=== PATIENT | female | born 1945 | race Caucasian/White ===

== ENCOUNTER → 2017-10-09 11:53 | Outpatient (CLI) | payer MEDICARE, OTHER, SELFPAY ==
--- NOTE | 2017-10-09 12:01 | BI_ITS ---
MAMMOGRAPHY - BILATERAL SCREENING REASON FOR EXAM: Female, 72 years old. Routine annual screening examination. PERTINENT HISTORY: Non-contributory. TECHNIQUE: Digital bilateral breast mariaelena (3D mammographic acquisition) in the CC and MLO projections. 2-D mediolateral oblique (MLO) and craniocaudad (CC) views of both breasts were obtained. CAD: Full Field Digital Mammography with Computer Added Detection was performed. COMPARISON: Comparison is made with prior study dated June 06, 2015 and May 23, 2014. FINDINGS: Breast Composition: There are scattered areas of fibroglandular density. There are no dominant masses or suspicious calcifications. Stable benign-appearing bilateral axillary lymph nodes. No other significant abnormalities are identified. There has been no significant change since the prior study. BI/SCREENING MAMM (CAD), BILAT IMPRESSION: Stable bilateral screening mammogram. Yearly follow-up mammogram recommended. (A) ASSESSMENT CATEGORY: BIRADS Category 2: Benign. A letter regarding these results will be sent to the patient by the facility within 30 days. Approximately 10% of breast cancers are not detected by mammography. A normal mammogram should not delay biopsy of a clinically suspicious abnormality. [id number] Electronically Signed: Ruiz Olson MD at 15:32 EDT Tel [phone], Service support ,
== END ==
PROVIDERS: Family Provider Family Medicine; PCP Family Medicine; Visit Provider Family Medicine
DX: Z12.31 Encounter for screening mammogram for malignant neoplasm of breast (principal)
CPT/HCPCS: 77063; 77067

== ENCOUNTER 2017-10-25 09:39 | Observation (INO) | payer MEDICARE, OTHER, SELFPAY ==
[2017-10-25 09:41] VITALS: BP 152/94; PULSE 80; RESP 14; TEMP 36.6; O2SAT 94; BMI 36.8
--- NOTE | 2017-10-25 09:44 | EKG12_ITS ---
Test Reason : CP Blood Pressure : / mmHG Vent. Rate : 085 BPM Atrial Rate : 085 BPM P-R Int : 146 ms QRS Dur : 088 ms QT Int : 390 ms P-R-T Axes : 033 032 056 degrees QTc Int : 464 ms Normal sinus rhythm Normal ECG Confirmed by MIKE CROWE, SPARKLE ([id number]), news videotape editor DANN LIZ ([id number]) on 10/27/2017 1:57:02 PM Referred By: JOSE ANGEL Confirmed By:SPARKLE MCKEON MD
--- NOTE | 2017-10-25 09:44 | RAD_ITS ---
STUDY: X-RAY CHEST REASON FOR EXAM: Female, 72 years old. Chest pain. TECHNIQUE: Single AP portable view of the chest. COMPARISON: 08/09/2008. FINDINGS: The lungs are clear and expanded. There is no demonstrated pleural abnormality. Normal size heart. Normal mediastinum and riki. Normal visualized pulmonary arteries. Normal visualized aortic arch and descending thoracic aorta. Thoracic spine is obscured. Normal visualized ribs, clavicles, and shoulders. There is no demonstrated abnormality of the visualized soft tissue structures of the upper abdomen. RAD/Chest 1 View (Portable) IMPRESSION: No active pulmonary disease. Electronically Signed: Oliver Robledo MD at 10:34 EDT Tel , Service support ,
--- NOTE | 2017-10-25 09:45 | ED.VISSUMM ---
- ER Visit Summary Date of Service: 10/25/17 Chief Complaint: Chest pain History of Present Illness: The patient is a 72 F presents to the emergency department with substernal chest pain. Patient was in her normal state of health. States she woke this morning feeling fine. She states she used her Advair inhaler. A few moments later, she began to have a very heavy substernal sensation. She describes it as a squeezing across her chest. She did feel mildly short of breath. She denies any nausea or diaphoresis. She states that she has never had pain like this before. She has no history of coronary vascular disease. She has had a remote stress test which was negative, but states was many years ago. There is a family history of cardiac disease. She does have remote history of smoking. She denies any current shortness of breath. The patient's pain was markedly improved with 2 sublingual nitro by squad. Physical Examination: Vital signs reviewed General: Well-nourished, well-developed Head: Normocephalic, atraumatic Eyes: Pupils equal and reactive, extraocular muscles intact Neck, supple, no lymphadenopathy Heart: Regular rate and rhythm Respiratory: No distress, clear bilaterally Abdomen: Soft, nontender, nondistended, no peritoneal signs Back: Nontender Extremities: Nontender, no edema, no cords Skin: Normal color no rash Neuro: Alert and oriented, no focal or lateralizing deficits Test Results: [] Emergency Department Course and Treatment: The patient did have marked improvement of her pain with sublingual nitro by squad. Nitropaste was applied to her chest. She remained pain-free. EKG does not show any acute ischemic change. Screening labs including cardiac enzymes are normal. Chest x-ray is obtained and is unremarkable. The patient has remained pain-free. However, given her age and risk factors along with significant family history I do feel that she would benefit from observation for cardiac rule out. Patient was discussed with the hospitalist and will be admitted to telemetry. Treatment Plan: [] Disposition: Admission Impression: 1. Chest pain This note was generated with [employer] dictation software. It may contain incorrect words, spelling, and punctuation that were not noted in review of the chart prior to signing ED Disposition - Plan for ED Patient: Chief Complaint: Chest Pain Referrals: Efren Cameron MD [Primary Care Provider] -
[2017-10-25 09:52] VITALS: O2SAT 96
[2017-10-25] MEDS: 0.9% Normal Saline 1,000 ML 150 ML IV (09:55)
[2017-10-25 09:56] VITALS: BP 152/76; PULSE 80
[2017-10-25] MEDS: Nitroglycerin Oint 1 INCH PACKET TRANSDERM. (09:56)
[2017-10-25 10:01] LABS: Absolute Lymphocyte Count 1.88 X10^3/ul (0.83-4.51); Absolute Neutrophil Count 3.7 X10^3/uL (2.0-7.7); Basophil# 0.04 X10^3/uL; Basophil% 0.6 % (0-1); Eosinophil# 0.27 X10^3/uL; Eosinophils% 4.1 % (0-5); Hematocrit 41.2 % (37-47); Hemoglobin 13.8 g/dl (12.0-15.0); Lymphocyte # 1.88 X10^3/ul (4.0); Lymphocyte % 28.8 % (19-41); Mean Corp Hgb Conc 33.5 g/gl (32-36); Mean Corpuscular Hgb 32.8 pg (27.0-32.0); Mean Corpuscular Volume 97.9 fL (81-99); Mean Platelet Vol. 8.8 fl (6.2-12.0); Monocyte# 0.62 X10^3/uL; Monocyte% 9.5 % (0-10); Neutrophil # 3.71 X10^3/uL (2.7-7.7); Neutrophil % 56.8 % (47-70); Platelet Count 228 K/mm3 (150-450); RBC Distribution Width CV 12.5 % (11.6-14.6); Red Blood Count 4.21 M/mm3 (4.2-5.4); White Blood Count 6.5 K/mm3 (4.4-11.0)
[2017-10-25 10:04] LABS: POSITIVE COUNT NO; POSITIVE DIFFERENTIAL NO; POSITIVE MORPHOLOGY NO
[2017-10-25 10:15] LABS: Anion Gap 7 (5-15); BUN 18 mg/dL (7-18); BUN/Creat Ratio 18.2 RATIO (10-20); Calcium,Total 8.9 mg/dL (8.5-10.1); Chloride 107 mmol/L (98-107); Creatinine, Serum 0.99 mg/dL (0.55-1.02); EST Glomerular Filtration Rate 59 mL/min (>60); Est Glom Filt Rate - Afr Amer 71 mL/min (>60); Estimated Creatinine Clearance 50.69 ml/min; Glucose 159 mg/dL (74-106); Sodium Level 140 mmol/L (136-145)
--- NOTE | 2017-10-25 10:16 | NURSING ---
NO LW OR POA
[2017-10-25 10:47] VITALS: BP 108/68; PULSE 72; RESP 16; O2SAT 95
--- NOTE | 2017-10-25 10:52 | NURSING ---
DR SUZETTE WALTER
--- NOTE | 2017-10-25 11:01 | NURSING ---
PCU OBS BERT BRADFORD
[2017-10-25 11:38] VITALS: BMI 35.6
[2017-10-25 11:46] VITALS: BMI 35.6
[2017-10-25 11:58] VITALS: BP 133/66; PULSE 60; PULSE 74; RESP 16; TEMP 36.4; O2SAT 97
[2017-10-25] MEDS: Acetaminophen 325 MG Tablet 650 MG PO (12:36)
[2017-10-25] MEDS: Gabapentin 100 MG Capsule PO (12:36)
[2017-10-25 13:29] VITALS: PULSE 77; RESP 18; O2SAT 95
[2017-10-25] MEDS: Albuterol 2.5 MG/3 ML VIAL.NEB. INHALATION (13:29)
--- NOTE | 2017-10-25 13:54 | HP.PCM_ITS ---
Problem List (1) GERD (gastroesophageal reflux disease) Status: Chronic (2) Seasonal asthma Status: Chronic (3) Chest pain Status: Acute (4) Hypertension Status: Chronic (5) Urinary incontinence Status: Chronic History of Present Illness Date of Admission: 10/25/17 Chief Complaint: Chest pain The patient is a 72 year old F who was in her normal state of health when she has developed midsternal chest pain that went to her back. Symptoms lasted about an hour and resolved when she was given nitroglycerin. Patient has had chest pain like this in the past due to an esophageal spasm. Patient had a workup in the emergency room and was unremarkable. I went to evaluate the patient after she was admitted to the floor and told her that due to the weekend that she would not be getting a stress test until this Friday. Patient stated that she would not stay around until then. She stated that she was told in the emergency room that she would be having a stress test tomorrow on the , which is a Friday. [] Past Medical History Past Medical History (Chronic Problems): Chronic Problems GERD (gastroesophageal reflux disease) (Chronic) Seasonal asthma (Chronic) Hypertension (Chronic) Urinary incontinence (Chronic) Allergies ceftriaxone sodium [From Rocephin] Allergy (Verified 10/25/17 09:44) Hives lorazepam [From Ativan] Adverse Reaction (Verified 10/25/17 09:44) Other SUICIDAL THOUGHTS Home Medications: Ambulatory Orders Medication Instructions Recorded Albuterol Inhaler [Ventolin Hfa] 1 - 2 puff INHALATION Q4H PRN PRN 02/18/14 Butalbital/Aspirin/Caffeine 1 - 2 each PO PRN PRN 02/18/14 [Fiorinal 50-325-40 mg Capsule] Duloxetine Hcl [Cymbalta] 60 mg PO DAILY 02/18/14 Gabapentin [Neurontin] 100 mg PO TIDCM 02/18/14 Lactobacillus Acidophilus 1 each PO DAILY 02/18/14 [Acidophilus] Losartan Potassium [Cozaar] 100 mg PO DAILY 02/18/14 Multivit-Min/FA/Lycopene/Lut 1 each PO DAILY 02/18/14 [Centrum Silver Tablet] Omeprazole [Prilosec] 40 mg PO DAILY 02/18/14 Trazodone HCl 100 mg PO QHS 02/18/14 Aspirin E.C. [Ecotrin] 81 mg PO DAILY@0800 tablet 10/25/17 Fluticasone/Salmeterol [Advair 1 puff PO DAILY 10/25/17 100-50 Diskus] Mirabegron [Myrbetriq] 50 mg PO DAILY 10/25/17 Oxybutynin 1 tab PO DAILY 10/25/17 Surgical History: - - Bladder stimulator for incontinence Psychiatric History: No pertinent psych hx Smoking Status: Former smoker Tobacco Use: Cigarettes - *Family History Maternal History Items: - - No heart disease Review of Systems Constitutional: Denies: Chills, Fever, Weight Change Eyes: Denies: Blurred vision, Double vision HEENT: Denies: Head Aches, Sinus Congestion, Sinus Drainage Cardiovascular: Reports: Chest Pain. Denies: Palpitations Respiratory: Denies: Cough, Shortness of breath at rest, Sputum production Gastrointestinal: Denies: Abdominal Pain, Nausea, Vomiting Genitourinary: Denies: Dysuria Musculoskeletal: Denies: Joint Pain, Joint Tenderness Skin: Denies: Rash, Wounds Neurological: Denies: Numbness, Tingling, Focal weakness Hematologic/ Lymphatic: Denies: Easy Bruising, Easy Bleeding, Hx of blood clot VTE Information - Inpt Only VTE Present on Admission: No VTE Pharm Prophylaxis ordered?: Yes Patient Problems: Active and Suspected Problems Chest pain (Acute) - Physical Exam General: Alert, Cooperative, No apparent distress HEENT: Atraumatic, Normocephalic Oral: Moist Mucosa, No Gingival or Mucosal Lesions/ Ulcerations Neck: No Nodes, Thyroid Normal Size and Texture Lungs: Clear to auscultation, Normal air movement, No rhonchi, No wheeze Cardiovascular: Regular rate, Regular Rhythm, Normal S1, Normal S2, No murmurs Abdomen: Bowel Sounds Present, Soft, Non Tender, Non-Distended, No Hepato- splenomegaly Extremities: No clubbing, No cyanosis, No edema, No Calf Tenderness Skin: No rashes, No breakdown Musculoskeletal: - - Minimally reproducible anterior chest wall tenderness. Psych/Mental Status: Normal Affect, Appropriate Vital Signs Temp Pulse Resp BP Pulse Ox 36.4 C L 60 16 133/66 H 97 10/25/17 11:58 10/25/17 11:58 10/25/17 11:58 10/25/17 11:58 10/25/17 11:58 Oxygen Delivery Method Room Air Weight: 103.2 kg Body Mass Index (BMI) 35.6 Laboratory Tests Past 24 Hrs 10/25/17 12:55 Troponin I < 0.02 Troponins were negative ?2 series. EKG was reviewed and showed normal sinus rhythm without any acute changes. Assessment/Plan Active and Suspected Problems Chest pain (Acute) 1. Chest pain: Atypical. Patient's calculated heart score is only 3. Patient requesting to go home which I feel is reasonable given that her story is really not convincing and she really has no family history and risk factor is really only her age and hypertension. Patient does have known history of reflux and has had an esophageal spasm before to which this is similar. I feel this is probably an esophageal spasm even though it was relieved with nitroglycerin. I feel it is reasonable for the patient get an outpatient stress test when that works for her. Patient advised if she does have any worsening of her symptoms or if anything changes to come back directly to the emergency room.
--- NOTE | 2017-10-25 13:54 | PCM.DC ---
- Discharge Diagnoses Current Active Problems: Current Active and Chronic Problems GERD (gastroesophageal reflux disease) (Chronic) Seasonal asthma (Chronic) Chest pain (Acute) Hypertension (Chronic) Urinary incontinence (Chronic) You will use the following diet at home:: No restrictions Your food should be the consistency of: Regular Discharge Activity: Return to Normal Activity Call your doctor if you observe: Fever of 101 or Higher, Shortness of breath, Chest pain Instructions: ED Chest Pain NonCardiac Allergies/Adverse Reactions: Allergies ceftriaxone sodium [From Rocephin] Allergy (Verified 10/25/17 09:44) Hives lorazepam [From Ativan] Adverse Reaction (Verified 10/25/17 09:44) Other SUICIDAL THOUGHTS Medications to take at Discharge Albuterol Inhaler [Ventolin Hfa] 1 - 2 puff INHALATION Q4H PRN PRN 02/18/14 Butalbital/Aspirin/Caffeine [Fiorinal 50-325-40 mg Capsule] 1 - 2 each PO PRN PRN 02/18/14 Duloxetine Hcl [Cymbalta] 60 mg PO DAILY 02/18/14 Gabapentin [Neurontin] 100 mg PO TIDCM 02/18/14 Lactobacillus Acidophilus [Acidophilus] 1 each PO DAILY 02/18/14 Losartan Potassium [Cozaar] 100 mg PO DAILY 02/18/14 Multivit-Min/FA/Lycopene/Lut [Centrum Silver Tablet] 1 each PO DAILY 02/18/14 Omeprazole [Prilosec] 40 mg PO DAILY 02/18/14 Trazodone HCl 100 mg PO QHS 02/18/14 Aspirin E.C. [Ecotrin] 81 mg PO DAILY@0800 tablet 10/25/17 Fluticasone/Salmeterol [Advair 100-50 Diskus] 1 puff PO DAILY 10/25/17 Mirabegron [Myrbetriq] 50 mg PO DAILY 10/25/17 Oxybutynin 1 tab PO DAILY 10/25/17 Orders to be completed after discharge: Stress Test Echo W/Contrast [ECHO] Location: None Selected Primary Care Physician: Efren Cameron MD [Primary Care Provider] - Within 2 Weeks Proposed Discharge Date: 10/25/17
--- NOTE | 2017-10-25 13:55 | PCM.DC.SUM ---
Discharge Date and Diagnosis - Problem List Patient Problems: Active and Suspected Problems Chest pain (Acute) Date of Admission: 10/25/17 Date of Discharge: 10/25/17 - Primary Discharge Diagnosis Active and Suspected Problems Chest pain (Acute) - Secondary Discharge Diagnosis Chronic Problems GERD (gastroesophageal reflux disease) (Chronic) Seasonal asthma (Chronic) Hypertension (Chronic) Urinary incontinence (Chronic) Hospital Course and Treatment Imaging Results: 10/26/17 05:55 Nuclear Stress Test - Chemical [NM] AM (NON MEDS) Operations: None Procedures: None Summary of Care Provided: The patient is a 72 year old F Brenda with chest pain. Patient's heart score was only 3 and her story was pretty unconvincing. Concerns for esophageal spasm. Patient stated that she is unable to stay until Friday because unfortunately not able to distress is on Friday. I feel that is reasonable given low heart score and atypical features. I will start patient take aspirin until her stress test is negative. Once that is been negative then she may discontinue the aspirin, heart rate is positive she will continue the aspirin follow-up cardiology. [] Discharge Diet: No Restrictions Discharge Activity: Return to Normal Activity Call your doctor if you observe: Fever of 101 or Higher, Shortness of breath, Chest pain Home Medications: Medications to take at Discharge Albuterol Inhaler [Ventolin Hfa] 1 - 2 puff INHALATION Q4H PRN PRN 02/18/14 Butalbital/Aspirin/Caffeine [Fiorinal 50-325-40 mg Capsule] 1 - 2 each PO PRN PRN 02/18/14 Duloxetine Hcl [Cymbalta] 60 mg PO DAILY 02/18/14 Gabapentin [Neurontin] 100 mg PO TIDCM 02/18/14 Lactobacillus Acidophilus [Acidophilus] 1 each PO DAILY 02/18/14 Losartan Potassium [Cozaar] 100 mg PO DAILY 02/18/14 Multivit-Min/FA/Lycopene/Lut [Centrum Silver Tablet] 1 each PO DAILY 02/18/14 Omeprazole [Prilosec] 40 mg PO DAILY 02/18/14 Trazodone HCl 100 mg PO QHS 02/18/14 Aspirin E.C. [Ecotrin] 81 mg PO DAILY@0800 tablet 10/25/17 Fluticasone/Salmeterol [Advair 100-50 Diskus] 1 puff PO DAILY 10/25/17 Mirabegron [Myrbetriq] 50 mg PO DAILY 10/25/17 Oxybutynin 1 tab PO DAILY 10/25/17 Other Amb Orders: Stress Test Echo W/Contrast [ECHO] Location: None Selected Primary Care Physician: Efren Cameron MD [Primary Care Provider] - Within 2 Weeks Patient Instructions: ED Chest Pain NonCardiac Minutes spent on discharge:: 28 Patient Condition:: Good Medical Necessity - Tobacco Use Smoking Status: Former smoker Tobacco Use: Cigarettes Meaningful Use Info Meaningful Use Diagnoses (Choose all that apply): None applicable Code Visit OBSV E&M: 17243 Initial observation care L2
== END 2017-10-25 15:02 | disposition home or self-care (01) ==
LOC: ED 11:07 → PCU 11:19
PROVIDERS: Emergency Provider Emergency Medicine; Family Provider Family Medicine; PCP Family Medicine
DX: R07.89 Other chest pain (principal); K21.9 Gastro-esophageal reflux disease without esophagitis; I10 Essential (primary) hypertension; R32 Unspecified urinary incontinence; J45.998 Other asthma; Z87.891 Personal history of nicotine dependence; Z79.899 Other long term (current) drug therapy; Z79.82 Long term (current) use of aspirin; J44.9 Chronic obstructive pulmonary disease, unspecified
CPT/HCPCS: 36415; 71045; 80048; 84484; 85025; 93005; 94640; 99218; 99284; J7030; A4216; G0378

== ENCOUNTER → 2017-11-06 06:22 | Outpatient (CLI) | payer MEDICARE, OTHER, SELFPAY ==
--- NOTE | 2017-11-06 17:06 | STRESSREP_ITS ---
Stress Test Report Date: 11/06/2017 Procedure: Pharmacologic stress nuclear imaging study Indications: Chest pain Consent: Per the patient Procedure: The patient underwent pharmacologic (Regadenoson) evaluation with a peak heart rate of 96 beats per minute (64 predicted maximal heart rate) and a peak blood pressure of 138/80 mmHg. The baseline ECG demonstrated normal sinus rhythm. The peak pharmacologic ECG demonstrated no obvious ECG changes. There were rare PVCs during pretest, pharmacologic infusion, and recovery. There was no complaint of chest discomfort during pharmacologic infusion or recovery. The examination was discontinued secondary to completion of protocol. Impression: 1. Pharmacologic (Regadenoson) evaluation 2. Peak pharmacologic ECG with no obvious ECG changes. 3. Rare PVCs during the test, pharmacologic infusion, and recovery 4. Nuclear images pending Myocardial perfusion imaging study: Technique: The patient was injected with 14.5 millicuries of technetium 99m Cardiolite and subsequently rest SPECT Cardiolite nuclear imaging was obtained in the horizontal long, vertical long, and short axis views. The patient underwent pharmacologic (Regadenoson) evaluation with a peak heart rate of 96 beats per minute (64 % percent predicted maximal heart rate) and a peak blood pressure of 138/80 mmHg. The patient was injected with 44.8 millicuries of technetium 99m Cardiolite and subsequently stress SPECT Cardiolite nuclear imaging was obtained in the horizontal long, vertical long, and short axis views. A gated Cardiolite study at peak stress was obtained. Interpretation: Rest and stress SPECT Cardiolite nuclear imaging status post realignment, normalization, and attenuation correction demonstrate relative uniform tracer uptake and myocardial perfusion appearing within normal limits. There is end systolic thickening and brightening. The gated Cardiolite study demonstrates myocardial thickening and inward wall motion. The reported LVEF is 74 %. Impression: 1. Rest and stress SPECT Cardiolite nuclear imaging demonstrate relative uniform tracer uptake and myocardial perfusion appearing within normal limits. 2. The gated Cardiolite study reports an LVEF of 74 %. This note was generated with [employer] software. It may contain incorrect words, spelling, and punctuation that were not noted in checking the note before signing.
== END ==
PROVIDERS: Family Provider Family Medicine; PCP Family Medicine; Visit Provider Physician Assistant
DX: R07.9 Chest pain, unspecified (principal)
CPT/HCPCS: 78452; 93017; A9500; A4216; J2785

== ENCOUNTER → 2017-11-18 15:57 | Outpatient (CLI) | payer MEDICARE, OTHER, SELFPAY | PROVIDERS: Family Provider Family Medicine; PCP Family Medicine; Visit Provider Otolaryngology Otolaryngology/Facial Plastic Surgery | DX: J32.9 Chronic sinusitis, unspecified (principal) | CPT/HCPCS: 87070; 87077; 87186; 87205 ==

== ENCOUNTER → 2017-11-27 11:08 | Outpatient (CLI) | payer MEDICARE, OTHER, SELFPAY ==
[2017-11-27 12:03] LABS: Potassium 4.4 mmol/L (3.5-5.1)
== END ==
PROVIDERS: Family Provider Family Medicine; PCP Family Medicine; Visit Provider Otolaryngology Otolaryngology/Facial Plastic Surgery
DX: Z79.899 Other long term (current) drug therapy (principal)
CPT/HCPCS: 36415; 84132

== ENCOUNTER → 2017-12-30 15:36 | Outpatient (CLI) | payer MEDICARE, OTHER, SELFPAY | PROVIDERS: Family Provider Family Medicine; PCP Family Medicine; Visit Provider Otolaryngology Otolaryngology/Facial Plastic Surgery | DX: J34.89 Other specified disorders of nose and nasal sinuses (principal) | CPT/HCPCS: 87070; 87205 ==

== ENCOUNTER → 2018-01-14 14:55 | Outpatient (CLI) | payer MEDICARE, OTHER, SELFPAY ==
--- NOTE | 2018-01-14 14:57 | CT_ITS ---
STUDY: CT MAXILLOFACIAL SINUSES REASON FOR EXAM: Female, 72 years old. Right maxillary pain after dental surgery in June. RADIATION DOSAGE (If Supplied By Facility): CTDIvol = ( 33.06 ) mGy, DLP = ( 763.6 ) mGycm TECHNIQUE: The patient was scanned in a multi detector CT scanner. High resolution axial imaging was performed without the administration of intravenous contrast material. Sagittal and coronal images were reconstructed. Individualized dose optimization techniques were used for this CT. COMPARISON: None. FINDINGS: FRONTAL SINUSES: Normal aeration, without mucosal inflammatory disease. ETHMOIDAL SINUSES: Status post partial ethmoidectomy with removal of the ethmoid meng of the inferior anterior ethmoid sinuses. There is a mild circumferential mucosal thickening in the surgical space. The remaining ethmoid sinuses are clear. MAXILLARY SINUSES: Polypoid mucosal thickening or retention cyst at the base of the right maxillary sinus with generalized mild to moderate circumferential thickening. There is a nasoantral window which is patent with a diameter of 5 mm. Also status post uncinectomy. On the left, there is a possible small retention cyst and moderate mucosal thickening at the base. There is a nasoantral window which is patent with a diameter of 9 mm. There is also uncinatectomy. SPHENOIDAL SINUSES: Normal aeration, without mucosal inflammatory disease. Status post partial left middle turbinectomy. Normal right middle turbinate. Slightly nodular mucosa of the bilateral inferior turbinates. Normal midline nasal septum. A dental bridge extends between the remaining molar and the canine tooth in the right maxilla. The teeth do not extend into the maxilla. There is no osteolytic or blastic bone change at this site. The visualized osseous structures are normal. Status post cataract surgery. CT/Sinus/Facial Bone IMPRESSION: Polypoid mucosal thickening and/or retention cyst at the base of the right maxillary sinus with generalized mild to moderate circumferential thickening status post nasoantral window and uncinectomy. The window is 5 mm in diameter and fully patent. Moderate mucosal thickening/possible small retention cyst at the base of the left maxillary sinus status post nasal antral window and uncinectomy and partial middle turbinectomy. The window is 9 mm in diameter and is fully patent. The patient is status post a partial anterior ethmoidectomy. There is a generalized mild mucosal thickening in the excavated area which is fully patent and communicates with the nasal cavity. Remaining ethmoid sinuses and sphenoid sinuses are normal. Normal right middle turbinate. Slightly nodular mucosa of the inferior turbinates. Right maxillary dental bridge between a remaining molar and the canine tooth without evidence of intrusion or osteolytic lesion of the maxilla. Electronically Signed: Melodie Tiwari MD at 16:24 EDT , Service support ,
== END ==
PROVIDERS: Family Provider Family Medicine; PCP Family Medicine; Visit Provider Otolaryngology Otolaryngology/Facial Plastic Surgery
DX: J32.9 Chronic sinusitis, unspecified (principal); Z98.818 Other dental procedure status
CPT/HCPCS: 70486

== ENCOUNTER → 2018-02-11 12:10 | Outpatient (CLI) | payer MEDICARE, OTHER, SELFPAY ==
--- NOTE | 2018-02-11 12:13 | CT_ITS ---
STUDY: CT LUMBAR SPINE WITHOUT CONTRAST REASON FOR EXAM: Female, 72 years old. DISC DEGENERATION, PATIENT STATES SHE INJURED HER BACK WHILE LIFTING SOMETHING HEAVY 40 YEARS AGO, HAS HAD BACK PAIN EVER SINCE THEN. RADIATION DOSAGE (If Supplied By Facility): CTDIvol = ( 30.00 ) mGy, DLP = ( 809.65 ) mGycm TECHNIQUE: The patient was scanned in a multi detector CT scanner. High resolution transaxial imaging was performed. Images were obtained from to . Sagittal and coronal images were reconstructed. Individualized dose optimization techniques were used for this CT. COMPARISON: None FINDINGS: Normal lumbar lordosis. There is no substantial scoliosis. Normal vertebrae of the lumbar spine. L1-2: Normal endplates. Normal disc height and morphology. Normal bilateral facet joints. Normal central canal and bilateral lateral recesses. Normal bilateral intervertebral neural foramina. L2-3: There is minimal disc space narrowing and endplate spondylosis. There is minimal disc osteophyte complex and facet hypertrophy without significant central canal or foraminal stenosis. L3-4: There is minimal disc space narrowing and endplate spondylosis. There is minimal disc osteophyte complex and facet hypertrophy without significant central canal or foraminal stenosis. L4-5: There is minimal disc space narrowing and endplate spondylosis. There is mild disc osteophyte complex and facet hypertrophy without significant central canal or foraminal stenosis. L5-S1: There is moderate disc space narrowing and endplate spondylosis. There is mild disc osteophyte complex and facet hypertrophy without significant central canal stenosis. There is mild bilateral foraminal stenosis. There is moderate aortoiliac atherosclerosis. CT/Spine Lumbar without Contrast IMPRESSION: Moderate degenerative changes at L5/S1. Electronically Signed: Caron Alcantar MD at 11:20 EDT Tel , Service support ,
== END ==
PROVIDERS: Family Provider Family Medicine; PCP Family Medicine; Visit Provider Orthopaedic Surgery
DX: M51.37 Other intervertebral disc degeneration, lumbosacral region (principal)
CPT/HCPCS: 72131

== ENCOUNTER → 2018-02-25 15:33 | Outpatient (CLI) | payer MEDICARE, OTHER, SELFPAY | PROVIDERS: Family Provider Family Medicine; PCP Family Medicine; Visit Provider Otolaryngology Otolaryngology/Facial Plastic Surgery | DX: J32.9 Chronic sinusitis, unspecified (principal) | CPT/HCPCS: 87070; 87205 ==

== ENCOUNTER → 2019-03-09 07:23 | Outpatient (CLI) | payer MEDICARE, BC, SELFPAY ==
[2019-02-03 09:22] VITALS: BMI 35.7
--- NOTE | 2019-03-10 10:01 | NEURO ---
NCS and/or EMG Patient Report Ordering Doctor: Herve Stanley DATE OF SERVICE: 03/09/19 This is a bilateral upper extremity nerve conduction study and a right upper extremity EMG performed on this 73-year-old female with pain in her hands and wrists for 1.5 years worse over the past 10 months. She reports a remote neck injury approximately 50 years ago. Bilateral upper extremity sensory and motor nerve conduction studies performed demonstrating moderate prolongation of the median motor distal latencies bilaterally somewhat worse on the right side, as well as prolongation of the median sensory latencies. The ulnar motor and sensory and radial sensory responses are normal. The median F waves are mildly prolonged, more so on the left side. Upper extremity needle electromyography is performed. Muscles evaluate include the abductor pollicis brevis, first dorsal osseous, brachioradialis, biceps, triceps and deltoid muscles. The abductor pollicis brevis did demonstrate mild increase in insertional activity and increased motor unit amplitude indicative of active denervation consistent with carpal tunnel syndrome at the wrist. All other muscles tested demonstrated normal insertional activity with absence of pathologic spontaneous activity. Motor unit potential recruitment pattern and amplitude was normal in all other muscles tested. Impression: Abnormal electrophysiologic study of the upper extremities consistent with bilateral carpal tunnel syndrome, moderate. There is no evidence of radiculopathy. Dictated using [email or web address] software, not proofread
== END ==
PROVIDERS: Family Provider Family Medicine; PCP Family Medicine; Referring Provider Orthopaedic Surgery; Visit Provider Orthopaedic Surgery
DX: M25.532 Pain in left wrist (principal); M25.531 Pain in right wrist; M79.642 Pain in left hand; M79.641 Pain in right hand
CPT/HCPCS: 95886; 95912

== ENCOUNTER → 2019-03-19 10:27 | Outpatient (CLI) | payer MEDICARE, BC, SELFPAY ==
[2019-02-03 09:22] VITALS: BMI 35.7
--- NOTE | 2019-03-19 10:30 | ECHOCS_ITS ---
Reason For Study: CAD Procedure This was a 2D Doppler, Color Flow transthoracic echocardiogram. The study was technically difficult. Contrast injection was performed. Exam performed in department. Left Ventricle Normal LV size. Left ventricular systolic function is normal. The estimated ejection fraction is 65 %. Transmitral doppler flow suggestive of impaired relaxation of left ventricle. No regional wall motion abnormalities noted. Right Ventricle Normal RV size. Normal systolic function. Atria Normal left atrium. Normal right atrium. Mitral Valve Normal mitral valve. Mild (1+) eccentric mitral valve insufficiency. Tricuspid Valve Normal tricuspid valve. Mild tricuspid valve insufficiency. Pulmonary artery systolic pressure is 26 mmHg. Aortic Valve The aortic valve is not well visualized. Great Vessels Normal aortic root. The pulmonary artery is normal size. Normal inferior vena cava. Pericardium/Pleural No pericardial effusion. Medication 22 gauge I.V. with prn adaptor inserted into right arm. Diluted definity 4.0ml given slow IV push to enhance endocardial definition. MMode/2D Measurements & Calculations LVIDd: 4.0 cm IVSd: 1.1 cm Ao root diam: 3.4 cm LVIDs: 2.5 cm LVPWd: 1.1 cm RVDd: 4.0 cm FS: 37.0 % LAV(MOD-bp): 48.5 ml LVAd ap4: 34.5 cm2 SV(MOD-sp4): 65.7 ml LAV(MOD-bp) Indexed: 22.4 ml/m2 EDV(MOD-sp4): 121.1 ml LAV(MOD-sp2): 54.5 ml EDV(sp4-el): 124.0 ml LAV(MOD-sp4): 43.0 ml LVAs ap4: 21.5 cm2 ESV(MOD-sp4): 55.4 ml ESV(sp4-el): 54.9 ml EF(MOD-sp4): 54.3 % EF(sp4-el): 55.7 % SV(sp4-el): 69.1 ml LA A4 area: 16.8 cm2 LA dimension(2D): 3.6 cm RA A4 area: 12.7 cm2 Time Measurements MV dec time: 0.29 sec Doppler Measurements & Calculations MV E max nikolay: 103.3 cm/sec Lat Peak E' Nikolay: 8.8 cm/sec Med Peak E' Nikolay: 7.0 cm/sec MV A max nikolay: 127.5 cm/sec E/E' lat: 11.8 E/E' med: 14.8 MV E/A: 0.81 Ao V2 max: 153.7 cm/sec LV V1 max: 123.9 cm/sec TR max nikolay: 235.3 cm/sec Ao max P.4 mmHg LV V1 max P.1 mmHg TR max P.2 mmHg Interpretation Summary Normal LV size. Left ventricular systolic function is normal. The estimated ejection fraction is 65 %. Mild (1+) eccentric mitral valve insufficiency. Contrast injection was performed. Ordering Physician: Philip Armendariz Referring Physician: ADALID LOPEZ Performed By: Christina Mcadams, RDCS, RVT
== END ==
PROVIDERS: Family Provider Family Medicine; PCP Family Medicine; Referring Provider Internal Medicine Cardiovascular Disease; Visit Provider Internal Medicine Cardiovascular Disease
DX: I10 Essential (primary) hypertension (principal); I25.10 Atherosclerotic heart disease of native coronary artery without angina pectoris
CPT/HCPCS: 93306; Q9957; A4216; C8929

== ENCOUNTER 2019-05-27 09:13 | Emergency (ER) | payer MEDICARE, BC, SELFPAY ==
[2019-02-03 09:22] VITALS: BMI 35.7
[2019-05-27 09:14] VITALS: BP 163/80; PULSE 103; RESP 18; TEMP 36.3; O2SAT 97; BMI 37.0
--- NOTE | 2019-05-27 09:32 | ED.VISSUMM ---
- ER Visit Summary Date of Service: 05/27/19 Chief Complaint: The patient and intermittent epigastric abdominal pain History of Present Illness: The patient is a 73 F history of reflux, hiatal hernia and hypertension. Patient had a prior appendectomy, cholecystectomy and total hysterectomy. She states that she been constipated for approximately a week. Took some MiraLAX and had minimal results. She denies any melena. She is had mild nausea but no vomiting. She is also for the last 2 months had some intermittent epigastric abdominal pain. No fever or chills. No melena. No dysuria, urgency or frequency. No chest pain or shortness of breath. Primary care physician sent her to the ER. Physical Examination: Older female no acute distress vital signs stable afebrile. HEENT exam unremarkable. Neck nontender. Lungs clear to auscultation bilaterally. Heart regular rhythm no murmur. Abdomen is soft nondistended normal bowel sounds really no peritoneal signs. She describes currently only mild to minimal epigastric discomfort but is not really reproducible. There is no pulsatile mass. The right upper right lower quadrant unremarkable. There is no hernias or masses. No signs of obstruction. Moves all 4 extremities. Calves nontender without edema. Neurologically she is awake and alert. Test Results: See normal. White count 6 hemoglobin 13. Electrolytes normal normal creatinine gap. Liver enzymes normal. Lipase normal. KUB shows increased stool and stool in the rectum. No obstruction. There is also a bladder stimulator seen. I went over all test results with patient. On repeat exam at 12:37 PM her abdomen is benign. Emergency Department Course and Treatment: Due to her intermittent epigastric pain which very well may be reflux or gastritis I am going screening labs. We will get a single view KUB for the possible constipation and treat that if seen. Treatment Plan: Double up on her reflux medication at home. Follow-up with your doctor if not improving. Magnesium citrate for constipation. Disposition: Discharge Impression: Constipation Epigastric abdominal pain of uncertain etiology This note was generated with [employer] dictation software. It may contain incorrect words, spelling, and punctuation that were not noted in review of the chart prior to signing ED Disposition - Plan for ED Patient: Referrals: Efren Cameron MD [Primary Care Provider] -
[2019-05-27 10:03] LABS: Absolute Lymphocyte Count 1.34 X10^3/uL (0.83-4.51); Absolute Neutrophil Count 4.3 X10^3/uL (2.0-7.7); Basophil# 0.04 X10^3/uL; Basophil% 0.6 % (0-1); Eosinophil# 0.14 X10^3/uL; Eosinophils% 2.2 % (0-5); Hematocrit 40.9 % (37-47); Hemoglobin 13.6 g/dL (12.0-15.0); Lymphocyte # 1.34 X10^3/ul (4.0); Lymphocyte % 21.2 % (19-41); Mean Corp Hgb Conc 33.3 g/dL (32-36); Mean Corpuscular Hgb 32.4 pg (27.0-32.0); Mean Corpuscular Volume 97.4 fL (81-99); Monocyte# 0.53 X10^3/uL; Monocyte% 8.4 % (0-10); NRBC Flagged by Analyzer 0 % (0-5); Neutrophil # 4.26 X10^3/uL (2.7-7.7); Neutrophil % 67.4 % (47-70); Platelet Count 200 K/mm3 (150-450); RBC Distribution Width CV 12.1 % (11.6-14.6); RBC Distribution Width SD 43.7 fl (35.1-43.9); White Blood Count 6.3 K/mm3 (4.4-11.0)
--- NOTE | 2019-05-27 10:10 | RAD_ITS ---
STUDY: X-RAY - ABDOMEN/PELVIS REASON FOR EXAM: Female, 73 years old. Constipation. Abdominal pain. History of bladder stimulator. TECHNIQUE: AP supine and upright views of the abdomen and pelvis. COMPARISON: None. FINDINGS: Normal visualized lung bases. There is a moderate amount of colonic fecal material. The visualized liver, spleen and kidneys are grossly normal in size and morphology. A right-sided bladder stimulator is seen. The electrode is in the mid pelvis. There are degenerative changes of the visualized lumbar spine. RAD/Abdomen Single View IMPRESSION: Moderate amount of fecal material is seen in the colon. Electronically Signed: Ruiz Olson, at 10:48 EST , Service support ,
[2019-05-27 10:16] LABS: AST(SGOT) 15 U/L (15-37); Alanine Aminotransfer ALT/SGPT 29 U/L (13-56); Albumin, Serum 3.6 g/dL (3.2-5.0); Alkaline Phosphatase 96 U/L (45-117); Anion Gap 7 (5-15); BUN 18 mg/dL (7-18); BUN/Creat Ratio 17.6 RATIO (10-20); Bilirubin, Direct 0.19 mg/dL (0.00-0.30); Calcium,Total 9.4 mg/dL (8.5-10.1); Chloride 108 mmol/L (98-107); Creatinine, Serum 1.02 mg/dL (0.55-1.02); EST Glomerular Filtration Rate 57 mL/min (>60); Est Glom Filt Rate - Afr Amer 68 mL/min (>60); Estimated Creatinine Clearance 48.48 ml/min; Globulin 3.7 g/dL (2.2-4.2); Glucose 153 mg/dL (74-106); Lipase 120 U/L (73-393); Potassium 4.1 mmol/L (3.5-5.1); Protein, Total 7.3 g/dL (6.4-8.2); Sodium Level 142 mmol/L (136-145)
--- NOTE | 2019-05-27 12:39 | ED.DEP ---
ED Disposition - Plan for ED Patient: Disposition: Home or Assisted Living Instructions: CONSTIPATION (Adult), ABDOMINAL PAIN, Unknown Cause, (Female) Referrals: Efren Cameron MD [Primary Care Provider] - 1 Week if not improving Additional Instructions: Use 1 entire bottle magnesium citrate at home. He should have a large bowel movement within 2 to 4 hours if not you can use a second bottle. All your labs were normal today. The epigastric abdominal pain is more than likely reflux or gastritis. Increase your reflux medication to either 2 pills once a day or 1 pill twice a day. Do this for a week if not improving follow-up with your doctor.
[2019-05-27] MEDS: Magnesium Citrate 300 ML PO (12:45)
[2019-05-27 12:46] VITALS: PULSE 81; RESP 20; O2SAT 98
--- NOTE | 2019-05-27 12:46 | ED.RN ---
THIS NURSE REVIEWED D/C INSTRUCTIONS WITH PT. PT VERBALIZED UNDERSTANDING OF INSTRUCTIONS. IV D/C. IV CATHETER INTACT. PT TOLERATED WELL. PT DENIES FURTHER NEEDS OR QUESTIONS AT THIS TIME.
== END 2019-05-27 12:47 | disposition home or self-care (01) ==
PROVIDERS: Emergency Provider Emergency Medicine; Family Provider Family Medicine; PCP Family Medicine
DX: K59.00 Constipation, unspecified (principal); R10.13 Epigastric pain; I10 Essential (primary) hypertension; K21.9 Gastro-esophageal reflux disease without esophagitis; Z90.49 Acquired absence of other specified parts of digestive tract
CPT/HCPCS: 74018; 80048; 80076; 83690; 85025; 99284; A4216

== ENCOUNTER 2019-11-19 05:54 | Day surgery (SDC) | payer MEDICARE, BC, SELFPAY ==
[2019-11-19 06:19] VITALS: BP 126/72; PULSE 91; RESP 15; TEMP 36.6; O2SAT 96; BMI 37.5
[2019-11-19] MEDS: Lactated Ringers 1,000 ML 100 ML IV (06:35)
[2019-11-19] MEDS: Ciprofloxacin 400 MG/200 ML BAG 200 MG IV (06:36)
--- NOTE | 2019-11-19 07:30 | HP.PCM_ITS ---
History of Present Illness Date of Admission: 11/19/19 Chief Complaint: InterStim device removal request by patient The patient is a 74 year old female with multiple medical problems who has a history of mixed urinary incontinence she is undergone several sling procedures and now she has severe urge incontinence she tried Botox with no success she tried medications with no success and had an InterStim implant a few years ago which is improved her bladder control but she still on medication. Recently she suffered a mini stroke and she saw neurologist who recommended that they get an MRI of the brain and spine however because the InterStim device is not MRI compatible she is not able to get her needed MRI and therefore we can remove the InterStim device so she can proceed with an MRI by her neurologist. Past Medical History Past Medical History (Chronic Problems): Chronic Problems (Last Reviewed 02/03/19 @ 11:[address] Philip Armendariz MD) Essential (primary) hypertension (Chronic) Medical History: Medical History (Last Reviewed 11/19/19 @ 07:[address] Scottie Guadarrama MD) Essential (primary) hypertension (Chronic) I10 GERD (gastroesophageal reflux disease) K21.9 Osteoarthritis M19.90 Seasonal asthma J45.998 Urinary incontinence R32 Allergies ceftriaxone sodium [From Rocephin] Allergy (Verified 11/19/19 06:17) Hives codeine Allergy (Verified 11/19/19 06:17) hives doxycycline Allergy (Verified 11/19/19 06:17) Hives lorazepam [From Ativan] Adverse Reaction (Verified 11/19/19 06:17) Other SUICIDAL THOUGHTS Home Medications: Ambulatory Orders Medication Instructions Recorded Albuterol Inhaler [Ventolin Hfa] 1 - 2 puff INHALATION Q4H PRN PRN 02/18/14 Butalbital/Aspirin/Caffeine 1 - 2 ea PO PRN PRN 02/18/14 [Fiorinal 50-325-40 mg Capsule] Gabapentin [Neurontin] 100 mg PO TIDCM PRN 02/18/14 Lactobacillus Acidophilus 1 ea PO DAILY 02/18/14 [Acidophilus] Trazodone HCl 100 mg PO QHS 02/18/14 Fluticasone/Salmeterol [Advair 1 puff PO DAILY PRN 10/25/17 100-50 Diskus] Mirabegron [Myrbetriq] 50 mg PO QODAY 10/25/17 alprazolam 0.5 mg tablet 0.5 mg PO PRN PRN 02/03/19 cyclobenzaprine 10 mg tablet 10 mg PO TID PRN 02/03/19 duloxetine 60 mg capsule,delayed 60 mg PO DAILY cap 02/03/19 release pantoprazole 40 mg tablet,delayed 40 mg PO DAILY #30 tab 02/03/19 release Absorbmax 1 cap PO BID 11/17/19 Aspirin [Aspir 81] 81 mg PO DAILY 11/17/19 Candesartan Cilexetil [Atacand] 16 mg PO DAILY 11/17/19 Folic Acid/Vit B Complex and C 400 mcg PO DAILY 11/17/19 [B-Complex with Vit C Caplet] Oxybutynin Chloride [Oxybutynin 15 mg PO QODAY 11/17/19 Chloride ER] Prevagen 1 cap PO DAILY 11/17/19 Pyridoxine HCl [Vitamin B-6] 100 mg PO DAILY 11/17/19 Trimethoprim [Trimpex] 100 mg PO QHS 11/17/19 Surgical History: Surgical History (Last Reviewed 02/03/19 @ 11:[address] Philip Armendariz MD) History of bladder surgery Z98.890 History of bladder suspension procedure Z98.890, Z87.448 History of hysterectomy Z90.710 History of inguinal hernia repair Z98.890, Z87.19 History of knee surgery Z98.890 bilateral History of left heart catheterization Onset Date: 2004 Z98.890 1998, 2004 Hx of cholecystectomy Z90.49 Surgical History: - - Bladder stimulator for incontinence Psychiatric History: No pertinent psych hx Smoking Status: Former smoker Tobacco Use: Non-smoker - *Family History Maternal Family History: Family History (Last Reviewed 02/03/19 @ 11:[address] Philip Armendariz MD) Sister Heart disease Diabetes Hypertension Father Diabetes Heart disease Mother Hypertension History Items: - - No heart disease Review of Systems Constitutional: Denies: Chills, Fever, Weight Change HEENT: Denies: Head Aches, Sinus Congestion, Sinus Drainage Cardiovascular: Denies: Chest Pain, Palpitations Respiratory: Denies: Cough, Shortness of breath at rest, Sputum production Gastrointestinal: Denies: Abdominal Pain, Nausea, Vomiting Genitourinary: Denies: Dysuria Musculoskeletal: Denies: Joint Pain, Joint Tenderness Skin: Denies: Rash, Wounds Neurological: Denies: Numbness, Tingling, Focal weakness Psychiatric: Denies: Anxiety, Depression, Homicidal Ideations, Suicidal Ideations Hematologic/ Lymphatic: Denies: Easy Bruising, Easy Bleeding VTE Information - Inpt Only VTE Present on Admission: No VTE Mechan Device Prophylaxis: SCD's - Physical Exam Vitals/I&O's: Vital Signs Temp Pulse Resp BP Pulse Ox 97.8 F 91 15 126/72 H 96 11/19/19 06:19 11/19/19 06:19 11/19/19 06:19 11/19/19 06:19 11/19/19 06:19 Oxygen Delivery Method Room Air Weight: 108.7 kg Body Mass Index (BMI) 37.5 General: Alert, Oriented x3, Cooperative HEENT: Atraumatic, PERRLA, EOMI, Normocephalic Neck: Supple, No JVD, Negative Carotid Bruits Lungs: Clear to auscultation, Normal air movement Cardiovascular: Regular rate, No murmurs Abdomen: Bowel Sounds Present, Soft, Non Tender Extremities: No edema, Capillary Refill Less than 3 Seconds Skin: No rashes, No breakdown Musculoskeletal: No Tenderness to Palpation of Joints or Extremities Neurological: Cranial nerves II-XII grossly intact Psych/Mental Status: Normal Affect, Appropriate Microbiology Past 72 Hours 11/18/19 11:23 Mucosa - Nasopharyngeal Coronavirus COVID-19 PCR - Preliminary Laboratory Results 11/18/19 11:23: COVID-19 (LORIE) Cancelled Current Medications Ciprofloxacin (Cipro) 400 mg in 200 mls @ 200 mls/hr IV PREOP ONE Stop: 11/19/19 07:59 Last Admin: 11/19/19 06:36 Dose: 200 mls/hr Documented by: Lactated Ringer's () 1,000 mls @ 100 mls/hr IV .Q10H FRANCESCO Last Admin: 11/19/19 06:35 Dose: 100 mls/hr Documented by: Assessment/Plan All Active Problems (Last Reviewed 02/03/19 @ 11:[address] Philip Armendariz MD) Chest pain (Resolved) Plan for removal of InterStim device. Essential Procedure Criteria Procedure Essential: Yes Criteria Note: On 09/21/2019 the [place] Department of Health ([facility]) Public Order signed by [facility] Director Davina Juárez M.D., regarding the Management of Non- Essential Surgeries and Procedures for the purpose of preserving Personal P rotective Equipment (PPE) and critical hospital capacity and resources within [place] went into effect as of 09/22/2019 at 5:00PM. According to the [facility] Public Order: This action will remain in full force and effect until the State of Emergency declared by the Governor no longer exists or the Director of the [facility] rescinds or modifies this Order.. This [facility] order stated all non-essential or elective surgeries and procedures that utilize PPE should be delayed unless there is undue risk to the current or future health of a patient. After reviewing the aforementioned [facility] Public Order and the patients clinical case, I have determined that the scheduled procedure meets the criteria to go forward. Risk to Patient if Procedure Delayed: Risk of rapidly worsening to severe sy mptoms if delayed
--- NOTE | 2019-11-19 07:32 | DCINST_ITS ---
Discharge Diet: Light diet - advance as tolerated Discharge Activity: Return to Normal Activity Call your doctor if your incision/area has: Continuous Slow Oozing, Sudden Increased Bleeding Cleanse incision/area with: Soap & Water Allergies/Adverse Reactions: Allergies ceftriaxone sodium [From Rocephin] Allergy (Verified 11/19/19 06:17) Hives codeine Allergy (Verified 11/19/19 06:17) hives doxycycline Allergy (Verified 11/19/19 06:17) Hives lorazepam [From Ativan] Adverse Reaction (Verified 11/19/19 06:17) Other SUICIDAL THOUGHTS Medications to take at Discharge Albuterol Inhaler [Ventolin Hfa] 1 - 2 puff INHALATION Q4H PRN PRN 02/18/14 Butalbital/Aspirin/Caffeine [Fiorinal 50-325-40 mg Capsule] 1 - 2 ea PO PRN PRN 02/18/14 Gabapentin [Neurontin] 100 mg PO TIDCM PRN 02/18/14 Lactobacillus Acidophilus [Acidophilus] 1 ea PO DAILY 02/18/14 Trazodone HCl 100 mg PO QHS 02/18/14 Fluticasone/Salmeterol [Advair 100-50 Diskus] 1 puff PO DAILY PRN 10/25/17 Mirabegron [Myrbetriq] 50 mg PO QODAY 10/25/17 alprazolam 0.5 mg tablet 0.5 mg PO PRN PRN 02/03/19 cyclobenzaprine 10 mg tablet 10 mg PO TID PRN 02/03/19 duloxetine 60 mg capsule,delayed release 60 mg PO DAILY cap 02/03/19 pantoprazole 40 mg tablet,delayed release 40 mg PO DAILY #30 tab 02/03/19 Absorbmax 1 cap PO BID 11/17/19 Aspirin [Aspir 81] 81 mg PO DAILY 11/17/19 Candesartan Cilexetil [Atacand] 16 mg PO DAILY 11/17/19 Folic Acid/Vit B Complex and C [B-Complex with Vit C Caplet] 400 mcg PO DAILY 11/17/19 Oxybutynin Chloride [Oxybutynin Chloride ER] 15 mg PO QODAY 11/17/19 Prevagen 1 cap PO DAILY 11/17/19 Pyridoxine HCl [Vitamin B-6] 100 mg PO DAILY 11/17/19 Trimethoprim [Trimpex] 100 mg PO QHS 11/17/19 Primary Care Physician: Efren Cameron MD [Primary Care Provider] - Test Results: Test results from this visit will be discussed in further detail at your follow- up appointment, if applicable. Please Follow Up With: Scottie Guadarrama MD When: call for post op appt next week.
--- NOTE | 2019-11-19 08:17 | PCM.OPRPT ---
Report of Operation Date of Procedure: 11/19/19 Pre-Operative Diagnosis: Nonworking InterStim implant Post-Operative Diagnosis: Same Surgery/Procedure Performed:: Removal of InterStim device stage I and II Description of Surgical Findings:: 74-year-old female who has had some neurological issues she is seeing a neurologist and is recommended an MRI of the spine. However she has a old InterStim device implanted that is not MRI compatible. She wants to have the implant removed so she can undergo an MRI the spine is told that this is necessary by her neurologist. She is hoping that the MRI the spine is going to help her medical conditions. So I agreed to proceed with removal of the InterStim device I did offer the option to implant an MRI compatible device but she does not want a replacement device at this point she also thinks that device is not working very well anyways. Patient was taken back to the operating room at the smooth induction of general anesthesia she was placed supine on the table and then she was placed in prone position facedown she underwent MAC local sedation. We brought in the C arm to identify the generator that was on the patient's right side and also the implant that was in the patient's left side. The implant on fluoroscopy appeared to be in the proper position slightly straighter than perfect but still was appeared to be in the S3 foramen was not did not look but dislodged her I did place the lead he can see the lead following all the way across the back and you can see the for leads in the proper position the S3 foramen on AP view of the pelvis. We then infiltrated above the generator with lidocaine and then we made an incision in the skin until we encountered the generator the generator was in a pseudo-sac, the pseudo-sac was opened up with sharp scissors the generator was then grabbed with a large Maddy clamp and pulled out through the small incision. We then placed a clamp on the tined lead and we cut the lead and remove the generator I then gently tugged on the lead to see where the implant was in the midline and he could see the small scar lateral to the midline and small tugging and could feel small tugging underneath the skin so then I infiltrated in the midline above the S3 foramen the entry point of the lead and infiltrated the skin and made a small 2 cm incision then using tugging technique and using a Maddy I was able to get underneath the tined lead in the midline after this was done then the lead was tunneled back to the original entry point. I then used sharp hemostat to then dissect the tined lead free all the way down to the insertion point of the S3 foramen the lead only very gentle traction was used to identify where the lead was was held in place with the tines. Used a hemostat to free the lead from the tines. Used a hemostat to freed up completely all the way circumferentially and then at that point the lead then became free and pulled out through the lead insertion site quite easily. I inspected the lead all 4 sites were intact the lead was completely intact except where was cut off and the generator. After confirming that the entire tined lead was removed the entire generator was moved and I irrigated both incisions copiously with sterile saline. I then closed the midline lead insertion site with to 3-0 Vicryl's imbricated fashion this approximated the skin nicely Steri-Strips and dressing was placed on this I then closed the generator pocket in 2 layers first layer was a 3-0 Vicryl and then the second layer was with a running 4-0 Monocryl stitch. Once the second site was closed then we place Steri-Strips and bandage on this site patient's anesthetic was reversed she was placed supine on the cart taken back to the PACU in stable condition and she will follow-up with me next week for checkup. Type of Anesthesia:: Local MAC - Admit VTE Documentation VTE Present on Admission: No VTE Mechan Device Prophylaxis: SCD's
[2019-11-19 08:25] VITALS: BP 107/64; BP 126/72; PULSE 83; RESP 16; TEMP 36.8; O2SAT 92
[2019-11-19 08:30] VITALS: BP 126/72; BP 97/52; PULSE 79; RESP 16; O2SAT 93
[2019-11-19 08:35] VITALS: BP 108/51; BP 126/72; PULSE 73; RESP 16; O2SAT 97
[2019-11-19 08:40] VITALS: BP 117/59; BP 126/72; PULSE 76; RESP 16; TEMP 36.4; O2SAT 92
[2019-11-19 09:22] VITALS: BP 126/72
== END 2019-11-19 09:26 | disposition home or self-care (01) ==
LOC: SDC 05:55 → AC 05:56
PROVIDERS: PCP Family Medicine; Referring Provider Urology; Visit Provider Urology
PROC: (CPT 64585; principal; 2019-11-19 07:15)
DX: N39.41 Urge incontinence (principal); N32.81 Overactive bladder; R35.0 Frequency of micturition; I10 Essential (primary) hypertension; K21.9 Gastro-esophageal reflux disease without esophagitis; J45.998 Other asthma; M19.90 Unspecified osteoarthritis, unspecified site; Z79.51 Long term (current) use of inhaled steroids; Z79.82 Long term (current) use of aspirin; Z79.899 Other long term (current) drug therapy; Z87.891 Personal history of nicotine dependence; Z86.73 Personal history of transient ischemic attack (TIA), and cerebral infarction without residual deficits; Z88.1 Allergy status to other antibiotic agents; Z90.710 Acquired absence of both cervix and uterus; Z11.59 Encounter for screening for other viral diseases
CPT/HCPCS: 00400; 64585; 64595; 76000; 87635; G2023; J7120; J0744; U0002

== ENCOUNTER → 2020-08-11 13:12 | Outpatient (CLI) | payer MEDICARE, BC, SELFPAY ==
[2020-02-01 09:21] VITALS: BMI 36.6
--- NOTE | 2020-08-11 13:18 | RAD_ITS ---
STUDY: X-RAY CHEST REASON FOR EXAM: Female, 75 years old. COUGH x2 MONTHS, HX OF HTN AND ASTHMA TECHNIQUE: PA and lateral views of the chest. COMPARISON: 10/25/2017 FINDINGS: The lungs are clear and expanded. There is no demonstrated pleural abnormality. Normal size heart. Normal mediastinum and riki. Normal visualized pulmonary arteries. Normal visualized aortic arch and descending thoracic aorta. Normal visualized thoracic spine. Normal visualized ribs, clavicles, and shoulders. There is no demonstrated abnormality of the visualized soft tissue structures of the upper abdomen. RAD/Chest PA and Lateral IMPRESSION: Normal x-ray examination of the chest. Electronically Signed: Alfred Farrell MD at 9:06 EST Tel , Service support ,
[2020-08-11 15:28] LABS: Erythrocyte Sedimentation Rate 42 mm/hr (0-30)
[2020-08-11 15:40] LABS: BNP,B-Type NATRIURETIC PEPTIDE 12.1 pg/mL (0-100)
[2020-08-11 15:50] LABS: Rheumatoid Factor < 10.0 IU/mL (<15)
[2020-08-14 12:07] LABS: Anti-Scleroderma-70 AB <0.2 AI (0.0-0.9)
[2020-08-14 17:02] LABS: ANTINUCLEAR ANTIBODIES DIRECT Negative (Negative)
== END ==
PROVIDERS: PCP Family Medicine; Referring Provider Internal Medicine Pulmonary Disease; Visit Provider Internal Medicine Pulmonary Disease
DX: J45.30 Mild persistent asthma, uncomplicated (principal); R05 Cough
CPT/HCPCS: 36415; 71046; 83880; 85652; 86038; 86140; 86235; 86431

== ENCOUNTER → 2020-10-09 07:00 | Outpatient (CLI) | payer MEDICARE, BC, SELFPAY ==
[2020-09-29 09:57] VITALS: BMI 36.3
--- NOTE | 2020-10-09 17:41 | STRESSREP ---
Stress Test Report Pharmacologic myocardial perfusion stress test. 75-year-old lady with a history of dyspnea on exertion. Stress protocol: Resting EKG demonstrates normal sinus rhythm with a rate of 83 bpm normal intervals are noted resting blood pressure is 1 and 24/70 4 mmHg. 0.4 mg of regadenoson was infused per usual protocol followed by rapid intravenous saline flush injection continuous EKG monitoring was performed. The maximum heart rate attained was 112 bpm which was 76% of max impacted heart rate the maximum workload was 1 metabolic equivalent. At rest there were no ST or T wave changes noted to suggest abnormal flow reserve at peak infusion nonspecific ST changes were noted which did not meet the criteria for ischemia. No clinical angina was noted. The patient was noted to complain of midsternal chest tightness post infusion. Myocardial perfusion protocol. 14.0 mCi of technetium 99m sestamibi was injected at rest. 0.4 mg of regadenoson was infused per usual protocol. At peak infusion 45.0 mCi of technetium 99m sestamibi was injected stress images were obtained stress and rest images were reconstructed and compared in the short axis vertical long and horizontal long axis. Gated images were also obtained. Perfusion SPECT analysis: Review of the stress images demonstrate normal uptake of tracer noted in all areas of the myocardium. The resting images similarly demonstrate normal uptake of tracer noted in all areas of the myocardium. There were no areas of reversibility noted to suggest ischemia. No previous infarct is noted. Gated SPECT analysis: The gated ejection fraction is 50%. Conclusion: Normal pharmacologic myocardial perfusion stress test. Post test chest discomfort of unknown significance. Preserved ejection fraction.
== END ==
PROVIDERS: PCP Family Medicine; Referring Provider Nurse Practitioner Family; Visit Provider Nurse Practitioner Family
DX: I20.8 Other forms of angina pectoris (principal); R06.00 Dyspnea, unspecified; I10 Essential (primary) hypertension; R53.83 Other fatigue
CPT/HCPCS: 78452; 93017; A9500; A4216; J2785

== ENCOUNTER → 2020-10-16 13:19 | Outpatient (CLI) | payer MEDICARE, BC, SELFPAY ==
[2020-09-29 09:57] VITALS: BMI 36.3
--- NOTE | 2020-10-16 13:23 | CT_ITS ---
STUDY: CTA CHEST REASON FOR EXAM: Female, 75 years old. DYSPNEA RADIATION DOSAGE (If Supplied By Facility): CTDIvol = ( 11.395 ) mGy, DLP = ( 1077.31 ) mGycm TECHNIQUE: The examination was performed with the intravenous administration of IV 100mL Isovue-370. Post-processing of the angiographic images was performed, with multiplanar reformation and 3D reconstruction. Individualized dose optimization techniques were used for this CT. COMPARISON: Chest x-ray to 521 FINDINGS: Normal enhancement of the main pulmonary artery and right and left pulmonary arteries. Normal enhancement of the bilateral peripheral pulmonary arteries. There is no demonstrated pulmonary embolism. There is atherosclerotic calcification of the aortic arch with tortuosity. There is no demonstrated aortic dissection. Normal heart and pericardium. Normal mediastinum. Normal hilar regions. Normal visualized trachea and bronchi. The lungs are well expanded. Normal pulmonary parenchyma. Normal pleura. Normal chest wall structures. Normal osseous structures. Normal visualized upper abdomen. CT/CTA Chest W/WO Contrast IMPRESSION: Normal CTA chest examination, without a demonstrated pulmonary embolism or arterial dissection. Electronically Signed: Alfred Farrell MD at 17:19 EDT Tel , Service support ,
[2020-10-16 13:45] LABS: CREATININE FINGERSTICK 1.5 mg/dL (0.55-1.02)
== END ==
PROVIDERS: PCP Family Medicine; Referring Provider Internal Medicine Pulmonary Disease; Visit Provider Internal Medicine Pulmonary Disease
DX: R06.00 Dyspnea, unspecified (principal); R05 Cough; R07.9 Chest pain, unspecified
CPT/HCPCS: 71275; Q9967; A4216

== ENCOUNTER → 2020-10-20 12:43 | Outpatient (CLI) | payer MEDICARE, BC, SELFPAY ==
[2020-09-29 09:57] VITALS: BMI 36.3
[2020-10-20 15:39] LABS: Hematocrit 41.6 % (37-47); Hemoglobin 13.6 g/dL (12.0-15.0); Mean Corp Hgb Conc 32.7 g/dL (32-36); Mean Corpuscular Hgb 32.5 pg (27.0-32.0); Mean Corpuscular Volume 99.5 fL (81-99); Mean Platelet Vol. 9.9 fl (6.2-12.0); Platelet Count 266 K/mm3 (150-450); RBC Distribution Width CV 12.4 % (11.6-14.6); RBC Distribution Width SD 45.8 fl (35.1-43.9); Red Blood Count 4.18 M/mm3 (4.2-5.4); White Blood Count 6.4 K/mm3 (4.4-11.0)
[2020-10-20 15:48] LABS: Erythrocyte Sedimentation Rate 15 mm/hr (0-30)
[2020-10-20 16:19] LABS: CRP 4.38 mg/L (0.0-3.0)
== END ==
PROVIDERS: PCP Family Medicine; Referring Provider Internal Medicine Pulmonary Disease; Visit Provider Internal Medicine Pulmonary Disease
DX: R05 Cough (principal); J45.30 Mild persistent asthma, uncomplicated; K21.9 Gastro-esophageal reflux disease without esophagitis
CPT/HCPCS: 36415; 85027; 85652; 86140

== ENCOUNTER → 2021-06-13 12:57 | Outpatient (CLI) | payer MEDICARE, BC, SELFPAY ==
[2021-06-13 13:29] LABS: D-Dimer Quantitative (DVT/PE) 0.68 FEU/ug/m (0.27-0.49)
== END ==
PROVIDERS: PCP Family Medicine; Visit Provider Family Medicine
DX: R07.89 Other chest pain (principal); R06.02 Shortness of breath
CPT/HCPCS: 85379

== ENCOUNTER 2021-06-13 17:00 | Observation (INO) | payer MEDICARE, BC, SELFPAY ==
[2021-06-13] VITALS (7 sets, daily range): BP systolic 125–132; BP diastolic 63–70; PULSE 73–110; RESP 13–20; TEMP 36.4–36.7; O2SAT 94–98; BMI 34.1; BMI 33.7
--- NOTE | 2021-06-13 17:21 | EKG12_ITS ---
Test Reason : Blood Pressure : / mmHG Vent. Rate : 093 BPM Atrial Rate : 093 BPM P-R Int : 148 ms QRS Dur : 086 ms QT Int : 348 ms P-R-T Axes : 027 037 048 degrees QTc Int : 432 ms Normal sinus rhythm Normal ECG Confirmed by MIKE CROWE, SPARKLE ([id number]), commercial production editor GEOFF ZUNIGA ([id number]) on 06/15/2021 1:29:39 PM Referred By: LORRAINE Confirmed By:SPARKLE MCKEON MD
--- NOTE | 2021-06-13 17:22 | EX.ED.DYSGE1 ---
HPI History of Present Illness Chief Complaint: Abn Labs Detail of Chief Complaint: Elevated D-dimer 0.68 Informant: patient and family Onset/Context/Timing Onset: Month(s) (Onset 6 months ago worse past 2 months) Context: Onset with activity Timing: Intermittent Quality: Pressure heavy sensation Location: Anterior chest Current Severity: 0/10 Maximum Severity: 7/10 Worsened by: Activity Relieved by: Rest Associated Symptoms Associated Symptoms: Dyspnea Narrative Narrative: Patient is a elderly woman with history of hypertension, type 2 diabetes, neuropathy, depression who presents because of elevated D-dimer 0.68. Prior to 6 months ago she was having chest discomfort and dyspnea with activity. She has not been able to walk her dog for the past 2 months. She states she cannot walk more than 10 feet without becoming short of breath or having chest pressure. The chest pressure resolves after 1 to 2 minutes. She denies orthopnea or PND. She denies history of PE or DVT. She has no risk factors for PE or DVT. She denies leg pain, swelling discoloration. She denies symptoms of claudication. She still has hair on her toes. She denies fever, chills night sweats. She denies rhinorrhea, congestion, postnasal drainage sore throat. She denies trouble with speech or swallowing. She states she has received her Covid vaccine and booster. Booster was approximately 3 months ago. She denies loss of taste or smell. She presently denies chest heaviness. She denies abdominal pain, nausea, vomiting or diarrhea. She denies dysuria, frequency, urgency or hematuria. She denies headache, paresthesia, anesthesia medics. Denies problems with her balance. Prior similar symptoms: Yes Recent Illness/Hospitalization: No PFSH PFSH Medical History Diabetes mellitus Essential (primary) hypertension GERD (gastroesophageal reflux disease) Mitral valve prolapse Obesity Osteoarthritis Seasonal asthma Urinary incontinence Home Medications Lactobacillus acidophilus 1 ea PO DAILY 02/18/14 [History Last Taken Unknown] albuterol sulfate 1 - 2 puff INHALATION Q4H PRN PRN 02/18/14 [History Last Taken Unknown] dndhmgrkel-cxaxjgp-wujnwnck 1 - 2 ea PO PRN PRN 02/18/14 [History Last Taken Unknown] trazodone 100 mg PO QHS 02/18/14 [History Last Taken 04/20/18] mirabegron 50 mg PO QODAY 10/25/17 [History Last Taken 10/25/17] alprazolam 0.5 mg tablet 0.5 mg PO PRN PRN 02/03/19 [History Last Taken Unknown] duloxetine 60 mg capsule,delayed release 60 mg PO DAILY cap 02/03/19 [History Last Taken Unknown] pantoprazole 40 mg tablet,delayed release 40 mg PO DAILY #30 tab 02/03/19 [History Last Taken 11/19/19 04:15] Absorbmax 1 cap PO BID 11/17/19 [History Last Taken Unknown] B complex-vitamin C-folic acid 400 mcg PO DAILY 11/17/19 [History Last Taken Unknown] aspirin 81 mg PO DAILY 11/17/19 [History Last Taken 11/16/19] candesartan 16 mg PO DAILY 11/17/19 [History Last Taken 11/19/19 04:15] oxybutynin chloride 15 mg PO QODAY 11/17/19 [History Last Taken Unknown] pyridoxine (vitamin B6) 100 mg PO DAILY 11/17/19 [History Last Taken Unknown] fluticasone 250 mcg-salmeterol 50 mcg/dose blistr powdr for inhalation 1 inh INHALATION BID 02/01/20 [History Last Taken Unknown] aripiprazole 5 mg tablet 2.5 mg PO DAILY tablet 09/29/20 [History Last Taken Unknown] cholecalciferol (vitamin D3) 25 mcg (1,000 unit) tablet 25 mcg PO BID tablet 09/29/20 [History Last Taken Unknown] gabapentin 100 mg capsule 100 mg PO TIDCM 09/29/20 [History Last Taken Unknown] glipizide 5 mg tablet, extended release 24 hr 5 mg PO DAILY 09/29/20 [History Last Taken Unknown] metformin 500 mg tablet,extended release 24 hr 1,000 mg PO DAILY tablet 09/29/20 [History Last Taken Unknown] nitroglycerin 0.4 mg sublingual tablet 0.4 mg SL Q5-15M PRN 09/29/20 [History Last Taken Unknown] Allergy/AdvReac Type Severity Reaction Status Date / Time ceftriaxone sodium Allergy Hives Verified 06/13/21 17:00 [From Rocbrianna] doxycycline Allergy Hives Verified 06/13/21 17:00 lorazepam [From Ativan] AdvReac Other Verified 06/13/21 17:00 Family History Sister Heart disease Diabetes Hypertension Father Diabetes Heart disease Mother Hypertension Surgical History History of bladder surgery History of bladder suspension procedure History of hysterectomy History of inguinal hernia repair History of knee surgery History of left heart catheterization (2004) Hx of cholecystectomy Social History Smoking Status: Former smoker how long ago did patient quit smokin years ago alcohol intake: never substance use type: does not use caffeine: No ROS ROS ED Constitutional Constitutional ED: Denies chills, fever(s), subjective, sweats or weight loss Eyes Eyes: Denies blurry vision, change in vision or diplopia ENT ENT ED: Denies ear pain, rhinorrhea or sore throat Cardiovascular Cardiovascular: Reports chest pain and palpitations; Denies orthopnea, paroxysmal nocturnal dyspnea or racing heartbeat Respiratory/Chest Respiratory/Chest: Reports dyspnea and dyspnea on exertion; Denies cough, orthopnea, paroxysmal nocturnal dyspnea or sputum Gastrointestinal Gastrointestinal: Denies abdominal pain, constipation, diarrhea, nausea or vomiting Genitourinary Genitourinary ED: Denies dysuria, hematuria or urinary frequency Musculoskeletal Musculoskeletal: Denies arthralgias, back pain, myalgias or neck pain Integumentary Denies rash Neurologic Neurologic: Denies headache(s), paresthesias or weakness Psychiatric Psychiatric: Reports depression Endocrine Endocrinology: Denies polydipsia, polyphagia or polyuria EXAM Physical Exam Const Vital Signs: 06/13/21 17:01 06/13/21 17:15 06/13/21 17:29 Temperature 98.1 F Temperature Source Temporal Pulse Rate 110 H 106 H Respiratory Rate 20 H 20 H Respiratory Effort Short of Breath Labored Respiratory Pattern Normal Blood Pressure 125/67 H Blood Pressure Mean 86 Pulse Ox 95 96 Oxygen Delivery Method Room Air Room Air Room Air 06/13/21 19:10 Temperature Temperature Source Pulse Rate 83 Respiratory Rate 13 Respiratory Effort Respiratory Pattern Blood Pressure Blood Pressure Mean Pulse Ox 97 Oxygen Delivery Method Room Air Positive well nourished, well developed and obese General Appearance ED: well developed and NAD; Negative for cyanotic, diaphoretic or pallor Nutritional Appearance: obese HEENT Reports moist mucous membranes HEENT Narrative: There is patent. Mouth moist. Negative for trauma or tenderness Eyes PERRL and EOMs intact bilaterally General Eye ED: Negative for pale conjunctiva or scleral icterus Neck no lymphadenopathy, supple and no JVD General: Negative for tenderness Resp normal respiratory effort and clear to auscultation bilaterally Effort and Inspection: Negative for pain with movement Cardio regular rate, regular rhythm, S1 normal heart sound, S2 normal heart sound and no murmurs GI normal to inspection, nondistended, normoactive bowel sounds, non-tender and non-distended; Negative for hepatosplenomegaly GI Narrative: There is no palp pulsatile mass. There is no abdominal bruit. Palpation: soft Back/Spine no CVA tenderness Thoracic Spine / Upper Back: Negative for paraspinal muscle tenderness Extremity normal to inspection Extremity Narrative: DP and PT pulse are palpable. Patient does have hair on her toes. General Extremety ED: Yes edema; Negative for tenderness General Extremity: edema Neuro oriented x3, CN's II-XII intact bilaterally and no sensory deficits noted Sensorium / Orientation: alert Skin no rashes or lesions noted and no wounds General Skin Exam: Negative for jaundice or pallor MDM MDM MDM Narrative Medical decision making narrative: D-dimer is normal when corrected for age. Patient gives symptoms of classic angina. Will review prior records to determine when she had an echo. She denies history of congestive heart failure. In light of her having dyspnea and chest pressure with less activity and the fact that is described as a pressure type sensation patient in all likelihood will need a cardiac catheterization. Lab Data Attestation: I reviewed the patient's lab results. Lab results narrative: CBC, H&H and differential are normal. Basic metabolic panels are marked for slight elevation of glucose of 137. First troponin is 4. BNP is 12.4. First troponin was 4. Second troponin . Delta is less than 7. Negative predictive value for cardiac ischemia is 100%. Heart score is 6. Patient's first delta troponin is normal. Will discuss case with cardiology since she is having increasing symptoms with minimal exertion. Case was discussed with Dr. Maritza Perez. Plan is echo tomorrow and possible cardiac catheterization on Friday. Labs: Laboratory Results - last 24 hr 06/13/21 06/13/21 06/13/21 17:26 17:26 17:26 WBC 7.8 RBC 4.34 Hgb 14.1 Hct 41.7 MCV 96.1 MCH 32.5 H MCHC 33.8 RDW Std Deviation 43.6 RDW Coeff of [place] 12.3 Plt Count 255 MPV 9.1 Immature Gran % (Auto) 0.300 Neut % (Auto) 66.8 Lymph % (Auto) 22.2 [place] % (Auto) 7.7 Eos % (Auto) 2.5 Baso % (Auto) 0.5 Absolute Neuts (auto) 5.2 Absolute Lymphs (auto) 1.72 Nucleated RBC % 0 Sodium 142 Potassium 4.1 Chloride 108 H Carbon Dioxide 26.0 Anion Gap 8 BUN 22 H Creatinine 1.32 H Estim Creat Clear Calc 35.81 Est GFR (MDRD) Af Amer 51 L Est GFR (MDRD) Non-Af 42 L BUN/Creatinine Ratio 16.7 Glucose 137 H Calcium 10.0 Troponin I High Sens 4 B-Natriuretic Peptide 12.4 06/13/21 19:28 WBC RBC Hgb Hct MCV MCH MCHC RDW Std Deviation RDW Coeff of [place] Plt Count MPV Immature Gran % (Auto) Neut % (Auto) Lymph % (Auto) [place] % (Auto) Eos % (Auto) Baso % (Auto) Absolute Neuts (auto) Absolute Lymphs (auto) Nucleated RBC % Sodium Potassium Chloride Carbon Dioxide Anion Gap BUN Creatinine Estim Creat Clear Calc Est GFR (MDRD) Af Amer Est GFR (MDRD) Non-Af BUN/Creatinine Ratio Glucose Calcium Troponin I High Sens 6 B-Natriuretic Peptide Radiography Chest X-Ray - ED: 1 View, Read by ED Physician (X-ray was interpreted by me at 1724.), Unchanged, Heart, Lungs, Mediastinum, Bony Structures, No Acute Disease and Chronic Changes Diagnostic Testing: Clinical Impression(s) from Imaging Studies Chest X-Ray 06/13/21 17:30 IMPRESSION: Normal x-ray examination of the chest. Electronically Signed: Matthew Wiley MD at 18:18 EST Tel , Service support , EKG Initial EKG: Attestation: I personally reviewed and interpreted this EKG as follows: Interpretation: Sinus Rhythm (Normal sinus rhythm with a ventricular rate of 93. NM interval is 148 ms. QS duration 86 ms. QT duration 248 ms. [place] is normal. EKG is normal. Patient was pain-free when EKG was obtained.) Discharge Plan Triage Chief Complaint: Abn Labs ED Provider: Oscar Watson Dx/Rx/DC Orders Clinical Impression: Chest pain, exertional, BOYER (dyspnea on exertion) Prescriptions: No Action pantoprazole 40 mg tablet,delayed release (DR/EC) 40 mg PO DAILY Qty: 30 RF: 0 alprazolam [Xanax] 0.5 mg tablet 0.5 mg PO PRN PRN (Reason: Anxiety) RF: 0 fluticasone propion-salmeterol [Advair Diskus] 250-50 mcg/dose blister with device 1 inh INHALATION BID RF: 0 aripiprazole 5 mg tablet 2.5 mg PO DAILY RF: 0 cholecalciferol (vitamin D3) 25 mcg (1,000 unit) tablet 25 mcg PO BID RF: 0 glipizide 5 mg tablet extended release 24hr 5 mg PO DAILY RF: 0 metformin 500 mg tablet extended release 24 hr 1,000 mg PO DAILY RF: 0 nitroglycerin 0.4 mg tablet, sublingual 0.4 mg SL Q5-15M PRNRF: 0 trazodone 100 MG tablet 100 mg PO QHS RF: 0 fbgoyjbqzu-fyoldbx-panjvcfu 1 EACH capsule 1 - 2 ea PO PRN PRN (Reason: Migraine Symptoms) RF: 0 Lactobacillus acidophilus 1 EACH tablet 1 ea PO DAILY RF: 0 albuterol sulfate 1 INHALER inhaler 1 - 2 puff inhalation Q4H PRN PRN (Reason: Asthma) RF: 0 duloxetine 60 mg capsule,delayed release(DR/EC) 60 mg PO DAILY RF: 0 gabapentin 100 mg capsule 100 mg PO TIDCM RF: 0 mirabegron 50 MG tablet extended release 24 hr 50 mg PO QODAY RF: 0 Absorbmax 1 cap PO BID RF: 0 oxybutynin chloride 15 MG tablet extended release 24hr 15 mg PO QODAY RF: 0 aspirin 81 MG tablet,delayed release (DR/EC) 81 mg PO DAILY RF: 0 candesartan 16 MG tablet 16 mg PO DAILY RF: 0 pyridoxine (vitamin B6) 50 MG tablet 100 mg PO DAILY RF: 0 B complex-vitamin C-folic acid 400 MCG tablet 400 mcg PO DAILY RF: 0 Primary Care Provider: Efren Cameron Referrals: Efren Cameron MD [Primary Care Provider] - Disposition Disposition: Acute Care Hospital [facility]
--- NOTE | 2021-06-13 17:30 | RAD_ITS ---
STUDY: X-RAY CHEST REASON FOR EXAM: Female, 76 years old. Chest pain TECHNIQUE: Single frontal view of the chest. COMPARISON: 08/11/2020. FINDINGS: The lungs are clear and expanded. There is no demonstrated pleural abnormality. Normal size heart. Normal mediastinum and riki. Normal visualized pulmonary arteries. There is atherosclerotic calcification of the aortic arch with tortuosity. Normal visualized thoracic spine. Normal visualized ribs, clavicles, and shoulders. There is no demonstrated abnormality of the visualized soft tissue structures of the upper abdomen. RAD/Chest 1 View (Portable) IMPRESSION: Normal x-ray examination of the chest. Electronically Signed: Matthew Wiley MD at 18:18 EST Tel , Service support ,
[2021-06-13 17:35] LABS: Absolute Lymphocyte Count 1.72 X10^3/uL (0.83-4.51); Absolute Neutrophil Count 5.2 X10^3/uL (2.0-7.7); Basophil# 0.04 X10^3/uL; Basophil% 0.5 % (0-1); Eosinophil# 0.19 X10^3/uL; Eosinophils% 2.5 % (0-5); Hematocrit 41.7 % (37-47); Hemoglobin 14.1 g/dL (12.0-15.0); Lymphocyte # 1.72 X10^3/ul (0.83-4.51); Lymphocyte % 22.2 % (19-41); Mean Corp Hgb Conc 33.8 g/dL (32-36); Mean Corpuscular Hgb 32.5 pg (27.0-32.0); Mean Corpuscular Volume 96.1 fL (81-99); Mean Platelet Vol. 9.1 fl (6.2-12.0); Monocyte% 7.7 % (0-10); NRBC Flagged by Analyzer 0 % (0-5); Neutrophil # 5.18 X10^3/uL (2.7-7.7); Neutrophil % 66.8 % (47-70); Platelet Count 255 K/mm3 (150-450); RBC Distribution Width CV 12.3 % (11.6-14.6); RBC Distribution Width SD 43.6 fl (35.1-43.9); Red Blood Count 4.34 M/mm3 (4.2-5.4); White Blood Count 7.8 K/mm3 (4.4-11.0)
[2021-06-13] MEDS: Aspirin 81 MG TAB.CHEW 324 MG PO (17:39)
[2021-06-13 17:55] LABS: Anion Gap 8 (5-15); BUN 22 mg/dL (7-18); BUN/Creat Ratio 16.7 RATIO (10-20); Chloride 108 mmol/L (98-107); Creatinine, Serum 1.32 mg/dL (0.55-1.02); EST Glomerular Filtration Rate 42 mL/min (>60); Est Glom Filt Rate - Afr Amer 51 mL/min (>60); Estimated Creatinine Clearance 35.81 ml/min; Glucose 137 mg/dL (74-106); Potassium 4.1 mmol/L (3.5-5.1); Sodium Level 142 mmol/L (136-145); Troponin-I HS 4 pg/mL (3.0-54.0)
[2021-06-13 18:00] LABS: BNP,B-Type NATRIURETIC PEPTIDE 12.4 pg/mL (0-100)
[2021-06-13 20:14] LABS: Troponin-I HS 6 pg/mL (3.0-54.0)
--- NOTE | 2021-06-13 20:58 | PCM.HP.STD ---
HPI - General General Date of Admission: 06/13/21 Date of Service: 06/13/21 Chief Complaint: Elevated D-dimer HPI Narrative MAGGY MCKOY, is a 76 F with a significant history of diabetes mellitus who presents to emergency department with elevated D-dimer. Patient went to her PCPs office because of 3 months routine checkup. Labs done at the PCP's office showed a D-dimer of 0.68 so patient was sent to the hospital. Her 3 months routine checkup was important for her because she was also fatigued and weak. Further she is unable to walk for more than 3 to 4 feet because of shortness of breath, weakness and a feeling of going to pass out. For the past 3 months she has also had pain under her left chest. The pain under her left chest occurs once or twice a month. Last time she had this pain was 2 days ago. She rated pain as 7 on a scale of 1-10. The pain is sharp. The pain lasts for about 1 minutes. [facility] Medical History Diabetes mellitus Essential (primary) hypertension GERD (gastroesophageal reflux disease) Mitral valve prolapse Obesity Osteoarthritis Seasonal asthma Urinary incontinence Home Medications Lactobacillus acidophilus 1 ea PO DAILY 02/18/14 [History Last Taken Unknown] albuterol sulfate 1 - 2 puff INHALATION Q4H PRN PRN 02/18/14 [History Last Taken Unknown] lenvvctvuc-aetnwmp-kdcbwywg 1 - 2 ea PO PRN PRN 02/18/14 [History Last Taken Unknown] trazodone 100 mg PO QHS 02/18/14 [History Last Taken 10/24/17] mirabegron 50 mg PO QODAY 10/25/17 [History Last Taken 10/25/17] alprazolam 0.5 mg tablet 0.5 mg PO PRN PRN 02/03/19 [History Last Taken Unknown] duloxetine 60 mg capsule,delayed release 60 mg PO DAILY cap 02/03/19 [History Last Taken Unknown] pantoprazole 40 mg tablet,delayed release 40 mg PO DAILY #30 tab 02/03/19 [History Last Taken 11/19/19 04:15] Absorbmax 1 cap PO BID 11/17/19 [History Last Taken Unknown] B complex-vitamin C-folic acid 400 mcg PO DAILY 11/17/19 [History Last Taken Unknown] aspirin 81 mg PO DAILY 11/17/19 [History Last Taken 11/16/19] candesartan 16 mg PO DAILY 11/17/19 [History Last Taken 11/19/19 04:15] oxybutynin chloride 15 mg PO QODAY 11/17/19 [History Last Taken Unknown] pyridoxine (vitamin B6) 100 mg PO DAILY 11/17/19 [History Last Taken Unknown] fluticasone 250 mcg-salmeterol 50 mcg/dose blistr powdr for inhalation 1 inh INHALATION BID 02/01/20 [History Last Taken Unknown] aripiprazole 5 mg tablet 2.5 mg PO DAILY tablet 09/29/20 [History Last Taken Unknown] cholecalciferol (vitamin D3) 25 mcg (1,000 unit) tablet 25 mcg PO BID tablet 09/29/20 [History Last Taken Unknown] gabapentin 100 mg capsule 100 mg PO TIDCM 09/29/20 [History Last Taken Unknown] glipizide 5 mg tablet, extended release 24 hr 5 mg PO DAILY 09/29/20 [History Last Taken Unknown] metformin 500 mg tablet,extended release 24 hr 1,000 mg PO DAILY tablet 09/29/20 [History Last Taken Unknown] nitroglycerin 0.4 mg sublingual tablet 0.4 mg SL Q5-15M PRN 09/29/20 [History Last Taken Unknown] Allergy/AdvReac Type Severity Reaction Status Date / Time ceftriaxone sodium Allergy Hives Verified 06/13/21 17:00 [From Rocephin] doxycycline Allergy Hives Verified 06/13/21 17:00 lorazepam [From Ativan] AdvReac Other Verified 06/13/21 17:00 trimethoprim AdvReac Nausea Verified 06/13/21 23:13 Family History Sister Heart disease Diabetes Hypertension Father Diabetes Heart disease Mother Hypertension Surgical History History of bladder surgery History of bladder suspension procedure History of hysterectomy History of inguinal hernia repair History of knee surgery History of left heart catheterization (2004) Hx of cholecystectomy Social History Smoking Status: Former smoker how long ago did patient quit smokin years ago alcohol intake: never substance use type: does not use caffeine: No ROS ROS Narrative Constitutional: Denies fever, chills, anorexia and change in weight Eyes: Denies blurry vision, change in eye color, change in vision, discharge from eye(s), double vision, erythema, eye pain, loss of vision or other HEENT: Denies abnormal hearing, dysphagia, ear pain, epistaxis, headache(s), hearing loss, nasal congestion, nasal discharge, post nasal drip, sinus pressure, sore throat or other Cardiovascular: Reports chest pain. Reports dyspnea on exertion. Denies palpitations. Denies paroxysmal nocturnal dyspnea Respiratory/Chest: Denies cough, excessive phlegm production. Gastrointestinal: Denies abdominal pain, coffee ground emesis, constipation, diarrhea, dyspepsia, hematemesis, hematochezia, loose stools, melena, nausea, vomiting or other Genitourinary: Denies burning urination, difficulty urinating, dysuria, hematuria, nocturia, urinary frequency, urinary hesitancy, urinary incontinence, urinary urgency or other Musculoskeletal: Denies arthralgias, back pain, joint pain, joint stiffness, joint swelling, myalgias, neck pain or other Neurologic: Denies abnormal gait, abnormal speech, confusion, disequilibrium, dizziness, focal weakness, headache(s), numbness, paresthesias, seizure-like activity, seizures, syncope, tingling, tremor(s) or other Psychiatric: Denies anxiety, depression, homicidal ideation, suicidal ideation or other Endocrinology: Denies change in body appearance, cold intolerance, excessive sweating, heat intolerance, polydipsia, polyuria or other Hematologic/Lymphatic: Denies anemia, easy bleeding, easy bruising, lymphadenopathy or other Integumentary: Denies rashes Allergic/Immunologic: Denies rhinitis, hives, eczema, asthma or other Vital Signs Vital Signs Vital Signs: 06/13/21 17:01 06/13/21 17:15 06/13/21 17:29 Temperature 98.1 F Temperature Source Temporal Pulse Rate 110 H 106 H Respiratory Rate 20 H 20 H Respiratory Effort Short of Breath Labored Respiratory Pattern Normal Blood Pressure 125/67 H Blood Pressure Mean 86 Pulse Ox 95 96 Oxygen Delivery Method Room Air Room Air Room Air 06/13/21 19:10 06/13/21 20:45 Temperature Temperature Source Pulse Rate 83 86 Respiratory Rate 13 20 H Respiratory Effort Respiratory Pattern Blood Pressure 128/70 H Blood Pressure Mean 89 Pulse Ox 97 98 Oxygen Delivery Method Room Air Room Air Weight Weight: 98.8 kg Body Mass Index (BMI) 34.1 Physical Exam Narrative Physical exam: General: Well-nourished, well-developed. Head: Normocephalic, atraumatic, no tenderness Eyes: PERRLA, EOMI ENT, no trauma, moist mucous membranes, no rhinorrhea Neck: Nontender, full range of motion, no spinal tenderness, deformities, step-off CVS: Regular rate and rhythm. S1-S2 present. No murmur, gallop or rub. Respiratory : clear to auscultation bilaterally, chest wall nontender, no wheezing Abdomen: Soft, nontender, nondistended, normal bowel sounds, no masses : Deferred Back: Nontender, no CVA tenderness, no midline spinal tenderness, deformities, step-offs Extremities: Nontender full range of motion, no trauma Skin: Normal color, no trauma, abrasions Neuro: Alert, oriented, cranial nerves II through XII grossly intact. Psychiatry: Normal mood. Normal affect. Not depressed. Not anxious. Results Lab / Micro Data Result Diagrams: 06/13/21 17:26 06/13/21 17:26 Labs: Laboratory Results - last 24 hr 06/13/21 17:26: WBC 7.8, RBC 4.34, Hgb 14.1, Hct 41.7, MCV 96.1, MCH 32.5 H, MCHC 33.8, RDW Std Deviation 43.6, RDW Coeff of [place] 12.3, Plt Count 255, MPV 9.1, Immature Gran % (Auto) 0.300, Neut % (Auto) 66.8, Lymph % (Auto) 22.2, [place] % (Auto) 7.7, Eos % (Auto) 2.5, Baso % (Auto) 0.5, Absolute Neuts (auto) 5.2, Absolute Lymphs (auto) 1.72, Nucleated RBC % 0 06/13/21 17:26: Sodium 142, Potassium 4.1, Chloride 108 H, Carbon Dioxide 26.0, Anion Gap 8, BUN 22 H, Creatinine 1.32 H, Estim Creat Clear Calc 35.81, Est GFR (MDRD) Af Amer 51 L, Est GFR (MDRD) Non-Af 42 L, BUN/Creatinine Ratio 16.7, Glucose 137 H, Calcium 10.0, Troponin I High Sens 4 06/13/21 17:26: B-Natriuretic Peptide 12.4 06/13/21 19:28: Troponin I High Sens 6 Radiology Impression Chest X-Ray 06/13/21 17:30 IMPRESSION: Normal x-ray examination of the chest. Electronically Signed: Matthew Wiley MD at 18:18 EST Tel , Service support , Assessment & Plan Assessment/Plan (1) Chest pain, exertional: (2) BOYER (dyspnea on exertion): PLAN: Dyspnea on exertion/chest pain Place on a monitored bed at progressive care unit. Per emergency department doctor cardiology recommended an echocardiogram and a possible cath to be done. Echocardiogram ordered Review of record showed that patient had echocardiogram on 03/19/2019. Echocardiogram at that time showed ejection fraction of 65%. Mild eccentric mitral valve insufficiency. Pulmonary artery systolic pressure was 26. Of note patient reports recent echocardiogram but is unsure of what echocardiogram was done. EKG showed normal sinus rhythm with no ST-T abnormalities Actual CXR image was independently visualized. No acute cardiopulmonary process was noted. I agree with radiologist interpretation Received full dose aspirin at emergency department ASA 81 mg p.o. daily ordered We will check lipid panel. High intensity troponin x2 was negative. Serial cardiac enzymes ordered Stat EKG as needed for chest pain Last chemical stress test on file was on 10/09/2020. Maximal heart rate obtained was 76%. Conclusion was normal pharmacological myocardial perfusion stress test. Post test chest discomfort of unknown significance. Preserved ejection fraction. Cardiology consult. Elevated D-dimer D-dimer of 0.68. Age corrected is normal. No further interventions at this time. Elevated creatinine without diagnosis of GALI Creatinine on presentation was 1.32. Review of community records show that creatinine on 12/06/2020 was 1.11 and on 09/15/2020 was 1.0. Will trend BMP at this time Diabetes mellitus with polyneuropathy Patient with mild hyperglycemia on presentation Review of community records show that on 12/26/2020 her A1c was 5.9. Continue home glipizide Hold home Metformin Accu-Chek QA [facility] with correction scale insulin ordered. Gabapentin continue Jaime receptor tyler continued. Hypertension Blood pressure is stable in regard to her age Home JAIME receptor tyler continue Trend blood pressure and adjust blood pressure medications. DVT prophylaxis: Subcutaneous Lovenox ordered Charges/Coding Visit Charges OBSV E&M: 07363 Initial observation care L3
--- NOTE | 2021-06-13 22:11 | ECHOCS_ITS ---
Reason For Study: DYSPNEA/SOB Procedure This was a 2D Doppler, Color Flow transthoracic echocardiogram. The study was technically difficult. Contrast injection was performed. Exam performed portable in patient room. Left Ventricle Normal left ventricle. The estimated ejection fraction is 55-60 %. Right Ventricle Normal right ventricle. Normal systolic function. Atria Normal left atrium. Mitral Valve The mitral valve is structurally normal. No prolapse or stenosis seen. Mild (1+) mitral valve insufficiency. Tricuspid Valve Normal tricuspid valve. Trivial tricuspid valve insufficiency. Aortic Valve Normal aortic valve. Pulmonic Valve The pulmonic valve is not well visualized. Great Vessels Normal aortic root. Pericardium/Pleural No pericardial effusion. Medication Diluted definity 2.5ml given slow IV push to enhance endocardial definition. MMode/2D Measurements & Calculations LVIDd: 3.9 cm IVSd: 0.78 cm Ao root diam: 3.2 cm LVIDs: 2.5 cm LVPWd: 0.82 cm RVDd: 2.8 cm FS: 36.7 % LAV(MOD-bp): 34.2 ml LVAd ap4: 25.5 cm2 LVAd ap2: 27.3 cm2 LAV(MOD-bp) Indexed: 16.4 ml/m2 LVLd ap4: 7.4 cm LVLd ap2: 7.5 cm LAV(MOD-sp2): 39.5 ml EDV(MOD-sp4): 75.3 ml EDV(MOD-sp2): 82.5 ml LAV(MOD-sp4): 30.9 ml EDV(sp4-el): 75.1 ml EDV(sp2-el): 83.9 ml LVAs ap4: 15.9 cm2 LVAs ap2: 13.1 cm2 LVLs ap4: 6.1 cm LVLs ap2: 6.1 cm ESV(MOD-sp4): 36.4 ml ESV(MOD-sp2): 23.8 ml ESV(sp4-el): 35.5 ml ESV(sp2-el): 23.9 ml EF(MOD-sp4): 51.7 % EF(MOD-sp2): 71.2 % EF(sp4-el): 52.7 % SV(MOD-sp4): 39.0 ml SV(MOD-sp2): 58.8 ml SV(sp4-el): 39.6 ml LA A4 area: 13.1 cm2 LA dimension(2D): 4.1 cm RA A4 area: 9.2 cm2 Doppler Measurements & Calculations MV E max nikolay: 86.8 cm/sec Lat Peak E' Nikolay: 8.1 cm/sec Med Peak E' Nikolay: 7.4 cm/sec MV A max nikolay: 133.8 cm/sec E/E' lat: 10.8 E/E' med: 11.8 MV E/A: 0.65 Ao V2 max: 160.6 cm/sec LV V1 max: 123.8 cm/sec TR max nikolay: 261.8 cm/sec Ao max P.4 mmHg LV V1 max P.2 mmHg TR max P.4 mmHg ECHO/Echo Complete W/ Contrast Interpretation Summary The estimated ejection fraction is 55-60 % Normal LV systolic Function Mild-moderate MR Contrast injection used for better Endocardial Delination. Ordering Physician: Wenceslao Kate Referring Physician: ADALID LOPEZ Performed By: Christina Mcadams, RDBRIAN, RVT
--- NOTE | 2021-06-13 22:11 | EKG12_ITS ---
Test Reason : CP ADMIT Blood Pressure : / mmHG Vent. Rate : 076 BPM Atrial Rate : 076 BPM P-R Int : 154 ms QRS Dur : 090 ms QT Int : 408 ms P-R-T Axes : 021 021 044 degrees QTc Int : 459 ms Normal sinus rhythm Normal ECG Confirmed by MIKE CROWE, SPARKLE ([id number]), chief fishery division GEOFF ZUNIGA ([id number]) on 06/15/2021 7:52:50 AM Referred By: DR GAMBLE Confirmed By:SPARKLE MCKEON MD
[2021-06-13 22:51] LABS: Bedside Glucose 110 mg/dL (70-110)
--- NOTE | 2021-06-13 23:25 | PCS.PANDOC ---
PANDEMIC DOCUMENTATION INITIATED: Date: 02/19/2021 Time: 190
[2021-06-14] VITALS (21 sets, daily range): BP systolic 109–146; BP diastolic 56–85; PULSE 65–93; RESP 14–18; TEMP 36.3–36.6; O2SAT 92–97
[2021-06-14 00:16] LABS: Troponin-I HS 4 pg/mL (3.0-54.0)
[2021-06-14] MEDS: traZODone 100 MG Tablet PO ×2 (00:49→21:49)
[2021-06-14 05:31] LABS: Absolute Lymphocyte Count 2.23 X10^3/uL (0.83-4.51); Basophil# 0.06 X10^3/uL; Basophil% 0.8 % (0-1); Eosinophil# 0.34 X10^3/uL; Eosinophils% 4.6 % (0-5); Hematocrit 39.3 % (37-47); Hemoglobin 13.3 g/dL (12.0-15.0); Lymphocyte # 2.23 X10^3/ul (0.83-4.51); Lymphocyte % 30.3 % (19-41); Mean Corp Hgb Conc 33.8 g/dL (32-36); Mean Corpuscular Hgb 32.4 pg (27.0-32.0); Mean Corpuscular Volume 95.6 fL (81-99); Mean Platelet Vol. 8.9 fl (6.2-12.0); Monocyte# 0.69 X10^3/uL; Monocyte% 9.4 % (0-10); NRBC Flagged by Analyzer 0 % (0-5); Neutrophil # 4.02 X10^3/uL (2.7-7.7); Neutrophil % 54.8 % (47-70); Platelet Count 236 K/mm3 (150-450); RBC Distribution Width CV 12.4 % (11.6-14.6); Red Blood Count 4.11 M/mm3 (4.2-5.4); White Blood Count 7.4 K/mm3 (4.4-11.0)
[2021-06-14 06:24] LABS: Anion Gap 7 (5-15); BUN 21 mg/dL (7-18); BUN/Creat Ratio 17.9 RATIO (10-20); Calcium,Total 9.3 mg/dL (8.5-10.1); Chloride 108 mmol/L (98-107); Cholesterol 141 mg/dL (200); Creatinine, Serum 1.17 mg/dL (0.55-1.02); EST Glomerular Filtration Rate 48 mL/min (>60); Est Glom Filt Rate - Afr Amer 58 mL/min (>60); Glucose 119 mg/dL (74-106); High Density Lipoprotein 41 mg/dL; Potassium 4.2 mmol/L (3.5-5.1); Sodium Level 141 mmol/L (136-145); Triglycerides 106 mg/dL; Very Low Density Lipoprotein 21 mg/dL (5-40)
[2021-06-14 06:55] LABS: Bedside Glucose 104 mg/dL (70-110)
--- NOTE | 2021-06-14 07:22 | PCM.CONS.C ---
Assessment & Plan Assessment/Plan (1) Angina pectoris, crescendo: PLAN: The patient has symptoms compatible with accelerating angina pectoris. Thus far her cardiac enzymes and her ECG have been without acute changes. She has undergone previous noninvasive studies including stress nuclear imaging studies performed earlier this year. At the present time she will continue further monitoring/evaluation. This will include a recommendation for diagnostic cardiac catheterization. The procedure and risk were discussed with her. She was agreeable to this approach. She will be treated medically in the interim as deemed appropriate. (2) BOYER (dyspnea on exertion): PLAN: She does have progressive shortness of breath and dyspnea. Again there is concerned this is part of her angina pectoris equivalent. Thus far she has had no other obvious explanation to definitively explain this. She will continue her noninvasive and invasive cardiovascular evaluation as noted with reassessment of her LV wall motion and systolic function with a transthoracic echocardiogram and further evaluation of her coronary anatomy with a diagnostic cardiac catheterization. (3) Essential (primary) hypertension: PLAN: She has a history of hypertension. She states her blood pressures been under reasonably good control. She will continue medical therapy. (4) HLD (hyperlipidemia): PLAN: She states she has a history of hyperlipidemia. She notes she has been on lipid-lowering therapy in the past with rosuvastatin/Crestor. She states she did not tolerated secondary to lower extremity myalgias. Her lipid labs should be considered for reassessment with additional attempts at lipid-lowering therapy as best as tolerated. (5) Diabetes mellitus: PLAN: She will continue evaluation care per internal medicine. Addt'l Comments The patient's case has been previously discussed and reviewed with the [facility] emergency department staff. This note was generated using a voice recognition system and there may be incorrect words, spelling or punctuation that were not noted when reviewing the office note prior to saving. HPI Consult Data Date of Consult: 06/14/21 HPI Narrative HPI Narrative: MAGGY MCKOY, is a 76 white female who presents presents for cardiovascular consultation based upon concerns of symptoms compatible with accelerating angina pectoris based upon concerns of minimal exertional related chest discomfort/pressure, shortness of breath/dyspnea, dizziness, weakness, and fatigue causing the patient to stop her activity and rest. She states that the symptoms have been progressively getting worse since spring 2020 to the point where she can barely walk across the room without having them. She denies orthopnea or PND. She states she has intermittent left ankle edema. There is been no near syncope or syncope. She has been followed by her primary care physician and her operating room surgical technician for concerns of noncardiovascular related issues including reactive airway disease/asthma. She states she was being evaluated by her primary care physician and laboratory studies were performed which included a D-dimer level which was thought to be abnormal. She was referred to the [facility] emergency department for further evaluation. There her D-dimer corrected for age was reported as normal. However based upon her symptoms there was concern of accelerating angina pectoris. Troponin I levels were performed which were negative. An ECG was performed which demonstrated sinus rhythm with no acute ECG changes. She was brought into the hospital for further evaluation and care including cardiovascular consultation. She has undergone noninvasive cardiovascular evaluation in the past. This has included transthoracic echocardiogram and stress nuclear imaging studies. The results are as noted below. She has never proceeded to further evaluation with diagnostic cardiac catheterization. She is also had previous chest CTA performed. In the past this is the negative for thromboembolic disease. At rest she states she feels comfortable. Her repeat troponin I levels have been negative. [facility] Medical History (Updated 06/14/21 @ 07:[address] Chris Izquierdo MD) Diabetes mellitus Diabetes mellitus Essential (primary) hypertension GERD (gastroesophageal reflux disease) Mitral valve prolapse Obesity Osteoarthritis Seasonal asthma Urinary incontinence Home Medications Lactobacillus acidophilus 1 ea PO DAILY 02/18/14 [History Last Taken Unknown] albuterol sulfate 1 - 2 puff INHALATION Q4H PRN PRN 02/18/14 [History Last Taken Unknown] mwbpyulbrm-dbfezsd-xuzwvoxo 1 - 2 ea PO PRN PRN 02/18/14 [History Last Taken Unknown] trazodone 100 mg PO QHS 02/18/14 [History Last Taken 10/24/17] mirabegron 50 mg PO QODAY 10/25/17 [History Last Taken 10/25/17] alprazolam 0.5 mg tablet 0.5 mg PO PRN PRN 02/03/19 [History Last Taken Unknown] duloxetine 60 mg capsule,delayed release 60 mg PO DAILY cap 02/03/19 [History Last Taken Unknown] pantoprazole 40 mg tablet,delayed release 40 mg PO DAILY #30 tab 02/03/19 [History Last Taken 11/19/19 04:15] Absorbmax 1 cap PO BID 11/17/19 [History Last Taken Unknown] B complex-vitamin C-folic acid 400 mcg PO DAILY 11/17/19 [History Last Taken Unknown] aspirin 81 mg PO DAILY 11/17/19 [History Last Taken 11/16/19] candesartan 16 mg PO DAILY 11/17/19 [History Last Taken 11/19/19 04:15] oxybutynin chloride 15 mg PO QODAY 11/17/19 [History Last Taken Unknown] pyridoxine (vitamin B6) 100 mg PO DAILY 11/17/19 [History Last Taken Unknown] fluticasone 250 mcg-salmeterol 50 mcg/dose blistr powdr for inhalation 1 inh INHALATION BID 02/01/20 [History Last Taken Unknown] aripiprazole 5 mg tablet 2.5 mg PO DAILY tablet 09/29/20 [History Last Taken Unknown] cholecalciferol (vitamin D3) 25 mcg (1,000 unit) tablet 25 mcg PO BID tablet 09/29/20 [History Last Taken Unknown] gabapentin 100 mg capsule 100 mg PO TIDCM 09/29/20 [History Last Taken Unknown] glipizide 5 mg tablet, extended release 24 hr 5 mg PO DAILY 09/29/20 [History Last Taken Unknown] metformin 500 mg tablet,extended release 24 hr 1,000 mg PO DAILY tablet 09/29/20 [History Last Taken Unknown] nitroglycerin 0.4 mg sublingual tablet 0.4 mg SL Q5-15M PRN 09/29/20 [History Last Taken Unknown] Allergy/AdvReac Type Severity Reaction Status Date / Time ceftriaxone sodium Allergy Hives Verified 06/13/21 17:00 [From Rocephin] doxycycline Allergy Hives Verified 06/13/21 17:00 lorazepam [From Ativan] AdvReac Other Verified 06/13/21 17:00 trimethoprim AdvReac Nausea Verified 06/13/21 23:13 Family History Sister Heart disease Diabetes Hypertension Father Diabetes Heart disease Mother Hypertension Surgical History History of bladder surgery History of bladder suspension procedure History of hysterectomy History of inguinal hernia repair History of knee surgery History of left heart catheterization (2004) Hx of cholecystectomy Social History Smoking Status: Former smoker how long ago did patient quit smokin years ago alcohol intake: never substance use type: does not use caffeine: No ROS Constitutional Constitutional: Reports weakness Eyes Eyes: Reports as per HPI ENT HEENT: Reports as per HPI Cardiovascular Cardiovascular: Reports chest pain with activity, dizziness, dyspnea on exertion and fatigue Respiratory/Chest Respiratory/Chest: Reports dyspnea on exertion Gastrointestinal Gastrointestinal: Reports as per HPI Genitourinary Genitourinary: Reports as per HPI Musculoskeletal Musculoskeletal: Reports as per HPI Integumentary Integumentary: Reports as per HPI Neurologic Neurologic: Reports as per HPI Physical Exam Const alert, oriented x3, no apparent distress and healthy appearing Orientation / Consciousness: awake HEENT normocephalic, head/scalp atraumatic and hearing grossly normal bilaterally Eyes PERRL, EOMs intact bilaterally and conjunctivae normal Neck full ROM, supple and no JVD Resp clear to auscultation bilaterally Cardio regular rate, regular rhythm, S1 normal heart sound and S2 normal heart sound GI normal to inspection, nondistended, normoactive bowel sounds Extremity no pedal edema Skin no rashes or lesions noted Neuro oriented x3, moves all extremities, no focal motor deficits and no sensory deficits noted Psych mental status grossly normal Risk Stratification Risk Stratification Applicable: Yes Age >/= 65: Yes >/= 3 CAD Risk Factors (HTN, HLD, DM, family hx of CAD, or current smoker): Yes Aspirin Use in the Past 7 Days: No Severe Angina (>/= episodes in 24 hours): Yes EKG ST Changes >/= 0.5mm: No Positive Cardiac Marker: No YOEL Risk Stratification Score: 3 YOEL % Risk: 13% Risk Procedure Criteria Type of Procedure Procedure Type: Elective Elective Risks - COVID COVID Risk Discussion: The surgeon/proceduralist and patient have discussed in detail the risk of exposure to and/or potential harm posed by the COVID-19 virus with having a surgery/procedure at this time versus the risk of delaying the surgery/procedure. It is not possible to know either the risk of delaying the surgery or procedure or chance of getting an infection with perfect accuracy, but a joint decision was made between the patient and the surgeon/proceduralist to proceed at this time with the scheduled surgery/procedure as indicated on the consent form. Objective Data Vital Signs: Vital Signs Temp Pulse Resp BP Pulse Ox 97.7 F L 76 16 126/80 H 94 06/14/21 04:38 06/14/21 06:39 06/14/21 04:38 06/14/21 04:38 06/14/21 04:43 Oxygen Delivery Method Room Air Weight: 215 lb 2.738 oz Body Mass Index (BMI) 33.7 Intake & Output: Intake and Output for Last 24 Hours 06/12/21 06/13/21 06/14/21 23:59 23:59 23:59 Intake Total 240 / 240 200 / 200 Balance 240 / 240 200 / 200 Lab / Micro Data Result Diagrams: 06/14/21 05:20 06/14/21 05:20 Labs: Laboratory Results - last 24 hr 06/13/21 17:26: WBC 7.8, RBC 4.34, Hgb 14.1, Hct 41.7, MCV 96.1, MCH 32.5 H, MCHC 33.8, RDW Std Deviation 43.6, RDW Coeff of Annalee 12.3, Plt Count 255, MPV 9.1, Immature Gran % (Auto) 0.300, Neut % (Auto) 66.8, Lymph % (Auto) 22.2, [place] % (Auto) 7.7, Eos % (Auto) 2.5, Baso % (Auto) 0.5, Absolute Neuts (auto) 5.2, Absolute Lymphs (auto) 1.72, Nucleated RBC % 0 06/13/21 17:26: Sodium 142, Potassium 4.1, Chloride 108 H, Carbon Dioxide 26.0, Anion Gap 8, BUN 22 H, Creatinine 1.32 H, Estim Creat Clear Calc 35.81, Est GFR (MDRD) Af Amer 51 L, Est GFR (MDRD) Non-Af 42 L, BUN/Creatinine Ratio 16.7, Glucose 137 H, Calcium 10.0, Troponin I High Sens 4 06/13/21 17:26: B-Natriuretic Peptide 12.4 06/13/21 19:28: Troponin I High Sens 6 06/13/21 22:36: POC Glucose 110 06/13/21 23:47: Troponin I High Sens 4 06/14/21 05:20: WBC 7.4, RBC 4.11 L, Hgb 13.3, Hct 39.3, MCV 95.6, MCH 32.4 H, MCHC 33.8, RDW Std Deviation 43.0, RDW Coeff of Annalee 12.4, Plt Count 236, MPV 8.9, Immature Gran % (Auto) 0.100, Neut % (Auto) 54.8, Lymph % (Auto) 30.3, [place] % (Auto) 9.4, Eos % (Auto) 4.6, Baso % (Auto) 0.8, Absolute Neuts (auto) 4.0, Absolute Lymphs (auto) 2.23, Nucleated RBC % 0 06/14/21 05:20: Sodium 141, Potassium 4.2, Chloride 108 H, Carbon Dioxide 26.0, Anion Gap 7, BUN 21 H, Creatinine 1.17 H, Estim Creat Clear Calc 40.40, Est GFR (MDRD) Af Amer 58 L, Est GFR (MDRD) Non-Af 48 L, BUN/Creatinine Ratio 17.9, Glucose 119 H, Calcium 9.3, Triglycerides 106, Cholesterol 141, LDL Cholesterol 79, VLDL Cholesterol 21, HDL Cholesterol 41 06/14/21 06:47: POC Glucose 104 Cardiology Labs/Tests 06/13/21 17:26: WBC 7.8, RBC 4.34, Hgb 14.1, Hct 41.7, MCV 96.1, MCH 32.5 H, MCHC 33.8, Plt Count 255, MPV 9.1, Immature Gran % (Auto) 0.300, Neut % (Auto) 66.8, Lymph % (Auto) 22.2, [place] % (Auto) 7.7, Eos % (Auto) 2.5, Baso % (Auto) 0.5, Absolute Neuts (auto) 5.2, Nucleated RBC % 0 06/13/21 17:26: Sodium 142, Potassium 4.1, Chloride 108 H, Carbon Dioxide 26.0, Anion Gap 8, BUN 22 H, Creatinine 1.32 H, Est GFR (MDRD) Af Amer 51 L, Est GFR (MDRD) Non-Af 42 L, BUN/Creatinine Ratio 16.7, Glucose 137 H, Calcium 10.0 06/13/21 17:26: B-Natriuretic Peptide 12.4 06/14/21 05:20: WBC 7.4, RBC 4.11 L, Hgb 13.3, Hct 39.3, MCV 95.6, MCH 32.4 H, MCHC 33.8, Plt Count 236, MPV 8.9, Immature Gran % (Auto) 0.100, Neut % (Auto) 54.8, Lymph % (Auto) 30.3, [place] % (Auto) 9.4, Eos % (Auto) 4.6, Baso % (Auto) 0.8, Absolute Neuts (auto) 4.0, Nucleated RBC % 0 06/14/21 05:20: Sodium 141, Potassium 4.2, Chloride 108 H, Carbon Dioxide 26.0, Anion Gap 7, BUN 21 H, Creatinine 1.17 H, Est GFR (MDRD) Af Amer 58 L, Est GFR (MDRD) Non-Af 48 L, BUN/Creatinine Ratio 17.9, Glucose 119 H, Calcium 9.3, Triglycerides 106, Cholesterol 141, LDL Cholesterol 79, VLDL Cholesterol 21, HDL Cholesterol 41 Rhythm: Sinus rhythm EKG: Sinus rhythm ECHO: 03-19-2019 Interpretation Summary Normal LV size. Left ventricular systolic function is normal. The estimated ejection fraction is 65 %. Mild (1+) eccentric mitral valve insufficiency. Contrast injection was performed. Stress Test: 10-09-2020 Stress Test Report Pharmacologic myocardial perfusion stress test. 75-year-old lady with a history of dyspnea on exertion. Stress protocol: Resting EKG demonstrates normal sinus rhythm with a rate of 83 bpm normal intervals are noted resting blood pressure is 1 and 24/70 4 mmHg. 0.4 mg of regadenoson was infused per usual protocol followed by rapid intravenous saline flush injection continuous EKG monitoring was performed. The maximum heart rate attained was 112 bpm which was 76% of max impacted heart rate the maximum workload was 1 metabolic equivalent. At rest there were no ST or T wave changes noted to suggest abnormal flow reserve at peak infusion nonspecific ST changes were noted which did not meet the criteria for ischemia. No clinical angina was noted. The patient was noted to complain of midsternal chest tightness post infusion. Myocardial perfusion protocol. 14.0 mCi of technetium 99m sestamibi was injected at rest. 0.4 mg of regadenoson was infused per usual protocol. At peak infusion 45.0 mCi of technetium 99m sestamibi was injected stress images were obtained stress and rest images were reconstructed and compared in the short axis vertical long and horizontal long axis. Gated images were also obtained. Perfusion SPECT analysis: Review of the stress images demonstrate normal uptake of tracer noted in all areas of the myocardium. The resting images similarly demonstrate normal uptake of tracer noted in all areas of the myocardium. There were no areas of reversibility noted to suggest ischemia. No previous infarct is noted. Gated SPECT analysis: The gated ejection fraction is 50%. Conclusion: Normal pharmacologic myocardial perfusion stress test. Post test chest discomfort of unknown significance. Preserved ejection fraction. Chest CT Scan: 10-16-2020 FINDINGS: Normal enhancement of the main pulmonary artery and right and left pulmonary arteries. Normal enhancement of the bilateral peripheral pulmonary arteries. There is no demonstrated pulmonary embolism. There is atherosclerotic calcification of the aortic arch with tortuosity. There is no demonstrated aortic dissection. Normal heart and pericardium. Normal mediastinum. Normal hilar regions. Normal visualized trachea and bronchi. The lungs are well expanded. Normal pulmonary parenchyma. Normal pleura. Normal chest wall structures. Normal osseous structures. Normal visualized upper abdomen. CT/CTA Chest W/WO Contrast IMPRESSION: Normal CTA chest examination, without a demonstrated pulmonary embolism or arterial dissection. Electronically Signed: Alfred Farrell MD at 17:19 EDT Radiography Diagnostic Testing: Radiology Impression Chest X-Ray 06/13/21 17:30 IMPRESSION: Normal x-ray examination of the chest. Electronically Signed: Matthew Wiley MD at 18:18 EST Tel , Service support ,
[2021-06-14] MEDS: Gabapentin 100 MG Capsule PO ×2 (07:40→17:06)
[2021-06-14] MEDS: Aspirin E.C. 81 MG Tablet PO (07:40)
[2021-06-14] MEDS: 0.9% Normal Saline 1,000 ML 50 ML IV (07:41)
[2021-06-14] MEDS: Losartan Potassium 25 MG Tablet 75 MG PO (09:20)
[2021-06-14 11:06] LABS: Bedside Glucose 117 mg/dL (70-110)
[2021-06-14] MEDS: DULoxetine Hcl 60 MG Capsule PO (15:10)
[2021-06-14] MEDS: Metoprolol Tartrate 25 MG Tablet PO ×2 (15:10→21:49)
[2021-06-14] MEDS: Acetaminophen 325 MG Tablet 650 MG PO (15:13)
[2021-06-14] MEDS: ARIPiprazole 5 MG Tablet 2.5 MG PO (15:14)
--- NOTE | 2021-06-14 15:36 | PCM.DC.SUM ---
Providers Date of Admission: 06/13/21 Primary Care Physician: Dr. Efren Lopez MD Consultations 06/13/21 22:11 Consult: Cardiology Routine Consulting Provider: Chris Izquierdo Reason for Consult: angina pectoris, dyspnea on exertion EMERGENT Consult: No MD Notified: Yes Date Notified: 06/13/21 Time Notified: 20:56 Method of Notification: ED notified Dr. Izquierdo Reason For Visit: ANGINA PECTORIS, DYSPNEA ON EXERTION Diagnosis Discharge Diagnosis (1) Angina pectoris, crescendo: Status: Acute Code(s): I20.0 - Unstable angina (2) BOYER (dyspnea on exertion): Status: Acute Code(s): R06.00 - Dyspnea, unspecified (3) Essential (primary) hypertension: Status: Chronic Code(s): I10 - Essential (primary) hypertension (4) HLD (hyperlipidemia): Status: Acute Code(s): E78.5 - Hyperlipidemia, unspecified (5) Diabetes mellitus: Status: Acute Code(s): E11.9 - Type 2 diabetes mellitus without complications (6) CAD (coronary artery disease): Status: Acute Code(s): I25.10 - Atherosclerotic heart disease of teller coronary artery without angina pectoris Medications at Discharge Home Medications Lactobacillus acidophilus 1 ea PO DAILY 02/18/14 albuterol sulfate 1 - 2 puff INHALATION Q4H PRN PRN 02/18/14 drtmhfgyhw-sdvrtpn-sbfghgrd 1 - 2 ea PO PRN PRN 02/18/14 trazodone 100 mg PO QHS 02/18/14 mirabegron 50 mg PO QODAY 10/25/17 alprazolam 0.5 mg tablet 0.5 mg PO PRN PRN 02/03/19 duloxetine 60 mg capsule,delayed release 60 mg PO DAILY cap 02/03/19 pantoprazole 40 mg tablet,delayed release 40 mg PO DAILY #30 tab 02/03/19 Absorbmax 1 cap PO BID 11/17/19 B complex-vitamin C-folic acid 400 mcg PO DAILY 11/17/19 aspirin 81 mg PO DAILY 11/17/19 candesartan 16 mg PO DAILY 11/17/19 oxybutynin chloride 15 mg PO QODAY 11/17/19 pyridoxine (vitamin B6) 100 mg PO DAILY 11/17/19 fluticasone 250 mcg-salmeterol 50 mcg/dose blistr powdr for inhalation 1 inh INHALATION BID 02/01/20 aripiprazole 5 mg tablet 2.5 mg PO DAILY tablet 09/29/20 cholecalciferol (vitamin D3) 25 mcg (1,000 unit) tablet 25 mcg PO BID tablet 09/29/20 gabapentin 100 mg capsule 100 mg PO TIDCM 09/29/20 glipizide 5 mg tablet, extended release 24 hr 5 mg PO DAILY 09/29/20 metformin 500 mg tablet,extended release 24 hr 1,000 mg PO DAILY tablet 09/29/20 nitroglycerin 0.4 mg sublingual tablet 0.4 mg SL Q5-15M PRN 09/29/20 Hospital Course Procedures 2-D Echocardiogram and Cardiac catheterization Summary of Care Provided Minutes Spent on Discharge: 22 Hospital Course: Mrs. Benjamin is a 76-year-old white female who presented to the emergency department was [facility] on 06/13/2021 with a chief complaint of worsening dyspnea on exertion and left-sided chest pain. She had gone to her PCPs office for 3-month follow-up and complained of chest pain. And a D-dimer was performed and found to be slightly elevated at 0.68 although when corrected for age this is normal. At her 3-month checkup she reported that she was fatigued and weak which she reiterated in the emergency department. Reported that she was unable to walk for more than 3 to 4 feet secondary to worsening shortness of breath, weakness and feeling like she was going to pass out. For the past 3 months she had developed chest pain under her left breast that had been occurring once or twice a month. The last time she had pain was 2 days prior to presentation. When it happens she rates it as 7 out of 10 and reports that it is deep and sharp in nature. She had a stress test performed in October 2020 that was negative for any inducible ischemia. Given her history, risk factors, and ongoing symptoms the decision was made to take her to the [facility] for a left heart cath. An echocardiogram was also performed and her echo showed an EF of 55 to 60% with normal LV function and mild to moderate MR. Her cath showed diffuse disease and it was felt that she was in need of coronary artery bypass grafting. The case was discussed by cardiology at [facility] with cardiothoracic surgery and she was accepted for transfer by Dr. Boy Hooks on 06/14/2021. She was transferred in stable condition and was chest pain-free on discharge. Discharge diagnoses: Coronary artery disease DM-2 Hyperlipidemia Hypertension Diabetic neuropathy GERD Urinary Depression Anxiety Physical Exam Const alert, oriented x3 and no apparent distress Constitutional Narrative: Overweight older white female lying in bed, appears comfortable, nontoxic, daughter at bedside, nurse at bedside General Appearance: cooperative, comfortable, well kempt and well developed Orientation / Consciousness: awake Exam Limitations: no limitations Nutritional Appearance: obese HEENT normocephalic, head/scalp atraumatic, hearing grossly normal bilaterally and moist oral mucous membranes HEENT Narrative: Mallampati 2, no thrush Resp normal respiratory effort, no retractions, no use of accessory muscles and clear to auscultation bilaterally Auscultation: Negative for crackles, rales, rhonchi or wheezes Cardio regular rate, regular rhythm, S1 normal heart sound, S2 normal heart sound, no murmurs, no rub, no gallops, no clicks and no JVD GI normal to inspection, nondistended, normoactive bowel sounds, soft to palpation, non-tender and non-distended Extremity normal to inspection and no clubbing, cyanosis or edema Neuro oriented x3, CN's II-XII intact bilaterally, moves all extremities and no focal motor deficits Sensorium / Orientation: awake and alert Speech: speech normal Motor Exam: strength 5/5 throughout Weight / BMI Weight Weight: 97.6 kg Body Mass Index (BMI) 33.7 ABG / Lab / Microbiology Data Result Diagrams: 06/14/21 05:20 06/14/21 05:20 Laboratory: Laboratory Results - last 24 hr 06/13/21 17:26: WBC 7.8, RBC 4.34, Hgb 14.1, Hct 41.7, MCV 96.1, MCH 32.5 H, MCHC 33.8, RDW Std Deviation 43.6, RDW Coeff of [place]e 12.3, Plt Count 255, MPV 9.1, Immature Gran % (Auto) 0.300, Neut % (Auto) 66.8, Lymph % (Auto) 22.2, [place] % (Auto) 7.7, Eos % (Auto) 2.5, Baso % (Auto) 0.5, Absolute Neuts (auto) 5.2, Absolute Lymphs (auto) 1.72, Nucleated RBC % 0 06/13/21 17:26: Sodium 142, Potassium 4.1, Chloride 108 H, Carbon Dioxide 26.0, Anion Gap 8, BUN 22 H, Creatinine 1.32 H, Estim Creat Clear Calc 35.81, Est GFR (MDRD) Af Amer 51 L, Est GFR (MDRD) Non-Af 42 L, BUN/Creatinine Ratio 16.7, Glucose 137 H, Calcium 10.0, Troponin I High Sens 4 06/13/21 17:26: B-Natriuretic Peptide 12.4 06/13/21 19:28: Troponin I High Sens 6 06/13/21 22:36: POC Glucose 110 06/13/21 23:47: Troponin I High Sens 4 06/14/21 05:20: WBC 7.4, RBC 4.11 L, Hgb 13.3, Hct 39.3, MCV 95.6, MCH 32.4 H, MCHC 33.8, RDW Std Deviation 43.0, RDW Coeff of Ann[place]e 12.4, Plt Count 236, MPV 8.9, Immature Gran % (Auto) 0.100, Neut % (Auto) 54.8, Lymph % (Auto) 30.3, [place] % (Auto) 9.4, Eos % (Auto) 4.6, Baso % (Auto) 0.8, Absolute Neuts (auto) 4.0, Absolute Lymphs (auto) 2.23, Nucleated RBC % 0 06/14/21 05:20: Sodium 141, Potassium 4.2, Chloride 108 H, Carbon Dioxide 26.0, Anion Gap 7, BUN 21 H, Creatinine 1.17 H, Estim Creat Clear Calc 40.40, Est GFR (MDRD) Af Amer 58 L, Est GFR (MDRD) Non-Af 48 L, BUN/Creatinine Ratio 17.9, Glucose 119 H, Calcium 9.3, Triglycerides 106, Cholesterol 141, LDL Cholesterol 79, VLDL Cholesterol 21, HDL Cholesterol 41 06/14/21 06:47: POC Glucose 104 06/14/21 10:59: POC Glucose 117 H Microbiology: Microbiology 06/14/21 07:30 Nasal Secretion SARS-CoV-2 Antigen (Rapid) - Final Radiography Diagnostic Testing: Radiology Impression Chest X-Ray 06/13/21 17:30 IMPRESSION: Normal x-ray examination of the chest. Electronically Signed: Matthew Wiley MD at 18:18 EST Tel , Service support , Echocardiogram 06/13/21 22:11 Interpretation Summary The estimated ejection fraction is 55-60 % Normal LV systolic Function Mild-moderate MR Contrast injection used for better Endocardial Delination. Ordering Physician: Wencselao Kate Referring Physician: EFREN LOPEZ Performed By: Christina Mcadams, RO[place], RVT Meaningful Use Info Meaningful Use Diagnoses (Choose all that apply): None applicable Discharge Plan Admission Admit Date/Time: 06/13/21 20:51 Primary Reason for Your Visit: Chest pain Attending Provider: Ariela Diaz Primary Care Provider: Efren Lopez Consulting Providers: Chris Izquierdo Discharge Orders/Prescriptions Prescriptions: No Action pantoprazole 40 mg tablet,delayed release (DR/EC) 40 mg PO DAILY Qty: 30 RF: 0 alprazolam [Xanax] 0.5 mg tablet 0.5 mg PO PRN PRN (Reason: Anxiety) RF: 0 fluticasone propion-salmeterol [Advair Diskus] 250-50 mcg/dose blister with device 1 inh INHALATION BID RF: 0 aripiprazole 5 mg tablet 2.5 mg PO DAILY RF: 0 cholecalciferol (vitamin D3) 25 mcg (1,000 unit) tablet 25 mcg PO BID RF: 0 glipizide 5 mg tablet extended release 24hr 5 mg PO DAILY RF: 0 metformin 500 mg tablet extended release 24 hr 1,000 mg PO DAILY RF: 0 nitroglycerin 0.4 mg tablet, sublingual 0.4 mg SL Q5-15M PRNRF: 0 trazodone 100 MG tablet 100 mg PO QHS RF: 0 qvvamuenqb-irriqcg-ynzsydjz 1 EACH capsule 1 - 2 ea PO PRN PRN (Reason: Migraine Symptoms) RF: 0 Lactobacillus acidophilus 1 EACH tablet 1 ea PO DAILY RF: 0 albuterol sulfate 1 INHALER inhaler 1 - 2 puff inhalation Q4H PRN PRN (Reason: Asthma) RF: 0 duloxetine 60 mg capsule,delayed release(DR/EC) 60 mg PO DAILY RF: 0 gabapentin 100 mg capsule 100 mg PO TIDCM RF: 0 mirabegron 50 MG tablet extended release 24 hr 50 mg PO QODAY RF: 0 Absorbmax 1 cap PO BID RF: 0 oxybutynin chloride 15 MG tablet extended release 24hr 15 mg PO QODAY RF: 0 aspirin 81 MG tablet,delayed release (DR/EC) 81 mg PO DAILY RF: 0 candesartan 16 MG tablet 16 mg PO DAILY RF: 0 pyridoxine (vitamin B6) 50 MG tablet 100 mg PO DAILY RF: 0 B complex-vitamin C-folic acid 400 MCG tablet 400 mcg PO DAILY RF: 0 Referrals / Follow Up: Efren Lopez MD [Primary Care Provider] - Disposition Disposition (needs filled in before D/C Order can be placed): Acute Care Hospital Charges/Coding Visit Charges Inpatient E&M: 00974 Disch Hosp
[2021-06-14] MEDS: HEPARIN/D5w 25,000 UNITS 25,000 UNITS/250 ML IV.SOLN. 14 UNITS IV (16:06)
[2021-06-14 16:19] LABS: Partial Thromboplast Time 32.5 Seconds (24.1-36.2)
[2021-06-14] MEDS: 0.9% Normal Saline 1,000 ML 75 ML IV (17:09)
[2021-06-14 17:31] LABS: Bedside Glucose 138 mg/dL (70-110)
[2021-06-14] MEDS: Pravastatin 40 MG Tablet PO (21:49)
[2021-06-14 22:35] LABS: Bedside Glucose 99 mg/dL (70-110)
[2021-06-14 22:44] LABS: Partial Thromboplast Time 139.8 Seconds (24.1-36.2)
--- NOTE | 2021-06-14 22:47 | NURSING ---
Report called to Ellen Fraire RN at [facility]. Informed of pickup time estimated for 0430-5 am. Will call again with update once transport leaves here.
--- NOTE | 2021-06-14 22:50 | CL.D_ITS ---
Patient Name: MAGGY MCKOY Study Date: 06/14/2021 Performing: Chris Izquierdo MD Ht: 67 inches 170 cm : 1945 Wt: 216.3 lbs 98 kg Age: 76 Gender: female BSA: 2.09 PROCEDURE(S) PERFORMED [id number]/COR/LV 97140 CLINICAL PROFILE AND INDICATIONS Indications: Worsening Angina, Suspected CAD Heart Failure: None Stress/Imaging Stress/Image Study Performed: No Angina Classification Anginal Classification w/in 2 Weeks: CCS IV CAD Presentations: Other: accelerating angina pectoris CONCLUSIONS Elevated Left Ventricular End Diastolic Pressure Normal LV size, wall motion,and systolic function LVEF: by LV gram 65 % [place] Multivessel CAD RECOMMENDATIONS Medical therapy Risk factor modification Surgery consult for coronary revascularization DESCRIPTION OF PROCEDURE The patient arrived to the procedure lab. The risks and benefits of the procedure as well as a full d escription of our services here and current unavailability of surgical backup were fully explained to the patient and/or their significant other prior to the catheterization. The Timeout was completed, verifying the correct patient and procedure. The patient's procedural site was prepped and draped in the usual fashion. Local anesthetic was given subcutaneously to right radial region with Lidocaine 2% . Using a modified Seldinger technique, arterial access was obtained via the right radial artery, a 6 Fr sheath was inserted. Left Coronary Artery selective angiography was performed in multiple views u sing a 5 Fr. 4.0 [place] catheter. Right Coronary Artery selective angiography was then performed in mu ltiple views using a 5 Fr. 4.0 [place] catheter. Left Ventriculography was performed in WALTERS projection using a 5 Fr. [place] catheter. LV to AO pullback pressures were then recorded.The arterial sheath was pulled and a TR Band was applied for hemostasis. Sheath flushed prior to removal. 10cc air inserted. CORONARY ANGIOGRAPHY DOMINANCE: Co- Dominant LEFT HEART ASSESSMENT Left Ventricular Ejection Fraction: by LV Gram 65 % Normal LV wall motion Elevated Left Ventricular End Diastolic Pressure LVEDP: 18 mmHg LEFT MAIN: Mild calcification LEFT ANTERIOR DESCENDING ARTERY: PROX LAD: Mild calcification, long: diffuse: 50 % Stenosis MID LAD: 95 % Stenosis DIAGONAL 1: Proximal - long: diffuse: 90 % Stenosis CIRCUMFLEX ARTERY: PROX CIRC: Mild luminal irregularities OM 1: Proximal - subtotally occluded with the distal vessel filling late and faint from left to left collateral flow OM 2: Proximal - 85 % Stenosis RIGHT CORONARY ARTERY: PROX RCA: 50 % Stenosis, 90 % Stenosis MID RCA: 25 % Stenosis COLLATERAL FLOW: Collateral flow from Left to Left AORTIC ROOT: Angiographically normal COMPLICATIONS No Complications PROCEDURE MEDICATIONS Fentanyl 50 mcg IV Versed 1 mg IV Fentanyl 50 mcg IV Versed 1 mg IV Oxygen: 2 L/min via nasal cannula Heparin given IA 06/14/2021 12:15:18 Verapamil 2.5mg, Ntg 100mcgs, 3000 units of Heparin given IA 06/14/2021 12:15:18 IV Bolus: .9 NaCl 500 ml total 06/14/2021 12:48:24 IV Fluids: .9 NaCl increased to WO ml/hr 06/14/2021 12:19:40 SUMMARY OF HEMODYNAMIC DATA Time AIR REST ECG 11:36:00 AO 104/70 (81) SA 12:17:56 LV 147/-7, 23 12:28:38 LV 140/-5, 18 12:28:43 LV 136/2, 26 12:29:31 LV 132/4, 23 12:29:37 LVp 144/-2, 22 12:29:51 AOp 132/65 (92) 12:29:56 Signed By Chris Izquierdo MD On 06/14/2021 1:12:51 PM Chris Izquierdo MD
[2021-06-15 03:00] VITALS: PULSE 62
[2021-06-15 03:41] VITALS: BP 108/50; PULSE 73; RESP 16; TEMP 36.6; O2SAT 96
[2021-06-15 05:00] VITALS: BP 134/72; PULSE 73; RESP 16; TEMP 37.2; O2SAT 93
--- NOTE | 2021-06-15 05:03 | NURSING ---
Transport [facility]) here to take pt to [facility], belongings sent with pt. heparin drip continued on transfer. Pt left at this time for [facility]. Called to [facility] for update, daughter called with update.
== END 2021-06-15 05:00 | disposition short-term general hospital (02) ==
LOC: ED 20:46 → PCU 21:43
PROVIDERS: Internal Medicine Cardiovascular Disease; Admitting Provider Hospitalist; Emergency Provider Emergency Medicine; PCP Family Medicine; Visit Provider Internal Medicine
DX: I25.110 Atherosclerotic heart disease of native coronary artery with unstable angina pectoris (principal); E78.5 Hyperlipidemia, unspecified; I10 Essential (primary) hypertension; E11.42 Type 2 diabetes mellitus with diabetic polyneuropathy; K21.9 Gastro-esophageal reflux disease without esophagitis; E66.9 Obesity, unspecified; M19.90 Unspecified osteoarthritis, unspecified site; J45.909 Unspecified asthma, uncomplicated; E11.65 Type 2 diabetes mellitus with hyperglycemia; F41.9 Anxiety disorder, unspecified; F32.A Depression, unspecified; R32 Unspecified urinary incontinence; Z79.899 Other long term (current) drug therapy; Z79.82 Long term (current) use of aspirin; Z79.84 Long term (current) use of oral hypoglycemic drugs; Z87.891 Personal history of nicotine dependence
CPT/HCPCS: 36415; 71045; 80048; 80061; 82962; 83880; 84484; 85025; 85379; 85730; 87426; 93005; 93306; 93458; 96365; 96366; 97162; 97802; 99152; 99218; 99282; J7030; Q9957; A4216; C1769; C1894; C8929; G0378; Q9967

== ENCOUNTER 2021-07-07 13:59 | Emergency (ER) | payer MEDICARE, BC, SELFPAY ==
[2021-07-07 14:00] VITALS: BP 142/54; PULSE 91; RESP 22; TEMP 36.7; O2SAT 92; BMI 35.5
[2021-07-07 14:05] VITALS: BP 142/54; PULSE 94; RESP 22; TEMP 36.7; O2SAT 92
--- NOTE | 2021-07-07 14:22 | EKG12_ITS ---
Test Reason : SOB Blood Pressure : / mmHG Vent. Rate : 092 BPM Atrial Rate : 092 BPM P-R Int : 140 ms QRS Dur : 088 ms QT Int : 384 ms P-R-T Axes : 045 022 013 degrees QTc Int : 474 ms Normal sinus rhythm ST & T wave abnormality, consider anterior ischemia Prolonged QT Abnormal ECG Confirmed by MIKE CROWE, SPARKLE ([id number]), food expeditor PAUL MAYNARD ([id number]) on 07/11/2021 10:03:27 AM Referred By: DARYL Confirmed By:SPARKLE MCKEON MD
--- NOTE | 2021-07-07 14:22 | RAD_ITS ---
STUDY: X-RAY CHEST REASON FOR EXAM: Female, 76 years old. cough TECHNIQUE: Single AP portable view of the chest. COMPARISON: 06/13/2021 FINDINGS: Interval coronary artery bypass grafting. Poor inspiration with some bibasilar atelectasis. There is no demonstrated pleural abnormality. There is moderate cardiac enlargement. Normal mediastinum and riki. Normal visualized pulmonary arteries. Normal visualized aortic arch and descending thoracic aorta. Normal visualized thoracic spine. Normal visualized ribs, clavicles, and shoulders. There is no demonstrated abnormality of the visualized soft tissue structures of the upper abdomen. RAD/Chest 1 View (Portable) IMPRESSION: Poor inspiration with some bibasilar atelectasis. Electronically Signed: Alfred Farrell MD at 15:36 EST Tel , Service support ,
--- NOTE | 2021-07-07 14:22 | CT_ITS ---
STUDY: CT BRAIN WITHOUT CONTRAST REASON FOR EXAM: Female, 76 years old. confusion RADIATION DOSAGE (If Supplied By Facility): CTDIvol = ( 44.99 ) mGy, DLP = ( 779.24 ) mGycm TECHNIQUE: Transaxial CT imaging of the brain was performed without administration of intravenous contrast material. Individualized dose optimization techniques were used for this CT. COMPARISON: 10/27/2015 FINDINGS: Normal soft tissue structures. Normal calvarium. There is mild cerebral atrophy with widening of the extra-axial spaces and ventricular dilatation. There are areas of decreased attenuation within the white matter tracts of the supratentorial brain, consistent with microvascular disease changes. Normal basal ganglia and thalami. Normal brainstem. Normal cerebellum. There is no intracranial hemorrhage. There are no findings of an acute ischemic infarction. Opacification of the right maxillary sinus consistent with chronic sinusitis. CT/Brain/Head without Contrast IMPRESSION: Chronic involutional changes of the brain. Electronically Signed: Alfred Farrell MD at 15:39 EST Tel , Service support ,
--- NOTE | 2021-07-07 14:25 | EX.ED.DYSGE1 ---
HPI History of Present Illness Chief Complaint: Shortness of Breath Informant: patient and family Narrative Narrative: History is from patient and daughter. Triage note says short of breath but the patient denies this. She states that she feels punk. Daughter states that she has been more confused for 4 days. She has been occasionally hallucinating. She is not herself. She is not eating much. She is not drinking much. She is feeling too weak to do therapy. She evidently does have a history of UTIs. She encouraged the facility to check a urine. Evidently yesterday they started her on antibiotics for UTI. I have no reported fevers. She did just have multivessel bypass surgery down in [facility] about 2 and half weeks ago. She was recovering reasonably well from this. However, there have also been a fair amount of adjustments of Lasix recently. They have also adjusted potassium dosage recently. Nothing clearly makes his symptoms better or worse. However the daughter states she was healing well in the last 4 days she seems to be going downhill. [facility] Medical History Atherosclerotic heart disease of [place] coronary artery without angina pectoris Diabetes mellitus Diabetes mellitus Essential (primary) hypertension GERD (gastroesophageal reflux disease) HLD (hyperlipidemia) Mitral valve prolapse Obesity Osteoarthritis Seasonal asthma Urinary incontinence Home Medications Lactobacillus acidophilus 1 ea PO DAILY 02/18/14 [History Last Taken Unknown] albuterol sulfate 1 - 2 puff INHALATION Q4H PRN PRN 02/18/14 [History Last Taken Unknown] trazodone 100 mg PO QHS 02/18/14 [History Last Taken 10/24/17] duloxetine 60 mg capsule,delayed release 60 mg PO DAILY cap 02/03/19 [History Last Taken Unknown] pantoprazole 40 mg tablet,delayed release 40 mg PO DAILY #30 tab 02/03/19 [History Last Taken 11/19/19 04:15] B complex-vitamin C-folic acid 400 mcg PO DAILY 11/17/19 [History Last Taken Unknown] aspirin 81 mg PO DAILY 11/17/19 [History Last Taken 11/16/19] oxybutynin chloride 15 mg PO QODAY 11/17/19 [History Last Taken Unknown] fluticasone 250 mcg-salmeterol 50 mcg/dose blistr powdr for inhalation 1 inh INHALATION BID 02/01/20 [History Last Taken Unknown] aripiprazole 5 mg tablet 2.5 mg PO DAILY tablet 09/29/20 [History Last Taken Unknown] cholecalciferol (vitamin D3) 25 mcg (1,000 unit) tablet 25 mcg PO BID tablet 09/29/20 [History Last Taken Unknown] gabapentin 100 mg capsule 100 mg PO TIDCM 09/29/20 [History Last Taken Unknown] glipizide 5 mg tablet, extended release 24 hr 5 mg PO DAILY 09/29/20 [History Last Taken Unknown] metformin 500 mg tablet,extended release 24 hr 1,000 mg PO DAILY tablet 09/29/20 [History Last Taken Unknown] nitroglycerin 0.4 mg sublingual tablet 0.4 mg SL Q5-15M PRN 09/29/20 [History Last Taken Unknown] acetaminophen 325 mg tablet 325 mg PO Q4H PRN tab 06/25/21 [History Last Taken Unknown] atorvastatin 80 mg tablet 80 mg PO QHS 06/25/21 [History Last Taken Unknown] clopidogrel 75 mg tablet 75 mg PO DAILY 06/25/21 [History Last Taken Unknown] cyclobenzaprine 10 mg tablet 10 mg PO HS PRN 06/25/21 [History Last Taken Unknown] furosemide 20 mg tablet 40 mg PO BID tab 06/25/21 [History Last Taken Unknown] magnesium oxide 400 mg (241.3 mg magnesium) tablet 400 mg PO BID tab 06/25/21 [History Last Taken Unknown] melatonin 10 mg tablet 10 mg PO HS PRN 06/25/21 [History Last Taken Unknown] metoprolol tartrate 25 mg tablet 25 mg PO BID 06/25/21 [History Last Taken Unknown] potassium chloride 10 mEq capsule,extended release 20 meq PO BID cap 06/25/21 [History Last Taken Unknown] trimethoprim 100 mg tablet 100 mg PO DAILY 06/25/21 [History Last Taken Unknown] Allergy/AdvReac Type Severity Reaction Status Date / Time ceftriaxone sodium Allergy Hives Verified 06/13/21 17:00 [From Rocephin] doxycycline Allergy Hives Verified 06/13/21 17:00 fluoxetine [From Prozac] Allergy PT UNSURE Verified 07/07/21 14:09 OF REACTION lorazepam [From Ativan] AdvReac Other Verified 06/13/21 17:00 trimethoprim AdvReac Nausea Verified 06/13/21 23:13 Family History Sister Heart disease Diabetes Hypertension Father Diabetes Heart disease Mother Hypertension Surgical History History of bladder surgery History of bladder suspension procedure History of coronary artery bypass surgery (~06/18/21) History of hysterectomy History of inguinal hernia repair History of knee surgery History of left heart catheterization (06/14/21) Hx of cholecystectomy Social History Smoking Status: Former smoker how long ago did patient quit smokin years ago alcohol intake: never substance use type: does not use caffeine: No ROS ROS ED Constitutional Constitutional ED: Denies chills or fever(s) Eyes Eyes: Denies blurry vision ENT ENT ED: Reports rhinorrhea; Denies sore throat Cardiovascular Cardiovascular: Reports other Details: Despite her surgery, patient states she is not having pain. And the patient is awake and alert. ; Denies chest pain, palpitations or racing heartbeat Respiratory/Chest Respiratory/Chest: Denies cough, dyspnea or sputum Gastrointestinal Gastrointestinal: Reports diarrhea, nausea and other Details: She has had some mild nausea but no vomiting. She has had some mild soft stools/diarrhea but she is also been on stool softeners that have continued. She denies abdominal pain. ; Denies abdominal pain, constipation, melena or vomiting Genitourinary Genitourinary ED: Reports other Details: No dysuria. However she has a history of frequent UTIs without symptoms. ; Denies dysuria Musculoskeletal Musculoskeletal: Denies myalgias Integumentary Denies rash Neurologic Neurologic: Denies headache(s), paresthesias or weakness Psychiatric Psychiatric: Reports other Details: Patient does have a history of bipolar. She has never been confused or hallucinated though. Endocrine Endocrinology: Denies polydipsia or polyuria Allergic/Immunologic Allergic/Immunologic ED: Denies mouth swelling or urticaria EXAM Physical Exam Const Vital Signs: 07/07/21 14:00 07/07/21 14:05 07/07/21 15:26 Temperature 98.0 F 98.0 F 98.4 F Temperature Source Temporal Temporal Temporal Pulse Rate 91 94 91 Respiratory Rate 22 H 22 H 24 H Respiratory Effort Short of Breath Respiratory Pattern Tachypnea Blood Pressure 142/54 H 142/54 H 118/50 L Blood Pressure Mean 83 83 72 Pulse Ox 92 92 97 Oxygen Delivery Method Room Air Room Air Nasal Cannula Oxygen Flow Rate (L/min) 2 07/07/21 16:00 07/07/21 16:37 Temperature 98.4 F 98.4 F Temperature Source Temporal Pulse Rate 88 77 Respiratory Rate 16 20 H Respiratory Effort Respiratory Pattern Blood Pressure 123/72 H 127/73 H Blood Pressure Mean 89 91 Pulse Ox 95 96 Oxygen Delivery Method Nasal Cannula Oxygen Flow Rate (L/min) Patient Positive well nourished and well developed General Appearance ED: well developed; Negative for cyanotic or diaphoretic HEENT Reports dry mucous membranes Negative for trauma or tenderness Mouth ED: Yes dry mucous membranes Mouth: dry mucous membranes Eyes General Eye ED: Negative for pale conjunctiva or scleral icterus Neck no JVD Chest Wall inspection of chest normal Chest Narrative: Her is healing actually quite well for just having surgery about 2-1/2 weeks ago. The wound does not at all look infected. It is completely healed over except a small crusting area in the upper wound that still looks like it is healing quite well. 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 She also recognizes her daughter easily. But she is somewhat slow to answer because she just looks worn out. Sensorium / Orientation: alert Psych mental status grossly normal Psych Narrative: Mildly flat affect. Skin no rashes or lesions noted MDM MDM MDM Narrative Medical decision making narrative: Patient's blood work shows a white count of 11.7. However, this is down from just a few days ago. Electrolytes show no marked abnormalities. Her creatinine is actually improved from a few days ago also. Lactate is negative. LFTs show no marked abnormalities. Urine does show some suspicious signs of UTI. However, this is also after she has been treated with at least 2 doses of cefdinir. Patient CT of her head shows no acute process chest x-ray shows some mild atelectasis which would not be uncommon. I had a long discussion with the daughter and patient. I also discussed this with the son and daughter while on the phone. They would like to see if she could get into TCU here. However we made connections and that is not able to be done today. We have no social work and no ability to transfer there over holiday weekend. She is better now. This waxing and waning confusion may be due to UTI. She is being treated. She appears to be improving on blood work as well as clinically. I think she can go back at this time. Certainly if she develops further problems, fevers, vomiting, hypotension or other findings she may need to return. Lab Data Attestation: I reviewed the patient's lab results. Labs: Laboratory Results - last 24 hr 07/07/21 07/07/21 07/07/21 14:35 14:35 14:35 WBC 11.7 H RBC 3.37 L Hgb 10.7 L Hct 33.4 L MCV 99.1 H MCH 31.8 MCHC 32.0 RDW Std Deviation 54.6 H RDW Coeff of [place] 15.1 H Plt Count 471 H MPV 8.6 Immature Gran % (Auto) 0.300 Neut % (Auto) 72.5 H Lymph % (Auto) 9.9 L [place] % (Auto) 9.0 Eos % (Auto) 7.5 H Baso % (Auto) 0.8 Absolute Neuts (auto) 8.5 H Absolute Lymphs (auto) 1.16 Nucleated RBC % 0 Sodium 137 Potassium 3.8 Chloride 101 Carbon Dioxide 30.0 Anion Gap 6 BUN 18 Creatinine 1.02 Estim Creat Clear Calc 46.34 Est GFR (MDRD) Af Amer 68 Est GFR (MDRD) Non-Af 56 L BUN/Creatinine Ratio 17.6 Glucose 130 H Lactic Acid 1.2 Calcium 9.6 Total Bilirubin 0.80 AST 11 L ALT 15 Alkaline Phosphatase 84 Troponin I High Sens 9 Total Protein 7.6 Albumin 2.7 L Globulin 4.9 H Albumin/Globulin Ratio 0.6 L Urine Color Urine Clarity Urine pH Ur Specific [place] Urine Protein Urine Glucose (UA) Urine Ketones Urine Occult Blood Urine Nitrite Urine Bilirubin Urine Urobilinogen Ur Leukocyte Esterase Urine RBC Urine WBC Ur Squamous Epith Cells Calcium Oxalate Crystal Urine Bacteria Hyaline Casts Urine Mucus 07/07/21 14:48 WBC RBC Hgb Hct MCV MCH MCHC RDW Std Deviation RDW Coeff of [place] Plt Count MPV Immature Gran % (Auto) Neut % (Auto) Lymph % (Auto) [place] % (Auto) Eos % (Auto) Baso % (Auto) Absolute Neuts (auto) Absolute Lymphs (auto) Nucleated RBC % Sodium Potassium Chloride Carbon Dioxide Anion Gap BUN Creatinine Estim Creat Clear Calc Est GFR (MDRD) Af Amer Est GFR (MDRD) Non-Af BUN/Creatinine Ratio Glucose Lactic Acid Calcium Total Bilirubin AST ALT Alkaline Phosphatase Troponin I High Sens Total Protein Albumin Globulin Albumin/Globulin Ratio Urine Color Yellow Urine Clarity Cloudy Urine pH 5.0 Ur Specific [place] 1.025 Urine Protein 15 H Urine Glucose (UA) Normal Urine Ketones 5 H Urine Occult Blood 10 H Urine Nitrite Negative Urine Bilirubin Negative Urine Urobilinogen Normal Ur Leukocyte Esterase 25 H Urine RBC 0 SEEN Urine WBC 10-25 SEEN Ur Squamous Epith Cells 25-50 SEEN Calcium Oxalate Crystal 1+ Urine Bacteria 0 SEEN Hyaline Casts 0-5 SEEN Urine Mucus 0 SEEN Radiography Diagnostic Testing: Clinical Impression(s) from Imaging Studies Brain CT 07/07/21 14:22 IMPRESSION: Chronic involutional changes of the brain. Electronically Signed: Alfred Farrell MD at 15:39 EST Tel , Service support , Chest X-Ray 07/07/21 14:22 IMPRESSION: Poor inspiration with some bibasilar atelectasis. Electronically Signed: Alfred Farrell MD at 15:36 EST Tel , Service support , EKG Initial EKG: Comments: EKG done for generalized weakness read by me shows a normal sinus rhythm with a rate of 92. No ventricular ectopy. No acute ST elevation or depression consistent with acute infarct or ischemia. There is some new T wave inversion in the anterior and slight lateral areas. However her old EKG is prior to her [place] and bypass surgery [place] interval, QRS duration are normal. QTc is toward the longer and at 474 ms. Discharge Plan Triage Chief Complaint: Shortness of Breath ED Provider: Alexx Mishra Dx/Rx/DC Orders Clinical Impression: Acute UTI, Intermittent confusion Instructions: Urinary Tract Infections in Women Prescriptions: No Action pantoprazole 40 mg tablet,delayed release (DR/EC) 40 mg PO DAILY Qty: 30 RF: 0 fluticasone propion-salmeterol [Advair Diskus] 250-50 mcg/dose blister with device 1 inh INHALATION BID RF: 0 aripiprazole 5 mg tablet 2.5 mg PO DAILY RF: 0 cholecalciferol (vitamin D3) 25 mcg (1,000 unit) tablet 25 mcg PO BID RF: 0 glipizide 5 mg tablet extended release 24hr 5 mg PO DAILY RF: 0 metformin 500 mg tablet extended release 24 hr 1,000 mg PO DAILY RF: 0 nitroglycerin 0.4 mg tablet, sublingual 0.4 mg SL Q5-15M PRN (Reason: Heartburn) RF: 0 trazodone 100 MG tablet 100 mg PO QHS RF: 0 Lactobacillus acidophilus 1 EACH tablet 1 ea PO DAILY RF: 0 albuterol sulfate 1 INHALER inhaler 1 - 2 puff inhalation Q4H PRN PRN (Reason: Asthma) RF: 0 duloxetine 60 mg capsule,delayed release(DR/EC) 60 mg PO DAILY RF: 0 gabapentin 100 mg capsule 100 mg PO TIDCM RF: 0 oxybutynin chloride 15 MG tablet extended release 24hr 15 mg PO QODAY RF: 0 aspirin 81 MG tablet,delayed release (DR/EC) 81 mg PO DAILY RF: 0 B complex-vitamin C-folic acid 400 MCG tablet 400 mcg PO DAILY RF: 0 acetaminophen 325 mg tablet 325 mg PO Q4H PRN (Reason: Pain) RF: 0 atorvastatin 80 mg tablet 80 mg PO QHS RF: 0 clopidogrel 75 mg tablet 75 mg PO DAILY RF: 0 furosemide 20 mg tablet 40 mg PO BID RF: 0 magnesium oxide 400 mg (241.3 mg magnesium) tablet 400 mg PO BID RF: 0 metoprolol tartrate 25 mg tablet 25 mg PO BID RF: 0 potassium chloride 10 mEq capsule, extended release 20 meq PO BID RF: 0 cyclobenzaprine 10 mg tablet 10 mg PO HS PRN (Reason: Muscle Pain) RF: 0 melatonin 10 mg tablet 10 mg PO HS PRN (Reason: Sleep) RF: 0 trimethoprim 100 mg tablet 100 mg PO DAILY RF: 0 Primary Care Provider: Efren Cameron Referrals: Efren Cameron MD [Primary Care Provider] - 3-5 Days if not improving Activity Restrictions/Additional Instructions: Continue cefdinir as ordered for urinary tract infection. Disposition Disposition: Jail Facility Discharge Location: [facility] Discharge Date/Time: 07/07/21 17:09
[2021-07-07 14:40] LABS: Absolute Lymphocyte Count 1.16 X10^3/uL (0.83-4.51); Absolute Neutrophil Count 8.5 X10^3/uL (2.0-7.7); Basophil# 0.09 X10^3/uL; Basophil% 0.8 % (0-1); Eosinophil# 0.88 X10^3/uL; Eosinophils% 7.5 % (0-5); Hematocrit 33.4 % (37-47); Hemoglobin 10.7 g/dL (12.0-15.0); Lymphocyte # 1.16 X10^3/ul (0.83-4.51); Lymphocyte % 9.9 % (19-41); Mean Corpuscular Hgb 31.8 pg (27.0-32.0); Mean Corpuscular Volume 99.1 fL (81-99); Mean Platelet Vol. 8.6 fl (6.2-12.0); Monocyte# 1.05 X10^3/uL; NRBC Flagged by Analyzer 0 % (0-5); Neutrophil # 8.52 X10^3/uL (2.7-7.7); Neutrophil % 72.5 % (47-70); Platelet Count 471 K/mm3 (150-450); RBC Distribution Width CV 15.1 % (11.6-14.6); RBC Distribution Width SD 54.6 fl (35.1-43.9); Red Blood Count 3.37 M/mm3 (4.2-5.4); White Blood Count 11.7 K/mm3 (4.4-11.0)
[2021-07-07 14:54] LABS: Bacteria 0 SEEN /hpf (None Seen); Mucous, Urine 0 SEEN /hpf (<or=2+); Red Blood Cells-Urine 0 SEEN /hpf (0-5)
[2021-07-07 15:03] LABS: ALB/GLOB Ratio 0.6 RATIO (0.9-2.4); AST(SGOT) 11 U/L (15-37); Alanine Aminotransfer ALT/SGPT 15 U/L (13-56); Albumin, Serum 2.7 g/dL (3.2-5.0); Alkaline Phosphatase 84 U/L (45-117); Anion Gap 6 (5-15); BUN 18 mg/dL (7-18); BUN/Creat Ratio 17.6 RATIO (10-20); Calcium,Total 9.6 mg/dL (8.5-10.1); Chloride 101 mmol/L (98-107); Creatinine, Serum 1.02 mg/dL (0.55-1.02); EST Glomerular Filtration Rate 56 mL/min (>60); Est Glom Filt Rate - Afr Amer 68 mL/min (>60); Estimated Creatinine Clearance 46.34 ml/min; Globulin 4.9 g/dL (2.2-4.2); Glucose 130 mg/dL (74-106); Potassium 3.8 mmol/L (3.5-5.1); Protein, Total 7.6 g/dL (6.4-8.2); Sodium Level 137 mmol/L (136-145); Troponin-I HS 9 pg/mL (3.0-54.0)
[2021-07-07 15:06] LABS: Lactic Acid 1.2 mmol/L (0.4-1.9)
[2021-07-07 15:26] VITALS: BP 118/50; PULSE 91; RESP 24; TEMP 36.9; O2SAT 97
[2021-07-07 15:39] LABS: Color, Urine Yellow (Yellow); Glucose, Dipstick Normal (Normal); Ketone-Dipstick 5 mg/dl (Negative); Leukocyte Esterase-Dipstick 25 /ul (Negative); Nitrite-Dipstick Negative (Negative); Occult Blood-Urine 10 /ul (Negative); Protein-Dipstick 15 mg/dl (Negative); Specific Gravity, Urine 1.025 (1.002-1.030); Urine Bilirubin Dipstick Negative (Negative); Urine Clarity Cloudy (Clear); Urine Urobilinogen Normal (Normal)
[2021-07-07 15:54] LABS: Hyaline Cast 0-5 SEEN /lpf (0-5)
[2021-07-07 15:56] LABS: Calcium Oxalate Crystals Ur 1+ /hpf (<or=2+)
[2021-07-07 15:58] LABS: Squamous Epithelial Cells - UA 25-50 SEEN /hpf (5-10); White Blood Cells 10-25 SEEN /hpf (0-5)
[2021-07-07 16:00] VITALS: BP 123/72; PULSE 88; RESP 16; TEMP 36.9; O2SAT 95; O2SAT 96
[2021-07-07 16:37] VITALS: BP 127/73; PULSE 77; RESP 20; TEMP 36.9; O2SAT 96
--- NOTE | 2021-07-09 08:04 | ED.RN ---
Spoke with Dr Mooney about pos blood culture. This is a preliminary report so pt was being treated for uti with cefdinir and it should cover. This will be reevaluated when we get the final report
== END 2021-07-07 17:09 ==
PROVIDERS: Emergency Provider Emergency Medicine; PCP Family Medicine
DX: N39.0 Urinary tract infection, site not specified (principal); R32 Unspecified urinary incontinence; R41.0 Disorientation, unspecified; R06.02 Shortness of breath; I25.10 Atherosclerotic heart disease of native coronary artery without angina pectoris; E11.9 Type 2 diabetes mellitus without complications; I10 Essential (primary) hypertension; I34.1 Nonrheumatic mitral (valve) prolapse; J45.909 Unspecified asthma, uncomplicated; K21.9 Gastro-esophageal reflux disease without esophagitis; M19.90 Unspecified osteoarthritis, unspecified site; E78.5 Hyperlipidemia, unspecified; Z79.51 Long term (current) use of inhaled steroids; E66.9 Obesity, unspecified; Z79.82 Long term (current) use of aspirin; Z79.84 Long term (current) use of oral hypoglycemic drugs; Z79.899 Other long term (current) drug therapy; Z87.440 Personal history of urinary (tract) infections; Z87.891 Personal history of nicotine dependence
CPT/HCPCS: 70450; 71045; 80053; 81001; 83605; 84484; 85025; 87040; 87077; 87086; 87088; 87186; 87426; 93005; 99285; A4216

== ENCOUNTER 2021-07-09 16:40 | Inpatient (IN) | payer MEDICARE, BC, SELFPAY ==
[2021-07-09 17:34] VITALS: BP 131/70; PULSE 83; RESP 19; TEMP 36.7; O2SAT 96; BMI 33.5
--- NOTE | 2021-07-09 18:06 | HP.PCM_ITS ---
HPI - General General Date of Admission: 07/09/21 HPI Narrative MAGGY MCKOY, is a 76 Female who presents with followin06/18/2021 CABG x 4 at [facility], Lasix added for fluid overload. 06/25/2021 Admit to [facility] for rehabilitation. 07/07/2021 [facility] Emergency Department for shortness of breath. Patient denied shortness of breath. Malaise, confused x 4 days, hallucinating. Not eating, not drinking, feeling weak, unable to do therapy. On oral cefdinir for urinary tract infection. On Lasix, potassium for fluid overload. CT brain negative, Chest X-ray showed atelectasis, in light of recent CABG, expected. 07/09/2021 Partially treated urine culture grew < 1000 Citrobacter Koseri. Partially treated aerobic blood culture growing gram positive rods. 07/09/2021 Admit to TCU with debility, here for rehabilitation, strengthening, meredith or to discharge home to assisted living. [facility] Medical History Atherosclerotic heart disease of [place] coronary artery without angina pectoris Diabetes mellitus Diabetes mellitus Essential (primary) hypertension GERD (gastroesophageal reflux disease) HLD (hyperlipidemia) Mitral valve prolapse Obesity Osteoarthritis Seasonal asthma Urinary incontinence Home Medications Lactobacillus acidophilus 1 ea PO DAILY 02/18/14 [History Last Taken Unknown] albuterol sulfate 1 - 2 puff INHALATION Q4H PRN PRN 02/18/14 [History Last Taken Unknown] trazodone 100 mg PO QHS 02/18/14 [History Last Taken 10/24/17] duloxetine 60 mg capsule,delayed release 60 mg PO DAILY cap 02/03/19 [History Last Taken Unknown] pantoprazole 40 mg tablet,delayed release 40 mg PO DAILY #30 tab 02/03/19 [History Last Taken 11/19/19 04:15] B complex-vitamin C-folic acid 400 mcg PO DAILY 11/17/19 [History Last Taken Unknown] aspirin 81 mg PO DAILY 11/17/19 [History Last Taken 11/16/19] oxybutynin chloride 10 mg PO DAILY 11/17/19 [History Last Taken Unknown] fluticasone 250 mcg-salmeterol 50 mcg/dose blistr powdr for inhalation 1 inh INHALATION BID 02/01/20 [History Last Taken Unknown] aripiprazole 5 mg tablet 5 mg PO DAILY tablet 09/29/20 [History Last Taken Unkn own] cholecalciferol (vitamin D3) 25 mcg (1,000 unit) tablet 25 mcg PO BID tablet 09/29/20 [History Last Taken Unknown] glipizide 5 mg tablet, extended release 24 hr 5 mg PO DAILY 09/29/20 [History L ast Taken Unknown] metformin 500 mg tablet,extended release 24 hr 1,000 mg PO DAILY tablet 09/29/20 [History Last Taken Unknown] nitroglycerin 0.4 mg sublingual tablet 0.4 mg SL Q5-15M PRN 09/29/20 [History Last Taken Unknown] acetaminophen 325 mg tablet 650 mg PO Q4H PRN tab 06/25/21 [History Last Taken Unknown] atorvastatin 80 mg tablet 80 mg PO QHS 06/25/21 [History Last Taken Unknown] clopidogrel 75 mg tablet 75 mg PO DAILY 06/25/21 [History Last Taken Unknown] cyclobenzaprine 10 mg tablet 10 mg PO HS PRN 06/25/21 [History Last Taken Unknown] furosemide 20 mg tablet 40 mg PO BID tab 06/25/21 [History Last Taken Unknown] magnesium oxide 400 mg (241.3 mg magnesium) tablet 400 mg PO BID tab 06/25/21 [History Last Taken Unknown] melatonin 10 mg tablet 10 mg PO HS PRN 06/25/21 [History Last Taken Unknown] metoprolol tartrate 25 mg tablet 25 mg PO BID 06/25/21 [History Last Taken Unkno wn] potassium chloride 10 mEq capsule,extended release 20 meq PO BID cap 06/25/21 [History Last Taken Unknown] cefdinir 300 mg PO BID 07/09/21 [History Last Taken Unknown] oxycodone 5 mg PO Q6H PRN 07/09/21 [History Last Taken Unknown] polyethylene glycol 3350 [Miralax] 17 g PO BID 07/09/21 [History Last Taken Unknown] sennosides [senna] 8.6 mg PO BID 07/09/21 [History Last Taken Unknown] Allergy/AdvReac Type Severity Reaction Status Date / Time ceftriaxone sodium Allergy Hives Verified 06/13/21 17:00 [From Rocephin] doxycycline Allergy Hives Verified 06/13/21 17:00 fluoxetine [From Prozac] Allergy PT UNSURE Verified 07/07/21 14:09 OF REACTION lorazepam [From Ativan] AdvReac Other Verified 06/13/21 17:00 trimethoprim AdvReac Nausea Verified 06/13/21 23:13 Family History Sister Heart disease Diabetes Hypertension Father Diabetes Heart disease Mother Hypertension Surgical History History of bladder surgery History of bladder suspension procedure History of coronary artery bypass surgery (~06/18/21) History of hysterectomy History of inguinal hernia repair History of knee surgery History of left heart catheterization (06/14/21) Hx of cholecystectomy Social History (Updated 07/09/21 @ 18:[address] Paulo Murray MD) household members: none housing: assisted living facility Smoking Status: Former smoker how long ago did patient quit smokin years ago alcohol intake: never substance use type: does not use caffeine: No ROS Constitutional Constitutional: Denies chills, fever(s) or weight gain ENT HEENT: Denies headache(s), nasal congestion or nasal discharge Cardiovascular Cardiovascular: Denies chest pain or palpitations Respiratory/Chest Respiratory/Chest: Denies cough, excessive phlegm production or shortness of breath with exertion Gastrointestinal Gastrointestinal: Denies abdominal pain, nausea or vomiting Genitourinary Genitourinary: Denies dysuria Musculoskeletal Musculoskeletal: Denies joint pain or joint swelling Integumentary Integumentary: Denies rash or wounds Neurologic Neurologic: Denies focal weakness, numbness or tingling Psychiatric Psychiatric: Denies anxiety, auditory hallucinations, depression, homicidal ideation or suicidal ideation Physical Exam Const alert and oriented x3 General Appearance: cooperative HEENT normocephalic Eyes PERRL and EOMs intact bilaterally Neck supple, no JVD and no carotid bruits Resp normal respiratory effort, normal air movement and clear to auscultation bilaterally Cardio regular rate and regular rhythm GI normal to inspection, nondistended, normoactive bowel sounds, non-tender and non-distended Extremity normal capillary refill General Extremity: Negative for edema Skin no rashes or lesions noted General Skin Exam: no breakdown Psych affect normal Appearance: appropriate Results Lab / Micro Data Result Diagrams: 07/10/21 05:50 07/10/21 05:50 Assessment & Plan Assessment/Plan (1) Debility: (2) Encephalopathy: (3) Urinary tract infection: (4) Bacteremia: (5) Coronary artery disease: (6) Hypertension: (7) Hyperlipidemia: (8) Diabetes mellitus: (9) Gastroesophageal reflux disease: (10) Mitral valve prolapse: (11) Insomnia: (12) Overactive bladder: (13) Anxiety: (14) Depression: (15) Diabetic polyneuropathy: PLAN: 76 year old female with below past medical history recent CABG x 4, Citrobacter urinary tract infection, encephalopathy, admitted to TCU with debility, here for rehabilitation, strengthening, prior to discharge to assisted living facility. * Debility - PT/OT. * Pain - Tylenol 1000mg q6h prn pain (1-5), Oxycodone 5mg q4h prn pain (6-10). * Bowel - Miralax 17gm bid, Senna/colace 1 tablet bid, Dulcolax 10mg daily prn. * Adult immunization - Administer prevnar 13, pneumovax 23, fluzone, covid19 vaccine as appropriate. * DVT prophylaxis - Hold on dual antiplatelet therapy. * Hallucinations - Abilify 5mg daily, stable chronic halfway use, GDR not recommended. * Coronary artery disease status post CABG x 4 - Metoprolol 25mg bid, Plavix 75mg daily, Aspirin 81mg daily, NTG 0.4mg sl q5m prn. * Hyperlipidemia - Cefdinir 300mg bid thru 07/15/2021. * Citrobacter Koseri urinary tract infection - Cefdinir 300mg bid thru 07/15/2021. * Muscle spasm - Flexeril 10mg qhs prn. 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 * Asthma - Advair 1 puff Q12H. * Edema - Lasix 40mg bid. * Hypokalemia - Potassium chloride 20meq bid. * Diabetes Mellitus II - Metformin XR 1000mg qam, Glipizide 5mg qam. * Insomnia - Trazodone 100mg qhs, stable chronic halfway use, GDR not recommended, Melatonin 10mg qhs prn. * GERD - Pantoprazole 40mg daily. * Overactive bladder - Detrol 4mg daily.
[2021-07-09] MEDS: Cefdinir 300 MG Capsule PO (20:20)
[2021-07-09] MEDS: Acetaminophen 500 MG Tablet 1000 MG PO (20:24)
[2021-07-09] MEDS: Atorvastatin Calcium 80 MG Tablet PO (20:25)
[2021-07-09] MEDS: traZODone 100 MG Tablet PO (20:27)
[2021-07-10] MEDS: DULoxetine Hcl 60 MG Capsule PO (05:33)
[2021-07-10] MEDS: ARIPiprazole 5 MG Tablet PO (05:33)
[2021-07-10] MEDS: Tolterodine Tartrate 4 MG CAP.SA PO (05:33)
[2021-07-10] MEDS: Aspirin E.C. 81 MG Tablet PO (05:33)
[2021-07-10] MEDS: Furosemide 40 MG Tablet PO ×2 (05:33→14:50)
[2021-07-10] MEDS: Pantoprazole Sodium 40 MG Tablet PO (05:33)
[2021-07-10] MEDS: Clopidogrel Bisulfate 75 MG Tablet PO (05:34)
[2021-07-10 05:39] VITALS: BP 127/72; PULSE 95
[2021-07-10] MEDS: Metoprolol Tartrate 25 MG Tablet PO ×2 (05:39→18:42)
[2021-07-10] MEDS: Fluticasone/Salmeterol 232-14 Inhaler 1 PUFF INHALATION ×2 (05:40→18:41)
[2021-07-10 06:04] LABS: Absolute Lymphocyte Count 1.23 X10^3/uL (0.83-4.51); Absolute Neutrophil Count 4.7 X10^3/uL (2.0-7.7); Basophil# 0.09 X10^3/uL; Eosinophil# 1.94 X10^3/uL; Eosinophils% 22.5 % (0-5); Hemoglobin 9.7 g/dL (12.0-15.0); Lymphocyte # 1.23 X10^3/ul (0.83-4.51); Lymphocyte % 14.2 % (19-41); Mean Corp Hgb Conc 32.3 g/dL (32-36); Mean Corpuscular Hgb 31.2 pg (27.0-32.0); Mean Corpuscular Volume 96.5 fL (81-99); Mean Platelet Vol. 8.8 fl (6.2-12.0); Monocyte# 0.65 X10^3/uL; Monocyte% 7.5 % (0-10); NRBC Flagged by Analyzer 0 % (0-5); Neutrophil % 54.5 % (47-70); Platelet Count 408 K/mm3 (150-450); RBC Distribution Width SD 52.4 fl (35.1-43.9); Red Blood Count 3.11 M/mm3 (4.2-5.4); White Blood Count 8.6 K/mm3 (4.4-11.0)
[2021-07-10 06:33] LABS: Anion Gap 8 (5-15); BUN 18 mg/dL (7-18); BUN/Creat Ratio 23.6 RATIO (10-20); Calcium,Total 9.9 mg/dL (8.5-10.1); Chloride 104 mmol/L (98-107); Creatinine, Serum 0.76 mg/dL (0.55-1.02); EST Glomerular Filtration Rate 78 mL/min (>60); Est Glom Filt Rate - Afr Amer 95 mL/min (>60); Estimated Creatinine Clearance 47.27 ml/min; Glucose 89 mg/dL (74-106); Potassium 4.3 mmol/L (3.5-5.1); Sodium Level 141 mmol/L (136-145)
[2021-07-10 06:35] LABS: Bedside Glucose 75 mg/dL (70-110)
[2021-07-10] MEDS: Cefdinir 300 MG Capsule PO ×2 (06:41→18:42)
[2021-07-10 07:22] VITALS: O2SAT 98
[2021-07-10] MEDS: Potassium Chloride Oral Tablet 20 MEQ PO ×2 (09:29→18:42)
[2021-07-10 10:45] VITALS: BP 138/60; PULSE 86; RESP 18; O2SAT 95
--- NOTE | 2021-07-10 10:45 | NURSING ---
back to room with occupational therapy. per ot while standing pt c/o gen weakness and appeared clammy, pt tells ot that this happens at home in the past prior to surgery and she would drink and orange juice. pt denies any dizziness or lightheadedness. blood sugar 179, bp 138/60, hr 86 and pulse ox 95% on 2l via nasal cannula at this time while resting in recliner, will cont to monitor.
[2021-07-10 10:55] LABS: Bedside Glucose 179 mg/dL (70-110)
[2021-07-10] MEDS: Acetaminophen 500 MG Tablet 1000 MG PO (12:12)
[2021-07-10] MEDS: metFORMIN (XR) 500 MG Tablet 1000 MG PO (12:13)
[2021-07-10 14:49] VITALS: BP 114/68; PULSE 94; RESP 16; TEMP 36.4; O2SAT 96
[2021-07-10] MEDS: glipiZIDE XL 5 MG Tablet PO (14:50)
[2021-07-10 18:42] VITALS: BP 114/68; PULSE 94
[2021-07-10] MEDS: Senna/Docusate Sodium 1 Tablet PO (18:42)
[2021-07-10] MEDS: Polyethylene Glycol 3350 17 GM PACKET PO (18:42)
[2021-07-10] MEDS: traZODone 100 MG Tablet PO (21:47)
[2021-07-10] MEDS: Atorvastatin Calcium 80 MG Tablet PO (21:47)
[2021-07-11] MEDS: Tolterodine Tartrate 4 MG CAP.SA PO (06:05)
[2021-07-11] MEDS: Fluticasone/Salmeterol 232-14 Inhaler 1 PUFF INHALATION ×2 (06:05→17:48)
[2021-07-11] MEDS: Aspirin E.C. 81 MG Tablet PO (06:06)
[2021-07-11] MEDS: DULoxetine Hcl 60 MG Capsule PO (06:06)
[2021-07-11] MEDS: Pantoprazole Sodium 40 MG Tablet PO (06:06)
[2021-07-11] MEDS: Clopidogrel Bisulfate 75 MG Tablet PO (06:06)
[2021-07-11] MEDS: Cefdinir 300 MG Capsule PO ×2 (06:06→17:49)
[2021-07-11] MEDS: Furosemide 40 MG Tablet PO ×2 (06:06→15:01)
[2021-07-11] MEDS: ARIPiprazole 5 MG Tablet PO (06:06)
[2021-07-11 06:08] VITALS: BP 121/67; PULSE 78
[2021-07-11] MEDS: Metoprolol Tartrate 25 MG Tablet PO ×2 (06:08→17:49)
[2021-07-11 06:56] VITALS: O2SAT 93
[2021-07-11 07:10] LABS: Bedside Glucose 81 mg/dL (70-110)
[2021-07-11 08:00] VITALS: BP 142/62; PULSE 79; RESP 20; TEMP 36.4; O2SAT 100
--- NOTE | 2021-07-11 08:00 | NURSING ---
Pt reports shortness of breath at rest. In no acute distress. Skin pink, slightly pale, warm, and dry. Lips pink. Nailbeds with syriac and pads of hands pink. O2 at 2 LPM via nc. Vital signs obtained and recorded. Lungs with fine crackles to b/l mid chest and bases. Right base more diminished than left. Instructed to use IS every hr while awake which will also promote intermittent coughing. Instructed to splint chest with pillow while engaging in coughing and deep breathing exercises.
--- NOTE | 2021-07-11 09:23 | NURSING ---
No noted reaction to RT FA from TB Mantoux test given by [facility]. negative.
[2021-07-11] MEDS: metFORMIN (XR) 500 MG Tablet 1000 MG PO (11:51)
[2021-07-11] MEDS: glipiZIDE XL 5 MG Tablet PO (11:51)
[2021-07-11] MEDS: Potassium Chloride Oral Tablet 20 MEQ PO ×2 (11:51→17:49)
[2021-07-11] MEDS: Acetaminophen 500 MG Tablet 1000 MG PO (11:54)
[2021-07-11 11:56] LABS: Bedside Glucose 148 mg/dL (70-110)
--- NOTE | 2021-07-11 14:15 | NURSING ---
Resident and daughter, Mya, notified of 3 staff members testing positive for COVID.
--- NOTE | 2021-07-11 14:24 | PCM.PN.RX ---
Progress Note - Pharmacy Subjective: TCU Admission Objective: Allergies ceftriaxone sodium [From Rocephin] Allergy (Verified 06/13/21 17:00) Hives doxycycline Allergy (Verified 06/13/21 17:00) Hives fluoxetine [From Prozac] Allergy (Verified 07/07/21 14:09) PT UNSURE OF REACTION lorazepam [From Ativan] Adverse Reaction (Verified 06/13/21 17:00) Other SUICIDAL THOUGHTS trimethoprim Adverse Reaction (Verified 06/13/21 23:13) Nausea Current Medications Generic Name Dose Route Start Last Admin Trade Name Freq PRN Reason Stop Dose Admin Acetaminophen 1,000 mg 07/09/21 18:55 07/11/21 11:54 Acetaminophen 500 Mg Tablet PO 1,000 mg Q6H PRN PRN Administration Pain Score 1-5 Aripiprazole 5 mg 07/10/21 06:00 07/11/21 06:06 Aripiprazole 5 Mg Tablet PO 5 mg DAILY FRANCESCO Administration Aspirin 81 mg 07/10/21 06:00 07/11/21 06:06 Aspirin E.C. 81 Mg Tablet PO 81 mg DAILY FRANCESCO Administration Atorvastatin Calcium 80 mg 07/09/21 22:00 07/10/21 21:47 Atorvastatin Calcium 80 Mg Tablet PO 80 mg QHS FRANCESCO Administration Bisacodyl 10 mg 07/09/21 18:54 Bisacodyl 5 Mg Tablet PO DAILY PRN Constipation Calcium Carbonate 500 mg 07/10/21 08:42 Calcium Carbonate 500 Mg Tablet PO Q4H PRN PRN HEARTBURN OR INDIGESTION Cefdinir 300 mg 07/09/21 19:00 07/11/21 06:06 Cefdinir 300 Mg Capsule PO 07/15/21 18:01 300 mg BID FRANCESCO Administration Clopidogrel Bisulfate 75 mg 07/10/21 06:00 07/11/21 06:06 Clopidogrel Bisulfate 75 Mg Tablet PO 75 mg DAILY FRANCESCO Administration Cyclobenzaprine HCl 10 mg 07/09/21 18:25 Cyclobenzaprine Hcl 10 Mg Tablet PO QHS PRN PRN Muscle Pain Duloxetine HCl 60 mg 07/10/21 06:00 07/11/21 06:06 Duloxetine Hcl 60 Mg Capsule PO 60 mg DAILY FRANCESCO Administration Furosemide 40 mg 07/10/21 06:00 07/11/21 06:06 Furosemide 40 Mg Tablet PO 40 mg BIDLX FRANCESCO Administration Glipizide 5 mg 07/10/21 08:00 07/11/21 11:51 Glipizide Xl 5 Mg Tablet PO 5 mg BREAKFAST FRANCESCO Administration Melatonin 10 mg 07/09/21 18:38 Melatonin 10 Mg Tablet PO QHS PRN PRN SLEEP Metformin HCl 1,000 mg 07/10/21 08:00 07/11/21 11:51 Metformin (Xr) 500 Mg Tablet PO 1,000 mg BREAKFAST FRANCESCO Administration Metoprolol Tartrate 25 mg 07/10/21 06:00 07/11/21 06:08 Metoprolol Tartrate 25 Mg Tablet PO 25 mg BID FRANCESCO Administration Nitroglycerin 0.4 mg 07/09/21 18:37 Nitroglycerin (Inpatient Use) 0.4 Mg Tab.Subl SL Q5M PRN CARDIAC/CHEST PAIN Oxycodone HCl 5 mg 07/09/21 18:55 Oxycodone 5 Mg Tablet PO Q4H PRN PRN Severe Pain (Scale Score 6-10) Pantoprazole Sodium 40 mg 07/10/21 06:00 07/11/21 06:06 Pantoprazole Sodium 40 Mg Tablet PO 40 mg DAILY FRANCESCO Administration Polyethylene Glycol 17 gm 07/10/21 06:00 07/11/21 06:07 Polyethylene Glycol 3350 17 Gm Packet PO Not Given BID FRANCESCO Potassium Chloride 20 meq 07/10/21 08:00 07/11/21 11:51 Potassium Chloride Oral Tablet 20 Meq PO 20 meq BIDCM FRANCESCO Administration Fluticasone/Salmeterol 1 puff 07/10/21 06:00 07/11/21 06:05 Fluticasone/Salmeterol 232-14 Inhaler INHALATION 1 puff Q12 FRANCESCO Administration Senna/Docusate Sodium 1 tablet 07/10/21 06:00 07/11/21 06:07 Senna/Docusate Sodium 1 Tablet PO Not Given BID FRANCESCO Tolterodine Tartrate 4 mg 07/10/21 06:00 07/11/21 06:05 Tolterodine Tartrate 4 Mg Cap.Sa PO 4 mg DAILY FRANCESCO Administration Trazodone HCl 100 mg 07/09/21 22:00 07/10/21 21:47 Trazodone 100 Mg Tablet PO 100 mg QHS FRANCESCO Administration Problem List (Last Reviewed 07/09/21 @ 18:[address] Paulo Murray MD) Diabetic polyneuropathy (Acute) Depression (Acute) Anxiety (Acute) Overactive bladder (Acute) Insomnia (Acute) Mitral valve prolapse (Acute) Gastroesophageal reflux disease (Acute) Diabetes mellitus (Acute) Hyperlipidemia (Acute) Hypertension (Chronic) Coronary artery disease (Acute) Bacteremia (Acute) Urinary tract infection (Acute) Encephalopathy (Acute) Debility (Acute) Vital Signs Temp Pulse Resp BP Pulse Ox 97.5 F L 79 20 H 142/62 H 100 07/11/21 08:00 07/11/21 08:00 07/11/21 08:00 07/11/21 08:00 07/11/21 08:00 Oxygen Flow Rate (L/min) 2 Oxygen Delivery Method Nasal Cannula Weight: 97.386 kg Body Mass Index (BMI) 33.5 Sodium 141 mmol/L (136-145) 07/10/21 05:50 Potassium 4.3 mmol/L (3.5-5.1) 07/10/21 05:50 Chloride 104 mmol/L (98-107) 07/10/21 05:50 Carbon Dioxide 29.0 mmol/L (21.0-32.0) 07/10/21 05:50 Anion Gap 8 (5-15) 07/10/21 05:50 BUN 18 mg/dL (7-18) 07/10/21 05:50 Creatinine 0.76 mg/dL (0.55-1.02) 07/10/21 05:50 Est GFR (MDRD) Af Amer 95 mL/min (>60) 07/10/21 05:50 Est GFR (MDRD) Non-Af 78 mL/min (>60) 07/10/21 05:50 BUN/Creatinine Ratio 23.6 RATIO (10-20) H 07/10/21 05:50 Glucose 89 mg/dL (74-106) 07/10/21 05:50 Assessment/Plan: 1. Pain: acetaminophen 1000mg PO Q6H PRN pain 1-5/10 and oxycodone 5mg PO Q4H PRN pain 6-10/10. Please continue to monitor for increased pain and PRN usage. 2. Citrobacter koseri UTI: cefdinir 300mg PO BID thru 07/15/21. Please continue to monitor for S/S of infection/UTI, diarrhea, renal function and stool discoloration. 3. CAD s/p CABG x4: metoprolol tartrate 25mg PO BID, clopidogrel 75mg PO daily, aspirin 81mg PO daily and nitroglycerin 0.4mg SL Q5M PRN cardiac/chest pain. Please continue to monitor HR (last 79), BP (last 142/62), S/S of bleeding, hemoglobin (last 9.7g/dL), and chest pain. 4. Hyperlipidemia: atorvastatin 80mg PO QHS. Please continue to monitor lipid panel (last 06/14/21) and muscle pain. 5. Edema: furosemide 40mg PO BIDLX. Please continue to monitor for edema, potassium (last 4.3mmol/L), sodium (last 141mmol/L) and renal function. 6. Hypokalemia: potassium chloride 20mEq PO BIDCM. Please continue to monitor potassium levels. *7. Diabetes mellitus II: metformin XR 1000mg PO breakfast and glipizide XL 5mg PO breakfast. Please consider ordering a hemoglobin A1c if clinically appropriate. Last A1c from 04/2015. Thanks. Please continue to monitor for S/S of hypoglycemia, renal function and glucose (last 148mg/dL). 8. GERD/heartburn/indigestion: pantoprazole 40mg PO daily and calcium carbonate 500mg PO Q4H PRN heartburn or indigestion. Please continue to monitor for S/S of GERD, diarrhea, PRN usage and calcium (last 9.9mg/dL). 9. Overactive bladder: tolterodine 4mg PO daily. Please continue to monitor for anticholinergic side effects, dizziness and delirium (BEERs list medication). 10. Muscle spasm: cyclobenzaprine 10mg PO QHS PRN muscle pain. Please continue to monitor for anticholinergic side effects (BEERs list medication) and PRN usage. 11. Asthma: Advair 232/14mcg 2inhalations Q12. Please continue to monitor for S/S of asthma. Please rinse mouth with water and spit following administration to prevent thrush. Psychotropic Medications: 1. Hallucinations: aripiprazole 5mg PO daily. Please see physician note regarding GDR. 2. Depression: duloxetine 60mg PO daily. Please see physician note regarding GDR. 3. Insomnia: trazodone 100mg PO QHS and melatonin 10mg PO QHS PRN sleep. Please see physician note regarding GDR. Unnecessary Medications: None Bowel Regimen: Miralax 17gm PO BID, senna/docusate 1T PO BID and bisacodyl 10mg PO daily PRN constipation. Please continue to monitor for S/S of constipation and PRN usage. Date of Note:: 07/11/21
[2021-07-11 14:34] VITALS: BP 119/80; PULSE 86; RESP 16; TEMP 36.3; O2SAT 95
--- NOTE | 2021-07-11 16:22 | CASEMGMT ---
Social Work SW met with pt and completed psychosocial assessment. SW discussed code status with pt and assisted in completing MOLST form. Pt wishes DNRCCA with no intubation. Nurse and physician notified and MOLST placed in pt chart. SW explained Medicare benefit and encouraged pt to contact secondary insurance to ensure copy coverage. Pt was plans to return to her home where she lives with her daughter and two teenage grandchildren. Pt's dgt works and pt will be home alone during the day. SW will continue to follow. NASRA Hoffmann
[2021-07-11 17:49] VITALS: PULSE 86
[2021-07-11] MEDS: Polyethylene Glycol 3350 17 GM PACKET PO (17:49)
[2021-07-11] MEDS: Senna/Docusate Sodium 1 Tablet PO (17:50)
[2021-07-11] MEDS: traZODone 100 MG Tablet PO (20:31)
[2021-07-11] MEDS: Atorvastatin Calcium 80 MG Tablet PO (20:32)
[2021-07-11 21:35] VITALS: O2SAT 98
[2021-07-12] MEDS: Acetaminophen 500 MG Tablet 1000 MG PO (04:22)
[2021-07-12] MEDS: Fluticasone/Salmeterol 232-14 Inhaler 1 PUFF INHALATION ×2 (04:28→17:58)
[2021-07-12] MEDS: Senna/Docusate Sodium 1 Tablet PO ×2 (04:29→17:59)
[2021-07-12] MEDS: DULoxetine Hcl 60 MG Capsule PO (04:29)
[2021-07-12] MEDS: Pantoprazole Sodium 40 MG Tablet PO (04:29)
[2021-07-12] MEDS: ARIPiprazole 5 MG Tablet PO (04:29)
[2021-07-12] MEDS: Clopidogrel Bisulfate 75 MG Tablet PO (04:29)
[2021-07-12] MEDS: Aspirin E.C. 81 MG Tablet PO (04:29)
[2021-07-12] MEDS: Menthol/Lanolin/Calamine/Znox 113 GM Tube 1 APPLIC TOPICAL ×2 (04:29→18:05)
[2021-07-12] MEDS: Cefdinir 300 MG Capsule PO ×2 (04:29→17:59)
[2021-07-12] MEDS: Tolterodine Tartrate 4 MG CAP.SA PO (04:29)
[2021-07-12 04:32] VITALS: BP 108/67; PULSE 94
[2021-07-12] MEDS: Metoprolol Tartrate 25 MG Tablet PO ×2 (04:32→17:58)
[2021-07-12] MEDS: Furosemide 40 MG Tablet PO ×2 (04:34→13:52)
[2021-07-12 06:15] LABS: Bedside Glucose 98 mg/dL (70-110)
[2021-07-12 06:43] VITALS: O2SAT 95
[2021-07-12] MEDS: metFORMIN (XR) 500 MG Tablet 1000 MG PO (08:24)
[2021-07-12] MEDS: glipiZIDE XL 5 MG Tablet PO (08:24)
[2021-07-12] MEDS: Potassium Chloride Oral Tablet 20 MEQ PO ×2 (08:24→17:58)
[2021-07-12 15:15] VITALS: BP 128/72; PULSE 97; RESP 16; TEMP 36.2; O2SAT 98
[2021-07-12 17:58] VITALS: BP 128/72; PULSE 97
[2021-07-12] MEDS: Polyethylene Glycol 3350 17 GM PACKET PO (17:59)
[2021-07-12 21:10] VITALS: PULSE 97; RESP 18; O2SAT 97
[2021-07-12] MEDS: Atorvastatin Calcium 80 MG Tablet PO (21:13)
[2021-07-12] MEDS: traZODone 100 MG Tablet PO (21:13)
[2021-07-13] MEDS: Bisacodyl 5 MG Tablet 10 MG PO (05:57)
[2021-07-13] MEDS: Tolterodine Tartrate 4 MG CAP.SA PO (05:57)
[2021-07-13] MEDS: Aspirin E.C. 81 MG Tablet PO (05:57)
[2021-07-13] MEDS: ARIPiprazole 5 MG Tablet PO (05:57)
[2021-07-13] MEDS: Fluticasone/Salmeterol 232-14 Inhaler 1 PUFF INHALATION ×2 (05:57→18:17)
[2021-07-13] MEDS: Furosemide 40 MG Tablet PO ×2 (05:57→13:43)
[2021-07-13] MEDS: Cefdinir 300 MG Capsule PO ×2 (05:57→18:20)
[2021-07-13] MEDS: Pantoprazole Sodium 40 MG Tablet PO (05:57)
[2021-07-13] MEDS: Senna/Docusate Sodium 1 Tablet PO (05:57)
[2021-07-13] MEDS: Clopidogrel Bisulfate 75 MG Tablet PO (05:57)
[2021-07-13] MEDS: DULoxetine Hcl 60 MG Capsule PO (05:57)
[2021-07-13] MEDS: Polyethylene Glycol 3350 17 GM PACKET PO (05:57)
[2021-07-13 05:58] VITALS: BP 147/63; PULSE 92
[2021-07-13] MEDS: Metoprolol Tartrate 25 MG Tablet PO ×2 (05:58→18:18)
[2021-07-13] MEDS: Menthol/Lanolin/Calamine/Znox 113 GM Tube 1 APPLIC TOPICAL ×2 (06:01→18:17)
[2021-07-13 06:20] LABS: Bedside Glucose 97 mg/dL (70-110)
[2021-07-13 07:26] VITALS: O2SAT 97
[2021-07-13] MEDS: Potassium Chloride Oral Tablet 20 MEQ PO ×2 (09:13→18:17)
[2021-07-13] MEDS: metFORMIN (XR) 500 MG Tablet 1000 MG PO (09:13)
[2021-07-13] MEDS: glipiZIDE XL 5 MG Tablet PO (09:13)
[2021-07-13 10:00] VITALS: O2SAT 95
--- NOTE | 2021-07-13 12:23 | NURSING ---
Resident and daughter, Mya, notified of resident testing positive for COVID on the unit.
[2021-07-13] MEDS: Ondansetron ODT 4 MG Tablet PO (14:52)
[2021-07-13 14:56] VITALS: BP 135/68; PULSE 95; RESP 17; TEMP 36.7; O2SAT 94
--- NOTE | 2021-07-13 15:07 | CASEMGMT ---
Addendum entered by Irena West 07/13/21 15:20: Offered smaller portions - pt agreeable. Nursing notified. Pt already has list of daily specials. Original Note: Social Work BIMS and PHQ-9 completed for MDS assessment. Pt expressed depressive symptoms; loss of interest in doing things, feeling down, poor appetite. Pt expressed she has had thoughts of being better off since decline in medical condition, but reports no plan or intent. She expressed wanting to improve, keep living, and is motivated to do so, but feels down during this time. Provided supportive listening. Validated feelings. Offered discussing depression/appetite med with Dr. Pt denied stating she does not want any more pills. Explained all of these feelings can be linked to depression and it is common feel this way, but to be honest with her feelings and asking for help. Encouraged her to stay motivated in her recovery, to see how the next few days are, and if she changes her mind about wanting a medication, to ask nursing for the Drs opinion/order. Offered to continue to provide ongoing support throughout stay. Pt appreciative. SW to continue to follow. Irena West, ABIGAIL HAMMONDS
[2021-07-13 18:18] VITALS: BP 135/68; PULSE 95
[2021-07-13] MEDS: Atorvastatin Calcium 80 MG Tablet PO (20:55)
[2021-07-13] MEDS: traZODone 100 MG Tablet PO (20:55)
[2021-07-13 21:05] VITALS: PULSE 101; RESP 14; O2SAT 95
[2021-07-14 06:02] VITALS: BP 132/72; PULSE 92
[2021-07-14] MEDS: Aspirin E.C. 81 MG Tablet PO (06:02)
[2021-07-14] MEDS: Senna/Docusate Sodium 1 Tablet PO ×2 (06:02→17:30)
[2021-07-14] MEDS: Cefdinir 300 MG Capsule PO ×2 (06:02→17:30)
[2021-07-14] MEDS: Metoprolol Tartrate 25 MG Tablet PO ×2 (06:02→17:30)
[2021-07-14] MEDS: Clopidogrel Bisulfate 75 MG Tablet PO (06:02)
[2021-07-14] MEDS: Pantoprazole Sodium 40 MG Tablet PO (06:02)
[2021-07-14] MEDS: Tolterodine Tartrate 4 MG CAP.SA PO (06:03)
[2021-07-14] MEDS: Furosemide 40 MG Tablet PO ×2 (06:03→14:12)
[2021-07-14] MEDS: Fluticasone/Salmeterol 232-14 Inhaler 1 PUFF INHALATION ×2 (06:03→17:30)
[2021-07-14] MEDS: DULoxetine Hcl 60 MG Capsule PO (06:04)
[2021-07-14] MEDS: Menthol/Lanolin/Calamine/Znox 113 GM Tube 1 APPLIC TOPICAL ×2 (06:04→17:30)
[2021-07-14] MEDS: ARIPiprazole 5 MG Tablet PO (06:04)
[2021-07-14 06:30] LABS: Bedside Glucose 100 mg/dL (70-110)
[2021-07-14] MEDS: metFORMIN (XR) 500 MG Tablet 1000 MG PO (08:12)
[2021-07-14] MEDS: Potassium Chloride Oral Tablet 20 MEQ PO ×2 (08:12→17:30)
[2021-07-14] MEDS: glipiZIDE XL 5 MG Tablet PO (08:12)
--- NOTE | 2021-07-14 13:23 | NURSING ---
Patient's daughter expressed concern for patient's food intact. Per daughter, her mother always has an excuse why she does not want to eat. Either it is the food or she has no appetite. Daughter informed nurse she told her mother if she does not eat, she is going to sell everything, put the patient in a retirement and move out of state. Daughter told BRAZING MACHINE SETTER if the patient does not eat she was going to have a feeding tube placed, in front to the patient. Patient consuming 10% of meals. Will update Dr. Murray.
[2021-07-14 14:11] VITALS: BP 137/70; PULSE 105; RESP 20; TEMP 36.6; O2SAT 96
[2021-07-14] MEDS: Acetaminophen 500 MG Tablet 1000 MG PO (14:12)
[2021-07-14 17:30] VITALS: PULSE 100
[2021-07-14] MEDS: Polyethylene Glycol 3350 17 GM PACKET PO (17:31)
[2021-07-14] MEDS: Atorvastatin Calcium 80 MG Tablet PO (20:09)
[2021-07-14] MEDS: traZODone 100 MG Tablet PO (20:09)
[2021-07-14 20:35] VITALS: PULSE 97; RESP 16; O2SAT 93
[2021-07-15] MEDS: ARIPiprazole 5 MG Tablet PO (05:40)
[2021-07-15] MEDS: Menthol/Lanolin/Calamine/Znox 113 GM Tube 1 APPLIC TOPICAL ×2 (05:40→18:13)
[2021-07-15 05:41] VITALS: BP 132/67; PULSE 94
[2021-07-15] MEDS: Cefdinir 300 MG Capsule PO ×2 (05:41→18:58)
[2021-07-15] MEDS: DULoxetine Hcl 60 MG Capsule PO (05:41)
[2021-07-15] MEDS: Pantoprazole Sodium 40 MG Tablet PO (05:41)
[2021-07-15] MEDS: Senna/Docusate Sodium 1 Tablet PO ×2 (05:41→18:11)
[2021-07-15] MEDS: Metoprolol Tartrate 25 MG Tablet PO ×2 (05:41→18:10)
[2021-07-15] MEDS: Furosemide 40 MG Tablet PO ×2 (05:41→14:24)
[2021-07-15] MEDS: Clopidogrel Bisulfate 75 MG Tablet PO (05:41)
[2021-07-15] MEDS: Aspirin E.C. 81 MG Tablet PO (05:41)
[2021-07-15] MEDS: Tolterodine Tartrate 4 MG CAP.SA PO (05:41)
[2021-07-15] MEDS: Polyethylene Glycol 3350 17 GM PACKET PO ×2 (05:42→18:13)
[2021-07-15] MEDS: Fluticasone/Salmeterol 232-14 Inhaler 1 PUFF INHALATION ×2 (05:42→18:10)
[2021-07-15 07:15] LABS: Bedside Glucose 95 mg/dL (70-110)
[2021-07-15] MEDS: Potassium Chloride Oral Tablet 20 MEQ PO (08:46)
[2021-07-15] MEDS: metFORMIN (XR) 500 MG Tablet 1000 MG PO (08:46)
[2021-07-15] MEDS: glipiZIDE XL 5 MG Tablet PO (08:47)
[2021-07-15 14:41] VITALS: PULSE 102; RESP 18; O2SAT 92
[2021-07-15] MEDS: cycloBENZAPRine HCl 10 MG Tablet PO (15:29)
[2021-07-15] MEDS: Acetaminophen 500 MG Tablet 1000 MG PO (15:29)
[2021-07-15 15:31] VITALS: BP 122/64; PULSE 90; RESP 16; TEMP 36.9; O2SAT 93
[2021-07-15 18:10] VITALS: BP 122/64; PULSE 90
[2021-07-15] MEDS: traZODone 100 MG Tablet PO (20:48)
[2021-07-15] MEDS: Atorvastatin Calcium 80 MG Tablet PO (20:48)
[2021-07-16 05:53] LABS: Absolute Lymphocyte Count 1.43 X10^3/uL (0.83-4.51); Absolute Neutrophil Count 5.5 X10^3/uL (2.0-7.7); Basophil# 0.08 X10^3/uL; Basophil% 0.9 % (0-1); Eosinophil# 1.51 X10^3/uL; Eosinophils% 16.4 % (0-5); Hematocrit 32.1 % (37-47); Hemoglobin 10.3 g/dL (12.0-15.0); Lymphocyte # 1.43 X10^3/ul (0.83-4.51); Lymphocyte % 15.5 % (19-41); Mean Corp Hgb Conc 32.1 g/dL (32-36); Mean Corpuscular Hgb 30.7 pg (27.0-32.0); Mean Corpuscular Volume 95.5 fL (81-99); Mean Platelet Vol. 8.7 fl (6.2-12.0); Monocyte% 7.6 % (0-10); NRBC Flagged by Analyzer 0 % (0-5); Neutrophil # 5.48 X10^3/uL (2.7-7.7); Neutrophil % 59.4 % (47-70); Platelet Count 373 K/mm3 (150-450); RBC Distribution Width CV 14.9 % (11.6-14.6); RBC Distribution Width SD 52.1 fl (35.1-43.9); Red Blood Count 3.36 M/mm3 (4.2-5.4); White Blood Count 9.2 K/mm3 (4.4-11.0)
[2021-07-16] MEDS: Aspirin E.C. 81 MG Tablet PO (06:01)
[2021-07-16] MEDS: Tolterodine Tartrate 4 MG CAP.SA PO (06:01)
[2021-07-16] MEDS: DULoxetine Hcl 60 MG Capsule PO (06:01)
[2021-07-16] MEDS: ARIPiprazole 5 MG Tablet PO (06:01)
[2021-07-16] MEDS: Menthol/Lanolin/Calamine/Znox 113 GM Tube 1 APPLIC TOPICAL ×2 (06:01→17:56)
[2021-07-16] MEDS: Furosemide 40 MG Tablet PO ×2 (06:02→13:47)
[2021-07-16 06:03] VITALS: BP 136/64; PULSE 90
[2021-07-16] MEDS: Fluticasone/Salmeterol 232-14 Inhaler 1 PUFF INHALATION ×2 (06:03→17:54)
[2021-07-16] MEDS: Senna/Docusate Sodium 1 Tablet PO (06:03)
[2021-07-16] MEDS: Clopidogrel Bisulfate 75 MG Tablet PO (06:03)
[2021-07-16] MEDS: Metoprolol Tartrate 25 MG Tablet PO ×2 (06:03→17:54)
[2021-07-16] MEDS: Polyethylene Glycol 3350 17 GM PACKET PO (06:03)
[2021-07-16] MEDS: Pantoprazole Sodium 40 MG Tablet PO (06:03)
[2021-07-16] MEDS: Calcium Carbonate 500 MG Tablet PO ×3 (06:05→18:52)
[2021-07-16 06:12] LABS: Anion Gap 7 (5-15); BUN 17 mg/dL (7-18); BUN/Creat Ratio 20.1 RATIO (10-20); Calcium,Total 9.8 mg/dL (8.5-10.1); Chloride 100 mmol/L (98-107); Creatinine, Serum 0.85 mg/dL (0.55-1.02); EST Glomerular Filtration Rate 70 mL/min (>60); Est Glom Filt Rate - Afr Amer 84 mL/min (>60); Estimated Creatinine Clearance 55.61 ml/min; Glucose 90 mg/dL (74-106); Potassium 3.8 mmol/L (3.5-5.1); Sodium Level 140 mmol/L (136-145)
[2021-07-16 06:13] LABS: Magnesium 2.2 mg/dL (1.6-2.6)
[2021-07-16 06:31] LABS: Bedside Glucose 94 mg/dL (70-110)
[2021-07-16] MEDS: glipiZIDE XL 5 MG Tablet PO (08:43)
[2021-07-16] MEDS: metFORMIN (XR) 500 MG Tablet 1000 MG PO (08:43)
--- NOTE | 2021-07-16 08:45 | NURSING ---
Patient refusing Potassium this morning. Patient expressed, I thought I was done with those, I am not taking it.
[2021-07-16 10:33] VITALS: O2SAT 93
--- NOTE | 2021-07-16 11:55 | CASEMGMT ---
Social Work Per chart review, dtr spoke with nursing and expressed concerns about pt having depression and poor appetite. Contacted dtr to discuss this worker's conversation with pt and following for same concerns. Spoke with dtr at length and provided supportive listening to pt hx, personality and dtr's ongoing concerns with these topics. Dtr explained pt is noncompliant, only like to take pills to make things better, is very sedentary at home, and does not listen to dtr's suggestions. Dtr reports to being a clinical counselor and is well-versed in depression and mental health. Dtr expressed concern with pt taking 27 medications, not agreeing with current PCP prescribing all meds, and would like to see a change in depression meds and to eliminate current meds. Dtr did state pt does not want to change PCPs at this time after SW offered suggestion. Dtr reports to pt feeling foggy, increased irritability and lack of energy and is concerned taking too many meds or not the correct meds can be a cause of these symptoms. Validated dtr's feelings. Offered to speak with Dr. Murray to reevaluate pt's meds, get his recommendations on changes/increase to antidepressants, and of pt's poor appetite. Dtr explained pt has been active with [facility] with psychiatrist who was managing medications for pt, but has not been to a counseling appt for awhile. Pt active as she has extensive trauma hx from childhood, but did not disclose details. Offered to make appt for pt at [place]. Explained to dtr conversation this worker had with pt, explained effects of depression, and encouraged pt to be in touch with feelings if there are any changes in the next several days. SW to follow up with pt and will reconvene with pt on emotions and interventions. Offered goal chart for pt to have a visual representation of goals and progress to help motivate and improve mood/recovery. Dtr appreciative and agreed with suggestion, stating pt is a visual learner. Offered to discuss with pt recommendations and see if pt is agreeable to suggestions as well. Dtr explained she will be present for care plan meeting. Cautioned Dr. brien headley nurse will be present at meeting, so to direct medical questions prior to meeting. The meeting focuses more on rehab goals, dietary, activities, and DC plans. Dtr requested to speak with Dr. Murray. Updated Dr. Murray with above requests from dtr. Dtr appreciative of time, support and assistance from this worker. SW to continue to follow. Irena West, RADIO TOWER TECHNICIAN ALTERATION INSPECTOR
[2021-07-16 14:00] VITALS: BP 125/67; PULSE 93; RESP 18; TEMP 36.4; O2SAT 98
[2021-07-16 17:54] VITALS: BP 125/67; PULSE 93
[2021-07-16] MEDS: Potassium Chloride Oral Tablet 20 MEQ PO (17:54)
--- NOTE | 2021-07-16 17:57 | NURSING ---
Patient refusing to eat dinner. States, It taste horrible! Offered patient some soup and she refused that as well.
[2021-07-16] MEDS: cycloBENZAPRine HCl 10 MG Tablet PO (20:45)
[2021-07-16] MEDS: Atorvastatin Calcium 80 MG Tablet PO (20:46)
[2021-07-16] MEDS: traZODone 100 MG Tablet PO (20:46)
[2021-07-16 21:19] VITALS: PULSE 94; RESP 16; O2SAT 97
--- NOTE | 2021-07-16 21:38 | NURSING ---
Addendum entered by Elsie Smith 07/16/21 22:48: Written communication left for Dr. Murray regarding patient statement services representative request to speak with him. Addendum entered by Elsie Smith 07/16/21 21:53: Daughter (Mya) spoke with this nurse at this time, states [facility] previously set-up transport for follow-up appointments in [place] prior to admit to [facility]. Daughter Mya also requested for to be notified of her request to speak with him regarding patient medication list stating she spoke with family welfare social work professor earlier today about patient mood and 25 medications is far too much. Written communication to be left for regarding patient statement services representative request. Per daughter Mya, patient follow-up appointments are scheduled with Dr. Mckee in [place] [facility] 07/19/21 at 14:45 for xray and 15:45 with doctor Original Note: Per CENTER CUSTOMER SERVICE ASSOCIATE daughter (Mya) called unit inquiring about scheduled follow-up in [place] that patient had scheduled while at [facility]. Upon review of discharge paperwork, no follow-up listed for patient to be seen in [place]. CENTER CUSTOMER SERVICE ASSOCIATE notified daughter (Mya) that medical secretary receptionist to look into appointment and needed transportation tomorrow as well as notifying heating unit installer of patient need for transport due to patient daughter unable to transport
[2021-07-17 05:29] VITALS: BP 129/58; PULSE 98
[2021-07-17] MEDS: Clopidogrel Bisulfate 75 MG Tablet PO (05:29)
[2021-07-17] MEDS: Aspirin E.C. 81 MG Tablet PO (05:29)
[2021-07-17] MEDS: ARIPiprazole 5 MG Tablet PO (05:29)
[2021-07-17] MEDS: Pantoprazole Sodium 40 MG Tablet PO (05:29)
[2021-07-17] MEDS: Metoprolol Tartrate 25 MG Tablet PO ×2 (05:29→16:50)
[2021-07-17] MEDS: Furosemide 40 MG Tablet PO (05:29)
[2021-07-17] MEDS: DULoxetine Hcl 60 MG Capsule PO (05:29)
[2021-07-17] MEDS: Tolterodine Tartrate 4 MG CAP.SA PO (05:29)
[2021-07-17] MEDS: Menthol/Lanolin/Calamine/Znox 113 GM Tube 1 APPLIC TOPICAL ×2 (05:31→16:50)
[2021-07-17] MEDS: Fluticasone/Salmeterol 232-14 Inhaler 1 PUFF INHALATION (05:35)
[2021-07-17] MEDS: Calcium Carbonate 500 MG Tablet PO (06:38)
[2021-07-17] MEDS: Acetaminophen 500 MG Tablet 1000 MG PO ×2 (06:41→14:33)
[2021-07-17 06:56] LABS: Bedside Glucose 104 mg/dL (70-110)
[2021-07-17] MEDS: metFORMIN (XR) 500 MG Tablet PO (08:11)
[2021-07-17] MEDS: Potassium Chloride Oral Tablet 20 MEQ PO (08:20)
[2021-07-17 10:21] VITALS: PULSE 88; RESP 18; O2SAT 94
--- NOTE | 2021-07-17 11:44 | NURSING ---
Dr Murray spoke with pt daughter regarding medications. Many meds discontinued and remeron, potassium and metformin added.
--- NOTE | 2021-07-17 12:44 | NURSING ---
Resident and daughter, Mya, notified of staff member testing positive for COVID.
[2021-07-17 14:15] VITALS: BP 124/69; PULSE 97; RESP 15; TEMP 36.6; O2SAT 95
--- NOTE | 2021-07-17 14:34 | NURSING ---
daughter aware of physician transport picking pt up at 07/19/21 for cardiac surgery appt at 1230p.
--- NOTE | 2021-07-17 16:49 | NURSING ---
Regulator Assembler Note: Collaborated with patient, OT, PT to create visual goal chart. Chart hung in room for patient to see and therapies will update weekly. Res appreciative.
[2021-07-17 16:50] VITALS: PULSE 97
--- NOTE | 2021-07-17 18:52 | NURSING ---
pt c/o having gas pain requesting medication. dr landis notified, new order mylanta 15ml PRN
[2021-07-17] MEDS: traZODone 100 MG Tablet PO (20:08)
[2021-07-17] MEDS: Mirtazapine 15 MG Tablet 7.5 MG PO (20:08)
[2021-07-17] MEDS: Atorvastatin Calcium 80 MG Tablet PO (20:08)
[2021-07-17] MEDS: Mag Hydrox/Al Hydrox/Simeth 30 ML UDC 15 ML PO (20:11)
[2021-07-18 05:45] VITALS: BP 126/73; PULSE 98
[2021-07-18] MEDS: Furosemide 40 MG Tablet PO (05:45)
[2021-07-18] MEDS: Pantoprazole Sodium 40 MG Tablet PO (05:45)
[2021-07-18] MEDS: ARIPiprazole 5 MG Tablet PO (05:45)
[2021-07-18] MEDS: Metoprolol Tartrate 25 MG Tablet PO ×2 (05:45→17:13)
[2021-07-18] MEDS: Aspirin E.C. 81 MG Tablet PO (05:45)
[2021-07-18] MEDS: Menthol/Lanolin/Calamine/Znox 113 GM Tube 1 APPLIC TOPICAL ×2 (05:46→17:12)
[2021-07-18 06:41] LABS: Bedside Glucose 119 mg/dL (70-110)
[2021-07-18] MEDS: Potassium Chloride Oral Tablet 20 MEQ PO (08:16)
[2021-07-18] MEDS: metFORMIN (XR) 500 MG Tablet PO (08:16)
[2021-07-18 10:00] VITALS: PULSE 88; RESP 16; O2SAT 99
--- NOTE | 2021-07-18 10:44 | NURSING ---
Per Erone, resident encouraged to come out of room for meals but resident is refusing to come out of room for meals due to her wanting her privacy.
--- NOTE | 2021-07-18 11:28 | MDS.RN ---
Information for the mds was obtained from review of the clinical record, interview of resident, staff, and direct observation of resident's care.
--- NOTE | 2021-07-18 13:13 | PCA ---
When asked patient has refused coming to dinning room for meals this week. Therapy Administrative Assistant have reminded patient that daughter wishes for her to come to go to dinning room for all three meals and patient states that She realizes that her daughter requests this but she likes her privacy and does not wish to. patient wishes to stay in her room for meals and only go out for therapy.
[2021-07-18 15:36] VITALS: BP 104/44; PULSE 69; RESP 17; TEMP 36.8; O2SAT 98
--- NOTE | 2021-07-18 15:44 | CASEMGMT ---
Social Work IDT met with patient and dtr for care plan meeting. Discussed patient's progress in PT/OT and nursing. Pt progressing well. Pt was happy Dr. Murray adjusted and discontinued medications. The goal is to see improvements in energy, motivation, appetite and mood. Pt states she is typically social and more upbeat/motivated. Pt appreciative of goal chart for visual of progress and goals. All staff encouraged pt to eat meals out of room, participate in activities. Pt reluctant to participate at this time. Explained Medicare benefit. Pt admitted on day 15 of benefit as [facility]. Dtr states secondary insurance will cover copays. Pt and dtr agree pt must be independent with ADLs to return home. Dtr works long hours during the week. SW to assist with DC plans and ongoing support. ABIGAIL LinW
[2021-07-18 17:13] VITALS: PULSE 69
[2021-07-18 18:31] LABS: Mucous, Urine 0 SEEN /hpf (<or=2+); Red Blood Cells-Urine 0 SEEN /hpf (0-5)
[2021-07-18 18:34] LABS: Color, Urine Yellow (Yellow); Glucose, Dipstick Normal (Normal); Ketone-Dipstick Negative (Negative); Leukocyte Esterase-Dipstick 500 /ul (Negative); Nitrite-Dipstick Positive (Negative); Occult Blood-Urine 10 /ul (Negative); Protein-Dipstick 15 mg/dl (Negative); Urine Bilirubin Dipstick Negative (Negative); Urine Clarity Cloudy (Clear); Urine Urobilinogen 1 mg/dl (Normal)
[2021-07-18 18:52] LABS: Bacteria 1+ /hpf (None Seen); Squamous Epithelial Cells - UA 0-5 SEEN /hpf (5-10); White Blood Cells >100 SEEN /hpf (0-5)
[2021-07-18] MEDS: Mag Hydrox/Al Hydrox/Simeth 30 ML UDC 15 ML PO (18:56)
[2021-07-18] MEDS: Mirtazapine 15 MG Tablet 7.5 MG PO (20:20)
[2021-07-18] MEDS: Atorvastatin Calcium 80 MG Tablet PO (20:20)
[2021-07-18] MEDS: traZODone 100 MG Tablet PO (20:20)
--- NOTE | 2021-07-18 20:30 | NURSING ---
Addendum entered by Elsie Smith 07/18/21 20:33: Urine culture pending at this time Original Note: Urine results with abnormalities. contacted via telephone. New order received for Cipro 250mg PO BID x7 days give first dose now and send for urine culture.
[2021-07-18] MEDS: Ciprofloxacin 250 MG Tablet PO (21:00)
[2021-07-19] MEDS: ARIPiprazole 5 MG Tablet PO (06:16)
[2021-07-19] MEDS: Aspirin E.C. 81 MG Tablet PO (06:16)
[2021-07-19] MEDS: Menthol/Lanolin/Calamine/Znox 113 GM Tube 1 APPLIC TOPICAL ×2 (06:16→21:24)
[2021-07-19] MEDS: Ciprofloxacin 250 MG Tablet PO ×2 (06:16→21:22)
[2021-07-19] MEDS: Furosemide 40 MG Tablet PO (06:16)
[2021-07-19] MEDS: Pantoprazole Sodium 40 MG Tablet PO (06:16)
[2021-07-19 06:18] VITALS: BP 134/73; PULSE 97
[2021-07-19] MEDS: Metoprolol Tartrate 25 MG Tablet PO ×2 (06:18→21:23)
[2021-07-19 06:25] LABS: Bedside Glucose 125 mg/dL (70-110)
[2021-07-19 07:58] VITALS: O2SAT 95
[2021-07-19] MEDS: metFORMIN (XR) 500 MG Tablet PO (08:13)
[2021-07-19] MEDS: Potassium Chloride Oral Tablet 20 MEQ PO (08:13)
[2021-07-19 08:40] VITALS: O2SAT 98
[2021-07-19] MEDS: Acetaminophen 500 MG Tablet 1000 MG PO (10:26)
--- NOTE | 2021-07-19 11:23 | NURSING ---
This nurse order type in screen under wrong user name. updated Amanda Ferrera adv to document in nursing note.
[2021-07-19 16:42] VITALS: BP 130/78; PULSE 88; RESP 18; TEMP 36.8; O2SAT 96
[2021-07-19 21:23] VITALS: BP 141/80; PULSE 110
[2021-07-19] MEDS: Atorvastatin Calcium 80 MG Tablet PO (21:23)
[2021-07-19] MEDS: traZODone 100 MG Tablet PO (21:24)
[2021-07-19] MEDS: Mirtazapine 15 MG Tablet 7.5 MG PO (21:24)
[2021-07-20 06:04] VITALS: BP 144/75; PULSE 102
[2021-07-20 06:07] VITALS: BP 144/75; PULSE 102
[2021-07-20] MEDS: Furosemide 40 MG Tablet PO ×2 (06:07→14:06)
[2021-07-20] MEDS: Metoprolol Tartrate 25 MG Tablet PO ×2 (06:07→17:26)
[2021-07-20] MEDS: ARIPiprazole 5 MG Tablet PO (06:07)
[2021-07-20] MEDS: Ciprofloxacin 250 MG Tablet PO ×2 (06:07→17:26)
[2021-07-20] MEDS: Menthol/Lanolin/Calamine/Znox 113 GM Tube 1 APPLIC TOPICAL ×2 (06:07→17:26)
[2021-07-20] MEDS: Pantoprazole Sodium 40 MG Tablet PO (06:07)
[2021-07-20 06:15] LABS: Bedside Glucose 146 mg/dL (70-110)
[2021-07-20] MEDS: Aspirin E.C. 81 MG Tablet PO (07:54)
[2021-07-20] MEDS: Potassium Chloride Oral Tablet 20 MEQ PO (07:54)
[2021-07-20] MEDS: metFORMIN (XR) 500 MG Tablet PO (07:54)
--- NOTE | 2021-07-20 10:26 | NURSING ---
Ariela Sweet NP from [facility] called reporting that chest xray completed at [facility] showed pt had a left pleural effusion, Ariela Sweet NP requesting patient's Lasix be changed to 40mg BID for 1 week, then return to Lasix 40mg daily. She also requested pt have a chest xray in one week.
[2021-07-20 15:01] VITALS: BP 133/67; PULSE 95; RESP 16; TEMP 36.4; O2SAT 97
--- NOTE | 2021-07-20 15:56 | NURSING ---
Updated daughter in room.
[2021-07-20] MEDS: Acetaminophen 500 MG Tablet 1000 MG PO (17:25)
[2021-07-20 17:26] VITALS: BP 132/64; PULSE 114
[2021-07-20 21:36] VITALS: PULSE 83; RESP 16; O2SAT 97
[2021-07-20] MEDS: Mirtazapine 15 MG Tablet 7.5 MG PO (21:39)
[2021-07-20] MEDS: Atorvastatin Calcium 80 MG Tablet PO (21:40)
[2021-07-21 06:25] VITALS: BP 154/78; PULSE 107
[2021-07-21] MEDS: Ciprofloxacin 250 MG Tablet PO ×2 (06:25→17:51)
[2021-07-21] MEDS: Metoprolol Tartrate 25 MG Tablet PO (06:25)
[2021-07-21] MEDS: Furosemide 40 MG Tablet PO ×2 (06:25→13:40)
[2021-07-21] MEDS: ARIPiprazole 5 MG Tablet PO (06:25)
[2021-07-21] MEDS: Pantoprazole Sodium 40 MG Tablet PO (06:25)
[2021-07-21] MEDS: Menthol/Lanolin/Calamine/Znox 113 GM Tube 1 APPLIC TOPICAL ×2 (06:27→17:52)
[2021-07-21 06:56] LABS: Bedside Glucose 124 mg/dL (70-110)
[2021-07-21] MEDS: metFORMIN (XR) 500 MG Tablet PO (08:19)
[2021-07-21] MEDS: Potassium Chloride Oral Tablet 20 MEQ PO (08:19)
[2021-07-21] MEDS: Acetaminophen 500 MG Tablet 1000 MG PO ×3 (08:19→21:53)
[2021-07-21] MEDS: Aspirin E.C. 81 MG Tablet PO (08:19)
[2021-07-21 08:24] VITALS: O2SAT 95
[2021-07-21 14:53] VITALS: BP 133/73; PULSE 89; RESP 17; TEMP 36.2; O2SAT 97
[2021-07-21 17:52] VITALS: PULSE 89
[2021-07-21] MEDS: Metoprolol Tartrate 50 MG Tablet PO (17:52)
[2021-07-21] MEDS: Atorvastatin Calcium 80 MG Tablet PO (21:05)
[2021-07-21] MEDS: Mirtazapine 15 MG Tablet 7.5 MG PO (21:05)
[2021-07-21 21:12] VITALS: PULSE 82; RESP 18; O2SAT 98
[2021-07-22] VITALS (7 sets, daily range): BP systolic 130–136; BP diastolic 72–76; PULSE 81–92; RESP 18; TEMP 36.2–36.5; O2SAT 96–98
[2021-07-22] MEDS: ARIPiprazole 5 MG Tablet PO (04:13)
[2021-07-22] MEDS: Furosemide 40 MG Tablet PO ×2 (04:13→13:34)
[2021-07-22] MEDS: Ciprofloxacin 250 MG Tablet PO ×2 (04:13→17:10)
[2021-07-22] MEDS: Menthol/Lanolin/Calamine/Znox 113 GM Tube 1 APPLIC TOPICAL ×2 (04:13→17:12)
[2021-07-22] MEDS: Metoprolol Tartrate 50 MG Tablet PO ×2 (04:13→17:11)
[2021-07-22] MEDS: Acetaminophen 500 MG Tablet 1000 MG PO ×2 (04:14→23:26)
[2021-07-22] MEDS: Pantoprazole Sodium 40 MG Tablet PO (04:14)
[2021-07-22] MEDS: Potassium Chloride Oral Tablet 20 MEQ PO (08:25)
[2021-07-22] MEDS: Aspirin E.C. 81 MG Tablet PO (08:25)
--- NOTE | 2021-07-22 13:37 | NURSING ---
pt requesting sleeping med, not happy that her trazadone was discontinued per software designer report. dr landis udpated, new order for melatonin.
[2021-07-22 15:50] LABS: Bedside Glucose 125 mg/dL (70-110)
[2021-07-22] MEDS: MELATONIN 10 MG TABLET PO (19:41)
[2021-07-22] MEDS: Atorvastatin Calcium 80 MG Tablet PO (19:42)
[2021-07-22] MEDS: Mirtazapine 15 MG Tablet 7.5 MG PO (19:43)
--- NOTE | 2021-07-23 02:34 | NURSING ---
Pt calls for something for sleep. Would like Trazodone. Discussed cardiac side effects associated w/ medication and rationale for Remeron in addition to desired effects. Offered to close blinds as lights from snow plows outside may be distracting and pt declines. Discussed sleep hygiene such as no screen time on phone, tv, etc approximately one hr before bed. Took Remeron in addition to Melatonin and Tylenol last hs. [place] removed from pt and thermostat turned down d/t feeling hot. Flat sheet placed over foot board per pt request. Fan turned on to light speed and is oscillating to promote air movement. HOB elevated d/t shortness of breath but is in no acute distress. O2 in place at 2 lpm via nc. Respirations even and unlabored. Requested Zeinab Doone cookies and given. Pt starts to eat cookies while this nurse in the room. Emotional support and active listening provided. Encouraged to call for additional needs or concerns. Call light w/ in reach. Staff to continue to monitor.
[2021-07-23] MEDS: Pantoprazole Sodium 40 MG Tablet PO (05:30)
[2021-07-23] MEDS: Furosemide 40 MG Tablet PO ×2 (05:31→14:29)
[2021-07-23] MEDS: Ciprofloxacin 250 MG Tablet PO ×2 (05:31→17:50)
[2021-07-23] MEDS: Menthol/Lanolin/Calamine/Znox 113 GM Tube 1 APPLIC TOPICAL ×2 (05:33→17:49)
[2021-07-23] MEDS: ARIPiprazole 5 MG Tablet PO (05:33)
[2021-07-23 06:13] VITALS: BP 132/88; PULSE 82
[2021-07-23] MEDS: Metoprolol Tartrate 50 MG Tablet PO ×2 (06:13→17:50)
[2021-07-23 06:25] LABS: Bedside Glucose 155 mg/dL (70-110)
[2021-07-23] MEDS: Potassium Chloride Oral Tablet 20 MEQ PO (08:47)
[2021-07-23] MEDS: Aspirin E.C. 81 MG Tablet PO (08:48)
[2021-07-23 14:15] VITALS: BP 138/68; PULSE 96; RESP 18; TEMP 35.9; O2SAT 97
--- NOTE | 2021-07-23 14:46 | NURSING ---
Resident and daughter, Mya, notified of 2 staff members testing positive for COVID.
[2021-07-23 17:50] VITALS: BP 138/68; PULSE 96
[2021-07-23] MEDS: Acetaminophen 500 MG Tablet 1000 MG PO (18:17)
[2021-07-23] MEDS: Atorvastatin Calcium 80 MG Tablet PO (21:27)
[2021-07-23] MEDS: Mirtazapine 15 MG Tablet 7.5 MG PO (21:27)
[2021-07-23] MEDS: MELATONIN 10 MG TABLET PO (21:27)
[2021-07-23 21:28] VITALS: PULSE 105; RESP 18; O2SAT 95
[2021-07-24 05:13] VITALS: BP 138/64; PULSE 84
[2021-07-24] MEDS: Metoprolol Tartrate 50 MG Tablet PO ×2 (05:13→18:40)
[2021-07-24] MEDS: Furosemide 40 MG Tablet PO ×2 (05:13→14:29)
[2021-07-24] MEDS: Ciprofloxacin 250 MG Tablet PO ×2 (05:14→18:40)
[2021-07-24] MEDS: Pantoprazole Sodium 40 MG Tablet PO (05:14)
[2021-07-24] MEDS: ARIPiprazole 5 MG Tablet PO (05:15)
[2021-07-24] MEDS: Menthol/Lanolin/Calamine/Znox 113 GM Tube 1 APPLIC TOPICAL ×2 (05:15→21:06)
[2021-07-24 06:06] LABS: Absolute Lymphocyte Count 2.07 X10^3/uL (0.83-4.51); Absolute Neutrophil Count 5.1 X10^3/uL (2.0-7.7); Basophil% 1.1 % (0-1); Hematocrit 34.7 % (37-47); Hemoglobin 10.7 g/dL (12.0-15.0); Lymphocyte # 2.07 X10^3/ul (0.83-4.51); Lymphocyte % 22.4 % (19-41); Mean Corp Hgb Conc 30.8 g/dL (32-36); Mean Corpuscular Hgb 29.4 pg (27.0-32.0); Mean Corpuscular Volume 95.3 fL (81-99); Mean Platelet Vol. 8.9 fl (6.2-12.0); Monocyte# 0.67 X10^3/uL; Monocyte% 7.2 % (0-10); NRBC Flagged by Analyzer 0 % (0-5); Neutrophil % 55.1 % (47-70); Platelet Count 575 K/mm3 (150-450); RBC Distribution Width CV 14.8 % (11.6-14.6); RBC Distribution Width SD 51.9 fl (35.1-43.9); Red Blood Count 3.64 M/mm3 (4.2-5.4); White Blood Count 9.3 K/mm3 (4.4-11.0)
[2021-07-24 06:27] LABS: Anion Gap 5 (5-15); BUN 17 mg/dL (7-18); BUN/Creat Ratio 18.1 RATIO (10-20); Chloride 99 mmol/L (98-107); Creatinine, Serum 0.94 mg/dL (0.55-1.02); EST Glomerular Filtration Rate 62 mL/min (>60); Est Glom Filt Rate - Afr Amer 75 mL/min (>60); Estimated Creatinine Clearance 50.29 ml/min; Glucose 138 mg/dL (74-106); Potassium 3.8 mmol/L (3.5-5.1); Sodium Level 139 mmol/L (136-145)
[2021-07-24 06:41] LABS: Bedside Glucose 129 mg/dL (70-110)
[2021-07-24] MEDS: Potassium Chloride Oral Tablet 20 MEQ PO (07:50)
[2021-07-24] MEDS: Aspirin E.C. 81 MG Tablet PO (07:50)
[2021-07-24 09:14] VITALS: O2SAT 97
[2021-07-24] MEDS: Acetaminophen 500 MG Tablet 1000 MG PO ×2 (13:15→21:04)
[2021-07-24 14:26] VITALS: BP 136/77; PULSE 94; RESP 16; TEMP 36.7; O2SAT 96
[2021-07-24 18:40] VITALS: BP 124/56; PULSE 104
[2021-07-24] MEDS: Mirtazapine 15 MG Tablet 7.5 MG PO (21:04)
[2021-07-24] MEDS: Atorvastatin Calcium 80 MG Tablet PO (21:04)
[2021-07-24] MEDS: MELATONIN 10 MG TABLET PO (21:04)
[2021-07-25] MEDS: ARIPiprazole 5 MG Tablet PO (04:41)
[2021-07-25] MEDS: Acetaminophen 500 MG Tablet 1000 MG PO ×3 (04:41→22:40)
[2021-07-25] MEDS: Furosemide 40 MG Tablet PO ×2 (04:41→14:46)
[2021-07-25 04:42] VITALS: BP 119/77; PULSE 82
[2021-07-25] MEDS: Ciprofloxacin 250 MG Tablet PO ×2 (04:42→18:26)
[2021-07-25] MEDS: Pantoprazole Sodium 40 MG Tablet PO (04:42)
[2021-07-25] MEDS: Metoprolol Tartrate 50 MG Tablet PO ×2 (04:42→18:23)
[2021-07-25] MEDS: Menthol/Lanolin/Calamine/Znox 113 GM Tube 1 APPLIC TOPICAL ×2 (04:44→18:21)
[2021-07-25 04:49] VITALS: RESP 16; TEMP 36.8; O2SAT 97
[2021-07-25 06:31] LABS: Bedside Glucose 151 mg/dL (70-110)
[2021-07-25] MEDS: Aspirin E.C. 81 MG Tablet PO (08:39)
[2021-07-25] MEDS: Potassium Chloride Oral Tablet 20 MEQ PO (08:39)
--- NOTE | 2021-07-25 09:50 | NURSING ---
Patient up to chair this AM, no complaint of neck pain at this time.
[2021-07-25 11:02] VITALS: O2SAT 94
[2021-07-25 13:27] VITALS: BP 102/61; PULSE 85; RESP 18; TEMP 35.9; O2SAT 95
--- NOTE | 2021-07-25 15:22 | NURSING ---
Patient c/o burning during urination continuing today 07/25/21. Ciprofloxacin still being administered till stop time of 07/25/21 at 2100. Left note for doctor.
[2021-07-25 18:23] VITALS: PULSE 76
[2021-07-25 19:16] LABS: Bacteria 0 SEEN /hpf (None Seen); Mucous, Urine 0 SEEN /hpf (<or=2+); Red Blood Cells-Urine 0 SEEN /hpf (0-5); Squamous Epithelial Cells - UA 0 SEEN /hpf (5-10); White Blood Cells 0 SEEN /hpf (0-5)
[2021-07-25 19:20] LABS: Color, Urine Yellow (Yellow); Glucose, Dipstick Normal (Normal); Ketone-Dipstick Negative (Negative); Leukocyte Esterase-Dipstick Negative /ul (Negative); Nitrite-Dipstick Negative (Negative); Occult Blood-Urine Negative /ul (Negative); Protein-Dipstick Negative (Negative); Urine Bilirubin Dipstick Negative (Negative); Urine Clarity Clear (Clear); Urine Urobilinogen Normal (Normal); Urine pH 6.5 (5.0 - 8.0)
[2021-07-25 21:35] VITALS: RESP 17
[2021-07-25] MEDS: Mirtazapine 15 MG Tablet 7.5 MG PO (22:37)
[2021-07-25] MEDS: MELATONIN 10 MG TABLET PO (22:37)
[2021-07-25] MEDS: Atorvastatin Calcium 80 MG Tablet PO (22:37)
[2021-07-26] MEDS: Menthol/Lanolin/Calamine/Znox 113 GM Tube 1 APPLIC TOPICAL ×2 (06:41→17:00)
[2021-07-26 06:42] VITALS: BP 127/76; PULSE 87
[2021-07-26] MEDS: Ciprofloxacin 250 MG Tablet PO ×2 (06:42→17:00)
[2021-07-26] MEDS: Pantoprazole Sodium 40 MG Tablet PO (06:42)
[2021-07-26] MEDS: ARIPiprazole 5 MG Tablet PO (06:42)
[2021-07-26] MEDS: Furosemide 40 MG Tablet PO ×2 (06:42→13:53)
[2021-07-26] MEDS: Metoprolol Tartrate 50 MG Tablet PO ×2 (06:42→17:01)
[2021-07-26 06:51] LABS: Bedside Glucose 154 mg/dL (70-110)
[2021-07-26] MEDS: Aspirin E.C. 81 MG Tablet PO (09:40)
[2021-07-26] MEDS: Potassium Chloride Oral Tablet 20 MEQ PO (09:40)
[2021-07-26 14:02] VITALS: BP 127/71; PULSE 90; RESP 20; TEMP 36.6; O2SAT 93
[2021-07-26 17:01] VITALS: BP 137/68; PULSE 94
[2021-07-26] MEDS: Mirtazapine 15 MG Tablet 7.5 MG PO (20:30)
[2021-07-26] MEDS: Atorvastatin Calcium 80 MG Tablet PO (20:30)
[2021-07-26] MEDS: MELATONIN 10 MG TABLET PO (20:31)
[2021-07-26] MEDS: Acetaminophen 500 MG Tablet 1000 MG PO (20:33)
[2021-07-27] MEDS: Menthol/Lanolin/Calamine/Znox 113 GM Tube 1 APPLIC TOPICAL ×2 (06:13→18:47)
[2021-07-27 06:14] VITALS: BP 138/74; PULSE 91
[2021-07-27] MEDS: Ciprofloxacin 250 MG Tablet PO ×2 (06:14→18:50)
[2021-07-27] MEDS: Metoprolol Tartrate 50 MG Tablet PO ×2 (06:14→18:49)
[2021-07-27] MEDS: Furosemide 40 MG Tablet PO ×2 (06:14→14:59)
[2021-07-27] MEDS: Pantoprazole Sodium 40 MG Tablet PO (06:14)
[2021-07-27] MEDS: ARIPiprazole 5 MG Tablet PO (06:14)
[2021-07-27 06:46] LABS: Bedside Glucose 158 mg/dL (70-110)
[2021-07-27] MEDS: Potassium Chloride Oral Tablet 20 MEQ PO (08:54)
[2021-07-27] MEDS: Aspirin E.C. 81 MG Tablet PO (08:54)
--- NOTE | 2021-07-27 09:15 | RAD_ITS ---
STUDY: X-RAY CHEST REASON FOR EXAM: Female, 76 years old. Left pleural effusion f/u TECHNIQUE: PA and lateral views of the chest. COMPARISON: 07/07/2021 FINDINGS: Status post coronary artery bypass grafting. The lungs are clear and expanded. Small left pleural effusion. Normal size heart. Normal mediastinum and riki. Normal visualized pulmonary arteries. Normal visualized aortic arch and descending thoracic aorta. Normal visualized thoracic spine. Normal visualized ribs, clavicles, and shoulders. There is no demonstrated abnormality of the visualized soft tissue structures of the upper abdomen. RAD/Chest PA and Lateral IMPRESSION: No change in small left pleural effusion. Electronically Signed: Alfred Farrell MD at 16:50 EST Tel , Service support ,
[2021-07-27 09:20] VITALS: O2SAT 98
[2021-07-27 16:00] VITALS: BP 145/58; PULSE 97; RESP 16; TEMP 36.5; O2SAT 92
[2021-07-27 18:49] VITALS: BP 145/58; PULSE 97
--- NOTE | 2021-07-27 19:34 | NURSING ---
pt had chest xray to follow up pleural effusion. faxed report to [phone] [facility]. radiology also sent record too.
[2021-07-27] MEDS: Mirtazapine 15 MG Tablet 7.5 MG PO (20:36)
[2021-07-27] MEDS: Atorvastatin Calcium 80 MG Tablet PO (20:36)
[2021-07-27] MEDS: MELATONIN 10 MG TABLET PO (20:37)
[2021-07-28 05:42] VITALS: BP 135/61; PULSE 81
[2021-07-28] MEDS: Metoprolol Tartrate 50 MG Tablet PO ×2 (05:42→17:18)
[2021-07-28] MEDS: Pantoprazole Sodium 40 MG Tablet PO (05:42)
[2021-07-28] MEDS: Furosemide 40 MG Tablet PO (05:42)
[2021-07-28] MEDS: ARIPiprazole 5 MG Tablet PO (05:42)
[2021-07-28] MEDS: Ciprofloxacin 250 MG Tablet PO (05:44)
[2021-07-28] MEDS: Menthol/Lanolin/Calamine/Znox 113 GM Tube 1 APPLIC TOPICAL ×2 (05:44→17:17)
[2021-07-28] MEDS: Acetaminophen 500 MG Tablet 1000 MG PO ×2 (05:48→22:33)
[2021-07-28 06:21] LABS: Bedside Glucose 163 mg/dL (70-110)
[2021-07-28] MEDS: Potassium Chloride Oral Tablet 20 MEQ PO (08:50)
[2021-07-28] MEDS: Aspirin E.C. 81 MG Tablet PO (08:50)
[2021-07-28 09:23] VITALS: O2SAT 96
[2021-07-28 13:50] VITALS: BP 119/65; PULSE 77; RESP 14; TEMP 36.1; O2SAT 96
[2021-07-28 17:18] VITALS: PULSE 77
[2021-07-28] MEDS: Mirtazapine 15 MG Tablet 7.5 MG PO (22:34)
[2021-07-28] MEDS: Atorvastatin Calcium 80 MG Tablet PO (22:35)
[2021-07-28] MEDS: MELATONIN 10 MG TABLET PO (22:36)
[2021-07-29 06:32] VITALS: BP 133/72; PULSE 86
[2021-07-29] MEDS: Metoprolol Tartrate 50 MG Tablet PO ×2 (06:32→16:43)
[2021-07-29] MEDS: ARIPiprazole 5 MG Tablet PO (06:32)
[2021-07-29] MEDS: Pantoprazole Sodium 40 MG Tablet PO (06:33)
[2021-07-29 06:35] LABS: Bedside Glucose 163 mg/dL (70-110)
[2021-07-29] MEDS: Aspirin E.C. 81 MG Tablet PO (08:16)
[2021-07-29] MEDS: Potassium Chloride Oral Tablet 20 MEQ PO (08:17)
[2021-07-29] MEDS: Furosemide 40 MG Tablet PO (08:18)
[2021-07-29] MEDS: Menthol/Lanolin/Calamine/Znox 113 GM Tube 1 APPLIC TOPICAL ×2 (08:20→16:43)
[2021-07-29 14:08] VITALS: BP 129/63; PULSE 83; RESP 16; TEMP 36.6; O2SAT 97
[2021-07-29 16:43] VITALS: PULSE 83
[2021-07-29 20:17] VITALS: PULSE 75; RESP 16; O2SAT 94
[2021-07-29] MEDS: MELATONIN 10 MG TABLET PO (20:20)
[2021-07-29] MEDS: Acetaminophen 500 MG Tablet 1000 MG PO (20:20)
[2021-07-29] MEDS: Atorvastatin Calcium 80 MG Tablet PO (20:20)
[2021-07-29] MEDS: Mirtazapine 15 MG Tablet 7.5 MG PO (20:20)
[2021-07-30] MEDS: Acetaminophen 500 MG Tablet 1000 MG PO ×2 (06:07→14:29)
[2021-07-30 06:08] VITALS: BP 124/77; PULSE 85
[2021-07-30] MEDS: Metoprolol Tartrate 50 MG Tablet PO ×2 (06:08→18:26)
[2021-07-30] MEDS: Furosemide 40 MG Tablet PO (06:08)
[2021-07-30] MEDS: Pantoprazole Sodium 40 MG Tablet PO (06:08)
[2021-07-30] MEDS: ARIPiprazole 5 MG Tablet PO (06:08)
[2021-07-30] MEDS: Menthol/Lanolin/Calamine/Znox 113 GM Tube 1 APPLIC TOPICAL ×2 (06:09→19:21)
[2021-07-30 06:30] LABS: Bedside Glucose 144 mg/dL (70-110)
[2021-07-30 07:37] VITALS: O2SAT 94
--- NOTE | 2021-07-30 08:30 | RAD_ITS ---
STUDY: X-RAY CHEST REASON FOR EXAM: Female, 76 years old. Chest pain, shortness of breath, pleural effusion. TECHNIQUE: PA and lateral views of the chest. COMPARISON: Comparison is made with prior study dated 07/27/2021. FINDINGS: Stable small left pleural effusion with left basilar atelectasis and/or infiltration. There is no demonstrated pleural abnormality. Sternal cerclage wires and vascular clips are present from a prior sternotomy and coronary artery bypass graft procedure (CABG). Normal mediastinum and riki. Normal visualized pulmonary arteries. There is atherosclerotic calcification of the aortic arch with tortuosity. There are diffuse degenerative changes of the visualized thoracic spine. Normal visualized ribs, clavicles, and shoulders. There is no demonstrated abnormality of the visualized soft tissue structures of the upper abdomen. RAD/Chest PA and Lateral IMPRESSION: Stable small left pleural effusion with left basilar atelectasis and/or infiltrate. Electronically Signed: Ruiz Olson MD at 12:29 EST , Service support ,
[2021-07-30] MEDS: Potassium Chloride Oral Tablet 20 MEQ PO (08:49)
[2021-07-30] MEDS: Aspirin E.C. 81 MG Tablet PO (08:49)
[2021-07-30 15:05] VITALS: BP 124/58; PULSE 86; RESP 18; TEMP 36.4; O2SAT 96
--- NOTE | 2021-07-30 18:02 | NURSING ---
dr landis reviewed xray and EKG, no new orders.
[2021-07-30 18:26] VITALS: BP 124/58; PULSE 86
[2021-07-30] MEDS: Mirtazapine 15 MG Tablet 7.5 MG PO (19:55)
[2021-07-30] MEDS: Atorvastatin Calcium 80 MG Tablet PO (19:55)
[2021-07-30] MEDS: MELATONIN 10 MG TABLET PO (19:56)
[2021-07-31 05:09] VITALS: BP 122/75; PULSE 78
[2021-07-31] MEDS: Pantoprazole Sodium 40 MG Tablet PO (05:09)
[2021-07-31] MEDS: Metoprolol Tartrate 50 MG Tablet PO ×2 (05:09→18:11)
[2021-07-31] MEDS: ARIPiprazole 5 MG Tablet PO (05:09)
[2021-07-31] MEDS: Furosemide 40 MG Tablet PO (05:09)
[2021-07-31] MEDS: Menthol/Lanolin/Calamine/Znox 113 GM Tube 1 APPLIC TOPICAL ×2 (05:10→18:11)
[2021-07-31 05:57] LABS: Absolute Lymphocyte Count 1.81 X10^3/uL (0.83-4.51); Absolute Neutrophil Count 4.9 X10^3/uL (2.0-7.7); Basophil% 1.1 % (0-1); Eosinophil# 1.22 X10^3/uL; Hematocrit 34.3 % (37-47); Hemoglobin 10.6 g/dL (12.0-15.0); Lymphocyte # 1.81 X10^3/ul (0.83-4.51); Lymphocyte % 20.8 % (19-41); Mean Corp Hgb Conc 30.9 g/dL (32-36); Mean Corpuscular Hgb 29.6 pg (27.0-32.0); Mean Corpuscular Volume 95.8 fL (81-99); Mean Platelet Vol. 9.1 fl (6.2-12.0); Monocyte# 0.61 X10^3/uL; NRBC Flagged by Analyzer 0 % (0-5); Neutrophil # 4.94 X10^3/uL (2.7-7.7); Neutrophil % 56.8 % (47-70); Platelet Count 442 K/mm3 (150-450); RBC Distribution Width CV 15.5 % (11.6-14.6); RBC Distribution Width SD 54.3 fl (35.1-43.9); Red Blood Count 3.58 M/mm3 (4.2-5.4); White Blood Count 8.7 K/mm3 (4.4-11.0)
[2021-07-31 06:31] LABS: Bedside Glucose 151 mg/dL (70-110)
[2021-07-31 06:37] LABS: Anion Gap 5 (5-15); BUN 20 mg/dL (7-18); BUN/Creat Ratio 23.8 RATIO (10-20); Calcium,Total 9.6 mg/dL (8.5-10.1); Chloride 106 mmol/L (98-107); Creatinine, Serum 0.84 mg/dL (0.55-1.02); EST Glomerular Filtration Rate 70 mL/min (>60); Est Glom Filt Rate - Afr Amer 85 mL/min (>60); Estimated Creatinine Clearance 56.27 ml/min; Glucose 158 mg/dL (74-106); Magnesium 2.2 mg/dL (1.6-2.6); Potassium 4.2 mmol/L (3.5-5.1); Sodium Level 143 mmol/L (136-145)
[2021-07-31] MEDS: Potassium Chloride Oral Tablet 20 MEQ PO (08:21)
[2021-07-31] MEDS: Aspirin E.C. 81 MG Tablet PO (08:22)
[2021-07-31 10:18] VITALS: O2SAT 95
[2021-07-31] MEDS: Acetaminophen 500 MG Tablet 1000 MG PO (12:38)
[2021-07-31 12:52] VITALS: BP 124/48; PULSE 88; RESP 16; TEMP 36.8; O2SAT 90
[2021-07-31 17:53] VITALS: O2SAT 97
[2021-07-31 18:11] VITALS: PULSE 80
[2021-07-31] MEDS: Atorvastatin Calcium 80 MG Tablet PO (20:37)
[2021-07-31] MEDS: Mirtazapine 15 MG Tablet 7.5 MG PO (20:37)
[2021-07-31] MEDS: MELATONIN 10 MG TABLET PO (20:37)
[2021-08-01] MEDS: Acetaminophen 500 MG Tablet 1000 MG PO (03:22)
[2021-08-01 06:25] LABS: Bedside Glucose 155 mg/dL (70-110)
[2021-08-01 06:41] VITALS: BP 132/56; PULSE 75
[2021-08-01] MEDS: Pantoprazole Sodium 40 MG Tablet PO (06:41)
[2021-08-01] MEDS: ARIPiprazole 5 MG Tablet PO (06:41)
[2021-08-01] MEDS: Menthol/Lanolin/Calamine/Znox 113 GM Tube 1 APPLIC TOPICAL ×2 (06:41→17:10)
[2021-08-01] MEDS: Metoprolol Tartrate 50 MG Tablet PO ×2 (06:41→17:07)
[2021-08-01] MEDS: Furosemide 40 MG Tablet PO (06:41)
[2021-08-01 07:08] VITALS: O2SAT 95
[2021-08-01] MEDS: Potassium Chloride Oral Tablet 20 MEQ PO (09:11)
[2021-08-01] MEDS: Aspirin E.C. 81 MG Tablet PO (09:11)
--- NOTE | 2021-08-01 10:36 | NURSING ---
Pt reports taking fioricet at home as needed for frequent migraines and is requesting to have a prn order while she is here. Message left for Dr. Murray to update him on request.
[2021-08-01 14:17] VITALS: BP 119/68; PULSE 77; RESP 12; TEMP 36.2; O2SAT 96
[2021-08-01 17:07] VITALS: PULSE 77
[2021-08-01] MEDS: Mirtazapine 15 MG Tablet 7.5 MG PO (20:12)
[2021-08-01] MEDS: MELATONIN 10 MG TABLET PO (20:13)
[2021-08-01] MEDS: Atorvastatin Calcium 80 MG Tablet PO (20:13)
[2021-08-01] MEDS: Senna Tablet 1 TABLET PO (20:17)
[2021-08-02 04:41] VITALS: BP 142/70; PULSE 92
[2021-08-02] MEDS: ARIPiprazole 5 MG Tablet PO (04:41)
[2021-08-02] MEDS: Furosemide 40 MG Tablet PO (04:41)
[2021-08-02] MEDS: Pantoprazole Sodium 40 MG Tablet PO (04:41)
[2021-08-02] MEDS: Metoprolol Tartrate 50 MG Tablet PO ×2 (04:41→16:32)
[2021-08-02] MEDS: Magnesium Hydroxide 30 ML UDC PO (04:44)
[2021-08-02] MEDS: Menthol/Lanolin/Calamine/Znox 113 GM Tube 1 APPLIC TOPICAL ×2 (04:46→16:33)
[2021-08-02 06:50] LABS: Bedside Glucose 153 mg/dL (70-110)
[2021-08-02 07:30] VITALS: O2SAT 96
[2021-08-02] MEDS: Aspirin E.C. 81 MG Tablet PO (08:07)
[2021-08-02] MEDS: Potassium Chloride Oral Tablet 20 MEQ PO (08:08)
[2021-08-02] MEDS: Acetaminophen 500 MG Tablet 1000 MG PO (11:51)
[2021-08-02] MEDS: Acetaminophen/Butalbital/Caffe 1 Tablet PO (12:31)
[2021-08-02 13:58] VITALS: BP 119/68; PULSE 94; RESP 18; TEMP 36.3; O2SAT 96
[2021-08-02 16:32] VITALS: PULSE 94
[2021-08-02 20:40] VITALS: PULSE 73; RESP 16; O2SAT 94
[2021-08-02] MEDS: Mirtazapine 15 MG Tablet 7.5 MG PO (20:41)
[2021-08-02] MEDS: Atorvastatin Calcium 80 MG Tablet PO (20:41)
[2021-08-02] MEDS: MELATONIN 10 MG TABLET PO (20:41)
[2021-08-03 06:40] LABS: Bedside Glucose 156 mg/dL (70-110)
[2021-08-03 06:46] VITALS: BP 135/63; PULSE 82
[2021-08-03] MEDS: Furosemide 40 MG Tablet PO (06:46)
[2021-08-03] MEDS: Metoprolol Tartrate 50 MG Tablet PO ×2 (06:46→16:39)
[2021-08-03] MEDS: ARIPiprazole 5 MG Tablet PO (06:46)
[2021-08-03] MEDS: Pantoprazole Sodium 40 MG Tablet PO (06:46)
[2021-08-03] MEDS: Potassium Chloride Oral Tablet 20 MEQ PO (06:47)
[2021-08-03] MEDS: Aspirin E.C. 81 MG Tablet PO (06:47)
[2021-08-03] MEDS: Menthol/Lanolin/Calamine/Znox 113 GM Tube 1 APPLIC TOPICAL ×2 (06:49→16:40)
[2021-08-03 07:04] VITALS: O2SAT 96
[2021-08-03] MEDS: Magnesium Hydroxide 30 ML UDC PO (08:41)
--- NOTE | 2021-08-03 08:43 | NURSING ---
pt requested mom,stated i feel bloated and like i need to go. prn given. encouraged i.s also.
[2021-08-03 11:35] VITALS: PULSE 71; RESP 18; O2SAT 96
[2021-08-03 14:06] VITALS: BP 132/52; PULSE 85; RESP 15; TEMP 36.5; O2SAT 97
[2021-08-03 16:39] VITALS: PULSE 85
[2021-08-03] MEDS: Senna Tablet 1 TABLET PO (16:40)
[2021-08-03] MEDS: Acetaminophen 500 MG Tablet 1000 MG PO (18:08)
[2021-08-03] MEDS: MELATONIN 10 MG TABLET PO (22:02)
[2021-08-03] MEDS: Atorvastatin Calcium 80 MG Tablet PO (22:03)
[2021-08-03] MEDS: Mirtazapine 15 MG Tablet 7.5 MG PO (22:03)
[2021-08-04 06:00] VITALS: BP 124/61; PULSE 84
[2021-08-04] MEDS: Menthol/Lanolin/Calamine/Znox 113 GM Tube 1 APPLIC TOPICAL ×2 (06:00→18:00)
[2021-08-04] MEDS: Metoprolol Tartrate 50 MG Tablet PO ×2 (06:00→18:00)
[2021-08-04] MEDS: Pantoprazole Sodium 40 MG Tablet PO (06:00)
[2021-08-04] MEDS: ARIPiprazole 5 MG Tablet PO (06:00)
[2021-08-04] MEDS: Furosemide 40 MG Tablet PO (06:00)
[2021-08-04] MEDS: Potassium Chloride Oral Tablet 20 MEQ PO (08:00)
[2021-08-04] MEDS: Aspirin E.C. 81 MG Tablet PO (08:00)
[2021-08-04] MEDS: Acetaminophen 500 MG Tablet 1000 MG PO (09:00)
[2021-08-04 18:00] VITALS: BP 131/62; PULSE 92
[2021-08-04 19:24] LABS: Bedside Glucose 152 mg/dL (70-110)
[2021-08-04] MEDS: Mirtazapine 15 MG Tablet 7.5 MG PO (22:00)
[2021-08-04] MEDS: MELATONIN 10 MG TABLET PO (22:00)
[2021-08-04] MEDS: Atorvastatin Calcium 80 MG Tablet PO (22:00)
[2021-08-05 05:17] VITALS: BP 116/77; PULSE 77
[2021-08-05] MEDS: Pantoprazole Sodium 40 MG Tablet PO (05:17)
[2021-08-05] MEDS: Metoprolol Tartrate 50 MG Tablet PO ×2 (05:17→17:35)
[2021-08-05] MEDS: Menthol/Lanolin/Calamine/Znox 113 GM Tube 1 APPLIC TOPICAL ×2 (05:18→17:36)
[2021-08-05] MEDS: Furosemide 40 MG Tablet PO (05:18)
[2021-08-05] MEDS: ARIPiprazole 5 MG Tablet PO (05:18)
[2021-08-05 06:11] LABS: Bedside Glucose 155 mg/dL (70-110)
[2021-08-05] MEDS: Potassium Chloride Oral Tablet 20 MEQ PO (08:36)
[2021-08-05] MEDS: Aspirin E.C. 81 MG Tablet PO (08:36)
--- NOTE | 2021-08-05 08:38 | NURSING ---
Patient up in chair, resting. Morning AM care completed. Took medications without any complications noted. Pleasant- A&Ox3 No complaints of pain at this time
[2021-08-05] MEDS: Acetaminophen 500 MG Tablet 1000 MG PO (11:52)
[2021-08-05 13:32] VITALS: BP 113/58; PULSE 76; RESP 17; TEMP 36.6; O2SAT 100
[2021-08-05 15:04] VITALS: O2SAT 94
[2021-08-05 17:35] VITALS: BP 113/58; PULSE 76
[2021-08-05] MEDS: Mirtazapine 15 MG Tablet 7.5 MG PO (20:38)
[2021-08-05] MEDS: Atorvastatin Calcium 80 MG Tablet PO (20:39)
[2021-08-05] MEDS: MELATONIN 10 MG TABLET PO (20:39)
[2021-08-05] MEDS: Senna Tablet 1 TABLET PO (20:41)
[2021-08-06] MEDS: Magnesium Hydroxide 30 ML UDC PO (03:36)
[2021-08-06 06:31] LABS: Bedside Glucose 144 mg/dL (70-110)
[2021-08-06 06:51] VITALS: BP 112/70; PULSE 89
[2021-08-06] MEDS: Metoprolol Tartrate 50 MG Tablet PO ×2 (06:51→17:44)
[2021-08-06] MEDS: ARIPiprazole 5 MG Tablet PO (06:52)
[2021-08-06] MEDS: Furosemide 40 MG Tablet PO (06:52)
[2021-08-06] MEDS: Pantoprazole Sodium 40 MG Tablet PO (06:52)
[2021-08-06] MEDS: Menthol/Lanolin/Calamine/Znox 113 GM Tube 1 APPLIC TOPICAL ×2 (06:53→17:46)
[2021-08-06 07:25] VITALS: O2SAT 94
[2021-08-06] MEDS: Aspirin E.C. 81 MG Tablet PO (08:17)
[2021-08-06] MEDS: Potassium Chloride Oral Tablet 20 MEQ PO (08:17)
[2021-08-06 14:54] VITALS: BP 111/73; PULSE 83; RESP 18; TEMP 36.1; O2SAT 98
[2021-08-06 17:44] VITALS: PULSE 88
--- NOTE | 2021-08-06 19:16 | PN.TCU_ITS ---
Subjective Subjective Resident seen, examined for regulatory visit. She is getting ready to eat dinner. Her appetite has improved, she is progressing with therapy, she has shortness of breath, but she has chronic shortness of breath. She asked about Linzess for constipation, but I let her know Linzess not on formulary, will try Magnesium citrate for clean out. Objective Data Objective Data Vital Signs: Vital Signs Temp Pulse Resp BP Pulse Ox 97 F L 88 18 111/73 98 08/06/21 14:54 08/06/21 17:44 08/06/21 14:54 08/06/21 14:54 08/06/21 14:54 Oxygen Flow Rate (L/min) 1 Oxygen Delivery Method Room Air Weight: 94.6 kg Body Mass Index (BMI) 33.5 Intake & Output: Intake and Output for Last 24 Hours 08/04/21 08/05/21 08/06/21 23:59 23:59 23:59 Intake Total 840 / 840 480 / 480 Output Total 400 / 400 Balance 440 / 440 480 / 480 Medical Nutrition Assessment Dietitian: Malnutrition Criteria Met Start: 07/10/21 17:21 Freq: Status: Active Protocol: Document 07/25/21 14:04 SANCHEZ (Rec: 07/25/21 14:04 SANCHEZ [id number]) Nutrition Malnutrition Evidence of Malnutrition Exists Yes Malnutrition (severe): Acute Illness/Injury Evidenced By Suboptimal Energy Intake ( Severe),Weight Loss (Severe) Clinical Problem Acute Disease or Injury Related Malnutrition Etiology related to food not tasting right, difficulty chewing/ swallowing and recent surgery Signs/Symptoms as evidenced by mostly <50% po intake at most meals and 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 Status Active Problem Recommendation Dietitian Recommendations/Changes Continue liberal regular diet w/ small portions Continue 4 oz vanilla CIB w/ meals tid per res preference Add fortified foods w/ meals Continue remeron to help encourage improved appetite Lab / Micro Data Result Diagrams: 07/31/21 05:15 07/31/21 05:15 Labs: Laboratory Results - last 24 hr 08/06/21 06:20: POC Glucose 144 H Micro: Microbiology 08/02/21 13:55 Nasal Secretion SARS-CoV-2 Antigen (Rapid) - Final 07/25/21 18:54 Urine, Catheterized Urine Culture - Final Culture exhibits no growth. 07/26/21 Unknown Nasal Secretion SARS-CoV-2 Antigen (Rapid) - Final 07/18/21 18:10 Urine, Catheterized Urine Culture - Final Enterobacter cloacae complex 07/19/21 22:19 Nasal Secretion SARS-CoV-2 Antigen (Rapid) - Final 07/12/21 10:47 Nasal Secretion SARS-CoV-2 Antigen (Rapid) - Final Physical Exam Const alert and oriented x3 General Appearance: cooperative HEENT normocephalic Eyes PERRL and EOMs intact bilaterally Neck supple, no JVD and no carotid bruits Resp normal respiratory effort, normal air movement and clear to auscultation bilaterally Cardio regular rate and regular rhythm GI normal to inspection, nondistended, normoactive bowel sounds, non-tender and non-distended Extremity normal capillary refill General Extremity: Negative for edema Skin no rashes or lesions noted General Skin Exam: no breakdown Psych affect normal Appearance: appropriate Assessment & Plan Assessment/Plan (1) Debility: (2) Encephalopathy: (3) Urinary tract infection: (4) Bacteremia: (5) Coronary artery disease: (6) Hypertension: (7) Hyperlipidemia: (8) Diabetes mellitus: (9) Gastroesophageal reflux disease: (10) Mitral valve prolapse: (11) Insomnia: (12) Overactive bladder: (13) Anxiety: (14) Depression: (15) Diabetic polyneuropathy: PLAN: 76 year old female with below past medical history recent CABG x 4, Citrobacter urinary tract infection, encephalopathy, admitted to TCU with debili ty, here for rehabilitation, strengthening, prior to discharge to assisted living facility. * Debility - PT/OT. * Pain - Tylenol 1000mg q6h prn pain (1-10) * Bowel - Senokot 1 tablet bid prn, MOM 30ml q6h prn, Magnesium citrate 300ml po x 1 dose. * Adult immunization - Administer prevnar 13, pneumovax 23, fluzone, covid19 vaccine as appropriate. * DVT prophylaxis - Hold. 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 * Coronary artery disease status post CABG x 4 - Metoprolol 50mg bid, Aspirin 81mg daily. * Hyperlipidemia - Atorvastatin 80mg daily. * Appetite loss - Mirtazapine 7.5mg qhs. * Asthma - Advair 1 puff Q12H. * Pleural efffusion - Lasix 04mg daily. * Hypokalemia - Potassium 20meq daily. * Insomnia - Melatonin 10mg qhs. * GERD - Pantoprazole 40mg daily, Mylanta II 15ml q6h prn. * Headache - Fioricet 1 tablet q4h prn. * Skin irritation - Calmoseptine topical bid. Capacity Capacity Assessment Tool Can the patient make a choice & communicate that choice?: Yes Can the patient understand benefits, risks and alternatives?: Yes Can the patient make a logical, rational choice?: Yes Is the choice the patient makes consistent w/ their values?: Yes Is there an impending, emergent risk to the patient?: No Does the patient have an Advance Directive?: Yes Is there a Surrogate Available?: Yes i.e. HCPOA: Yes i.e. close relative (spouse, child, parent, sibling)?: Yes
[2021-08-06] MEDS: Atorvastatin Calcium 80 MG Tablet PO (20:35)
[2021-08-06] MEDS: MELATONIN 10 MG TABLET PO (20:35)
[2021-08-06] MEDS: Mirtazapine 15 MG Tablet 7.5 MG PO (20:35)
[2021-08-07] MEDS: Magnesium Citrate 300 ML PO (02:28)
[2021-08-07 05:55] LABS: Absolute Lymphocyte Count 1.99 X10^3/uL (0.83-4.51); Absolute Neutrophil Count 4.9 X10^3/uL (2.0-7.7); Basophil# 0.07 X10^3/uL; Basophil% 0.8 % (0-1); Eosinophil# 0.83 X10^3/uL; Eosinophils% 9.8 % (0-5); Hematocrit 35.2 % (37-47); Hemoglobin 10.9 g/dL (12.0-15.0); Lymphocyte # 1.99 X10^3/ul (0.83-4.51); Lymphocyte % 23.4 % (19-41); Mean Corpuscular Hgb 29.9 pg (27.0-32.0); Mean Corpuscular Volume 96.4 fL (81-99); Mean Platelet Vol. 9.6 fl (6.2-12.0); Monocyte# 0.68 X10^3/uL; NRBC Flagged by Analyzer 0 % (0-5); Neutrophil # 4.91 X10^3/uL (2.7-7.7); Neutrophil % 57.6 % (47-70); Platelet Count 315 K/mm3 (150-450); RBC Distribution Width CV 15.9 % (11.6-14.6); RBC Distribution Width SD 56.7 fl (35.1-43.9); Red Blood Count 3.65 M/mm3 (4.2-5.4); White Blood Count 8.5 K/mm3 (4.4-11.0)
[2021-08-07] MEDS: ARIPiprazole 5 MG Tablet PO (06:09)
[2021-08-07] MEDS: Furosemide 40 MG Tablet PO (06:09)
[2021-08-07] MEDS: Pantoprazole Sodium 40 MG Tablet PO (06:09)
[2021-08-07 06:10] VITALS: BP 123/66; PULSE 81
[2021-08-07] MEDS: Metoprolol Tartrate 50 MG Tablet PO ×2 (06:10→17:23)
[2021-08-07] MEDS: Menthol/Lanolin/Calamine/Znox 113 GM Tube 1 APPLIC TOPICAL ×2 (06:10→17:23)
[2021-08-07 06:37] LABS: Anion Gap 5 (5-15); BUN 27 mg/dL (7-18); BUN/Creat Ratio 24.3 RATIO (10-20); Calcium,Total 9.7 mg/dL (8.5-10.1); Chloride 107 mmol/L (98-107); Creatinine, Serum 1.11 mg/dL (0.55-1.02); EST Glomerular Filtration Rate 51 mL/min (>60); Est Glom Filt Rate - Afr Amer 62 mL/min (>60); Estimated Creatinine Clearance 42.59 ml/min; Glucose 155 mg/dL (74-106); Potassium 4.1 mmol/L (3.5-5.1); Sodium Level 140 mmol/L (136-145)
[2021-08-07 06:40] LABS: Bedside Glucose 140 mg/dL (70-110)
[2021-08-07] MEDS: Potassium Chloride Oral Tablet 20 MEQ PO (08:45)
[2021-08-07] MEDS: Aspirin E.C. 81 MG Tablet PO (08:45)
--- NOTE | 2021-08-07 13:00 | CASEMGMT ---
Addendum entered by Irena West 08/09/21 15:48: Dtr returned call. She spoke with pt yesterday evening and expressed some concerns with DC home. She stated pt cannot stand 10-15 minutes and it takes about 15-20 minutes for pt to shower. A shower chair cannot fit in pt's shower. Pt could potentially shower in tub/shower but dtr states she cannot lift leg over the ledge. SW offered for a transfer tub bench. Dtr expressed several other concerns and asked questions about physical stamina. Offered for dtr to speak with treating therapist to get specific questions answered. Dtr appreciative. Notified MIXING TECHNICIAN and SUPERVISOR PRE WAVE. Will continue to follow. Addendum entered by Irena West 08/09/21 14:11: Left message with dtr to follow up on DC plans. Original Note: Social Work IDT ready to set DC date for pt. Pt is supervised for ADLs and no concerns with pt being home alone while dtr is at work. Contacted dtr to discuss DC date. Dtr would like to speak with pt first before setting date, but Friday's work best for dtr. Dtr to contact this worker. ABIGAIL Lin
[2021-08-07 14:26] VITALS: BP 117/71; PULSE 56; RESP 18; TEMP 36.1; O2SAT 94
--- NOTE | 2021-08-07 16:00 | NURSING ---
Resident and daughter, Mya, notified of staff member testing positive for COVID.
[2021-08-07 17:23] VITALS: PULSE 93
[2021-08-07] MEDS: Mirtazapine 15 MG Tablet 7.5 MG PO (20:57)
[2021-08-07] MEDS: Atorvastatin Calcium 80 MG Tablet PO (20:57)
[2021-08-07] MEDS: MELATONIN 10 MG TABLET PO (20:57)
[2021-08-08 06:07] VITALS: BP 118/70; PULSE 80
[2021-08-08] MEDS: Furosemide 40 MG Tablet PO (06:07)
[2021-08-08] MEDS: Pantoprazole Sodium 40 MG Tablet PO (06:07)
[2021-08-08] MEDS: ARIPiprazole 5 MG Tablet PO (06:07)
[2021-08-08] MEDS: Metoprolol Tartrate 50 MG Tablet PO ×2 (06:07→18:41)
[2021-08-08] MEDS: Menthol/Lanolin/Calamine/Znox 113 GM Tube 1 APPLIC TOPICAL ×2 (06:08→16:17)
[2021-08-08 06:40] LABS: Bedside Glucose 151 mg/dL (70-110)
[2021-08-08] MEDS: Potassium Chloride Oral Tablet 20 MEQ PO (08:47)
[2021-08-08] MEDS: Aspirin E.C. 81 MG Tablet PO (08:47)
[2021-08-08 14:16] VITALS: BP 118/64; PULSE 85; RESP 18; TEMP 36.3; O2SAT 98
--- NOTE | 2021-08-08 15:19 | NURSING ---
Addendum entered by Winifred Pickens 08/08/21 15:55: [facility] called back pt to be seen this sunday 08/13 at 10:30, appointment with nurse practicer Maddy Farooq Original Note: Pt states she feels weak like a wet spaghetti noodle and feels like she has not improved and does not feel any different than prior to her CABG. She is requesting to see her wood sawyer Dr. Armendariz at [facility]. Davon called and no answer, message left to return phone call.
[2021-08-08] MEDS: Acetaminophen 500 MG Tablet 1000 MG PO (16:16)
[2021-08-08 18:41] VITALS: PULSE 85
[2021-08-08] MEDS: MELATONIN 10 MG TABLET PO (20:55)
[2021-08-08] MEDS: Atorvastatin Calcium 80 MG Tablet PO (20:55)
[2021-08-08] MEDS: Mirtazapine 15 MG Tablet 7.5 MG PO (20:55)
[2021-08-09] MEDS: Acetaminophen 500 MG Tablet 1000 MG PO ×2 (04:10→16:26)
[2021-08-09 05:52] VITALS: BP 130/91; PULSE 68
[2021-08-09] MEDS: Metoprolol Tartrate 50 MG Tablet PO ×2 (05:52→16:27)
[2021-08-09] MEDS: ARIPiprazole 5 MG Tablet PO (05:52)
[2021-08-09] MEDS: Menthol/Lanolin/Calamine/Znox 113 GM Tube 1 APPLIC TOPICAL ×2 (05:52→16:27)
[2021-08-09] MEDS: Pantoprazole Sodium 40 MG Tablet PO (05:52)
[2021-08-09] MEDS: Furosemide 40 MG Tablet PO (05:52)
[2021-08-09 06:15] LABS: Bedside Glucose 142 mg/dL (70-110)
[2021-08-09] MEDS: Aspirin E.C. 81 MG Tablet PO (07:58)
[2021-08-09] MEDS: Potassium Chloride Oral Tablet 20 MEQ PO (07:59)
[2021-08-09 13:01] VITALS: BP 114/70; PULSE 88; RESP 18; TEMP 36.6; O2SAT 97
--- NOTE | 2021-08-09 13:50 | NURSING ---
Resident and daughter, Mya, notified of a resident on the unit testing positive for COVID.
[2021-08-09 16:27] VITALS: PULSE 88
[2021-08-09] MEDS: Mirtazapine 15 MG Tablet 7.5 MG PO (19:51)
[2021-08-09] MEDS: MELATONIN 10 MG TABLET PO (19:52)
[2021-08-09] MEDS: Atorvastatin Calcium 80 MG Tablet PO (19:52)
[2021-08-10 06:25] VITALS: BP 133/63; PULSE 84
[2021-08-10 06:25] LABS: Bedside Glucose 151 mg/dL (70-110)
[2021-08-10] MEDS: Pantoprazole Sodium 40 MG Tablet PO (06:25)
[2021-08-10] MEDS: Furosemide 40 MG Tablet PO (06:25)
[2021-08-10] MEDS: Acetaminophen 500 MG Tablet 1000 MG PO ×2 (06:25→23:01)
[2021-08-10] MEDS: Metoprolol Tartrate 50 MG Tablet PO ×2 (06:25→17:43)
[2021-08-10] MEDS: ARIPiprazole 5 MG Tablet PO (06:25)
[2021-08-10] MEDS: Menthol/Lanolin/Calamine/Znox 113 GM Tube 1 APPLIC TOPICAL ×2 (06:28→17:43)
[2021-08-10] MEDS: Potassium Chloride Oral Tablet 20 MEQ PO (08:29)
[2021-08-10] MEDS: Aspirin E.C. 81 MG Tablet PO (08:30)
[2021-08-10 13:57] VITALS: BP 134/67; PULSE 89; RESP 18; TEMP 36.8; O2SAT 100
[2021-08-10 17:43] VITALS: PULSE 88
[2021-08-10] MEDS: Atorvastatin Calcium 80 MG Tablet PO (22:57)
[2021-08-10] MEDS: Mirtazapine 15 MG Tablet 7.5 MG PO (22:58)
[2021-08-10] MEDS: MELATONIN 10 MG TABLET PO (22:58)
[2021-08-11 05:29] VITALS: BP 134/64; PULSE 73; RESP 16; O2SAT 96
[2021-08-11 05:30] VITALS: BP 134/64; PULSE 73
[2021-08-11] MEDS: ARIPiprazole 5 MG Tablet PO (05:30)
[2021-08-11] MEDS: Furosemide 40 MG Tablet PO (05:30)
[2021-08-11] MEDS: Metoprolol Tartrate 50 MG Tablet PO ×2 (05:30→17:33)
[2021-08-11] MEDS: Pantoprazole Sodium 40 MG Tablet PO (05:30)
[2021-08-11] MEDS: Menthol/Lanolin/Calamine/Znox 113 GM Tube 1 APPLIC TOPICAL ×2 (05:32→17:34)
[2021-08-11 06:26] LABS: Bedside Glucose 159 mg/dL (70-110)
[2021-08-11] MEDS: Potassium Chloride Oral Tablet 20 MEQ PO (08:37)
[2021-08-11] MEDS: Aspirin E.C. 81 MG Tablet PO (08:37)
[2021-08-11] MEDS: Acetaminophen 500 MG Tablet 1000 MG PO ×2 (10:09→21:30)
[2021-08-11 10:10] VITALS: PULSE 70; RESP 18; O2SAT 98
[2021-08-11 14:58] VITALS: BP 132/69; PULSE 73; RESP 16; TEMP 36.4; O2SAT 98
[2021-08-11 17:33] VITALS: PULSE 73
[2021-08-11] MEDS: Atorvastatin Calcium 80 MG Tablet PO (21:29)
[2021-08-11] MEDS: MELATONIN 10 MG TABLET PO (21:30)
[2021-08-11] MEDS: Mirtazapine 15 MG Tablet 7.5 MG PO (21:30)
[2021-08-12 05:33] VITALS: BP 124/62; PULSE 78
[2021-08-12] MEDS: ARIPiprazole 5 MG Tablet PO (05:33)
[2021-08-12] MEDS: Metoprolol Tartrate 50 MG Tablet PO ×2 (05:33→16:56)
[2021-08-12] MEDS: Pantoprazole Sodium 40 MG Tablet PO (05:33)
[2021-08-12] MEDS: Furosemide 40 MG Tablet PO (05:34)
[2021-08-12 06:40] LABS: Bedside Glucose 154 mg/dL (70-110)
[2021-08-12] MEDS: Potassium Chloride Oral Tablet 20 MEQ PO (08:40)
[2021-08-12] MEDS: Aspirin E.C. 81 MG Tablet PO (08:40)
[2021-08-12 14:24] VITALS: BP 116/51; PULSE 68; RESP 17; TEMP 36.6; O2SAT 95
[2021-08-12 16:06] VITALS: BP 118/57; PULSE 81; RESP 16; TEMP 36.6; O2SAT 92
[2021-08-12 16:56] VITALS: PULSE 81
[2021-08-12] MEDS: Atorvastatin Calcium 80 MG Tablet PO (21:41)
[2021-08-12] MEDS: Mirtazapine 15 MG Tablet 7.5 MG PO (21:41)
[2021-08-12 21:42] VITALS: PULSE 83; RESP 16; O2SAT 97
[2021-08-12] MEDS: MELATONIN 10 MG TABLET PO (21:42)
[2021-08-13 05:36] VITALS: BP 130/83; PULSE 81
[2021-08-13] MEDS: Furosemide 40 MG Tablet PO (05:36)
[2021-08-13] MEDS: Metoprolol Tartrate 50 MG Tablet PO ×2 (05:36→16:54)
[2021-08-13] MEDS: ARIPiprazole 5 MG Tablet PO (05:36)
[2021-08-13] MEDS: Pantoprazole Sodium 40 MG Tablet PO (05:36)
[2021-08-13] MEDS: Acetaminophen 500 MG Tablet 1000 MG PO (06:24)
[2021-08-13 06:31] LABS: Bedside Glucose 186 mg/dL (70-110)
[2021-08-13] MEDS: Potassium Chloride Oral Tablet 20 MEQ PO (08:31)
[2021-08-13] MEDS: Aspirin E.C. 81 MG Tablet PO (08:31)
--- NOTE | 2021-08-13 11:57 | NURSING ---
pt returned Dr. vallejo. Office note to follow per George Farooq, [employer] ASSOCIATE
--- NOTE | 2021-08-13 14:10 | NURSING ---
Pt had appointment with TAWANA, N.N.O
--- NOTE | 2021-08-13 14:16 | CASEMGMT ---
Social Work FANNIE left message with for dtr Friday and Friday. Dtr returned call to this worker - FANNIE is out of the office today and will return call to dtr prior to 9 am or after 5 pm tomorrow. ABIGAIL Lin
[2021-08-13 15:07] VITALS: BP 136/71; PULSE 88; RESP 18; TEMP 36.2; O2SAT 98
[2021-08-13] MEDS: Magnesium Hydroxide 30 ML UDC PO (16:53)
[2021-08-13 16:54] VITALS: PULSE 88
[2021-08-13] MEDS: Menthol/Lanolin/Calamine/Znox 113 GM Tube 1 APPLIC TOPICAL (16:55)
[2021-08-13] MEDS: Mirtazapine 15 MG Tablet 7.5 MG PO (22:20)
[2021-08-13] MEDS: MELATONIN 10 MG TABLET PO (22:20)
[2021-08-13] MEDS: Atorvastatin Calcium 80 MG Tablet PO (22:20)
[2021-08-14 05:17] VITALS: BP 137/61; PULSE 84
[2021-08-14] MEDS: Pantoprazole Sodium 40 MG Tablet PO (05:17)
[2021-08-14] MEDS: Metoprolol Tartrate 50 MG Tablet PO ×2 (05:17→18:08)
[2021-08-14] MEDS: Senna Tablet 1 TABLET PO (05:17)
[2021-08-14] MEDS: ARIPiprazole 5 MG Tablet PO (05:17)
[2021-08-14] MEDS: Furosemide 40 MG Tablet PO (05:17)
[2021-08-14] MEDS: Acetaminophen 500 MG Tablet 1000 MG PO ×2 (05:18→18:11)
--- NOTE | 2021-08-14 05:19 | NURSING ---
Patient reports no BM after M.O.M was administered yesterday. PRN Senna given.
--- NOTE | 2021-08-14 05:55 | NURSING ---
Patient has no current lab orders. Last draw was 08/07/21. Left message for Dr. Murray.
[2021-08-14 06:26] LABS: Bedside Glucose 164 mg/dL (70-110)
[2021-08-14 08:28] LABS: Absolute Lymphocyte Count 1.42 X10^3/uL (0.83-4.51); Absolute Neutrophil Count 5.5 X10^3/uL (2.0-7.7); Basophil# 0.06 X10^3/uL; Basophil% 0.7 % (0-1); Eosinophil# 0.84 X10^3/uL; Eosinophils% 10.1 % (0-5); Hematocrit 37.4 % (37-47); Hemoglobin 11.9 g/dL (12.0-15.0); Lymphocyte # 1.42 X10^3/ul (0.83-4.51); Lymphocyte % 17.1 % (19-41); Mean Corp Hgb Conc 31.8 g/dL (32-36); Mean Corpuscular Hgb 30.1 pg (27.0-32.0); Mean Corpuscular Volume 94.7 fL (81-99); Mean Platelet Vol. 9.5 fl (6.2-12.0); Monocyte# 0.42 X10^3/uL; Monocyte% 5.1 % (0-10); NRBC Flagged by Analyzer 0 % (0-5); Neutrophil # 5.53 X10^3/uL (2.7-7.7); Neutrophil % 66.8 % (47-70); Platelet Count 247 K/mm3 (150-450); RBC Distribution Width CV 15.8 % (11.6-14.6); RBC Distribution Width SD 54.8 fl (35.1-43.9); Red Blood Count 3.95 M/mm3 (4.2-5.4); White Blood Count 8.3 K/mm3 (4.4-11.0)
[2021-08-14] MEDS: Potassium Chloride Oral Tablet 20 MEQ PO (08:36)
[2021-08-14] MEDS: Aspirin E.C. 81 MG Tablet PO (08:36)
[2021-08-14 08:37] LABS: Anion Gap 7 (5-15); BUN 30 mg/dL (7-18); BUN/Creat Ratio 26.8 RATIO (10-20); Calcium,Total 9.6 mg/dL (8.5-10.1); Chloride 103 mmol/L (98-107); Creatinine, Serum 1.12 mg/dL (0.55-1.02); EST Glomerular Filtration Rate 50 mL/min (>60); Est Glom Filt Rate - Afr Amer 61 mL/min (>60); Glucose 227 mg/dL (74-106); Potassium 3.9 mmol/L (3.5-5.1); Sodium Level 138 mmol/L (136-145)
[2021-08-14 13:31] VITALS: BP 122/69; PULSE 72; RESP 16; TEMP 36.2; O2SAT 97
--- NOTE | 2021-08-14 14:02 | CASEMGMT ---
Social Work FANNIE spoke with dtr and dtr agreeable with DC 08/19. Pt agreeable as well. Dtr to transport. Pt requesting [facility]. Referral made for PT/OT. Pt requires FWW with emily. Referral made to [facility]. To be delivered to pt's room prior to DC. Plan: DC home with dtr 08/19, [facility] PT/OT, FWW w/ABIGAIL GarzaW
[2021-08-14 18:08] VITALS: BP 122/69; PULSE 72
--- NOTE | 2021-08-14 19:40 | PCM.DC.SUM ---
Providers Date of Admission: 07/09/21 Primary Care Physician: Dr. Efren Cameron MD Reason For Visit: CABGX4 Diagnosis Discharge Diagnosis (1) Debility: Status: Acute Code(s): R53.81 - Other malaise (2) Encephalopathy: Status: Acute Code(s): G93.40 - Encephalopathy, unspecified (3) Urinary tract infection: Status: Acute Code(s): N39.0 - Urinary tract infection, site not specified (4) Bacteremia: Status: Acute Code(s): R78.81 - Bacteremia (5) Coronary artery disease: Status: Acute Code(s): I25.10 - Atherosclerotic heart disease of [place] coronary artery without angina pectoris (6) Hypertension: Status: Chronic Code(s): I10 - Essential (primary) hypertension (7) Hyperlipidemia: Status: Acute Code(s): E78.5 - Hyperlipidemia, unspecified (8) Diabetes mellitus: Status: Acute Code(s): E11.9 - Type 2 diabetes mellitus without complications (9) Gastroesophageal reflux disease: Status: Acute Code(s): K21.9 - Gastro-esophageal reflux disease without esophagitis (10) Mitral valve prolapse: Status: Acute Code(s): I34.1 - Nonrheumatic mitral (valve) prolapse (11) Insomnia: Status: Acute Code(s): G47.00 - Insomnia, unspecified (12) Overactive bladder: Status: Acute Code(s): N32.81 - Overactive bladder (13) Anxiety: Status: Acute Code(s): F41.9 - Anxiety disorder, unspecified (14) Depression: Status: Acute Code(s): F32.A - Depression, unspecified (15) Diabetic polyneuropathy: Status: Acute Code(s): E11.42 - Type 2 diabetes mellitus with diabetic polyneuropathy Medications at Discharge Home Medications pantoprazole 40 mg tablet,delayed release 40 mg PO DAILY #30 tab 02/03/19 aspirin 81 mg PO DAILY 11/17/19 aripiprazole 5 mg tablet 5 mg PO DAILY tablet 09/29/20 acetaminophen 1,000 mg PO Q6H PRN PRN #0 tab 08/14/21 atorvastatin 80 mg PO QHS 30 Days #30 tab 08/14/21 furosemide 40 mg PO DAILY 30 Days #30 tab 08/14/21 metoprolol tartrate 50 mg PO BID 30 Days #60 tab 08/14/21 mirtazapine 7.5 mg PO QHS 30 Days #15 tab 08/14/21 potassium chloride [Klor-Con M20] 20 meq PO DAILYCM 30 Days #30 tab 08/14/21 Hospital Course Operations None Procedures None Summary of Care Provided Minutes Spent on Discharge: 35 Hospital Course: 76 year old female with below past medical history recent CABG x 4, Citrobacter urinary tract infection, encephalopathy, admitted to TCU with debility, here for rehabilitation, strengthening, prior to discharge to assisted living facility. Discharge home with daughter 08/19/2021, [facility] PT/OT, Front wheeled walker with tray. Physical Exam Const alert and oriented x3 General Appearance: cooperative HEENT normocephalic Eyes PERRL and EOMs intact bilaterally Neck supple, no JVD and no carotid bruits Resp normal respiratory effort, normal air movement and clear to auscultation bilaterally Cardio regular rate and regular rhythm GI normal to inspection, nondistended, normoactive bowel sounds, non-tender and non-distended Extremity normal capillary refill General Extremity: Negative for edema Skin no rashes or lesions noted General Skin Exam: no breakdown Psych affect normal Appearance: appropriate Medical Records Data Medical Nutrition Assessment Dietitian: Malnutrition Criteria Met Start: 07/10/21 17:21 Freq: Status: Active Protocol: Document 07/25/21 14:04 SANCHEZ (Rec: 07/25/21 14:04 SANCHEZ [id number]) Nutrition Malnutrition Evidence of Malnutrition Exists Yes Malnutrition (severe): Acute Illness/Injury Evidenced By Suboptimal Energy Intake ( Severe),Weight Loss (Severe) Clinical Problem Acute Disease or Injury Related Malnutrition Etiology related to food not tasting right, difficulty chewing/ swallowing and recent surgery Signs/Symptoms as evidenced by mostly <50% po intake at most meals and 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 Status Active Problem Recommendation Dietitian Recommendations/Changes Continue liberal regular diet w/ small portions Continue 4 oz vanilla CIB w/ meals tid per res preference Add fortified foods w/ meals Continue remeron to help encourage improved appetite Weight / BMI Weight Weight: 94.03 kg Body Mass Index (BMI) 33.5 ABG / Lab / Microbiology Data Result Diagrams: 08/14/21 08:10 08/14/21 08:10 Laboratory: Laboratory Results - last 24 hr 08/14/21 06:17: POC Glucose 164 H 08/14/21 08:10: WBC 8.3, RBC 3.95 L, Hgb 11.9 L, Hct 37.4, MCV 94.7, MCH 30.1, MCHC 31.8 L, RDW Std Deviation 54.8 H, RDW Coeff of [place] 15.8 H, Plt Count 247, MPV 9.5, Immature Gran % (Auto) 0.200, Neut % (Auto) 66.8, Lymph % (Auto) 17.1 L, [place] % (Auto) 5.1, Eos % (Auto) 10.1 H, Baso % (Auto) 0.7, Absolute Neuts (auto) 5.5, Absolute Lymphs (auto) 1.42, Nucleated RBC % 0 08/14/21 08:10: Sodium 138, Potassium 3.9, Chloride 103, Carbon Dioxide 28.0, Anion Gap 7, BUN 30 H, Creatinine 1.12 H, Estim Creat Clear Calc 42.20, Est GFR (MDRD) Af Amer 61, Est GFR (MDRD) Non-Af 50 L, BUN/Creatinine Ratio 26.8 H, Glucose 227 H, Calcium 9.6 Microbiology: Microbiology 08/13/21 18:15 Nasal Secretion SARS-CoV-2 Antigen (Rapid) - Final 08/09/21 11:53 Nasal Secretion SARS-CoV-2 Antigen (Rapid) - Final 08/02/21 13:55 Nasal Secretion SARS-CoV-2 Antigen (Rapid) - Final 07/25/21 18:54 Urine, Catheterized Urine Culture - Final Culture exhibits no growth. 07/26/21 Unknown Nasal Secretion SARS-CoV-2 Antigen (Rapid) - Final 07/18/21 18:10 Urine, Catheterized Urine Culture - Final Enterobacter cloacae complex 07/19/21 22:19 Nasal Secretion SARS-CoV-2 Antigen (Rapid) - Final 07/12/21 10:47 Nasal Secretion SARS-CoV-2 Antigen (Rapid) - Final D/C Instructions Discharge Diet: No restrictions Discharge Activity: Return to Normal Activity, May Shower and Use Walker Weight Bearing Status: Weight bearing as tolerated Call your doctor if you observe: Fever of 101 or Higher, Inability to urinate, Inability to have a bowel movement, Shortness of breath, Dizziness, Fainting spells, Swelling in the ankles, Chest pain and Uncontrolled pain Additional Instructions: Discharge home with daughter 08/19/2021, [facility] PT/OT, Front wheeled walker with tray. Please Follow Up With: Boy Hooks, cardiac surgeon When: As scheduled. Meaningful Use Info Meaningful Use Diagnoses (Choose all that apply): None applicable Discharge Plan Admission Admit Date/Time: 07/09/21 16:40 Primary Reason for Your Visit: Debility. Attending Provider: Paulo Murray Chi Primary Care Provider: Efren Cameron Instructions Additional Instructions / Restrictions: Discharge home with daughter 08/19/2021, [facility] PT/OT, Front wheeled walker with tray. Discharge Orders/Prescriptions Prescriptions: New furosemide 40 mg Tablet 40 mg PO DAILY 30 Days Qty: 30 RF: 0 atorvastatin 80 mg Tablet 80 mg PO QHS 30 Days Qty: 30 RF: 0 acetaminophen 500 mg Tablet 1,000 mg PO Q6H PRN PRN (Reason: Pain Score 1-5) Qty: 0 RF: 0 metoprolol tartrate 50 mg Tablet 50 mg PO BID 30 Days Qty: 60 RF: 0 potassium chloride [Klor-Con M20] 20 mEq Tablet,Er Particles/Crystals 20 meq PO DAILYCM 30 Days Qty: 30 RF: 0 mirtazapine 15 mg Tablet 7.5 mg PO QHS 30 Days Qty: 15 RF: 0 Continued pantoprazole 40 mg tablet,delayed release (DR/EC) 40 mg PO DAILY Qty: 30 RF: 0 aripiprazole 5 mg tablet 5 mg PO DAILY RF: 0 aspirin 81 MG tablet,delayed release (DR/EC) 81 mg PO DAILY RF: 0 Discontinued nitroglycerin 0.4 mg tablet, sublingual 0.4 mg SL Q5-15M PRN (Reason: Chest Pain) RF: 0 mirtazapine [Remeron] 15 mg tablet 7.5 mg PO QHS RF: 0 [id number] [Fioricet] 50-300-40 mg capsule 1 cap PO Q4H PRNRF: 0 menthol-zinc oxide [Calmoseptine] 0.44-20.6 % ointment 1 applic topical 4-6XD PRNRF: 0 calcium carbonate-mag hydroxid 400-135 mg/5 mL suspension 10 ml PO TID PRNRF: 0 polyethylene glycol 3350 [Miralax] 17 gram Powder In Packet 17 g PO BID RF: 0 sennosides [senna] 8.6 mg tablet 8.6 mg PO BID PRN (Reason: bowels) RF: 0 acetaminophen 325 mg tablet 650 mg PO Q4H PRN (Reason: Pain (Scale Score 1-10)) RF: 0 atorvastatin 80 mg tablet 80 mg PO QHS RF: 0 melatonin 10 mg tablet 10 mg PO HS PRN (Reason: Sleep) RF: 0 metoprolol tartrate 25 mg tablet 50 mg PO BID RF: 0 furosemide 20 mg tablet 40 mg PO DAILY RF: 0 potassium chloride 10 mEq capsule, extended release 20 meq PO DAILY RF: 0 Referrals / Follow Up: Paulo Murray Chi, MD [COURTESY STAFF PHYSICIAN] - Within 1 Week Maddy Farooq NP, DRYING MACHINE RECEIVER-C [Nurse Practitioner] - (4-6 weeks) Disposition Disposition (needs filled in before D/C Order can be placed): Home Health Service
[2021-08-14] MEDS: Mirtazapine 15 MG Tablet 7.5 MG PO (20:23)
[2021-08-14] MEDS: Atorvastatin Calcium 80 MG Tablet PO (20:23)
[2021-08-14] MEDS: MELATONIN 10 MG TABLET PO (20:24)
[2021-08-15] MEDS: Menthol/Lanolin/Calamine/Znox 113 GM Tube 1 APPLIC TOPICAL ×2 (05:59→17:41)
[2021-08-15] MEDS: Pantoprazole Sodium 40 MG Tablet PO (05:59)
[2021-08-15] MEDS: ARIPiprazole 5 MG Tablet PO (05:59)
[2021-08-15] MEDS: Furosemide 40 MG Tablet PO (05:59)
[2021-08-15 06:01] VITALS: BP 124/66; PULSE 71
[2021-08-15] MEDS: Metoprolol Tartrate 50 MG Tablet PO ×2 (06:01→17:37)
[2021-08-15 06:31] LABS: Bedside Glucose 163 mg/dL (70-110)
[2021-08-15] MEDS: Potassium Chloride Oral Tablet 20 MEQ PO (08:28)
[2021-08-15] MEDS: Aspirin E.C. 81 MG Tablet PO (08:28)
[2021-08-15] MEDS: Magnesium Hydroxide 30 ML UDC PO (11:06)
[2021-08-15 14:19] VITALS: BP 145/71; PULSE 86; RESP 12; TEMP 36.9; O2SAT 92
[2021-08-15 17:37] VITALS: PULSE 86
[2021-08-15] MEDS: Senna Tablet 1 TABLET PO (17:40)
[2021-08-15] MEDS: Mirtazapine 15 MG Tablet 7.5 MG PO (19:33)
[2021-08-15] MEDS: MELATONIN 10 MG TABLET PO (19:33)
[2021-08-15] MEDS: Atorvastatin Calcium 80 MG Tablet PO (19:34)
[2021-08-16 05:51] VITALS: BP 127/55; PULSE 89
[2021-08-16] MEDS: Pantoprazole Sodium 40 MG Tablet PO (05:51)
[2021-08-16] MEDS: Magnesium Hydroxide 30 ML UDC PO (05:51)
[2021-08-16] MEDS: Furosemide 40 MG Tablet PO (05:51)
[2021-08-16] MEDS: ARIPiprazole 5 MG Tablet PO (05:51)
[2021-08-16] MEDS: Metoprolol Tartrate 50 MG Tablet PO ×2 (05:51→17:19)
[2021-08-16] MEDS: Menthol/Lanolin/Calamine/Znox 113 GM Tube 1 APPLIC TOPICAL ×2 (05:52→19:53)
[2021-08-16 06:40] LABS: Bedside Glucose 159 mg/dL (70-110)
[2021-08-16] MEDS: Potassium Chloride Oral Tablet 20 MEQ PO (07:38)
[2021-08-16] MEDS: Aspirin E.C. 81 MG Tablet PO (07:39)
[2021-08-16 13:38] VITALS: BP 142/60; PULSE 94; RESP 17; TEMP 37; O2SAT 90
--- NOTE | 2021-08-16 14:43 | MDS.RN ---
Pain assessment completed on this day for the mdsdelaney 08/19/21
[2021-08-16 17:19] VITALS: BP 142/60; PULSE 94
--- NOTE | 2021-08-16 17:24 | RAD_ITS ---
EXAM: XR ABDOMEN, 1 VIEW CLINICAL INDICATION: Abdominal pain. TECHNIQUE: Frontal supine view of the abdomen/pelvis. This report was created using Skycatch report generation technology. COMPARISON: None. FINDINGS: LOWER THORAX: No acute pathology. GASTROINTESTINAL TRACT: Stool throughout the colon. Non-obstructive. No bowel or stomach distention. ORGANS: Unremarkable as visualized. No organomegaly. No abnormal calcifications. BONES/JOINTS: No acute pathology. SOFT TISSUES: No acute pathology. RAD/Abdomen Single View (Portable) IMPRESSION: Stool throughout the colon. Electronically Signed: Parker Hwang MD at 18:59 EST ,
--- NOTE | 2021-08-16 17:24 | RAD_ITS ---
STUDY: X-RAY CHEST REASON FOR EXAM: Female, 76 years old. CHEST PAIN Pleural effusions TECHNIQUE: XR Chest 2 Views COMPARISON: Jul 30 2021 8:38am FINDINGS: There is a left pleural effusion. There is left lower lobe infiltrate / atelectasis. There are multiple median sternotomy wires. Normal size heart. Normal mediastinum and riki. Normal visualized pulmonary arteries. There is atherosclerotic calcification of the aortic arch with tortuosity. There are diffuse degenerative changes of the visualized thoracic spine. There is degenerative osteoarthritis of the bilateral shoulders. There is no demonstrated abnormality of the visualized soft tissue structures of the upper abdomen. RAD/Chest PA and Lateral IMPRESSION: There is a left pleural effusion. There is left lower lobe infiltrate / atelectasis. No change from prior Electronically Signed: Parker Hwang MD at 19:00 EST ,
[2021-08-16 17:59] LABS: Absolute Lymphocyte Count 2.05 X10^3/uL (0.83-4.51); Absolute Neutrophil Count 7.7 X10^3/uL (2.0-7.7); Basophil# 0.06 X10^3/uL; Basophil% 0.5 % (0-1); Eosinophil# 0.56 X10^3/uL; Hematocrit 37.4 % (37-47); Hemoglobin 12.1 g/dL (12.0-15.0); Lymphocyte # 2.05 X10^3/ul (0.83-4.51); Lymphocyte % 18.2 % (19-41); Mean Corp Hgb Conc 32.4 g/dL (32-36); Mean Corpuscular Hgb 29.4 pg (27.0-32.0); Mean Corpuscular Volume 90.8 fL (81-99); Mean Platelet Vol. 9.4 fl (6.2-12.0); Monocyte# 0.88 X10^3/uL; Monocyte% 7.8 % (0-10); NRBC Flagged by Analyzer 0 % (0-5); Neutrophil # 7.68 X10^3/uL (2.7-7.7); Neutrophil % 68.1 % (47-70); Platelet Count 269 K/mm3 (150-450); RBC Distribution Width CV 15.5 % (11.6-14.6); RBC Distribution Width SD 51.4 fl (35.1-43.9); Red Blood Count 4.12 M/mm3 (4.2-5.4); White Blood Count 11.3 K/mm3 (4.4-11.0)
[2021-08-16 18:12] LABS: Anion Gap 6 (5-15); BUN 28 mg/dL (7-18); BUN/Creat Ratio 25.5 RATIO (10-20); Calcium,Total 9.7 mg/dL (8.5-10.1); Chloride 103 mmol/L (98-107); EST Glomerular Filtration Rate 51 mL/min (>60); Est Glom Filt Rate - Afr Amer 62 mL/min (>60); Estimated Creatinine Clearance 42.97 ml/min; Glucose 148 mg/dL (74-106); Potassium 4.1 mmol/L (3.5-5.1); Sodium Level 137 mmol/L (136-145)
[2021-08-16] MEDS: Atorvastatin Calcium 80 MG Tablet PO (19:52)
[2021-08-16] MEDS: MELATONIN 10 MG TABLET PO (19:52)
[2021-08-16] MEDS: Mirtazapine 15 MG Tablet 7.5 MG PO (19:52)
[2021-08-16 22:18] LABS: Bacteria 0 SEEN /hpf (None Seen); Mucous, Urine 0 SEEN /hpf (<or=2+); Red Blood Cells-Urine 0 SEEN /hpf (0-5); White Blood Cells 0 SEEN /hpf (0-5)
[2021-08-16 22:24] LABS: Color, Urine Yellow (Yellow); Glucose, Dipstick Normal (Normal); Ketone-Dipstick Negative (Negative); Leukocyte Esterase-Dipstick 25 /ul (Negative); Nitrite-Dipstick Negative (Negative); Occult Blood-Urine 10 /ul (Negative); Protein-Dipstick Negative (Negative); Urine Bilirubin Dipstick Negative (Negative); Urine Clarity Clear (Clear); Urine Urobilinogen Normal (Normal)
[2021-08-16 22:30] LABS: Squamous Epithelial Cells - UA 0-5 SEEN /hpf (5-10)
--- NOTE | 2021-08-16 22:32 | NURSING ---
Flu and RSV swabs ordered incorrectly, orders re-entered as rapid swabs. Respiratory therapist on unit to collect.
[2021-08-17 06:31] LABS: Bedside Glucose 161 mg/dL (70-110)
[2021-08-17 07:01] VITALS: BP 138/58; PULSE 89
[2021-08-17] MEDS: ARIPiprazole 5 MG Tablet PO (07:01)
[2021-08-17] MEDS: Furosemide 40 MG Tablet PO (07:01)
[2021-08-17] MEDS: Pantoprazole Sodium 40 MG Tablet PO (07:01)
[2021-08-17] MEDS: Metoprolol Tartrate 50 MG Tablet PO ×2 (07:01→17:28)
[2021-08-17] MEDS: Menthol/Lanolin/Calamine/Znox 113 GM Tube 1 APPLIC TOPICAL (07:02)
--- NOTE | 2021-08-17 09:12 | NURSING ---
New orders for Magnesium Citrate and Levaquin. Patient updated.
[2021-08-17] MEDS: Potassium Chloride Oral Tablet 20 MEQ PO (09:18)
[2021-08-17] MEDS: Aspirin E.C. 81 MG Tablet PO (09:18)
[2021-08-17] MEDS: Magnesium Citrate 300 ML PO (09:18)
[2021-08-17] MEDS: levoFLOXacin 500 MG Tablet PO (09:18)
[2021-08-17 09:23] VITALS: PULSE 81; RESP 18; O2SAT 94
--- NOTE | 2021-08-17 13:23 | CASEMGMT ---
Social Work BIMS and PHQ-9 completed for MDS assessment. Irena West, [employer] PLANNER OVEN WORKER
[2021-08-17 16:00] VITALS: BP 139/69; PULSE 89; RESP 18; TEMP 37.2; O2SAT 93
[2021-08-17 17:28] VITALS: BP 139/69; PULSE 89
[2021-08-17] MEDS: MELATONIN 10 MG TABLET PO (20:33)
[2021-08-17] MEDS: Acetaminophen 500 MG Tablet 1000 MG PO (20:33)
[2021-08-17] MEDS: Mirtazapine 15 MG Tablet 7.5 MG PO (20:33)
[2021-08-17] MEDS: Atorvastatin Calcium 80 MG Tablet PO (20:33)
[2021-08-18 06:02] VITALS: BP 130/67; PULSE 79; RESP 15; O2SAT 92
[2021-08-18 06:04] VITALS: BP 130/67; PULSE 79
[2021-08-18] MEDS: ARIPiprazole 5 MG Tablet PO (06:04)
[2021-08-18] MEDS: Furosemide 40 MG Tablet PO (06:04)
[2021-08-18] MEDS: Metoprolol Tartrate 50 MG Tablet PO ×2 (06:04→16:49)
[2021-08-18] MEDS: Pantoprazole Sodium 40 MG Tablet PO (06:04)
[2021-08-18] MEDS: levoFLOXacin 500 MG Tablet PO (06:04)
[2021-08-18] MEDS: Menthol/Lanolin/Calamine/Znox 113 GM Tube 1 APPLIC TOPICAL ×2 (06:06→16:49)
[2021-08-18 06:46] LABS: Bedside Glucose 157 mg/dL (70-110)
[2021-08-18] MEDS: Potassium Chloride Oral Tablet 20 MEQ PO (08:21)
[2021-08-18] MEDS: Aspirin E.C. 81 MG Tablet PO (08:21)
[2021-08-18 15:03] VITALS: BP 127/66; PULSE 86; RESP 14; TEMP 36.7; O2SAT 96
[2021-08-18 16:49] VITALS: PULSE 86
[2021-08-18] MEDS: Atorvastatin Calcium 80 MG Tablet PO (20:33)
[2021-08-18] MEDS: MELATONIN 10 MG TABLET PO (20:33)
[2021-08-18] MEDS: Mirtazapine 15 MG Tablet 7.5 MG PO (20:33)
[2021-08-18 20:39] VITALS: PULSE 79; RESP 18; O2SAT 96
[2021-08-19 06:03] VITALS: PULSE 73
[2021-08-19] MEDS: Metoprolol Tartrate 50 MG Tablet PO (06:03)
[2021-08-19] MEDS: Furosemide 40 MG Tablet PO (06:04)
[2021-08-19] MEDS: levoFLOXacin 500 MG Tablet PO (06:04)
[2021-08-19] MEDS: Pantoprazole Sodium 40 MG Tablet PO (06:04)
[2021-08-19] MEDS: Menthol/Lanolin/Calamine/Znox 113 GM Tube 1 APPLIC TOPICAL (06:05)
[2021-08-19] MEDS: ARIPiprazole 5 MG Tablet PO (06:05)
[2021-08-19 06:08] VITALS: PULSE 72; RESP 18
[2021-08-19 06:14] VITALS: BP 132/85; PULSE 73; RESP 15; TEMP 36; O2SAT 95
[2021-08-19 06:21] LABS: Bedside Glucose 168 mg/dL (70-110)
[2021-08-19] MEDS: Acetaminophen 500 MG Tablet 1000 MG PO (06:34)
[2021-08-19] MEDS: Aspirin E.C. 81 MG Tablet PO (08:36)
[2021-08-19] MEDS: Potassium Chloride Oral Tablet 20 MEQ PO (08:36)
[2021-08-19 11:05] VITALS: BP 127/66; PULSE 73; RESP 16; TEMP 36.4; O2SAT 93
== END 2021-08-18 12:30 | disposition home health service (06) | DRG 690 ==
PROVIDERS: Admitting Provider Family Medicine Geriatric Medicine; PCP Family Medicine; Visit Provider Family Medicine Geriatric Medicine
DX: N39.0 Urinary tract infection, site not specified (principal); J90 Pleural effusion, not elsewhere classified; E11.42 Type 2 diabetes mellitus with diabetic polyneuropathy; E78.5 Hyperlipidemia, unspecified; B96.89 Other specified bacterial agents as the cause of diseases classified elsewhere; E66.9 Obesity, unspecified; F31.9 Bipolar disorder, unspecified; E87.6 Hypokalemia; F41.9 Anxiety disorder, unspecified; K21.9 Gastro-esophageal reflux disease without esophagitis; I25.10 Atherosclerotic heart disease of native coronary artery without angina pectoris; I10 Essential (primary) hypertension; J45.909 Unspecified asthma, uncomplicated; Z23 Encounter for immunization; N32.81 Overactive bladder; Z87.891 Personal history of nicotine dependence; Z79.84 Long term (current) use of oral hypoglycemic drugs; Z79.899 Other long term (current) drug therapy; Z79.82 Long term (current) use of aspirin; Z79.51 Long term (current) use of inhaled steroids; Z79.02 Long term (current) use of antithrombotics/antiplatelets; Z95.1 Presence of aortocoronary bypass graft; Z68.33 Body mass index [BMI] 33.0-33.9, adult
CPT/HCPCS: 36415; 71046; 74018; 80048; 81001; 82962; 83735; 85025; 87077; 87086; 87088; 87186; 87426; 87804; 87807; 92507; 92526; 92610; 93005; 97110; 97116; 97162; 97166; 97530; 97535; 97802; G0009; 90670

== ENCOUNTER 2021-08-29 15:32 | Outpatient (CLI) | payer MEDICARE, BC, SELFPAY | END 2021-08-29 23:59 | disposition home or self-care (01) | LOC: POLAB3 15:40 | PROVIDERS: PCP Family Medicine Geriatric Medicine; Visit Provider Family Medicine Geriatric Medicine | DX: E55.9 Vitamin D deficiency, unspecified (principal); R06.02 Shortness of breath; R53.83 Other fatigue; Z13.89 Encounter for screening for other disorder ==

== ENCOUNTER 2021-09-21 15:34 | Outpatient (CLI) | payer MEDICARE, BC, SELFPAY ==
[2021-09-21 16:49] LABS: Absolute Lymphocyte Count 1.76 X10^3/uL (0.83-4.51); Basophil# 0.04 X10^3/uL; Basophil% 0.5 % (0-1); Eosinophil# 0.38 X10^3/uL; Eosinophils% 4.8 % (0-5); Hematocrit 39.4 % (37-47); Hemoglobin 12.7 g/dL (12.0-15.0); Lymphocyte # 1.76 X10^3/ul (0.83-4.51); Lymphocyte % 22.1 % (19-41); Mean Corp Hgb Conc 32.2 g/dL (32-36); Mean Corpuscular Hgb 28.2 pg (27.0-32.0); Mean Corpuscular Volume 87.6 fL (81-99); Mean Platelet Vol. 9.6 fl (6.2-12.0); Monocyte# 0.72 X10^3/uL; Monocyte% 9.1 % (0-10); NRBC Flagged by Analyzer 0 % (0-5); Neutrophil # 5.03 X10^3/uL (2.7-7.7); Neutrophil % 63.2 % (47-70); Platelet Count 307 K/mm3 (150-450); RBC Distribution Width CV 15.1 % (11.6-14.6); RBC Distribution Width SD 47.6 fl (35.1-43.9)
[2021-09-21 17:21] LABS: BNP,B-Type NATRIURETIC PEPTIDE 149.5 pg/mL (0-100)
[2021-09-21 17:33] LABS: Anion Gap 4 (5-15); BUN 17 mg/dL (7-18); Calcium,Total 10.1 mg/dL (8.5-10.1); Chloride 106 mmol/L (98-107); Creatinine, Serum 1.13 mg/dL (0.55-1.02); EST Glomerular Filtration Rate 50 mL/min (>60); Est Glom Filt Rate - Afr Amer 60 mL/min (>60); Glucose 143 mg/dL (74-106); Potassium 3.8 mmol/L (3.5-5.1); Sodium Level 138 mmol/L (136-145); T4 Free Direct 1.31 ng/dL (0.76-1.46)
== END 2021-09-21 23:59 | disposition home or self-care (01) ==
PROVIDERS: PCP Family Medicine Geriatric Medicine; Visit Provider Nurse Practitioner Gerontology
DX: R06.00 Dyspnea, unspecified (principal); R53.83 Other fatigue
CPT/HCPCS: 36415; 80048; 83880; 84439; 84443; 85025

== ENCOUNTER 2021-10-09 11:26 | Outpatient (CLI) | payer MEDICARE, BC, SELFPAY ==
[2021-10-09 13:02] LABS: Anion Gap 6 (5-15); BUN 17 mg/dL (7-18); Calcium,Total 9.9 mg/dL (8.5-10.1); Chloride 107 mmol/L (98-107); Creatinine, Serum 1.31 mg/dL (0.55-1.02); EST Glomerular Filtration Rate 42 mL/min (>60); Est Glom Filt Rate - Afr Amer 51 mL/min (>60); Glucose 128 mg/dL (74-106); Potassium 3.5 mmol/L (3.5-5.1); Sodium Level 139 mmol/L (136-145)
== END 2021-10-09 23:59 | disposition home or self-care (01) ==
LOC: LAB 11:28
PROVIDERS: PCP Family Medicine Geriatric Medicine; Visit Provider Nurse Practitioner Gerontology
DX: R53.83 Other fatigue (principal)
CPT/HCPCS: 36415; 80048

== ENCOUNTER 2021-10-16 13:50 | Outpatient (CLI) | payer MEDICARE, BC, SELFPAY ==
[2021-10-16 18:09] LABS: Anion Gap 8 (5-15); BUN 17 mg/dL (7-18); BUN/Creat Ratio 12.6 RATIO (10-20); Calcium,Total 9.8 mg/dL (8.5-10.1); Chloride 107 mmol/L (98-107); Creatinine, Serum 1.35 mg/dL (0.55-1.02); EST Glomerular Filtration Rate 41 mL/min (>60); Est Glom Filt Rate - Afr Amer 49 mL/min (>60); Glucose 158 mg/dL (74-106); Potassium 4.4 mmol/L (3.5-5.1); Sodium Level 139 mmol/L (136-145)
== END 2021-10-16 23:59 | disposition home or self-care (01) ==
LOC: POLAB3 13:52
PROVIDERS: PCP Family Medicine Geriatric Medicine; Visit Provider Family Medicine Geriatric Medicine
DX: N18.31 Chronic kidney disease, stage 3a (principal)
CPT/HCPCS: 36415; 80048

== ENCOUNTER 2021-10-19 07:54 | Outpatient (CLI) | payer MEDICARE, BC, SELFPAY ==
--- NOTE | 2021-10-19 08:03 | PCM.CR.HP2 ---
CR - History & Physical - General Arrival date:: 10/19/21 Arrival time:: 08:04 Date of Referral:: 10/08/21 Date of CR Evaluation:: 10/19/21 Referring Physician: Primary Diagnosis: CABG - History of Present Cardiac Event Onset Date: Enter Onset Date of cardiac illnesses in Comment field below Coronary Artery Bypass Graft:: Yes - 06/20/2021 - Sleep Disorder Evaluation Hx of Sleep Apnea: No Do you snore loudly (louder than talking or can be heard through closed doors)?: Yes - pt declines sleep study Do you often feel tired/ fatigued/ sleepy during daytime?: No Has anyone observed you stop breathing during sleep?: No History of Hypertension (for STOP score): Yes STOP Results: Positive - Medications Home Medications: Ambulatory Orders Medication Instructions Recorded pantoprazole 40 mg tablet,delayed 40 mg PO DAILY #30 tab 02/03/19 release aspirin 81 mg PO DAILY 11/17/19 aripiprazole 5 mg tablet 5 mg PO DAILY tablet 09/29/20 acetaminophen 1,000 mg PO Q6H PRN PRN #0 tab 08/14/21 atorvastatin 80 mg PO QHS 30 Days #30 tab 08/14/21 furosemide 40 mg PO DAILY 30 Days #30 tab 08/14/21 metoprolol tartrate 50 mg PO BID 30 Days #60 tab 08/14/21 mirtazapine 7.5 mg PO QHS 30 Days #15 tab 08/14/21 potassium chloride [Klor-Con M20] 20 meq PO DAILYCM 30 Days #30 tab 08/14/21 citalopram 10 mg tablet 10 mg PO DAILY 09/21/21 - Allergies Allergies/Adverse Reactions: Allergies ceftriaxone sodium [From Rocephin] Allergy (Verified 09/21/21 14:58) Hives doxycycline Allergy (Verified 09/21/21 14:58) Hives fluoxetine [From Prozac] Allergy (Verified 09/21/21 14:58) PT UNSURE OF REACTION lorazepam [From Ativan] Adverse Reaction (Verified 09/21/21 14:58) Other SUICIDAL THOUGHTS trimethoprim Adverse Reaction (Verified 09/21/21 14:58) Nausea Advanced Directives - Advanced Directives Power of Customer Support Assistant: Yes Living Will: Yes Advance Directives Information Provided: Yes Advance Directives on File: No DNR Order?:: No Past Medical History - Covid-19 Screening Fever: No Unexplained muscle aches: No Current respiratory symptoms: No Upper respiratory infections symptoms: No Gastro-intestinal symptoms: No Pvk-Psda-Pyevri symptoms: No Has tested positive for COVID-19 in last 30 days: No Had contact w/person w/symptoms or Covid-19 (+) last 14 days: No Has High Risk Exposures ID'd by Health dept/Inf Control team: No 65 years or older:: Yes Lives in Assisted Living facility:: No Has a chronic lung disease or moderate to severe asthma:: No Has a serious heart condition:: Yes Immunocompromised:: No Severely obese (Body Mass Index of 40 or higher):: No Diabetic:: Yes Has chronic kidney disease undergoing dialysis:: No Has liver disease:: No - Past Medical Illness Medical History: Past Medical History (Last Reviewed 09/21/21 @ 14:57 by Maddy Farooq [employer]TON STATION WORKER, [employer] STATION WORKER-C) Atherosclerotic heart disease of [place] coronary artery without angina pectoris I25.10 Diabetes mellitus E11.9 Diabetes mellitus E11.9 Essential (primary) hypertension I10 GERD (gastroesophageal reflux disease) K21.9 HLD (hyperlipidemia) E78.5 Mitral valve prolapse I34.1 Obesity E66.9 Osteoarthritis M19.90 Seasonal asthma J45.998 Urinary incontinence R32 - Past Surgical History Surgical History: Past Surgical History (Last Reviewed 09/21/21 @ 14:57 by Maddy Farooq [employer] STATION WORKER, [employer] STATION WORKER-C) History of bladder surgery Z98.890 History of bladder suspension procedure Z98.890, Z87.448 History of coronary artery bypass surgery Onset Date: ~06/20/21 Z95.1 CABG x4- ALAS-LAD, SVG-RCA, SVG sequential to OM1/OM2 06/20/21 @ [facility] History of hysterectomy Z90.710 History of inguinal hernia repair Z98.890, Z87.19 History of knee surgery Z98.890 bilateral History of left heart catheterization Onset Date: 06/14/21 Z98.890 LEFT MAIN: Mild calcification; LEFT ANTERIOR DESCENDING ARTERY: PROX LAD: Mild calcification, long: diffuse: 50 % Stenosis MID LAD: 95 % Stenosis; DIAGONAL 1: Proximal - long: diffuse: 90 % Stenosis; CIRCUMFLEX ARTERY: PROX CIRC: Mild luminal irregularities; OM 1: Proximal - subtotally occluded with the distal vessel filling late and faint from left to left collateral flow OM 2: Proximal - 85 % Stenosis; RIGHT CORONARY ARTERY: PROX RCA: 50 % Stenosis, 90 % Stenosis; MID RCA: 25 % Stenosis; COLLATERAL FLOW: Collateral flow from Left to Left; AORTIC ROOT: Angiographically normal; RECOMMENDATION: Surgery consult for coronary revascularization per cardiac cath 06/14/21 ;1998, 2004 Hx of cholecystectomy Z90.49 Surgical History: - - Bladder stimulator for incontinence - Family History Summary Family History: Family History (Last Reviewed 09/21/21 @ 14:57 by Maddy Farooq [employer]ATION WORKER, [employer] STATION WORKER-C) Sister Heart disease Diabetes Hypertension Father Diabetes Heart disease Mother Hypertension Social History - Smoking History Smoking Status: Former smoker Years Smokin Packs Smoked per Day: 1 Hx Smoking Cessation Date: 07/07/81 Hx Tobacco Use: Yes - Alcohol Use Alcohol Usage: No - Substance Abuse Hx Substance Use: No - Occupation Occupation (List type of work in comments):: Retired - Hobbies, Recreation, Social Activities Hobbies: Other - [employer] cards Recreational Activities: I am able to engage in all my recreational activities Social Environment - Status Marital Status: - Current Living Arrangements Living Environment:: Family - Children How many children do you have?: 1 Do any of your children live nearby?: Yes - Safety Do you feel safe in your surroundings?: Yes - Assistance Do you need any assistance at home?: no Review of Systems - Review of Systems Hints: Right click = Denies (Slash). Left click = Reports ([place]) Review of Present Symptoms: Reports: Shortness of Breath at Rest, Shortness of Breath with Exertion, Dizziness/Lightheadedness, Fatigue, Appetite - Normal. 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 - Obesity Height: 5 ft 7.5 in Weight:: 90.718 kg Weight in Pounds: 200.0 lbs Body Mass Index (BMI): 30.8 Nutritional Referral for Obesity: No - declines - Physical Inactivity Physical Inactivity: None - Risk Stratification Risk Guidelines: Moderate Risk: Risk Factor for Smoking, Risk Factor for Dyslipidemia, Risk Factor for Diabetes, Risk Factor for Obesity, Risk Factor for Hypertension, Risk Factor for Sedentary Lifestyle, Risk Factor for Depression - Family History Family History: Family History (Last Reviewed 09/21/21 @ 14:57 by Maddy Farooq NP, [employer] WORKER-C) Sister Heart disease Diabetes Hypertension Father Diabetes Heart disease Mother Hypertension Motivation - Motivation to Participate On a scale of 1 to 10, how prepared are you to commit to attending program?: 8 What do you see as barriers to successfully being able to complete the program?: none What do you see as the benefits of succesfully completing the program? In other words, what do you hope to get out of participating in the program?: improved health Are there issues you are dealing with that will interfere with completing the program?: no Do you have a spouse or signficant other, family or friends who will help support you to complete the program?: yes
[2021-10-19 08:40] VITALS: BP 108/68; PULSE 67; O2SAT 96; BMI 30.8
--- NOTE | 2021-10-19 08:41 | CR.ITP_ITS ---
Diagnosis - General Information Admitting Diagnosis: CABG Personal Learning Style:: Audio/Visual Barriers to Learning: Vision Impairment Stage of change r/t lifestyle modifications:: Contemplation Gave educational material for:: Treating Heart Disease, Emotions & Heart Disease, Stress Management & Relaxation, Sleep Disorders & Heart Disease, How The Heart Works, What it means to have Heart Disease, How Coronary Artery Disease is Diagnosed, Heart Procedures, What Heart Medications Do, Risk Factors & Modifications, Living an Active Life, Nutrition - Education/Goals Cardiac Rehabilitation Goals: 1. Maintain the individual as the primary focus of care. 2. To improve the patient's quality of life. 3. Identification of cardiac risk factors and provide cardiac risk factor management. 4. Enhance the psychosocial status of the patient. 5. Reconditioning enough to allow the patient to resume customary activities. 6. Control symptoms of cardiac disease Personal Goals: Initial Assessment: Quit smoking (participate in smoking cessation, Improve management of stress and emotions, Improve energy level, Participate in home exercise program, Get back to work, or to resume activities faster, Improve knowledge of cardiac disease, Improve muscle strength and endurance, Improve diet and eating habits (eat healthier), Control risk factors (learn risk factor modification) Scale for measuring improvement of personal goals: Enter appropriate number in Comments. 2 = Unchanged. 3 = Slightly Better. 4 = Moderate Improvement. 5 = Met my Goal - Diagnosis & Disease Process Outcomes/Goals: Pt IDs own risk factors & lifestyle modifications by Session 10, Verbalizes symptoms of angina & response by session 3., Pt independently manages, Other Additional Outcomes/Goals: Plan/Interventions: Assist Pt to ID & engage in lifestyle modification to reduce CVD risk, Instruct on individual risk factors, Review symptoms of angina & emergency actions, Review secondary diagnosis & identify educational needs., Other see comment 30 day Reassessments:: Not Met 30 day Reassessments:: Not Met 30 day Reassessments:: Not Met 30 day Reassessments:: Not Met Final Reassessments:: Not Met - Safety Referral to Physical Therapy: No Referral to [facility] Case Management: No Fall Risk Assessed:: Yes Exercise - Initial Assessment - Visit Date of Eval: 10/19/21 - initial eval Mets: Pre-: >3 METS for 30 minutes by discharge, >5 METS for 30 minutes by discharge, >7 METS for 30 minutes by discharge, Unable to meet goal due to: (see comment below) - Physician Prescribed Exercise Modalities: Treadmill, Airdyne, NuStep, SciFit, Lateral [employer]er [employer]ies Frequency: 3x/week for 12 weeks [36 sessions] Intensity: 60-80% of age predicted maximum heart rate reserve Current METSs:: 2.0 Target Heart Rate:: 94-123 Resting Blood Pressure: 108/68 - Outcomes & Goals Goals:: Verbalizes understanding of THR, RPE & goal METS by session 6, Documents in home exercise log/reports 30 min aerobic 5 day/wk by DC, Demonstrates accurate pulse taking by DC, Other additional outcome/goals: see below - Intervention & Plan Exercise Program Goals: Instruct on personal THR & RPE, Instruct on MET level & personal MET goal, Show patient to take own pulse /validate performance until accurate, Instruct on home exercise, Other additional plan/int - Physical Activity Home Exercise Physical Activity - Home Exercise: Safe Exercise, Warm-up, Self-monitoring, Cool-Down, Home Exercise > 30 min Daily, Sitting Time <3 hours/daily - Outcomes & Goals Outcomes/Goals: Demonstrates correct Warm-up/exercise Cool-Down (S3) if = 2.5 METs, Verbalizes symptoms of exercise intolerance by Session 3 (S3), Demonstrate safe equipment use (S3) & follows exercise prescrition (6), Other: See below - Intervention & Plan Plan/Intervention: Instruct warm-up & cool-down if exercising at > 2 METs, Instruct on symptoms of exercise intolerance & actions to take, Instruct & monitor on saf, Assess intial functional capacity & safety risk, Other See below Nutrition - Initial Assessment - Program Goals Nutrition Program Goals: LDL <100 optimal. 100 - 129 Near optimal. 130 - 159 Borderline High. 160 - 189 High. Total Cholesterol <200 desirable. 200 - 239 Borderline High. >/= 240 High. HDL < 40 Low >/=60 High. Triglycerides <150 desirable. <199 optimal. VlDL 5 - 40. HgbA1C <7%. BMI <25 Patient has diagnosis of Hyperlipidemia (ICD E78)?: Yes - Visit Date of Assessment:: 10/19/21 - inital eval - Cholesterol/Lipids Determine presence & major risk factors that modify LDL goal: Cigarette smoking, Hypertension or hypertensive medication, Low HDL cholesterol <40 mg/dL*, Family history of premature CHD in Male < 55 years: female <65 yearsFa, Age men > 45 years; women >/= 55 years Outcomes/Goals: Pt IDs own risk factors & lifestyle modifications by Session 10, Verbalizes symptoms of angina & response by session 3., Pt independently manages, Other Additional Outcomes/Goals: Intervention/Plan: Advocate for lipid panel cholesterol medication if applicable, Instruct on personal lipid levels & lipid goals/NCEP guidelines, Instruct on cholesterol, Other additional plan/int Referral to dietitian:: No - declines - Diabetes (Other Core Measures) Diabetes Type: 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 Insulin dependent injection/pump?: No Non-Insulin Dependent?: Yes Do you monitor your blood sugar at home?: No Referral to Diabetic Clinic:: No Outcomes/Goals:: Able to state symptoms of, Able to state, Able to state, Other additional Intervention/Plan:: Instruct on, Refer to, Instruct on, Other - Weight Mgt (Other Care) Height: 5 ft 7.5 in Weight:: 90.718 kg BMI: 30.8 Diagnosis Overweight/Obesity BMI> 30% ICD-10 E66: Yes Diagnosis High BMI/Morbid Obesity BMI> 35% ICD-10 Z68: No Outcomes/Goals: Pt sets, maintains & shows weight loss goal & trend during rehab, Other additional outcomes/goals Intervention/Plan: Instruct on ideal BMI & set weight loss goal w/patient, Assist pt to ID & incorporate diet changes for weight loss by S9, Refer to Structured Weight Loss program as appropriate, Encourage goal of using 250- 300dcal per session for weight loss, Other additional plan/interventions - Healthy Eating Habits Will attend diet classes:: Yes Outcomes/Goals:: Consume diet rich in vegs,fruits,whole grain/high fiber,fish,lean meat, Limit sat/trans fats,cholesterol & added salts & sugars, Other additional outcome/goals: Intervention/Plan:: Assess current eating habits, Other Additional plan/interventions - Education Gave educational materials for:: Signs & symptoms of hypoglycemia, Signs & symptoms of hyperglycemia, Relate diabetes to coronary artery disease, Healthy eating Nutrition - 30-Day Assessment Nutrition - 60-Day Assessment Nutrition - 90-Day Assessment Nutrition - Final Assessment Medical - Initial Assessment - Visit Date of Eval: 10/19/21 - inital eval - Medication Compliance Preventative Medication(s):: Aspirin, Statin/lipid, Beta tyler H/O mental health issues: depression, anxiety, or addiction?: Yes Doesn?t believe in the benefits of treatment?: No Believes medications are unnecessary or harmful?: No Has a concern about medication side effects?: No Expresses concern over the cost of medications?: No Outcomes/Goals: Verbalizes medications,desired effect & common side effects @ DC, Pt self-reports following medication regimen, Keeps card in wallet w/medications listed by DC, Other additional outcome/goals: Interventions/plans: Instruct on medication effects & side effects, Review me dication list w/patient every two weeks, Instruct importance of taking meds as ordered & assist problem solving, Other additional - Tobacco Use Tobacco Use: Non-smoker How long ago did you quit using tobacco products?: Greater than or equal to 6 months ago Do you use smokeless tobacco?: No - Hypertension Hypertension Diagnosis:: Hypertension ICD-10 I10 Resting Blood Pressure:: 108/68 [place] [employer] Hypertension Guidelines: [place] [employer] Hypertension Guidelines. Normal BP Less than 120/80. Elevated BP 120/80. Hypertension Stage 1: BP 130-139/80-89. Hypertesnion Stage 2: BP 140 or higher/ 90 or higher. Hypertension Crisis: BP higher than 180/120 Outcomes/Goals: Able to verbalize/achieve optimal blood pressure <130/80, Incorporates diet changes & exercise for blood pressure control by DC, Other additional outcomes/goals Interventions/plan: Instruct on optimal blood pressure, hypertension & medications, Instruct on effects of sodium, alcohol, stress, exercise &hypertension, Other additional plan/interventions - Tobacco Cessation Referral Smoking Cessation Referral:: No Individual Education/Counseling:: No Education Schedule Given:: Yes Medical- 30-Day Assessment Medical- 60-Day Assessment Medical- 90-Day Assessment Medical - Final Assessment Psychosocial - Initial Assess - VIsit Date of Eval: 10/19/21 - initial eval History of previous Mental disease:: Yes History of Emotional Disorders: Anxious, Depression Self-reported stressors: Family - pt is in counseling - Referral to Behavioral Health PS - Interventions: No Referral to Behavioral Health if PHQ-9 score >9: - pt is in counseling - Outcomes/Goals: See list Psychosocial Outcomes/Goals:: ID's personal stressors & 2 strategies to manage stress by discharge, Other Additional outcome/goals: - Intervention/Plan: See List Interventions/Plan:: Assess stressors,coping strategies & signs of derpression on admission, Instruct/assist pt to develop coping & personal stress Mgt strategies, Refer to Behavioral Health if appropriate, Refer to Physician if appropriate, Instruct patient to recognize signs & symptoms of depression, Instruct patient to recog, Other additional plan/intervention Psychosocial - 30-Day Assess Psychosocial - 60-Day Assess Psychosocial - 90-Day Assess Psychosocial - Final Assessmen Patient Health Questionnaire Initial Assessment 1. Little interest or pleasure in doing things: Nearly every day 2. Feeling down, depressed, or hopeless: Nearly every day 3. Trouble falling or staying asleep, or sleeping too much: Nearly every day 4. Feeling tired or having little energy: Nearly every day 5. Poor appetite or overeating: Several days 6. Feeling bad about yourself -- or that you are a failure or have let yourself or your family down: More than half the days 7. Trouble concentrating on things, such as reading the newspaper or watching television: More than half the days 8. Moving or speaking so slowly that other people could have noticed. Or the opposite - being so fidgety or restless that you have been moving around a lot more than usual: Several days 9. Thoughts that you would be better off , or of hurting yourself in some way: Not at all How difficult have these problems made it for you to do your work, take care of things at home, or get along with other people?: Somewhat difficult Total Score: 18 STEPHANIE-Q SV Test - Statements CAD is a disease of the arteries in the heart: False Examples of risk factors for heart disease: True Angina is chest pain or discomfort: True The benefits of resistance training include: True Eating more meat and dairy products: False Anti-platelet medications such as aspirin are important: True The only effective way to manage stress: False An exercise warm-up slowly increases heart rate: I Don't Know Prepared, processed foods usually have high sodium: True Depression is common after a heart attack: True The statin medications lower cholesterol: True To control blood pressure, lower the amount of sodium: True If someone gets chest discomfort during walking: I Don't Know Transfats are partially hydrogenated vegetable oils: True Sleep apnea that is not treated increases the risk: False To control cholesterol, one should become a vegetarian: False Someone knows if he/she is exercising at the right level: True Diabetes cannot be prevented with exercise & health eating: True Stress is a large risk for heart attack: True A diet that can help lower blood pressure is rich in: True - Total Score Total Correct Responses: 17 Self-Efficacy Initial Assessment We would like to know how confident you are in doing certain activities. Please select your confidence level for:: Select your confidence level for the following using the scale 1-10 where 1 is not at all confident and 10 is totally confident. Your score is the average of all 6 responses. Fatigue: How confident are you that you can keep the fatigue caused by your disease from interfering with the things you want to do? Select Number: 3 Physical Discomfort or Pain: How confident are you that you can keep the physical discomfort or pain of your disease from interfering with the things you want to do? Select Number: 3 Emotional Distress: How confident are you that you can keep the emotional distress caused by your disease from interfering with the things you want to do? Select Number: 4 Other Symptoms or Health Problems: How confident are you that you can keep other symptoms or health problems from interfering with the things you want to do? Select Number: 4 Different Tasks and Activities: How confident are you that you can do the different tasks and activities needed to manage your health condition so as to reduce your need to see a doctor? Select Number: 4 Medication: How confident are you that you can do things other than just taking medication to reduce how much your illness affects your everyday life? Select Number: 5 Total Score:: 3 Nutrition Survey - Nutrition Survey Initial Have you lost >10 lbs over the past 2 months without trying?: Yes Are you following a special diet at home for diabetes, low fat, or low salt?: Yes Are you interested in meeting with a dietitian for help understanding your diet?: No Do you eat less than 3 meals a day?: Yes Do you eat fatty meats (mcdonald, sausage, ribs, etc), fried foods, desserts, large amounts of salad dressings, margarine, butter, or cheese most days?: No Do you have food allergies? [Enter types in comment field]: No Do you eat in restaurants more than 3 times a week?: No Do you season food with salt, seasoning salt, or garlic salt?: Yes Do you used canned, boxed, frozen meals, or soups, seasoning packets?: Yes Total Score:: 5
[2021-10-19 09:34] VITALS: BP 108/68; BMI 30.8
== END 2021-10-19 23:59 | disposition home or self-care (01) ==
LOC: CR 07:55
PROVIDERS: PCP Family Medicine Geriatric Medicine; Referring Provider Internal Medicine Cardiovascular Disease; Visit Provider Internal Medicine Cardiovascular Disease
DX: Z00.00 Encounter for general adult medical examination without abnormal findings (principal)

== ENCOUNTER → 2021-10-30 | Outpatient (CLI) | payer MEDICARE, BC, SELFPAY ==
[2021-10-19 09:34] VITALS: BMI 30.8
[2021-10-30 17:33] LABS: Anion Gap 8 (5-15); BUN 21 mg/dL (7-18); BUN/Creat Ratio 12.9 RATIO (10-20); Calcium,Total 9.6 mg/dL (8.5-10.1); Chloride 100 mmol/L (98-107); Creatinine, Serum 1.63 mg/dL (0.55-1.02); EST Glomerular Filtration Rate 33 mL/min (>60); Est Glom Filt Rate - Afr Amer 40 mL/min (>60); Glucose 151 mg/dL (74-106); Sodium Level 134 mmol/L (136-145)
[2021-10-30 17:37] LABS: Absolute Lymphocyte Count 1.67 X10^3/uL (0.83-4.51); Absolute Neutrophil Count 6.2 X10^3/uL (2.0-7.7); Basophil# 0.05 X10^3/uL; Basophil% 0.6 % (0-1); Eosinophils% 3.4 % (0-5); Hematocrit 40.1 % (37-47); Lymphocyte # 1.67 X10^3/ul (0.83-4.51); Lymphocyte % 18.7 % (19-41); Mean Corp Hgb Conc 32.4 g/dL (32-36); Mean Corpuscular Hgb 28.7 pg (27.0-32.0); Mean Corpuscular Volume 88.5 fL (81-99); Mean Platelet Vol. 10.8 fl (6.2-12.0); Monocyte# 0.76 X10^3/uL; Monocyte% 8.5 % (0-10); NRBC Flagged by Analyzer 0 % (0-5); Neutrophil # 6.15 X10^3/uL (2.7-7.7); Neutrophil % 68.6 % (47-70); Platelet Count 275 K/mm3 (150-450); RBC Distribution Width CV 16.1 % (11.6-14.6); RBC Distribution Width SD 52.4 fl (35.1-43.9); Red Blood Count 4.53 M/mm3 (4.2-5.4)
== END | disposition home or self-care (01) ==
LOC: POLAB3 13:57
PROVIDERS: PCP Family Medicine Geriatric Medicine; Visit Provider Family Medicine Geriatric Medicine
DX: G93.40 Encephalopathy, unspecified (principal)
CPT/HCPCS: 36415; 80048; 85025

== ENCOUNTER → 2021-10-30 | Outpatient (CLI) | payer MEDICARE, BC, SELFPAY ==
[2021-10-19 09:34] VITALS: BMI 30.8
--- NOTE | 2021-10-30 15:20 | MRI_ITS ---
STUDY: MRI BRAIN WITHOUT CONTRAST REASON FOR EXAM: Female, 76 years old. ENCEPHALOPATHY, NEURO DEFICIT TECHNIQUE: Standardized multiplanar fat and water weighted pulse sequences were obtained. COMPARISON: CT 07/07/2021 FINDINGS: There is mild cerebral atrophy with widening of the extra-axial spaces and ventricular dilatation. There are a limited number of small white matter hyperintensities, distributed throughout the deep white matter tracts of the cerebral hemispheres, consistent with mild chronic white matter ischemic changes. There is no evidence for recent intracranial ischemia or other cause of cytotoxic edema on diffusion weighted imaging (DWI). Normal T2* images of the brain without demonstrated susceptibility artifact. There is no demonstrated hemosiderin stain. Normal bilateral basal ganglia. Normal thalami. There is no extra-axial fluid accumulation. Normal flow voids within the major intracranial circulation suggesting patency by spin echo criteria. Normal sella turcica, pituitary gland, infundibular stalk, optic chiasm and hypothalamus. Normal tectal plate and pineal gland. Normal midbrain, daniella and medulla. Focal areas of encephalomalacia within the both hemispheres and cerebellum consistent with chronic infarcts. Normal basal cisterns. Normal bilateral temporal bones. Normal bilateral internal auditory canals. There are bilateral ocular lens implants with otherwise normal intraorbital contents. Opacification right maxillary sinus consistent with chronic sinusitis. Normal calvarium and skull base. Normal visualized soft tissue structures. Normal visualized upper cervical spine. MRI/Brain without Contrast IMPRESSION: Involutional changes of the brain, as described above. No acute infarct. Electronically Signed: Alfred Farrell MD at 16:28 EDT ,
== END | disposition home or self-care (01) ==
LOC: MRI 15:17
PROVIDERS: PCP Family Medicine Geriatric Medicine; Referring Provider Family Medicine Geriatric Medicine; Visit Provider Family Medicine Geriatric Medicine
DX: G93.40 Encephalopathy, unspecified (principal)
CPT/HCPCS: 36415; 70551; 80048; 85025

== ENCOUNTER 2021-10-31 13:00 | Outpatient (RCR) | payer MEDICARE, BC, SELFPAY | END 2021-11-03 23:59 | LOC: CR 13:00 | PROVIDERS: PCP Family Medicine Geriatric Medicine; Visit Provider Internal Medicine Cardiovascular Disease | DX: I25.10 Atherosclerotic heart disease of native coronary artery without angina pectoris (principal); R06.00 Dyspnea, unspecified; R00.2 Palpitations; Z95.1 Presence of aortocoronary bypass graft | CPT/HCPCS: 93798 ==

== ENCOUNTER → 2021-11-14 | Outpatient (CLI) | payer MEDICARE, BC, SELFPAY ==
[2021-10-19 09:34] VITALS: BMI 30.8
[2021-11-14 17:28] LABS: Anion Gap 8 (5-15); BUN 17 mg/dL (7-18); BUN/Creat Ratio 12.3 RATIO (10-20); Calcium,Total 9.8 mg/dL (8.5-10.1); Chloride 108 mmol/L (98-107); Creatinine, Serum 1.38 mg/dL (0.55-1.02); EST Glomerular Filtration Rate 40 mL/min (>60); Est Glom Filt Rate - Afr Amer 48 mL/min (>60); Glucose 127 mg/dL (74-106); Potassium 4.6 mmol/L (3.5-5.1); Sodium Level 139 mmol/L (136-145)
== END | disposition home or self-care (01) ==
LOC: POLAB3 15:09
PROVIDERS: PCP Family Medicine Geriatric Medicine; Visit Provider Family Medicine Geriatric Medicine
DX: I10 Essential (primary) hypertension (principal)
CPT/HCPCS: 36415; 80048

== ENCOUNTER → 2021-11-27 | Outpatient (CLI) | payer MEDICARE, BC, SELFPAY ==
[2021-11-19 08:29] VITALS: BMI 28.5
[2021-11-27 17:43] LABS: Anion Gap 5 (5-15); BUN 26 mg/dL (7-18); BUN/Creat Ratio 18.6 RATIO (10-20); Calcium,Total 9.4 mg/dL (8.5-10.1); Chloride 108 mmol/L (98-107); EST Glomerular Filtration Rate 39 mL/min (>60); Est Glom Filt Rate - Afr Amer 47 mL/min (>60); Glucose 158 mg/dL (74-106); Potassium 4.8 mmol/L (3.5-5.1); Sodium Level 138 mmol/L (136-145)
== END | disposition home or self-care (01) ==
LOC: POLAB3 16:09
PROVIDERS: PCP Family Medicine Geriatric Medicine; Visit Provider Family Medicine Geriatric Medicine
DX: E03.9 Hypothyroidism, unspecified (principal); N18.32 Chronic kidney disease, stage 3b
CPT/HCPCS: 36415; 80048; 84443

== ENCOUNTER 2021-11-30 13:00 | Outpatient (RCR) | payer MEDICARE, BC, SELFPAY ==
--- NOTE | 2021-11-19 08:18 | PCM.CR.ITP ---
Diagnosis Exercise - 30-day Assessment - Visit Date of Eval: 11/19/21 Session #:: 10 - Physician Prescribed Exercise Modalities: NuStep - PATIENT UNSTEADY AMBULATING - FALL RISK Frequency: 3x/week for 12 weeks [36 sessions] Intensity: 60-80% of age predicted maximum heart rate reserve Current METSs:: 2.0 Target Heart Rate:: 94-123 Current RPE:: 13-14 Maximum Excercise HR:: 77 Resting Blood Pressure: 98/58 Maximum Exercise Blood Pressure: 118/60 EKG Type: NSR without ectopy. Current Physical Activity or Exercising minutes: 40 - Outcomes & Goals Goals:: Verbalizes understanding of THR, RPE & goal METS by session 6, Documents in home exercise log/reports 30 min aerobic 5 day/wk by DC, Demonstrates accurate pulse taking by DC - Intervention & Plan Exercise Program Goals: Instruct on personal THR & RPE, Instruct on MET level & personal MET goal, Show patient to take own pulse /validate performance until accurate, Instruct on home exercise - 30-day Reassessments 30 day Reassessments:: Progressing - Physical Activity Home Exercise Physical Activity - Home Exercise: Safe Exercise, Warm-up, Self-monitoring, Cool-Down, Home Exercise > 30 min Daily, Sitting Time <3 hours/daily - Outcomes & Goals Outcomes/Goals: Demonstrates correct Warm-up/exercise Cool-Down (S3) if = 2.5 METs, Verbalizes symptoms of exercise intolerance by Session 3 (S3), Demonstrate safe equipment use (S3) & follows exercise prescrition (6) - Intervention & Plan Plan/Intervention: Instruct warm-up & cool-down if exercising at > 2 METs, Instruct on symptoms of exercise intolerance & actions to take, Instruct & monitor on saf, Assess intial functional capacity & safety risk - 30-day Reassessments 30 day Reassessments:: Progressing Nutrition - Initial Assessment Nutrition - 30-Day Assessment - Visit Date of Assessment:: 11/19/21 Session #:: 10 - Cholesterol/Lipids Triglycerides (mg/dL): 106 Total Cholesterol (mg/dL): 141 LDL Cholesterol (mg/dL): 79 HDL Cholesterol (mg/dL): 41 Determine presence & major risk factors that modify LDL goal: Hypertension or hypertensive medication, Age men > 45 years; women >/= 55 years Outcomes/Goals: Pt IDs own risk factors & lifestyle modifications by Session 10, Verbalizes symptoms of angina & response by session 3., Pt independently manages Intervention/Plan: Instruct on personal lipid levels & lipid goals/NCEP guidelines, Instruct on cholesterol Referral to dietitian:: Yes - Medical Nutrition Therapy 30-day Reassessments:: Progressing - Diabetes (Other Core Measures) Diabetes Type: 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 Fasting blood glucose:: 128 Hgb A1C (4.2 -6.3): 5.6 Insulin dependent injection/pump?: No Non-Insulin Dependent?: Yes Do you monitor your blood sugar at home?: No Referral to Diabetic Clinic:: Yes - Initial DSMNT & MNGT Outcomes/Goals:: Able to state symptoms of, Able to state, Able to state Intervention/Plan:: Instruct on, Refer to, Instruct on 30-day Reassessments:: Progressing - Weight Mgt (Other Care) Not Applicable: Yes Height: 5 ft 7 in - 5 Weight:: 182 lb 8 oz BMI: 28.5 Diagnosis Overweight/Obesity BMI> 30% ICD-10 E66: No Diagnosis High BMI/Morbid Obesity BMI> 35% ICD-10 Z68: No Outcomes/Goals: Pt sets, maintains & shows weight loss goal & trend during rehab Intervention/Plan: Instruct on ideal BMI & set weight loss goal w/patient, Assist pt to ID & incorporate diet changes for weight loss by S9 30 day Reassessments:: Progressing - Healthy Eating Habits Will attend diet classes:: Yes Outcomes/Goals:: Consume diet rich in vegs,fruits,whole grain/high fiber,fish,lean meat, Limit sat/trans fats,cholesterol & added salts & sugars Intervention/Plan:: Assess current eating habits 30-day Reassessments:: Progressing - Education Gave educational materials for:: Signs & symptoms of hypoglycemia, Signs & symptoms of hyperglycemia, Relate diabetes to coronary artery disease, Healthy eating Nutrition - 60-Day Assessment Nutrition - 90-Day Assessment Nutrition - Final Assessment Medical - Initial Assessment Medical- 30-Day Assessment - Visit Date of Eval: 11/19/21 Session #:: 10 - Medication Compliance Preventative Medication(s):: Aspirin, Statin/lipid, Beta tyler H/O mental health issues: depression, anxiety, or addiction?: No Doesn?t believe in the benefits of treatment?: No Believes medications are unnecessary or harmful?: No Has a concern about medication side effects?: No Expresses concern over the cost of medications?: No Outcomes/Goals: Verbalizes medications,desired effect & common side effects @ DC, Pt self-reports following medication regimen, Keeps card in wallet w/medications listed by DC Interventions/plans: Instruct on medication effects & side effects, Review medication list w/patient every two weeks, Instruct importance of taking meds as ordered & assist problem solving 30-day Reassessments:: Progressing - Tobacco Use Tobacco Use: Non-smoker - Hypertension Hypertension Diagnosis:: Hypertension ICD-10 I10 Resting Blood Pressure:: 98/58 [place] [employer] Hypertension Guidelines: [place] [employer] Hypertension Guidelines. Normal BP Less than 120/80. Elevated BP 120/80. Hypertension Stage 1: BP 130-139/80-89. Hypertesnion Stage 2: BP 140 or higher/90 or higher. Hypertension Crisis: BP higher than 180/120 Peak Exercise Blood Pressure:: 118/60 Outcomes/Goals: Able to verbalize/achieve optimal blood pressure <130/80, Incorporates diet changes & exercise for blood pressure control by DC Interventions/plan: Instruct on optimal blood pressure, hypertension & medications, Instruct on effects of sodium, alcohol, stress, exercise &hypertension 30 day Reassessments:: Progressing - Tobacco Cessation Referral Smoking Cessation Referral:: No Individual Education/Counseling:: No Education Schedule Given:: Yes - Participates in group education Medical- 60-Day Assessment Medical- 90-Day Assessment Medical - Final Assessment Psychosocial - Initial Assess Psychosocial - 30-Day Assess - VIsit Date of Eval: 11/19/21 Session #:: 10 Not Applicable: Yes History of previous Mental disease:: No History of Emotional Disorders: Anxious, Depression Self-reported stressors: Medical/Health, Recent Illness - Psychosocial Test Tool Used:: PHQ-9 Questionnaire phq-9 Severity: Severity. 1-4 Minimal Depression. 5-9 Mild Depression. 10-14 Moderate Depression. 15-19 Moderately Sever Depression. 20-27 Severe Depression. Rule: Total Score:: 18 - Moderately Severe Risk - concerning is the fact she highly feels bad about herself More than half the days in 2 week period. - Referral to Behavioral Health PS - Interventions: Yes Attend Stress Management Classes, No Referral to Behavioral Health if PHQ-9 score >9:, No Referral to [facility], No Referral to Physician if PHQ-9 if score is 5-9: - Outcomes/Goals: See list Psychosocial Outcomes/Goals:: ID's personal stressors & 2 strategies to manage stress by discharge - Intervention/Plan: See List Interventions/Plan:: Assess stressors,coping strategies & signs of derpression on admission, Instruct/assist pt to develop coping & personal stress Mgt strategies, Instruct patient to recognize signs & symptoms of depression, Instruct patient to recog - 30-day Reassessments: 30 day Reassessments:: Progressing Psychosocial - 60-Day Assess Psychosocial - 90-Day Assess Psychosocial - Final Assessmen Patient Health Questionnaire 30-Day Re-eval Assessment 1. Little interest or pleasure in doing things: Nearly every day 2. Feeling down, depressed, or hopeless: Nearly every day 3. Trouble falling or staying asleep, or sleeping too much: Nearly every day 4. Feeling tired or having little energy: Nearly every day 5. Poor appetite or overeating: Several days 6. Feeling bad about yourself -- or that you are a failure or have let yourself or your family down: More than half the days 7. Trouble concentrating on things, such as reading the newspaper or watching television: More than half the days 8. Moving or speaking so slowly that other people could have noticed. Or the opposite - being so fidgety or restless that you have been moving around a lot more than usual: Several days 9. Thoughts that you would be better off , or of hurting yourself in some way: Not at all How difficult have these problems made it for you to do your work, take care of things at home, or get along with other people?: Very difficult Total Score: 18 Self-Efficacy 30-Day Re-eval Assessment We would like to know how confident you are in doing certain activities. Please select your confidence level for:: Select your confidence level for the following using the scale 1-10 where 1 is not at all confident and 10 is totally confident. Your score is the average of all 6 responses. Fatigue: How confident are you that you can keep the fatigue caused by your disease from interfering with the things you want to do? Select Number: 3 Physical Discomfort or Pain: How confident are you that you can keep the physical discomfort or pain of your disease from interfering with the things you want to do? Select Number: 3 Emotional Distress: How confident are you that you can keep the emotional distress caused by your disease from interfering with the things you want to do? Select Number: 4 Other Symptoms or Health Problems: How confident are you that you can keep other symptoms or health problems from interfering with the things you want to do? Select Number: 4 Different Tasks and Activities: How confident are you that you can do the different tasks and activities needed to manage your health condition so as to reduce your need to see a doctor? Select Number: 4 Medication: How confident are you that you can do things other than just taking medication to reduce how much your illness affects your everyday life? Select Number: 3 Total Score:: 3 Nutrition Survey
[2021-11-19 08:29] VITALS: BP 118/60; BP 98/58; BMI 28.5
== END 2021-12-04 23:59 ==
LOC: CR 13:00
PROVIDERS: PCP Family Medicine Geriatric Medicine; Referring Provider Internal Medicine Cardiovascular Disease; Visit Provider Internal Medicine Cardiovascular Disease
DX: I25.10 Atherosclerotic heart disease of native coronary artery without angina pectoris (principal); R06.00 Dyspnea, unspecified; R00.2 Palpitations; Z95.1 Presence of aortocoronary bypass graft
CPT/HCPCS: 93798

== ENCOUNTER 2021-12-31 13:00 | Outpatient (RCR) | payer MEDICARE, BC, SELFPAY ==
[2021-11-19 08:29] VITALS: BMI 28.5
[2021-12-05 01:07] VITALS: BP 118/60; BP 98/58
--- NOTE | 2021-12-18 08:28 | CR.ITP_ITS ---
Diagnosis Exercise - 60-day Assessment - Visit Date of Eval: 12/18/21 Session #:: 22 - Physician Prescribed Exercise Modalities: NuStep Frequency: 3x/week for 12 weeks [36 sessions] Intensity: 60-80% of age predicted maximum heart rate reserve Current METSs:: 2.0 have been unsuccessful in motivating patient to improve. Target Heart Rate:: 94-123 Current RPE:: 12-14 Maximum Excercise HR:: 67 Resting Blood Pressure: 116/62 Maximum Exercise Blood Pressure: 104/62 EKG Type: Sinus rhythm without ectopy Current Physical Activity or Exercising minutes: 36:04 - Outcomes & Goals Goals:: Verbalizes understanding of THR, RPE & goal METS by session 6, Documents in home exercise log/reports 30 min aerobic 5 day/wk by DC, Demonstrates accurate pulse taking by DC - Intervention & Plan Exercise Program Goals: Instruct on personal THR & RPE, Instruct on MET level & personal MET goal, Show patient to take own pulse /validate performance until accurate, Instruct on home exercise - 30-day Reassessments 30 day Reassessments:: Not Met - Physical Activity Home Exercise Physical Activity - Home Exercise: Safe Exercise, Warm-up, Self-monitoring, Cool-Down, Home Exercise > 30 min Daily, Sitting Time <3 hours/daily - Outcomes & Goals Outcomes/Goals: Demonstrates correct Warm-up/exercise Cool-Down (S3) if = 2.5 METs, Verbalizes symptoms of exercise intolerance by Session 3 (S3), Demonstrate safe equipment use (S3) & follows exercise prescrition (6) - Intervention & Plan Plan/Intervention: Instruct warm-up & cool-down if exercising at > 2 METs, Ins truct on symptoms of exercise intolerance & actions to take, Instruct & monitor on saf, Assess intial functional capacity & safety risk - 30-day Reassessments 30 day Reassessments:: Met Nutrition - Initial Assessment Nutrition - 30-Day Assessment Nutrition - 60-Day Assessment - Program Goals Nutrition Program Goals: LDL <100 optimal. 100 - 129 Near optimal. 130 - 159 Borderline High. 160 - 189 High. Total Cholesterol <200 desirable. 200 - 239 Borderline High. >/= 240 High. HDL < 40 Low >/=60 High. Triglycerides <150 desirable. <199 optimal. VlDL 5 - 40. HgbA1C <7%. BMI <25 Patient has diagnosis of Hyperlipidemia (ICD E78)?: Yes - Visit Date of Assessment:: 12/18/21 Session #:: 22 - Cholesterol/Lipids Triglycerides (mg/dL): 106 - 06/14/2021; no recent labs Total Cholesterol (mg/dL): 141 LDL Cholesterol (mg/dL): 79 HDL Cholesterol (mg/dL): 41 Determine presence & major risk factors that modify LDL goal: Hypertension or hypertensive medication, Family history of premature CHD in Male < 55 years: female <65 yearsFa, Age men > 45 years; women >/= 55 years Outcomes/Goals: Pt IDs own risk factors & lifestyle modifications by Session 10, Verbalizes symptoms of angina & response by session 3., Pt independently manages Intervention/Plan: Instruct on personal lipid levels & lipid goals/NCEP guidelines, Instruct on cholesterol Referral to dietitian:: No - After speaking with the patient they declined services 30-day Reassessments:: Progressing - Diabetes (Other Core Measures) Diabetes Type: Not Applicable - Weight Mgt (Other Care) Not Applicable: Yes Height: 5 ft 7.5 in Weight:: 178 lb BMI: 27.4 Diagnosis Overweight/Obesity BMI> 30% ICD-10 E66: No Diagnosis High BMI/Morbid Obesity BMI> 35% ICD-10 Z68: No Outcomes/Goals: Pt sets, maintains & shows weight loss goal & trend during rehab Intervention/Plan: Instruct on ideal BMI & set weight loss goal w/patient - Healthy Eating Habits Will attend diet classes:: Yes Outcomes/Goals:: Consume diet rich in vegs,fruits,whole grain/high fiber,fish,lean meat, Limit sat/trans fats,cholesterol & added salts & sugars 30-day Reassessments:: Progressing - Education Gave educational materials for:: Healthy eating Nutrition - 90-Day Assessment Nutrition - Final Assessment Medical - Initial Assessment Medical- 30-Day Assessment Medical- 60-Day Assessment - Visit Date of Eval: 12/18/21 Session #:: 22 - Medication Compliance Preventative Medication(s):: Aspirin, Statin/lipid, Beta tyler H/O mental health issues: depression, anxiety, or addiction?: No Doesn?t believe in the benefits of treatment?: No Believes medications are unnecessary or harmful?: No Has a concern about medication side effects?: No Expresses concern over the cost of medications?: No Outcomes/Goals: Verbalizes medications,desired effect & common side effects @ DC, Pt self-reports following medication regimen, Keeps card in wallet w/medications listed by DC Interventions/plans: Instruct on medication effects & side effects, Review medication list w/patient every two weeks, Instruct importance of taking meds as ordered & assist problem solving 30-day Reassessments:: Progressing - Tobacco Use Tobacco Use: Non-smoker - Hypertension Hypertension Diagnosis:: Hypertension ICD-10 I10 Resting Blood Pressure:: 116/62 [place] [employer] Hypertension Guidelines: [place] [employer] Hypertension Guidelines. Normal BP Less than 120/80. Elevated BP 120/80. Hypertension Stage 1: BP 130-139/80-89. Hypertesnion Stage 2: BP 140 or higher/90 or higher. Hypertension Crisis: BP higher than 180/120 Peak Exercise Blood Pressure:: 104/62 Outcomes/Goals: Able to verbalize/achieve optimal blood pressure <130/80, Incorporates diet changes & exercise for blood pressure control by DC Interventions/plan: Instruct on optimal blood pressure, hypertension & medications, Instruct on effects of sodium, alcohol, stress, exercise &hyperte nsion 30 day Reassessments:: Met - Tobacco Cessation Referral Smoking Cessation Referral:: No Individual Education/Counseling:: No Education Schedule Given:: Yes Medical- 90-Day Assessment Medical - Final Assessment Psychosocial - Initial Assess Psychosocial - 30-Day Assess Psychosocial - 60-Day Assess - VIsit Date of Eval: 12/18/21 Session #:: 22 Not Applicable: Yes History of previous Mental disease:: No - Psychosocial Test Tool Used:: PHQ-9 Questionnaire phq-9 Severity: Severity. 1-4 Minimal Depression. 5-9 Mild Depression. 10-14 Moderate Depression. 15-19 Moderately Sever Depression. 20-27 Severe Depression. Rule: Total Score:: 18 - Referral to Behavioral Health PS - Interventions: Yes Referral to Physician if PHQ-9 if score is 5-9:, Yes Attend Stress Management Classes, No Referral to Behavioral Health if PHQ-9 score >9:, No Referral to [facility] - Outcomes/Goals: See list Psychosocial Outcomes/Goals:: ID's personal stressors & 2 strategies to manage stress by discharge - Intervention/Plan: See List Interventions/Plan:: Assess stressors,coping strategies & signs of derpression on admission, Instruct/assist pt to develop coping & personal stress Mgt strategies, Instruct patient to recognize signs & symptoms of depression, Instruct patient to recog - 30-day Reassessments: 30 day Reassessments:: Progressing Psychosocial - 90-Day Assess Psychosocial - Final Assessmen Patient Health Questionnaire 60-Day Re-eval Assessment 1. Little interest or pleasure in doing things: Nearly every day 2. Feeling down, depressed, or hopeless: Nearly every day 3. Trouble falling or staying asleep, or sleeping too much: Nearly every day 4. Feeling tired or having little energy: Nearly every day 5. Poor appetite or overeating: Several days 6. Feeling bad about yourself -- or that you are a failure or have let yourself or your family down: More than half the days 7. Trouble concentrating on things, such as reading the newspaper or watching television: More than half the days 8. Moving or speaking so slowly that other people could have noticed. Or the opposite - being so fidgety or restless that you have been moving around a lot more than usual: Several days 9. Thoughts that you would be better off , or of hurting yourself in some way: Not at all How difficult have these problems made it for you to do your work, take care of things at home, or get along with other people?: Very difficult Total Score: 18 Self-Efficacy 60-Day Re-eval Assessment We would like to know how confident you are in doing certain activities. Please select your confidence level for:: Select your confidence level for the following using the scale 1-10 where 1 is not at all confident and 10 is totally confident. Your score is the average of all 6 responses. Fatigue: How confident are you that you can keep the fatigue caused by your disease from interfering with the things you want to do? Select Number: 4 Physical Discomfort or Pain: How confident are you that you can keep the physical discomfort or pain of your disease from interfering with the things you want to do? Select Number: 4 Emotional Distress: How confident are you that you can keep the emotional distress caused by your disease from interfering with the things you want to do? Select Number: 4 Other Symptoms or Health Problems: How confident are you that you can keep other symptoms or health problems from interfering with the things you want to do? Select Number: 4 Different Tasks and Activities: How confident are you that you can do the different tasks and activities needed to manage your health condition so as to reduce your need to see a doctor? Select Number: 4 Medication: How confident are you that you can do things other than just taking medication to reduce how much your illness affects your everyday life? Select Number: 4 Total Score:: 4 Nutrition Survey
[2021-12-18 08:46] VITALS: BP 104/62; BP 116/62; BMI 27.4
== END 2022-01-03 23:59 ==
LOC: CR 13:00
PROVIDERS: PCP Family Medicine Geriatric Medicine; Referring Provider Internal Medicine Cardiovascular Disease; Visit Provider Internal Medicine Cardiovascular Disease
DX: I25.10 Atherosclerotic heart disease of native coronary artery without angina pectoris (principal); R06.00 Dyspnea, unspecified; R00.2 Palpitations; Z95.1 Presence of aortocoronary bypass graft
CPT/HCPCS: 93798

== ENCOUNTER → 2022-01-15 | Outpatient (CLI) | payer MEDICARE, BC, SELFPAY ==
[2021-12-18 08:46] VITALS: BMI 27.4
[2022-01-15 17:09] LABS: Absolute Lymphocyte Count 2.13 X10^3/uL (0.83-4.51); Absolute Neutrophil Count 7.2 X10^3/uL (2.0-7.7); Basophil# 0.05 X10^3/uL; Basophil% 0.5 % (0-1); Eosinophil# 0.18 X10^3/uL; Eosinophils% 1.7 % (0-5); Hematocrit 41.9 % (37-47); Hemoglobin 13.4 g/dL (12.0-15.0); Lymphocyte # 2.13 X10^3/ul (0.83-4.51); Lymphocyte % 20.5 % (19-41); Mean Corpuscular Hgb 32.8 pg (27.0-32.0); Mean Corpuscular Volume 102.4 fL (81-99); Mean Platelet Vol. 9.7 fl (6.2-12.0); Monocyte% 7.7 % (0-10); NRBC Flagged by Analyzer 0 % (0-5); Neutrophil # 7.21 X10^3/uL (2.7-7.7); Neutrophil % 69.3 % (47-70); Platelet Count 258 K/mm3 (150-450); RBC Distribution Width CV 13.6 % (11.6-14.6); RBC Distribution Width SD 52.5 fl (35.1-43.9); Red Blood Count 4.09 M/mm3 (4.2-5.4); White Blood Count 10.4 K/mm3 (4.4-11.0)
[2022-01-15 17:42] LABS: Anion Gap 5 (5-15); BUN 34 mg/dL (7-18); BUN/Creat Ratio 28.3 RATIO (10-20); Calcium,Total 9.9 mg/dL (8.5-10.1); Chloride 106 mmol/L (98-107); EST Glomerular Filtration Rate 47 mL/min (>60); Est Glom Filt Rate - Afr Amer 56 mL/min (>60); Glucose 107 mg/dL (74-106); Potassium 5.1 mmol/L (3.5-5.1); Sodium Level 136 mmol/L (136-145); Thyroid Stim Hormone (TSH) 2.42 uIU/mL (0.358-3.74)
== END | disposition home or self-care (01) ==
LOC: POLAB3 14:37
PROVIDERS: PCP Family Medicine Geriatric Medicine; Visit Provider Family Medicine Geriatric Medicine
DX: R53.83 Other fatigue (principal)
CPT/HCPCS: 36415; 80048; 84443; 85025

== ENCOUNTER 2022-01-21 13:00 | Outpatient (RCR) | payer MEDICARE, BC, SELFPAY ==
[2021-12-18 08:46] VITALS: BMI 27.4
[2022-01-04 00:38] VITALS: BP 104/62; BP 116/62
--- NOTE | 2022-01-16 08:26 | PCM.CR.ITP ---
Diagnosis Exercise - Final/Discharge - Visit Date of Eval: 01/16/22 Session #:: 31 - Physician Prescribed Exercise Modalities: NuStep Frequency: 3x/week for 12 weeks [36 sessions] Intensity: 60-80% of age predicted maximum heart rate reserve Current METSs:: 2.5 max'd per patient Target Heart Rate:: 94-123 Current RPE:: 13-14 Maximum Excercise HR:: 75 Resting Blood Pressure: 92/50 Maximum Exercise Blood Pressure: 100/60 EKG Type: Sinus rhythm with rare PVC - Outcomes & Goals Goals:: Verbalizes understanding of THR, RPE & goal METS by session 6, Documents in home exercise log/reports 30 min aerobic 5 day/wk by DC, Demonstrates accurate pulse taking by DC - Intervention & Plan Exercise Program Goals: Instruct on personal THR & RPE, Instruct on MET level & personal MET goal, Show patient to take own pulse /validate performance until accurate, Instruct on home exercise - 30-day Reassessments 30 day Reassessments:: Not Met - Physical Activity Home Exercise Physical Activity - Home Exercise: Safe Exercise, Warm-up, Self-monitoring, Cool-Down, Home Exercise > 30 min Daily, Sitting Time <3 hours/daily - Outcomes & Goals Outcomes/Goals: Demonstrates correct Warm-up/exercise Cool-Down (S3) if = 2.5 METs, Verbalizes symptoms of exercise intolerance by Session 3 (S3), Demonstrate safe equipment use (S3) & follows exercise prescrition (6) - Intervention & Plan Plan/Intervention: Instruct warm-up & cool-down if exercising at > 2 METs, Instruct on symptoms of exercise intolerance & actions to take, Instruct & monitor on saf, Assess intial functional capacity & safety risk - 30-day Reassessments 30 day Reassessments:: Met Nutrition - Initial Assessment Nutrition - 30-Day Assessment Nutrition - 60-Day Assessment Nutrition - 90-Day Assessment Nutrition - Final Assessment - Program Goals Nutrition Program Goals: LDL <100 optimal. 100 - 129 Near optimal. 130 - 159 Borderline High. 160 - 189 High. Total Cholesterol <200 desirable. 200 - 239 Borderline High. >/= 240 High. HDL < 40 Low >/=60 High. Triglycerides <150 desirable. <199 optimal. VlDL 5 - 40. HgbA1C <7%. BMI <25 Patient has diagnosis of Hyperlipidemia (ICD E78)?: Yes - Visit Date of Assessment:: 01/16/22 - no recent labs available - Cholesterol/Lipids Determine presence & major risk factors that modify LDL goal: Hypertension or hypertensive medication, Age men > 45 years; women >/= 55 years Outcomes/Goals: Pt IDs own risk factors & lifestyle modifications by Session 10, Verbalizes symptoms of angina & response by session 3., Pt independently manages Intervention/Plan: Instruct on personal lipid levels & lipid goals/NCEP guidelines, Instruct on cholesterol 30-day Reassessments:: Met - Diabetes (Other Core Measures) Diabetes Type: Not Applicable - Weight Mgt (Other Care) Not Applicable: Yes Height: 5 ft 7.5 in Weight:: 171 lb 8 oz BMI: 26.4 Diagnosis Overweight/Obesity BMI> 30% ICD-10 E66: No Diagnosis High BMI/Morbid Obesity BMI> 35% ICD-10 Z68: No Outcomes/Goals: Pt sets, maintains & shows weight loss goal & trend during rehab Intervention/Plan: Instruct on ideal BMI & set weight loss goal w/patient 30 day Reassessments:: Met - Healthy Eating Habits Will attend diet classes:: Yes Outcomes/Goals:: Consume diet rich in vegs,fruits,whole grain/high fiber,fish,lean meat, Limit sat/trans fats,cholesterol & added salts & sugars Intervention/Plan:: Assess current eating habits 30-day Reassessments:: Met - Education Gave educational materials for:: Healthy eating Medical - Initial Assessment Medical- 30-Day Assessment Medical- 60-Day Assessment Medical- 90-Day Assessment Medical - Final Assessment - Visit Date of Eval: 01/16/22 Session #:: 31 - Medication Compliance Preventative Medication(s):: Aspirin, Statin/lipid, Beta tyler H/O mental health issues: depression, anxiety, or addiction?: No Doesn?t believe in the benefits of treatment?: No Believes medications are unnecessary or harmful?: No Has a concern about medication side effects?: No Expresses concern over the cost of medications?: No Outcomes/Goals: Verbalizes medications,desired effect & common side effects @ DC, Pt self-reports following medication regimen, Keeps card in wallet w/medications listed by DC Interventions/plans: Instruct on medication effects & side effects, Review medication list w/patient every two weeks, Instruct importance of taking meds as ordered & assist problem solving 30-day Reassessments:: Met - Tobacco Use Tobacco Use: Non-smoker - Hypertension Hypertension Diagnosis:: Hypertension ICD-10 I10 Resting Blood Pressure:: 92/50 [employer] Hypertension Guidelines: [employer] Hypertension Guidelines. Normal BP Less than 120/80. Elevated BP 120/80. Hypertension Stage 1: BP 130-139/80-89. Hypertesnion Stage 2: BP 140 or higher/90 or higher. Hypertension Crisis: BP higher than 180/120 Peak Exercise Blood Pressure:: 100/60 Outcomes/Goals: Able to verbalize/achieve optimal blood pressure <130/80, Incorporates diet changes & exercise for blood pressure control by DC Interventions/plan: Instruct on optimal blood pressure, hypertension & medications, Instruct on effects of sodium, alcohol, stress, exercise &hypertension 30 day Reassessments:: Met - Tobacco Cessation Referral Smoking Cessation Referral:: No Individual Education/Counseling:: No Education Schedule Given:: Yes Psychosocial - Initial Assess Psychosocial - 30-Day Assess Psychosocial - 60-Day Assess Psychosocial - 90-Day Assess Psychosocial - Final Assessmen - VIsit Date of Eval: 01/16/22 Session #:: 31 Not Applicable: No History of previous Mental disease:: Yes History of Emotional Disorders: Depression - Psychosocial Test Tool Used:: PHQ-9 Questionnaire phq-9 Severity: Severity. 1-4 Minimal Depression. 5-9 Mild Depression. 10-14 Moderate Depression. 15-19 Moderately Sever Depression. 20-27 Severe Depression. Rule: See PHQ-9 Score: 18 - Moderately-Sever Depression Identified - Referral to Behavioral Health PS - Interventions: Yes Referral to Physician if PHQ-9 if score is 5-9:, Yes Attend Stress Management Classes - Intervention/Plan: See List Interventions/Plan:: Assess stressors,coping strategies & signs of derpression on admission, Instruct/assist pt to develop coping & personal stress Mgt strategies, Instruct patient to recognize signs & symptoms of depression, Instruct patient to recog - 30-day Reassessments: 30 day Reassessments:: Not Met Patient Health Questionnaire Discharge Assessment 1. Little interest or pleasure in doing things: Nearly every day 2. Feeling down, depressed, or hopeless: Nearly every day 3. Trouble falling or staying asleep, or sleeping too much: Nearly every day 4. Feeling tired or having little energy: Nearly every day 5. Poor appetite or overeating: Several days 6. Feeling bad about yourself -- or that you are a failure or have let yourself or your family down: More than half the days 7. Trouble concentrating on things, such as reading the newspaper or watching television: More than half the days 8. Moving or speaking so slowly that other people could have noticed. Or the opposite - being so fidgety or restless that you have been moving around a lot more than usual: Several days 9. Thoughts that you would be better off , or of hurting yourself in some way: Not at all How difficult have these problems made it for you to do your work, take care of things at home, or get along with other people?: Very difficult Total Score: 18 Self-Efficacy Discharge Assessment We would like to know how confident you are in doing certain activities. Please select your confidence level for:: Select your confidence level for the following using the scale 1-10 where 1 is not at all confident and 10 is totally confident. Your score is the average of all 6 responses. Fatigue: How confident are you that you can keep the fatigue caused by your disease from interfering with the things you want to do? Select Number: 4 Physical Discomfort or Pain: How confident are you that you can keep the physical discomfort or pain of your disease from interfering with the things you want to do? Select Number: 4 Emotional Distress: How confident are you that you can keep the emotional distress caused by your disease from interfering with the things you want to do? Select Number: 4 Other Symptoms or Health Problems: How confident are you that you can keep other symptoms or health problems from interfering with the things you want to do? Select Number: 4 Different Tasks and Activities: How confident are you that you can do the different tasks and activities needed to manage your health condition so as to reduce your need to see a doctor? Select Number: 4 Medication: How confident are you that you can do things other than just taking medication to reduce how much your illness affects your everyday life? Select Number: 4 Total Score:: 4 Nutrition Survey
[2022-01-16 08:42] VITALS: BP 100/60; BP 92/50; BMI 26.4
== END 2022-02-03 23:59 ==
LOC: CR 13:00
PROVIDERS: PCP Family Medicine Geriatric Medicine; Referring Provider Internal Medicine Cardiovascular Disease; Visit Provider Internal Medicine Cardiovascular Disease
DX: I25.10 Atherosclerotic heart disease of native coronary artery without angina pectoris (principal); R06.00 Dyspnea, unspecified; R00.2 Palpitations; Z95.1 Presence of aortocoronary bypass graft
CPT/HCPCS: 93798

== ENCOUNTER 2022-02-07 15:00 | Outpatient (RCR) | payer MEDICARE, BC, SELFPAY ==
[2021-12-18 08:46] VITALS: BMI 27.4
--- NOTE | 2021-12-31 17:17 | HP.PTEVAL_ITS ---
Patient's Visit Information MAGGY MCKOY is a 76 year old F referred to Physical Therapy by KLEVER Herrera with a diagnosis of LUMBAR RADICULOPATHY,DEGENERATION OF LUMBOSACRAL DISC,LUMBAR STENOSIS. Date of Evaluation: 12/31/21 Physical Therapist: Krish Barbosa, PT, Cert MDT, OCS - Visit Plan Frequency: 2x /Week Duration: 4 Weeks Plan: PT INTERVETIONS DLS ,POSTURAL EX'S,LE FLEXABILITY ,PROGRESSIVE BALANCE PROGRAM AND FUNCTIONAL STRENGTHNENING - Subjective This 76 y/o female presents to physical therapy for back pain . Patient has had lumbar pain ~ 6years. 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 Patient has extensive Rehab at [facility] and [facility] at [facility]. . Patient seen pain management with 2 epidural injections which has helped. Patient will have another injection this Friday which last ~ 3-4 months. Patient also has concerns with balance ~ 4 weeks is patient last fall. Patient has occasional dizziness. Patient decrease orientation that causes balance .Patient pain located symmetrical lumbar . Aggravating factors sitting, standing ,stairs ,bending and lifting. Alleviating rest. Meds : Narco. Coughing/sneezing-. Bowel/bladder -. Pain affects sleeping. Patient has had no PT for back. No major trauma. Patient goals to increase balance and less back pain. Patient has not had any recent x-rays. SOCIAL: . VOCATION: Retired - Pain Bilateral Back Pain Intensity (Out of 10): 7 Pain Intensity Range: 10 - Objective POSTURE: mild forward posture hips/knees flexed. PALPTION: LS/S1 tender. SYMMTRIES: align. GAIT: slow bryon mild forward posture decrease trunk rotation /UE reciprocal pattern. FLEXABLITY: hamstrings min tight. MMT: quads/hams 4/5,hip flexion 4-/5 ,ankle 4/5. LUMBAR ROM: flexion min/mod loss, extension mod/severe loss pain ,mod loss side glides - Special Tests L/S Slump test left side: Negative L/S Slump test right side: Negative L/S Left Straight Leg Raise: Negative L/S Right Straight Leg Raise: Negative - Balance/Special Test Scores CATSIB Score (Max score 120 seconds): 100 Oswestry Low Back Score: 32 - Goals Goal 1:: Patient will be I with HEP Goal Time Frame: 4-6 Weeks Goal 2:: Patient to demonstrate 50% improvement with decrease pain and improved function Goal Time Frame: 4-6 Weeks Goal 3:: Patient to improve back osewstry score by 5 points to improve function Goal Time Frame: 4-6 Weeks Goal 4:: Patient to improve lumbar ROM for function of recovery to ties shoes. Goal Time Frame: 4-6 Weeks Goal 5:: Patient to improve CATSIB by 5-10points to improve balance Goal Time Frame: 4-6 Weeks Goal 6:: Patient to improve functional gait assessment by 5 points to improve gait Goal Time Frame: 4-6 Weeks - Rehabilitation Potential Physical Therapy Diagnosis: This patient has lumbar pain worse with walking, standing better with sitting along with balance deficits with pain with motion testing and position thus will benefit from skilled PT Rehabilitation Potential: Good - Anticipated Interventions Patient/Client Instruction: Educate patient on: Condition, Plan of Care For the Purpose of:: To decrease pain, To increase ROM, To improve muscle performance and motor function, To improve ability to perform ADL's, To increase tolerance to activity/condition/position, To improve performance and independence with ADL's, To improve ability of physical actions for home/community/work/leisure, To improve health of tissue, To decrease soft tissue restriction, To increase flexibility/ROM Therapeutic Exercise to Include: Strength training, Endurance training, Balance training, Body mechanics, Postural training, Flexibilty training, Dynamic Lumbar Stabilization For the Purpose of:: To decrease pain, To increase ROM, To improve muscle performance and motor function, To increase tolerance to activity/condition/position, To improve ability of physical actions for home/com munity/work/leisure, To improve health of tissue, To decrease soft tissue restriction, To increase flexibility/ROM, To improve endurance, To improve balance Thank you for the opportunity to evaluate your patient. For Medicare and Medicare HMO plans, please review the plan of care and approve it. It will need to be FAXED BACK to us at [phone] for Medicare purposes. For Medicare only, by signing this I certify the plan of care. Please let me know if there are questions or concerns regarding this plan of care. Physician Signature: Date:
== END 2022-02-07 19:00 | disposition home or self-care (01) ==
LOC: PT 15:00
PROVIDERS: PCP Family Medicine Geriatric Medicine; Referring Provider Nurse Practitioner Family; Visit Provider Nurse Practitioner Family
DX: M51.17 Intervertebral disc disorders with radiculopathy, lumbosacral region (principal); M47.816 Spondylosis without myelopathy or radiculopathy, lumbar region; M48.07 Spinal stenosis, lumbosacral region; M46.96 Unspecified inflammatory spondylopathy, lumbar region
CPT/HCPCS: 97110; 97162

== ENCOUNTER → 2022-03-13 | Outpatient (CLI) | payer MEDICARE, BC, SELFPAY ==
[2022-01-16 08:42] VITALS: BMI 26.4
[2022-03-13 12:10] LABS: Basophil# 0.06 X10^3/uL; Basophil% 0.8 % (0-1); Eosinophil# 0.33 X10^3/uL; Eosinophils% 4.5 % (0-5); Hematocrit 35.8 % (37-47); Hemoglobin 12.2 g/dL (12.0-15.0); Lymphocyte % 17.9 % (19-41); Mean Corp Hgb Conc 34.1 g/dL (32-36); Mean Corpuscular Hgb 34.2 pg (27.0-32.0); Mean Corpuscular Volume 100.3 fL (81-99); Mean Platelet Vol. 9.7 fl (6.2-12.0); Monocyte# 0.52 X10^3/uL; Monocyte% 7.2 % (0-10); NRBC Flagged by Analyzer 0 % (0-5); Neutrophil # 5.04 X10^3/uL (2.7-7.7); Neutrophil % 69.5 % (47-70); Platelet Count 223 K/mm3 (150-450); RBC Distribution Width CV 11.9 % (11.6-14.6); RBC Distribution Width SD 43.2 fl (35.1-43.9); Red Blood Count 3.57 M/mm3 (4.2-5.4); White Blood Count 7.3 K/mm3 (4.4-11.0)
[2022-03-13 12:47] LABS: AST(SGOT) 24 U/L (15-37); Alanine Aminotransfer ALT/SGPT 56 U/L (13-56); Albumin, Serum 3.4 g/dL (3.2-5.0); Alkaline Phosphatase 146 U/L (45-117); Anion Gap 7 (5-15); BUN 30 mg/dL (7-18); BUN/Creat Ratio 20.5 RATIO (10-20); Calcium,Total 9.7 mg/dL (8.5-10.1); Chloride 110 mmol/L (98-107); Creatinine, Serum 1.46 mg/dL (0.55-1.02); EST Glomerular Filtration Rate 37 mL/min (>60); Est Glom Filt Rate - Afr Amer 45 mL/min (>60); Globulin 3.3 g/dL (2.2-4.2); Glucose 111 mg/dL (74-106); Potassium 4.9 mmol/L (3.5-5.1); Protein, Total 6.7 g/dL (6.4-8.2); Sodium Level 143 mmol/L (136-145); Thyroid Stim Hormone (TSH) 4.68 uIU/mL (0.358-3.74)
[2022-03-13 13:34] LABS: Vitamin D,25 Hydroxy 30.5 ng/mL
== END | disposition home or self-care (01) ==
LOC: POLAB3 10:43
PROVIDERS: PCP Family Medicine Geriatric Medicine; Visit Provider Family Medicine Geriatric Medicine
DX: I10 Essential (primary) hypertension (principal); E11.65 Type 2 diabetes mellitus with hyperglycemia; E55.9 Vitamin D deficiency, unspecified
CPT/HCPCS: 36415; 80053; 82306; 84443; 85025

== ENCOUNTER → 2022-06-05 | Outpatient (CLI) | payer MEDICARE, BC, SELFPAY ==
[2022-01-16 08:42] VITALS: BMI 26.4
[2022-06-05 14:10] LABS: Microalbumin,Random Urine 14.4 mg/L (NO RANGE EST.); Microalbumin:Creatinine Ratio 10.7 mg/g CRE (<30 mg/g CRE)
== END | disposition home or self-care (01) ==
PROVIDERS: PCP Family Medicine Geriatric Medicine; Visit Provider Internal Medicine Nephrology
DX: N18.32 Chronic kidney disease, stage 3b (principal)
CPT/HCPCS: 82043; 82570

== ENCOUNTER → 2022-06-14 | Outpatient (CLI) | payer MEDICARE, BC, SELFPAY ==
[2022-01-16 08:42] VITALS: BMI 26.4
== END | disposition home or self-care (01) ==
PROVIDERS: PCP Family Medicine Geriatric Medicine; Visit Provider Family Medicine Geriatric Medicine
DX: R68.83 Chills (without fever) (principal)
CPT/HCPCS: 87635; 87804; 87807; C9803; U0003; U0005

== ENCOUNTER → 2022-06-25 | Outpatient (CLI) | payer MEDICARE, BC, SELFPAY ==
[2022-01-16 08:42] VITALS: BMI 26.4
--- NOTE | 2022-06-25 13:28 | RAD_ITS ---
STUDY: X-RAY - LUMBAR SPINE REASON FOR EXAM: Female, 77 years old. PAIN TECHNIQUE: XR Spine Lumbar Min 4 Views COMPARISON: CT February 11, 2018 FINDINGS: Normal lumbar lordosis. There is a levoscoliosis of the lumbar spine. There is a normal alignment of the vertebrae. There is multilevel endplate spondylosis of the lumbar vertebrae. There is multi-level degenerative disc disease with multi-level disc space narrowing. There are atherosclerotic vascular calcifications. The soft tissue structures are unremarkable. RAD/L/S Spine Min 4 Views IMPRESSION: Degenerative changes of the spine, as detailed above. Electronically Signed: Parker Hwang MD at 17:17 EST ,
== END | disposition home or self-care (01) ==
LOC: MTRAD 13:25
PROVIDERS: PCP Family Medicine Geriatric Medicine; Referring Provider Nurse Practitioner Family; Visit Provider Nurse Practitioner Family
DX: M51.37 Other intervertebral disc degeneration, lumbosacral region (principal); M47.817 Spondylosis without myelopathy or radiculopathy, lumbosacral region; M48.07 Spinal stenosis, lumbosacral region
CPT/HCPCS: 72110

== ENCOUNTER → 2022-07-31 | Outpatient (CLI) | payer MEDICARE, BC, SELFPAY ==
[2022-01-16 08:42] VITALS: BMI 26.4
--- NOTE | 2022-07-31 08:20 | MRI_ITS ---
STUDY: MRI LUMBAR SPINE WITHOUT CONTRAST REASON FOR EXAM: Female, 77 years old. Lower lumbar pain and bilateral radiculopathy x6 months. TECHNIQUE: Standardized fat and water weighted pulse sequences were obtained in the sagittal and axial planes. COMPARISON: Lumbar spine radiographs 06/25/2022. CT lumbar spine without contrast 02/11/2018. FINDINGS: T10-T11: (Sagittal only). Schmorl''s node in the posterior T10 inferior endplate. Normal T11 superior endplate. Mild disc space height narrowing. No ventral extradural defect. Normal central canal and bilateral intervertebral neural foramina. T11-T12: Mild Modic type II degenerative vertebral marrow fat infiltration underneath the anterior vertebral endplates. Mild disc space height narrowing. Normal central canal and bilateral intervertebral neural foramina. T12-L1: (Sagittal only). Normal endplates. Normal disc height, hydration and morphology. Capacious central canal. Normal bilateral intervertebral neural foramina. Normal lumbar lordosis. There is no substantial scoliosis. Normal conus medullaris that terminates at the mid L1 vertebral body level. L1-2: Normal endplates. Normal disc height, hydration and morphology. Normal bilateral facet joints. Normal central canal and bilateral lateral recesses. Normal bilateral intervertebral neural foramina. L2-3: Normal endplates. Mild disc space height narrowing. Prominent right posterior caudal disc extrusion and sequestration causing severe stenosis of right lateral recess and displacement of the right L3 nerve root sleeve. Normal central canal and left lateral recess. No significant facet arthropathy. Normal bilateral intervertebral neural foramina. L3-4: Normal endplates. Normal disc height, hydration and morphology. Normal bilateral facet joints. Normal central canal and bilateral lateral recesses. Normal bilateral intervertebral neural foramina. L4-5: Normal endplates. Normal disc height, hydration and morphology. Mild bilateral degenerative facet arthropathy. Posterior ligamentum flavum hypertrophy. Moderate central canal stenosis with an AP canal diameter of 6.8 mm. Normal bilateral lateral recesses. Normal bilateral intervertebral neural foramina. L5-S1: Modic type II degenerative vertebral marrow fat infiltration underneath the right half of the vertebral endplates. Mild disc space height narrowing. Small posterior bulging annulus. No significant facet arthropathy. Mild central canal stenosis with an AP canal diameter of 9.2 mm. Normal bilateral lateral recesses. Normal bilateral intervertebral neural foramina. Normal visualized sacral ala. Normal visualized paraspinous soft tissue structures. MRI/Spine Lumbar (Routine) IMPRESSION: 1. Right L2-L3 posterior caudal disc extrusion and sequestration causing severe stenosis of right lateral recess and displacement of the right L3 nerve root sleeve. 2. Moderate central canal stenosis at L4-L5 disc space level with an AP canal diameter of 6.8 mm. 3. Mild central canal stenosis at L5-S1 disc space level with an AP canal diameter of 9.2 mm and small posterior bulging annulus. Electronically Signed: Tod Art MD at 10:51 EST ,
== END | disposition home or self-care (01) ==
LOC: MRI 08:03
PROVIDERS: PCP Family Medicine Geriatric Medicine; Referring Provider Anesthesiology Pain Medicine; Visit Provider Anesthesiology Pain Medicine
DX: M51.37 Other intervertebral disc degeneration, lumbosacral region (principal); M54.17 Radiculopathy, lumbosacral region
CPT/HCPCS: 72148

== ENCOUNTER → 2022-08-07 | Outpatient (CLI) | payer MEDICARE, BC, SELFPAY ==
[2022-01-16 08:42] VITALS: BMI 26.4
[2022-08-07 13:09] LABS: Hematocrit 41.8 % (37-47); Hemoglobin 13.6 g/dL (12.0-15.0); Mean Corp Hgb Conc 32.5 g/dL (32-36); Mean Corpuscular Hgb 31.3 pg (27.0-32.0); Mean Corpuscular Volume 96.1 fL (81-99); Mean Platelet Vol. 10.2 fl (6.2-12.0); Platelet Count 234 K/mm3 (150-450); RBC Distribution Width CV 12.7 % (11.6-14.6); RBC Distribution Width SD 44.6 fl (35.1-43.9); Red Blood Count 4.35 M/mm3 (4.2-5.4); White Blood Count 8.7 K/mm3 (4.4-11.0)
[2022-08-07 13:20] LABS: Albumin, Serum 3.8 g/dL (3.2-5.0); BUN 28 mg/dL (7-18); BUN/Creat Ratio 21.5 RATIO (10-20); Calcium,Total 9.8 mg/dL (8.5-10.1); Chloride 109 mmol/L (98-107); EST Glomerular Filtration Rate 42 mL/min (>60); Est Glom Filt Rate - Afr Amer 51 mL/min (>60); Glucose 117 mg/dL (74-106); Phosphorus 3.7 mg/dL (2.5-4.9); Potassium 4.2 mmol/L (3.5-5.1); Sodium Level 141 mmol/L (136-145)
[2022-08-07 13:56] LABS: PTHIN 81.5 pg/mL (18.4-80.1)
== END | disposition home or self-care (01) ==
LOC: POLAB3 11:08
PROVIDERS: PCP Family Medicine Geriatric Medicine; Visit Provider Internal Medicine Nephrology
DX: N18.32 Chronic kidney disease, stage 3b (principal)
CPT/HCPCS: 36415; 80069; 83970; 85027

== ENCOUNTER → 2022-08-23 | Outpatient (CLI) | payer MEDICARE, BC, SELFPAY ==
[2022-01-16 08:42] VITALS: BMI 26.4
[2022-08-23 11:45] LABS: Absolute Lymphocyte Count 1.69 X10^3/uL (0.83-4.51); Absolute Neutrophil Count 6.3 X10^3/uL (2.0-7.7); Basophil# 0.07 X10^3/uL; Basophil% 0.8 % (0-1); Eosinophil# 0.26 X10^3/uL; Eosinophils% 2.9 % (0-5); Hemoglobin 14.1 g/dL (12.0-15.0); Lymphocyte # 1.69 X10^3/ul (0.83-4.51); Lymphocyte % 18.9 % (19-41); Mean Corp Hgb Conc 34.4 g/dL (32-36); Mean Corpuscular Hgb 32.8 pg (27.0-32.0); Mean Corpuscular Volume 95.3 fL (81-99); Mean Platelet Vol. 9.8 fl (6.2-12.0); Monocyte# 0.62 X10^3/uL; Monocyte% 6.9 % (0-10); NRBC Flagged by Analyzer 0 % (0-5); Neutrophil # 6.28 X10^3/uL (2.7-7.7); Neutrophil % 70.4 % (47-70); Platelet Count 191 K/mm3 (150-450); RBC Distribution Width CV 12.8 % (11.6-14.6); RBC Distribution Width SD 44.2 fl (35.1-43.9); White Blood Count 8.9 K/mm3 (4.4-11.0)
--- NOTE | 2022-08-23 11:45 | RAD_ITS ---
HISTORY: PLEURISY. TECHNIQUE: XR Chest 2 Views. COMPARISON: 08/16/2021. FINDINGS: CARDIOMEDIASTINAL BORDERS: Cardiac silhouette within normal limits in size. Mediastinal contour unchanged with midline sternotomy and coronary artery bypass graft. LUNGS: Radiographically clear. PLEURA: No pleural effusion or pneumothorax seen. OSSEOUS STRUCTURES: Degenerative change. RAD/Chest PA and Lateral IMPRESSION: No acute cardiopulmonary process identified. Electronically Signed: Yuliet Mills MD at 12:08 EST ,
[2022-08-23 12:12] LABS: BNP,B-Type NATRIURETIC PEPTIDE 41.6 pg/mL (0-100)
[2022-08-23 12:33] LABS: ALB/GLOB Ratio 0.9 RATIO (0.9-2.4); AST(SGOT) 22 U/L (15-37); Alanine Aminotransfer ALT/SGPT 27 U/L (13-56); Albumin, Serum 3.5 g/dL (3.2-5.0); Alkaline Phosphatase 111 U/L (45-117); Anion Gap 7 (5-15); BUN 25 mg/dL (7-18); BUN/Creat Ratio 18.5 RATIO (10-20); Calcium,Total 9.9 mg/dL (8.5-10.1); Chloride 109 mmol/L (98-107); Creatinine, Serum 1.35 mg/dL (0.55-1.02); EST Glomerular Filtration Rate 41 mL/min (>60); Est Glom Filt Rate - Afr Amer 49 mL/min (>60); Globulin 4.1 g/dL (2.2-4.2); Glucose 116 mg/dL (74-106); Potassium 3.9 mmol/L (3.5-5.1); Protein, Total 7.6 g/dL (6.4-8.2); Sodium Level 141 mmol/L (136-145); Thyroid Stim Hormone (TSH) 1.25 uIU/mL (0.358-3.74)
[2022-08-24 10:46] LABS: Myoglobin, Serum 38 ng/mL (25-58)
[2022-08-26 08:14] LABS: CPK Total, Creatine Kinase 33 U/L (26-192)
== END | disposition home or self-care (01) ==
PROVIDERS: PCP Family Medicine Geriatric Medicine; Referring Provider Family Medicine Geriatric Medicine; Visit Provider Family Medicine Geriatric Medicine
DX: R06.02 Shortness of breath (principal); N18.31 Chronic kidney disease, stage 3a; R09.1 Pleurisy
CPT/HCPCS: 36415; 71046; 80053; 82550; 83874; 83880; 84443; 85025; 87086; 87088; 87186

== ENCOUNTER → 2022-08-28 | Outpatient (CLI) | payer MEDICARE, BC, SELFPAY ==
[2022-01-16 08:42] VITALS: BMI 26.4
[2022-08-28 17:20] LABS: Absolute Lymphocyte Count 1.49 X10^3/uL (0.83-4.51); Absolute Neutrophil Count 4.8 X10^3/uL (2.0-7.7); Basophil# 0.05 X10^3/uL; Basophil% 0.7 % (0-1); Eosinophil# 0.36 X10^3/uL; Hematocrit 41.9 % (37-47); Hemoglobin 14.6 g/dL (12.0-15.0); Lymphocyte # 1.49 X10^3/ul (0.83-4.51); Lymphocyte % 20.7 % (19-41); Mean Corp Hgb Conc 34.8 g/dL (32-36); Mean Corpuscular Hgb 32.8 pg (27.0-32.0); Mean Corpuscular Volume 94.2 fL (81-99); Mean Platelet Vol. 10.1 fl (6.2-12.0); Monocyte# 0.53 X10^3/uL; Monocyte% 7.4 % (0-10); NRBC Flagged by Analyzer 0 % (0-5); Neutrophil # 4.75 X10^3/uL (2.7-7.7); Neutrophil % 66.1 % (47-70); Platelet Count 192 K/mm3 (150-450); RBC Distribution Width CV 12.8 % (11.6-14.6); RBC Distribution Width SD 44.2 fl (35.1-43.9); Red Blood Count 4.45 M/mm3 (4.2-5.4); White Blood Count 7.2 K/mm3 (4.4-11.0)
[2022-08-28 17:46] LABS: Vitamin D,25 Hydroxy 41.6 ng/mL
[2022-08-28 17:54] LABS: ALB/GLOB Ratio 0.8 RATIO (0.9-2.4); AST(SGOT) 29 U/L (15-37); Alanine Aminotransfer ALT/SGPT 34 U/L (13-56); Albumin, Serum 3.6 g/dL (3.2-5.0); Alkaline Phosphatase 113 U/L (45-117); Anion Gap 7 (5-15); BUN 25 mg/dL (7-18); Calcium,Total 10.2 mg/dL (8.5-10.1); Chloride 108 mmol/L (98-107); Creatinine, Serum 1.25 mg/dL (0.55-1.02); EST Glomerular Filtration Rate 44 mL/min (>60); Est Glom Filt Rate - Afr Amer 54 mL/min (>60); Globulin 4.4 g/dL (2.2-4.2); Glucose 67 mg/dL (74-106); Potassium 3.8 mmol/L (3.5-5.1); Sodium Level 141 mmol/L (136-145); Thyroid Stim Hormone (TSH) 1.82 uIU/mL (0.358-3.74)
[2022-08-28 18:00] LABS: BNP,B-Type NATRIURETIC PEPTIDE 109.2 pg/mL (0-100)
== END | disposition home or self-care (01) ==
LOC: POLAB3 13:20
PROVIDERS: PCP Family Medicine Geriatric Medicine; Visit Provider Family Medicine Geriatric Medicine
DX: E11.65 Type 2 diabetes mellitus with hyperglycemia (principal); I10 Essential (primary) hypertension; E55.9 Vitamin D deficiency, unspecified
CPT/HCPCS: 36415; 80053; 82306; 83880; 84443; 85025

== ENCOUNTER → 2022-08-29 | Outpatient (CLI) | payer MEDICARE, BC, SELFPAY ==
[2022-01-16 08:42] VITALS: BMI 26.4
--- NOTE | 2022-08-29 08:37 | ECHOD_ITS ---
Reason For Study: CHF Procedure This was a 2D Doppler, Color Flow transthoracic echocardiogram. Exam performed in department. Left Ventricle Normal LV size. Left ventricular systolic function is normal. The estimated ejection fraction is 60 %. Stage 1 diastolic dysfunction. No regional wall motion abnormalities noted. Right Ventricle Normal RV size. Normal systolic function. Atria The left atrium is mildly enlarged. Normal right atrium. Mitral Valve Normal mitral valve. Tricuspid Valve Normal tricuspid valve. Mild (1+) tricuspid valve insufficiency. Pulmonary artery systolic pressure is 38 mmHg. Aortic Valve Normal aortic valve. Pulmonic Valve Normal pulmonic valve. Great Vessels Normal aortic root. The pulmonary artery is normal size. Normal inferior vena cava. Pericardium/Pleural No pericardial effusion. MMode/2D Measurements & Calculations LVIDd: 3.9 cm IVSd: 1.0 cm Ao root diam: 3.2 cm LVIDs: 3.2 cm LVPWd: 1.0 cm RVDd: 2.9 cm FS: 18.3 % LAV(MOD-sp4): 75.7 ml LVAd ap4: 22.9 cm2 SV(MOD-sp4): 37.5 ml LVLd ap4: 6.4 cm EDV(MOD-sp4): 65.7 ml EDV(sp4-el): 69.9 ml LVAs ap4: 13.7 cm2 LVLs ap4: 5.4 cm ESV(MOD-sp4): 28.1 ml ESV(sp4-el): 29.4 ml EF(MOD-sp4): 57.2 % EF(sp4-el): 58.0 % SV(sp4-el): 40.5 ml LA A4 area: 23.8 cm2 LA dimension(2D): 4.5 cm RA A4 area: 11.3 cm2 Time Measurements MV dec time: 0.15 sec Doppler Measurements & Calculations MV E max nikolay: 91.3 cm/sec Lat Peak E' Nikolay: 8.8 cm/sec Med Peak E' Nikolay: 5.2 cm/sec MV A max nikolay: 99.1 cm/sec E/E' lat: 10.4 E/E' med: 17.6 MV E/A: 0.92 MV V2 max: 103.1 cm/sec Ao V2 max: 135.3 cm/sec MV max P.3 mmHg MV dec slope: 1638 cm/sec2 Ao max P.4 mmHg MV V2 mean: 51.0 cm/sec Ao V2 mean: 94.0 cm/sec MV mean P.3 mmHg Ao mean P.1 mmHg MV V2 VTI: 39.6 cm Ao V2 VTI: 33.7 cm AV (velocity ratio): 0.84 LV V1 max: 117.0 cm/sec MR max nikolay: 507.6 cm/sec PA V2 max: 86.4 cm/sec LV V1 max P.5 mmHg MR max P.1 mmHg PA V2 mean: 58.1 cm/sec LV V1 mean P.2 mmHg LV V1 mean: 83.0 cm/sec LV V1 VTI: 28.4 cm TR max nikolay: 290.3 cm/sec TR max P.7 mmHg ECHO/Echo Complete Interpretation Summary Normal LV size. Left ventricular systolic function is normal. The estimated ejection fraction is 60 %. The left atrium is mildly enlarged. Stage 1 diastolic dysfunction. Pulmonary artery systolic pressure is 38 mmHg. Ordering Physician: Paulo Murray Chi Referring Physician: Paulo Murray Chi Performed By: Kesha Skinner RCS
== END | disposition home or self-care (01) ==
LOC: CVS 08:36
PROVIDERS: PCP Family Medicine Geriatric Medicine; Referring Provider Family Medicine Geriatric Medicine; Visit Provider Family Medicine Geriatric Medicine
DX: I50.32 Chronic diastolic (congestive) heart failure (principal)
CPT/HCPCS: 93306

== ENCOUNTER → 2022-12-13 | Outpatient (CLI) | payer MEDICARE, BC, SELFPAY ==
[2022-01-16 08:42] VITALS: BMI 26.4
[2022-12-13 12:26] LABS: Absolute Lymphocyte Count 1.75 X10^3/uL (0.83-4.51); Absolute Neutrophil Count 3.6 X10^3/uL (2.0-7.7); Basophil# 0.07 X10^3/uL; Basophil% 1.1 % (0-1); Eosinophil# 0.25 X10^3/uL; Hemoglobin 13.7 g/dL (12.0-15.0); Lymphocyte # 1.75 X10^3/ul (0.83-4.51); Lymphocyte % 28.3 % (19-41); Mean Corp Hgb Conc 32.6 g/dL (32-36); Mean Corpuscular Hgb 32.1 pg (27.0-32.0); Mean Corpuscular Volume 98.4 fL (81-99); Mean Platelet Vol. 9.3 fl (6.2-12.0); Monocyte# 0.54 X10^3/uL; Monocyte% 8.7 % (0-10); NRBC Flagged by Analyzer 0 % (0-5); Neutrophil # 3.57 X10^3/uL (2.7-7.7); Neutrophil % 57.7 % (47-70); Platelet Count 249 K/mm3 (150-450); RBC Distribution Width CV 12.2 % (11.6-14.6); RBC Distribution Width SD 44.1 fl (35.1-43.9); Red Blood Count 4.27 M/mm3 (4.2-5.4); White Blood Count 6.2 K/mm3 (4.4-11.0)
[2022-12-13 13:23] LABS: Vitamin D,25 Hydroxy 41.8 ng/mL
[2022-12-13 13:39] LABS: ALB/GLOB Ratio 0.8 RATIO (0.9-2.4); AST(SGOT) 30 U/L (15-37); Alanine Aminotransfer ALT/SGPT 35 U/L (13-56); Albumin, Serum 3.4 g/dL (3.2-5.0); Alkaline Phosphatase 118 U/L (45-117); Anion Gap 7 (5-15); BUN 25 mg/dL (7-18); BUN/Creat Ratio 19.4 RATIO (10-20); Calcium,Total 9.7 mg/dL (8.5-10.1); Chloride 108 mmol/L (98-107); Creatinine, Serum 1.29 mg/dL (0.55-1.02); EST Glomerular Filtration Rate 43 mL/min (>60); Est Glom Filt Rate - Afr Amer 52 mL/min (>60); Globulin 4.2 g/dL (2.2-4.2); Glucose 106 mg/dL (74-106); Potassium 4.2 mmol/L (3.5-5.1); Protein, Total 7.6 g/dL (6.4-8.2); Sodium Level 140 mmol/L (136-145)
== END | disposition home or self-care (01) ==
LOC: LAB 11:53
PROVIDERS: PCP Family Medicine Geriatric Medicine; Referring Provider Family Medicine Geriatric Medicine; Visit Provider Family Medicine Geriatric Medicine
DX: I10 Essential (primary) hypertension (principal); E11.65 Type 2 diabetes mellitus with hyperglycemia; E55.9 Vitamin D deficiency, unspecified
CPT/HCPCS: 36415; 80053; 82306; 84443; 85025

== ENCOUNTER → 2023-03-13 | Outpatient (CLI) | payer MEDICARE, BC, SELFPAY ==
[2022-01-16 08:42] VITALS: BMI 26.4
[2023-03-13 12:40] LABS: Absolute Lymphocyte Count 1.58 X10^3/uL (0.83-4.51); Absolute Neutrophil Count 3.8 X10^3/uL (2.0-7.7); Basophil# 0.06 X10^3/uL; Basophil% 0.9 % (0-1); Eosinophil# 0.31 X10^3/uL; Eosinophils% 4.9 % (0-5); Hematocrit 41.4 % (37-47); Hemoglobin 13.2 g/dL (12.0-15.0); Lymphocyte # 1.58 X10^3/ul (0.83-4.51); Lymphocyte % 24.8 % (19-41); Mean Corp Hgb Conc 31.9 g/dL (32-36); Mean Corpuscular Hgb 31.6 pg (27.0-32.0); Mean Platelet Vol. 10.3 fl (6.2-12.0); Monocyte# 0.62 X10^3/uL; Monocyte% 9.7 % (0-10); NRBC Flagged by Analyzer 0 % (0-5); Neutrophil # 3.79 X10^3/uL (2.7-7.7); Neutrophil % 59.5 % (47-70); Platelet Count 242 K/mm3 (150-450); RBC Distribution Width CV 12.9 % (11.6-14.6); RBC Distribution Width SD 46.6 fl (35.1-43.9); Red Blood Count 4.18 M/mm3 (4.2-5.4); White Blood Count 6.4 K/mm3 (4.4-11.0)
[2023-03-13 13:07] LABS: Vitamin D,25 Hydroxy 41.1 ng/mL
[2023-03-13 13:15] LABS: ALB/GLOB Ratio 0.8 RATIO (0.9-2.4); AST(SGOT) 30 U/L (15-37); Alanine Aminotransfer ALT/SGPT 40 U/L (13-56); Albumin, Serum 3.5 g/dL (3.2-5.0); Alkaline Phosphatase 134 U/L (45-117); Anion Gap 5 (5-15); BUN 24 mg/dL (7-18); BUN/Creat Ratio 17.5 RATIO (10-20); Calcium,Total 9.3 mg/dL (8.5-10.1); Chloride 110 mmol/L (98-107); Creatinine, Serum 1.37 mg/dL (0.55-1.02); EST Glomerular Filtration Rate 40 mL/min (>60); Est Glom Filt Rate - Afr Amer 48 mL/min (>60); Globulin 4.2 g/dL (2.2-4.2); Glucose 120 mg/dL (74-106); Potassium 3.9 mmol/L (3.5-5.1); Protein, Total 7.7 g/dL (6.4-8.2); Sodium Level 142 mmol/L (136-145); Thyroid Stim Hormone (TSH) 2.04 uIU/mL (0.358-3.74)
== END | disposition home or self-care (01) ==
LOC: POLAB3 09:36
PROVIDERS: PCP Family Medicine Geriatric Medicine; Visit Provider Family Medicine Geriatric Medicine
DX: I10 Essential (primary) hypertension (principal); E11.65 Type 2 diabetes mellitus with hyperglycemia; E55.9 Vitamin D deficiency, unspecified
CPT/HCPCS: 36415; 80053; 82306; 84443; 85025

== ENCOUNTER 2023-04-03 17:28 | Outpatient (CLI) | payer MEDICARE, BC, SELFPAY ==
[2022-01-16 08:42] VITALS: BMI 26.4
== END 2023-04-03 23:59 | disposition home or self-care (01) ==
PROVIDERS: PCP Family Medicine Geriatric Medicine; Visit Provider Family Medicine Geriatric Medicine
DX: N39.0 Urinary tract infection, site not specified (principal)
CPT/HCPCS: 87077; 87086; 87088; 87186

== ENCOUNTER → 2023-06-12 | Outpatient (CLI) | payer MEDICARE, BC, SELFPAY ==
[2022-01-16 08:42] VITALS: BMI 26.4
[2023-06-12 15:03] LABS: Absolute Lymphocyte Count 1.81 X10^3/uL (0.83-4.51); Basophil# 0.07 X10^3/uL; Basophil% 0.9 % (0-1); Eosinophil# 0.14 X10^3/uL; Eosinophils% 1.8 % (0-5); Hematocrit 39.5 % (37-47); Hemoglobin 13.2 g/dL (12.0-15.0); Lymphocyte # 1.81 X10^3/ul (0.83-4.51); Lymphocyte % 23.7 % (19-41); Mean Corp Hgb Conc 33.4 g/dL (32-36); Mean Corpuscular Volume 95.6 fL (81-99); Mean Platelet Vol. 9.8 fl (6.2-12.0); Monocyte# 0.59 X10^3/uL; Monocyte% 7.7 % (0-10); NRBC Flagged by Analyzer 0 % (0-5); Neutrophil # 5.02 X10^3/uL (2.7-7.7); Neutrophil % 65.8 % (47-70); Platelet Count 239 K/mm3 (150-450); RBC Distribution Width CV 12.8 % (11.6-14.6); Red Blood Count 4.13 M/mm3 (4.2-5.4); White Blood Count 7.6 K/mm3 (4.4-11.0)
[2023-06-12 15:28] LABS: Vitamin D,25 Hydroxy 31.8 ng/mL
[2023-06-12 15:30] LABS: ALB/GLOB Ratio 0.8 RATIO (0.9-2.4); AST(SGOT) 39 U/L (15-37); Alanine Aminotransfer ALT/SGPT 47 U/L (13-56); Albumin, Serum 3.3 g/dL (3.2-5.0); Alkaline Phosphatase 124 U/L (45-117); Anion Gap 5 (5-15); BUN 21 mg/dL (7-18); BUN/Creat Ratio 17.1 RATIO (10-20); Calcium,Total 9.1 mg/dL (8.5-10.1); Chloride 109 mmol/L (98-107); Creatinine, Serum 1.23 mg/dL (0.55-1.02); EST Glomerular Filtration Rate 45 mL/min (>60); Est Glom Filt Rate - Afr Amer 54 mL/min (>60); Globulin 4.1 g/dL (2.2-4.2); Glucose 148 mg/dL (74-106); Phosphorus 2.9 mg/dL (2.5-4.9); Potassium 3.8 mmol/L (3.5-5.1); Protein, Total 7.4 g/dL (6.4-8.2); Sodium Level 139 mmol/L (136-145)
== END | disposition home or self-care (01) ==
LOC: POLAB3 13:54
PROVIDERS: PCP Family Medicine Geriatric Medicine; Visit Provider Family Medicine Geriatric Medicine
DX: I10 Essential (primary) hypertension (principal); E11.65 Type 2 diabetes mellitus with hyperglycemia; E55.9 Vitamin D deficiency, unspecified
CPT/HCPCS: 36415; 80053; 82306; 84100; 84443; 85025

== ENCOUNTER → 2023-10-09 | Outpatient (CLI) | payer MEDICARE, BC, SELFPAY ==
[2022-01-16 08:42] VITALS: BMI 26.4
[2023-10-09 14:39] LABS: Absolute Lymphocyte Count 2.25 X10^3/uL (0.83-4.51); Absolute Neutrophil Count 5.4 X10^3/uL (2.0-7.7); Basophil# 0.08 X10^3/uL; Basophil% 0.9 % (0-1); Eosinophil# 0.25 X10^3/uL; Eosinophils% 2.9 % (0-5); Hematocrit 41.8 % (37-47); Hemoglobin 13.7 g/dL (12.0-15.0); Lymphocyte # 2.25 X10^3/ul (0.83-4.51); Mean Corp Hgb Conc 32.8 g/dL (32-36); Mean Corpuscular Hgb 31.5 pg (27.0-32.0); Mean Corpuscular Volume 96.1 fL (81-99); Mean Platelet Vol. 10.3 fl (6.2-12.0); Monocyte# 0.64 X10^3/uL; Monocyte% 7.4 % (0-10); NRBC Flagged by Analyzer 0 % (0-5); Neutrophil % 62.6 % (47-70); Platelet Count 249 K/mm3 (150-450); RBC Distribution Width CV 12.1 % (11.6-14.6); RBC Distribution Width SD 42.7 fl (35.1-43.9); Red Blood Count 4.35 M/mm3 (4.2-5.4); White Blood Count 8.6 K/mm3 (4.4-11.0)
[2023-10-09 14:54] LABS: Vitamin D,25 Hydroxy 37.9 ng/mL
[2023-10-09 15:01] LABS: ALB/GLOB Ratio 0.9 RATIO (0.9-2.4); AST(SGOT) 11 U/L (15-37); Alanine Aminotransfer ALT/SGPT 14 U/L (13-56); Albumin, Serum 3.5 g/dL (3.2-5.0); Alkaline Phosphatase 107 U/L (45-117); Anion Gap 6 (5-15); BUN 19 mg/dL (7-18); BUN/Creat Ratio 15.8 RATIO (10-20); Calcium,Total 9.3 mg/dL (8.5-10.1); Chloride 111 mmol/L (98-107); EST Glomerular Filtration Rate 46 mL/min (>60); Est Glom Filt Rate - Afr Amer 56 mL/min (>60); Globulin 4.1 g/dL (2.2-4.2); Glucose 98 mg/dL (74-106); Potassium 3.9 mmol/L (3.5-5.1); Protein, Total 7.6 g/dL (6.4-8.2); Sodium Level 141 mmol/L (136-145); Thyroid Stim Hormone (TSH) 1.98 uIU/mL (0.358-3.74)
[2023-10-09 16:19] LABS: Hemoglobin A1c 5.5 % (3.8-5.6)
== END | disposition home or self-care (01) ==
LOC: POLAB3 13:23
PROVIDERS: PCP Family Medicine Geriatric Medicine; Visit Provider Family Medicine Geriatric Medicine
DX: E11.65 Type 2 diabetes mellitus with hyperglycemia (principal); E55.9 Vitamin D deficiency, unspecified; I10 Essential (primary) hypertension
CPT/HCPCS: 36415; 80053; 82306; 83036; 84443; 85025

== ENCOUNTER → 2023-11-11 | Outpatient (CLI) | payer MEDICARE, BC, SELFPAY ==
[2022-01-16 08:42] VITALS: BMI 26.4
== END | disposition home or self-care (01) ==
PROVIDERS: PCP Family Medicine Geriatric Medicine; Visit Provider Family Medicine Geriatric Medicine
DX: N39.0 Urinary tract infection, site not specified (principal)
CPT/HCPCS: 87077; 87086; 87088; 87186

== ENCOUNTER → 2024-04-06 | Outpatient (CLI) | payer MEDICARE, BC, SELFPAY ==
[2022-01-16 08:42] VITALS: BMI 26.4
[2024-04-06 14:26] LABS: Absolute Neutrophil Count 4.7 X10^3/uL (2.0-7.7); Basophil# 0.07 X10^3/uL; Eosinophil# 0.36 X10^3/uL; Eosinophils% 5.1 % (0-5); Hemoglobin 13.3 g/dL (12.0-15.0); Lymphocyte % 21.3 % (19-41); Mean Corp Hgb Conc 32.4 g/dL (32-36); Mean Corpuscular Volume 98.6 fL (81-99); Mean Platelet Vol. 9.9 fl (6.2-12.0); Monocyte# 0.45 X10^3/uL; Monocyte% 6.4 % (0-10); NRBC Flagged by Analyzer 0 % (0-5); Neutrophil # 4.66 X10^3/uL (2.7-7.7); Neutrophil % 66.1 % (47-70); Platelet Count 213 K/mm3 (150-450); RBC Distribution Width CV 12.2 % (11.6-14.6); RBC Distribution Width SD 44.5 fl (35.1-43.9); Red Blood Count 4.16 M/mm3 (4.2-5.4); White Blood Count 7.1 K/mm3 (4.4-11.0)
[2024-04-06 14:57] LABS: Vitamin D,25 Hydroxy 41.6 ng/mL
[2024-04-06 15:05] LABS: ALB/GLOB Ratio 0.9 RATIO (0.9-2.4); AST(SGOT) 16 U/L (15-37); Alanine Aminotransfer ALT/SGPT 17 U/L (13-56); Albumin, Serum 3.5 g/dL (3.2-5.0); Alkaline Phosphatase 94 U/L (45-117); Anion Gap 4 (5-15); BUN 23 mg/dL (7-18); BUN/Creat Ratio 18.4 RATIO (10-20); Calcium,Total 9.7 mg/dL (8.5-10.1); Chloride 111 mmol/L (98-107); Creatinine, Serum 1.25 mg/dL (0.55-1.02); EST Glomerular Filtration Rate 44 mL/min (>60); Est Glom Filt Rate - Afr Amer 53 mL/min (>60); Globulin 3.7 g/dL (2.2-4.2); Glucose 99 mg/dL (74-106); Potassium 3.7 mmol/L (3.5-5.1); Protein, Total 7.2 g/dL (6.4-8.2); Sodium Level 139 mmol/L (136-145)
== END | disposition home or self-care (01) ==
PROVIDERS: PCP Family Medicine Geriatric Medicine; Visit Provider Family Medicine Geriatric Medicine
DX: E11.65 Type 2 diabetes mellitus with hyperglycemia (principal); I10 Essential (primary) hypertension; E55.9 Vitamin D deficiency, unspecified
CPT/HCPCS: 36415; 80053; 82306; 84443; 85025

== ENCOUNTER → 2024-05-05 | Outpatient (CLI) | payer MEDICARE, BC, SELFPAY ==
[2022-01-16 08:42] VITALS: BMI 26.4
--- NOTE | 2024-05-05 12:33 | RAD_ITS ---
EXAM: XR CHEST, 2 VIEWS CLINICAL INDICATION: PNEUMONIA TECHNIQUE: Frontal and lateral views of the chest. COMPARISON: 08/23/2022. FINDINGS: LUNGS AND PLEURAL SPACES: Ill-defined opacity right upper lobe overlying the distal aspect of the right 2nd rib not present on the prior exam. No pneumothorax. No effusion. HEART: Status post coronary artery bypass graft. MEDIASTINUM: Central airways and mediastinal contour are unremarkable. BONES/JOINTS: Sternal wires. No acute fracture. SOFT TISSUES: Unremarkable. RAD/Chest PA and Lateral IMPRESSION: Ill-defined opacity right upper lobe overlying the distal aspect of the right 2nd rib not present on the prior exam. A small area of consolidation or mass cannot be excluded. It may just represent an artifact related to the end of the 2nd rib. Consider shallow oblique views of the chest or a CT scan of the chest for further evaluation. Electronically Signed: Herve Woods MD at 22:26 EDT ,
[2024-05-05 13:06] LABS: Absolute Lymphocyte Count 2.11 X10^3/uL (0.83-4.51); Absolute Neutrophil Count 11.7 X10^3/uL (2.0-7.7); Basophil# 0.09 X10^3/uL; Basophil% 0.6 % (0-1); Eosinophil# 0.14 X10^3/uL; Eosinophils% 0.9 % (0-5); Hematocrit 39.7 % (37-47); Hemoglobin 13.2 g/dL (12.0-15.0); Lymphocyte # 2.11 X10^3/ul (0.83-4.51); Lymphocyte % 13.8 % (19-41); Mean Corp Hgb Conc 33.2 g/dL (32-36); Mean Corpuscular Hgb 32.8 pg (27.0-32.0); Mean Corpuscular Volume 98.8 fL (81-99); Mean Platelet Vol. 10.3 fl (6.2-12.0); Monocyte# 1.23 X10^3/uL; NRBC Flagged by Analyzer 0 % (0-5); Neutrophil # 11.71 X10^3/uL (2.7-7.7); Neutrophil % 76.3 % (47-70); Platelet Count 252 K/mm3 (150-450); RBC Distribution Width CV 11.8 % (11.6-14.6); RBC Distribution Width SD 42.8 fl (35.1-43.9); Red Blood Count 4.02 M/mm3 (4.2-5.4); White Blood Count 15.3 K/mm3 (4.4-11.0)
[2024-05-05 13:24] LABS: ALB/GLOB Ratio 0.9 RATIO (0.9-2.4); AST(SGOT) 16 U/L (15-37); Alanine Aminotransfer ALT/SGPT 18 U/L (13-56); Albumin, Serum 3.7 g/dL (3.2-5.0); Alkaline Phosphatase 99 U/L (45-117); Anion Gap 8 (5-15); BUN 17 mg/dL (7-18); BUN/Creat Ratio 15.9 RATIO (10-20); Calcium,Total 9.9 mg/dL (8.5-10.1); Chloride 105 mmol/L (98-107); Creatinine, Serum 1.07 mg/dL (0.55-1.02); EST Glomerular Filtration Rate 53 mL/min (>60); Est Glom Filt Rate - Afr Amer 64 mL/min (>60); Globulin 4.2 g/dL (2.2-4.2); Glucose 144 mg/dL (74-106); Potassium 3.7 mmol/L (3.5-5.1); Protein, Total 7.9 g/dL (6.4-8.2); Sodium Level 137 mmol/L (136-145)
== END | disposition home or self-care (01) ==
PROVIDERS: PCP Family Medicine Geriatric Medicine; Referring Provider Family Medicine Geriatric Medicine; Visit Provider Family Medicine Geriatric Medicine
DX: J18.9 Pneumonia, unspecified organism (principal); R68.83 Chills (without fever)
CPT/HCPCS: 36415; 71046; 80053; 85025; 87631

== ENCOUNTER → 2024-05-19 | Outpatient (CLI) | payer MEDICARE, BC, SELFPAY ==
[2022-01-16 08:42] VITALS: BMI 26.4
--- NOTE | 2024-05-19 16:19 | CT_ITS ---
HISTORY: Abnormal finding of lung, recent pneumonia diagnosis. TECHNIQUE: Helically acquired images were obtained of the chest without contrast. A radiation dose optimization technique was used for this scan. 766 images. COMPARISON: XR 05/05/2024. FINDINGS: LARGE AIRWAYS: Patent. LUNGS: Mild mixed groundglass and alveolar patchy opacities with mild bronchiectasis in the right upper, right middle, and bilateral lower lobes measuring up to 1.8 cm in the right upper lobe. Small calcified right lower lobe granuloma PLEURA: No pneumothorax or significant pleural effusion. HEART/PERICARDIUM: Heart within normal limits in size with coronary artery calcification. Midline sternotomy and coronary artery bypass graft. No pericardial effusion. VESSELS: Thoracic aorta nondilated. Atherosclerosis present. MEDIASTINUM/LEX: No pathologically enlarged adenopathy. UPPER ABDOMEN: Subcentimeter cyst in the left hepatic lobe. BONES: Degenerative change. CT/Chest without Contrast IMPRESSION: Mild patchy groundglass and alveolar opacities scattered in the bilateral lungs measuring up to 1.8 cm in the right upper lobe, concerning for atypical pneumonia or pneumonitis. Fleischner Society Guidelines recommend follow-up CT at 3-6 months. Electronically Signed: Yuliet Mills MD at 8:44 EST ,
== END | disposition home or self-care (01) ==
LOC: CT 16:17
PROVIDERS: PCP Family Medicine Geriatric Medicine; Referring Provider Family Medicine Geriatric Medicine; Visit Provider Family Medicine Geriatric Medicine
DX: R91.8 Other nonspecific abnormal finding of lung field (principal)
CPT/HCPCS: 71250

== ENCOUNTER → 2024-05-24 | Outpatient (CLI) | payer MEDICARE, BC, SELFPAY ==
[2022-01-16 08:42] VITALS: BMI 26.4
[2024-05-24 14:48] LABS: Absolute Lymphocyte Count 3.08 X10^3/uL (0.83-4.51); Absolute Neutrophil Count 3.8 X10^3/uL (2.0-7.7); Basophil# 0.07 X10^3/uL; Basophil% 0.9 % (0-1); Eosinophil# 0.36 X10^3/uL; Eosinophils% 4.5 % (0-5); Hematocrit 39.5 % (37-47); Lymphocyte # 3.08 X10^3/ul (0.83-4.51); Lymphocyte % 38.6 % (19-41); Mean Corp Hgb Conc 32.9 g/dL (32-36); Mean Corpuscular Hgb 32.7 pg (27.0-32.0); Mean Corpuscular Volume 99.2 fL (81-99); Mean Platelet Vol. 9.5 fl (6.2-12.0); Monocyte# 0.69 X10^3/uL; Monocyte% 8.6 % (0-10); NRBC Flagged by Analyzer 0 % (0-5); Neutrophil # 3.75 X10^3/uL (2.7-7.7); Platelet Count 282 K/mm3 (150-450); RBC Distribution Width CV 12.7 % (11.6-14.6); RBC Distribution Width SD 45.9 fl (35.1-43.9); Red Blood Count 3.98 M/mm3 (4.2-5.4)
== END | disposition home or self-care (01) ==
LOC: POLAB3 14:36
PROVIDERS: PCP Family Medicine Geriatric Medicine; Referring Provider Family Medicine Geriatric Medicine; Visit Provider Family Medicine Geriatric Medicine
DX: I10 Essential (primary) hypertension (principal); R68.83 Chills (without fever)
CPT/HCPCS: 36415; 85025; 87631

== ENCOUNTER → 2024-06-17 | Outpatient (CLI) | payer MEDICARE, BC, SELFPAY ==
[2022-01-16 08:42] VITALS: BMI 26.4
--- NOTE | 2024-06-17 09:36 | RAD_ITS ---
STUDY: X-RAY - LUMBAR SPINE REASON FOR EXAM: Female, 79 years old. LOW BACK PAIN following the fall. TECHNIQUE: 5 view(s) of the lumbar spine were obtained including oblique views. COMPARISON: Comparison is made with prior study dated June 25, 2022. FINDINGS: Normal lumbar lordosis. There is a minimal levoscoliosis of the lumbar spine. There is a normal alignment of the vertebrae. Normal vertebral bodies and endplates. Moderate degree of disc space narrowing at the L5-S1 level. The space narrowing at the L2-L3 level as well. There is atherosclerotic calcification of the abdominal aorta without a demonstrated aneurysm. Large amount of fecal material is seen in the colon. RAD/L/S Spine Min 4 Views IMPRESSION: Degenerative changes of the spine, as detailed above. Electronically Signed: Ruiz Olson MD at 10:25 EST ,
--- NOTE | 2024-06-17 09:37 | CT_ITS ---
STUDY: CT BRAIN WITHOUT CONTRAST REASON FOR EXAM: Female, 79 years old. CLOSED HEAD INJURY, FELL THIS MORNING, BRUISING TO RT EYE RADIATION DOSAGE (If Supplied By Facility): CTDIvol = ( 44.99 ) mGy, DLP = ( 745.49 ) mGycm TECHNIQUE: Transaxial CT imaging of the brain was performed without administration of intravenous contrast material. Individualized dose optimization techniques were used for this CT. COMPARISON: Comparison is made with prior study dated July 07, 2021. FINDINGS: Normal soft tissue structures. Normal calvarium. There is mild cerebral atrophy with widening of the extra-axial spaces and ventricular dilatation. There are areas of decreased attenuation within the white matter tracts of the supratentorial brain, consistent with microvascular disease changes. Normal basal ganglia and thalami. Normal brainstem. Normal cerebellum. There is no intracranial hemorrhage. There are no findings of an acute ischemic infarction. Atherosclerotic calcifications of the vertebral arteries and cavernous portions of the internal carotid arteries bilaterally. Stable opacification of the right maxillary sinus. CT/Brain/Head without Contrast IMPRESSION: Chronic involutional changes of the brain. Electronically Signed: Ruiz Olson MD at 10:24 EST ,
== END | disposition home or self-care (01) ==
LOC: CT 09:36
PROVIDERS: PCP Family Medicine Geriatric Medicine; Referring Provider Family Medicine Geriatric Medicine; Visit Provider Family Medicine Geriatric Medicine
DX: S09.90XA Unspecified injury of head, initial encounter (principal); M54.50 Low back pain, unspecified; X58.XXXA Exposure to other specified factors, initial encounter
CPT/HCPCS: 70450; 72110

== ENCOUNTER → 2024-07-06 | Outpatient (CLI) | payer MEDICARE, BC, SELFPAY ==
[2022-01-16 08:42] VITALS: BMI 26.4
--- NOTE | 2024-07-06 13:45 | RAD_ITS ---
STUDY: X-RAY CHEST REASON FOR EXAM: Female, 79 years old. WHEEZING TECHNIQUE: PA and lateral views of the chest. COMPARISON: 05/05/2024 FINDINGS: Status post coronary artery bypass grafting. The lungs are clear and expanded. There is no demonstrated pleural abnormality. Normal size heart. Normal mediastinum and riki. Normal visualized pulmonary arteries. Normal visualized aortic arch and descending thoracic aorta. Normal visualized thoracic spine. Normal visualized ribs, clavicles, and shoulders. There is no demonstrated abnormality of the visualized soft tissue structures of the upper abdomen. RAD/Chest PA and Lateral IMPRESSION: No active disease. Electronically Signed: Alfred Farrell MD at 0:04 EST ,
== END | disposition home or self-care (01) ==
LOC: POLAB3 13:26
PROVIDERS: PCP Family Medicine Geriatric Medicine; Visit Provider Family Medicine Geriatric Medicine
DX: R06.2 Wheezing (principal); R68.83 Chills (without fever); Z11.52 Encounter for screening for COVID-19
CPT/HCPCS: 71046; 87631

== ENCOUNTER → 2024-10-11 | Outpatient (CLI) | payer MEDICARE, BC, SELFPAY ==
[2022-01-16 08:42] VITALS: BMI 26.4
[2024-10-11 15:25] LABS: Absolute Neutrophil Count 6.5 X10^3/uL (2.0-7.7); Basophil# 0.08 X10^3/uL; Basophil% 0.8 % (0-1); Eosinophil# 0.32 X10^3/uL; Eosinophils% 3.4 % (0-5); Hematocrit 41.6 % (37-47); Hemoglobin 13.9 g/dL (12.0-15.0); Lymphocyte % 20.1 % (19-41); Mean Corp Hgb Conc 33.4 g/dL (32-36); Mean Corpuscular Volume 98.8 fL (81-99); Monocyte# 0.64 X10^3/uL; Monocyte% 6.8 % (0-10); NRBC Flagged by Analyzer 0 % (0-5); Neutrophil # 6.49 X10^3/uL (2.7-7.7); Neutrophil % 68.6 % (47-70); Platelet Count 250 K/mm3 (150-450); RBC Distribution Width CV 12.6 % (11.6-14.6); RBC Distribution Width SD 46.1 fl (35.1-43.9); Red Blood Count 4.21 M/mm3 (4.2-5.4); White Blood Count 9.5 K/mm3 (4.4-11.0)
[2024-10-11 17:28] LABS: ALB/GLOB Ratio 1.3 RATIO (0.9-2.4); AST(SGOT) 20 U/L (<=31); Alanine Aminotransfer ALT/SGPT 14 U/L (<=34); Albumin, Serum 4.1 g/dL (3.4-4.8); Alkaline Phosphatase 82 U/L (35-104); Anion Gap 12 (5-15); BUN 22 mg/dL (4-19); BUN/Creat Ratio 14.9 RATIO (10-20); Calcium,Total 9.9 mg/dL (7.6-11.0); Carbon Dioxide 23.2 mmol/L (21.0-32.0); Chloride 105 mmol/L (98-108); Creatinine, Serum 1.46 mg/dL (0.70-1.20); EST Glomerular Filtration Rate 37 (>60); Globulin 3.1 g/dL (2.2-4.2); Glucose 89 mg/dL (70-99); Potassium 4.1 mmol/L (3.3-5.1); Protein, Total 7.2 g/dL (5.9-8.4); Sodium Level 140 mmol/L (133-145); Syphilis Antibodies Nonreactive (Nonreactive); Total Bilirubin 0.54 mg/dL (0.00-1.30)
[2024-10-11 17:29] LABS: Vitamin B12 959 pg/mL (180-914); Vitamin D,25 Hydroxy 27.8 ng/mL (30-100)
[2024-10-11 20:08] LABS: FOLATES,SERUM (FOLIC ACID) > 40.00 ng/mL (4.60-34.80)
== END | disposition home or self-care (01) ==
PROVIDERS: PCP Family Medicine Geriatric Medicine; Referring Provider Family Medicine Geriatric Medicine; Visit Provider Family Medicine Geriatric Medicine
DX: E11.65 Type 2 diabetes mellitus with hyperglycemia (principal); I10 Essential (primary) hypertension; E55.9 Vitamin D deficiency, unspecified; G31.84 Mild cognitive impairment of uncertain or unknown etiology
CPT/HCPCS: 36415; 80053; 82306; 82607; 82746; 84443; 85025; 86780

== ENCOUNTER → 2024-10-13 | Outpatient (CLI) | payer MEDICARE, BC, SELFPAY ==
[2022-01-16 08:42] VITALS: BMI 26.4
[2024-10-13 18:35] LABS: Microalbumin,Random Urine 18.3 mg/L (NO RANGE EST.); Microalbumin:Creatinine Ratio 126.2 mg/g CRE
== END | disposition home or self-care (01) ==
LOC: LABSPEC 17:03
PROVIDERS: PCP Family Medicine Geriatric Medicine; Referring Provider Family Medicine Geriatric Medicine; Visit Provider Family Medicine Geriatric Medicine
DX: E11.65 Type 2 diabetes mellitus with hyperglycemia (principal)
CPT/HCPCS: 82043; 82570

== ENCOUNTER → 2024-11-24 | Outpatient (CLI) | payer MEDICARE, BC, SELFPAY ==
[2022-01-16 08:42] VITALS: BMI 26.4
--- NOTE | 2024-11-24 11:30 | MRI_ITS ---
EXAM: BRAIN WITHOUT CONTRAST CLINICAL HISTORY: MILD COGNITIVE IMPAIRMENT COMPARISON: None. TECHNIQUE: Multiplanar, multisequence MR images of the brain were obtained without gadolinium contrast material. FINDINGS: There is focal restricted diffusion in the right temporal lobe measuring 1.6 by 1.1 by 1.8 cm which has associated increased T2 and FLAIR signal, and subtle decreased T1 signal, subacute infarct. There is a 1.8 x 1.8 cm focus of restricted diffusion in the right precentral cortex at the vertex with no associated T2 or FLAIR signal changes, and is visible on 1 image only, and may be artifact, versus recent infarct. 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 There is a 1.1 x 0.8 cm chronic infarct in the right cerebellum. There is abnormal increased T2 and FLAIR signal changes throughout the deep white matter, with severe chronic ischemic changes. No intracranial hemorrhage, mass, mass effect, midline shift or pathologic extra- axial fluid collection. No hydrocephalus. No gradient signal blooming artifacts are identified. No cerebellar tonsillar ectopia. No sellar/suprasellar signal abnormalities. The ocular globes and intraorbital soft tissues are symmetrically unremarkable. Right maxillary sinus disease is noted. There is fluid signal in a portion of the right mastoid air cells. MRI/Brain without Contrast IMPRESSION: There is focal restricted diffusion in the right temporal lobe measuring 1.6 by 1.1 by 1.8 cm which has associated increased T2 and FLAIR signal, and subtle decreased T1 signal, subacute infarct. There is a 1.8 x 1.8 cm focus of restricted diffusion in the right precentral c ortex at the vertex with no associated T2 or FLAIR signal changes, and is visible on 1 image only, and may be artifact, versus rec ent infarct. 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 There is a 1.1 x 0.8 cm chronic infarct in the right cerebellum. There is abnormal increased T2 and FLAIR signal changes throughout the deep whi te matter, with severe chronic ischemic changes. Right maxillary sinus disease is noted. There is fluid signal in a portion of the right mastoid air cells. [facility]
== END | disposition home or self-care (01) ==
LOC: OPMRI 10:55
PROVIDERS: PCP Family Medicine Geriatric Medicine; Referring Provider Family Medicine Geriatric Medicine; Visit Provider Family Medicine Geriatric Medicine
DX: G31.84 Mild cognitive impairment of uncertain or unknown etiology (principal)
CPT/HCPCS: 70551

== ENCOUNTER → 2025-01-10 | Outpatient (CLI) | payer MEDICARE, BC, SELFPAY ==
[2022-01-16 08:42] VITALS: BMI 26.4
[2025-01-10 13:26] LABS: Hematocrit 45.4 % (37-47); Hemoglobin 14.8 g/dL (12.0-15.0); Immature Granulocytes Count 0.010 X10^3/uL (0.0-0.0); Mean Corp Hgb Conc 32.6 g/dL (32-36); Mean Corpuscular Volume 102.0 fL (81-99); Mean Platelet Vol. 9.0 fl (6.2-12.0); NRBC Flagged by Analyzer 0 % (0-5); Platelet Count 266 K/mm3 (150-450); RBC Distribution Width CV 13.1 % (11.6-14.6); RBC Distribution Width SD 49.1 fl (35.1-43.9); Red Blood Count 4.45 M/mm3 (4.2-5.4); White Blood Count 6.7 K/mm3 (4.4-11.0)
[2025-01-10 14:14] LABS: AST(SGOT) 19 U/L (<=31); Alanine Aminotransfer ALT/SGPT 13 U/L (<=34); Albumin, Serum 4.2 g/dL (3.4-4.8); Alkaline Phosphatase 93 U/L (35-104); Anion Gap 12 (5-15); BUN 21 mg/dL (4-19); BUN/Creat Ratio 17.6 RATIO (10-20); Calcium,Total 9.9 mg/dL (7.6-11.0); Carbon Dioxide 22.7 mmol/L (21.0-32.0); Chloride 105 mmol/L (98-108); Globulin 3.1 g/dL (2.2-4.2); Glucose 115 mg/dL (70-99); Potassium 4.4 mmol/L (3.3-5.1); Vitamin D,25 Hydroxy 29.6 ng/mL (30-100)
[2025-01-10 15:26] LABS: Creatinine, Urine (random) 256.00 mg/dL (28.00-217.00); Microalbumin,Random Urine 141.0 mg/L (NO RANGE EST.)
== END | disposition home or self-care (01) ==
LOC: POLAB3 13:07
PROVIDERS: PCP Family Medicine Geriatric Medicine; Referring Provider Family Medicine Geriatric Medicine; Visit Provider Family Medicine Geriatric Medicine
DX: E11.65 Type 2 diabetes mellitus with hyperglycemia (principal); I10 Essential (primary) hypertension; E55.9 Vitamin D deficiency, unspecified
CPT/HCPCS: 36415; 80053; 82043; 82306; 82570; 84443; 85025

== ENCOUNTER → 2025-03-30 | Outpatient (CLI) | payer MEDICARE, BC, SELFPAY ==
[2022-01-16 08:42] VITALS: BMI 26.4
[2025-03-30 11:57] LABS: Cholesterol 153 mg/dL (<=200); Low Density Lipoprotein Calc. 56 mg/dL; Triglycerides 77 mg/dL; Very Low Density Lipoprotein 15 mg/dL (5-40); cholesterol:hdl ratio screen 1.88
== END | disposition home or self-care (01) ==
LOC: LAB 10:10
PROVIDERS: PCP Family Medicine Geriatric Medicine; Referring Provider Nurse Practitioner Psychiatric/Mental Health; Visit Provider Nurse Practitioner Psychiatric/Mental Health
DX: Z79.899 Other long term (current) drug therapy (principal)
CPT/HCPCS: 36415; 80061; 83036

== ENCOUNTER → 2025-04-18 | Outpatient (CLI) | payer MEDICARE, BC, SELFPAY ==
[2022-01-16 08:42] VITALS: BMI 26.4
--- NOTE | 2025-04-18 12:40 | ECHOD_ITS ---
Reason For Study Reason For Study: CVA Procedure This was a 2D Doppler, Color Flow transthoracic echocardiogram. Exam performed in department. Left Ventricle Normal LV size. Mild concentric left ventricular hypertrophy. The left ventricular ejection fraction is 55 %. No regional wall motion abnormalities noted. Right Ventricle Normal RV size. Normal systolic function. Atria Normal left atrium. Normal right atrium. Mitral Valve There is mild mitral annular calcification. Bileaflet diffuse mitral valve thickening. Mild-Moderate (1-2+) eccentric mitral valve insufficiency. Tricuspid Valve Normal tricuspid valve. Mild (1+) tricuspid valve insufficiency. Pulmonary artery systolic pressure is 24 mmHg. Aortic Valve Normal aortic valve. Pulmonic Valve Normal pulmonic valve. Great Vessels Normal aortic root. The pulmonary artery is normal size. Inferior vena cava collapse with respiration. Pericardium/Pleural No pericardial effusion. MMode/2D Measurements & Calculations LVIDd: 4.2 cm IVSd: 1.2 cm LVOT diam: 1.9 cm LVIDs: 2.7 cm LVPWd: 1.2 cm LVOT area: 2.9 cm2 RVDd: 3.7 cm FS: 36.0 % asc Aorta Diam: 3.2 cm LAV(MOD-bp): 37.9 ml LVAd ap4: 17.0 cm2 LAV(MOD-bp) Indexed: 19.6 ml/m2 LVLd ap4: 6.2 cm LAV(MOD-sp2): 38.4 ml EDV(MOD-sp4): 38.4 ml LAV(MOD-sp4): 36.6 ml EDV(sp4-el): 39.3 ml LVAs ap4: 10.0 cm2 LVLs ap4: 5.7 cm ESV(MOD-sp4): 14.7 ml ESV(sp4-el): 15.0 ml EF(MOD-sp4): 61.8 % EF(sp4-el): 61.9 % LVAd ap2: 18.5 cm2 SV(MOD-sp4): 23.7 ml SV(MOD-sp2): 27.8 ml LVLd ap2: 6.1 cm SI(MOD-sp4): 12.3 ml/m2 SI(MOD-sp2): 14.4 ml/m2 EDV(MOD-sp2): 48.2 ml EDV(sp2-el): 47.8 ml LVAs ap2: 11.4 cm2 LVLs ap2: 5.4 cm ESV(MOD-sp2): 20.4 ml ESV(sp2-el): 20.2 ml EF(MOD-sp2): 57.7 % SV(sp4-el): 24.3 ml Ao sinus diam: 2.[address] Junction: 2.2 cm LA dimension(2D): 3.9 cm LA A4 area: 15.7 cm2 RA A4 area: 8.6 cm2 TAPSE: 1.1 cm Time Measurements MV dec time: 0.16 sec Doppler Measurements & Calculations MV E max nikolay: 105.2 cm/sec Lat Peak E' Nikolay: 10.2 cm/sec Med Peak E' Nikolay: 8.8 cm/sec MV A max nikolay: 103.2 cm/sec E/E' lat: 10.4 E/E' med: 12.0 MV E/A: 1.0 MV dec slope: 644.6 cm/sec2 Ao V2 max: 128.9 cm/sec LV V1 max: 103.7 cm/sec Ao max P.6 mmHg LV V1 max P.3 mmHg Ao V2 mean: 93.1 cm/sec LV V1 mean P.6 mmHg Ao mean P.9 mmHg LV V1 mean: 76.6 cm/sec Ao V2 VTI: 32.7 cm LV V1 VTI: 25.6 cm AV (velocity ratio): 0.78 BLACK(I,D): 2.3 cm2 BLACK(V,D): 2.4 cm2 SV(LVOT): 75.5 ml PA V2 max: 74.8 cm/sec TR max nikolay: 231.2 cm/sec TR max P.4 mmHg ECHO/Echo Complete Interpretation Summary Normal LV size. The left ventricular ejection fraction is 55 %. Mild concentric left ventricular hypertrophy. No regional wall motion abnormalities noted. Mild-Moderate (1-2+) eccentric mitral valve insufficiency. Ordering Physician: Pierce Boyd Referring Physician: Paulo Murray Chi Performed By: Mandy Richardson RDCS
--- NOTE | 2025-04-18 12:48 | CDU_ITS ---
Reason For Study Reason For Study: Cerebral Infarction Rt. Velocities/BP Lt. Velocities/BP Prox CCA 66/11 cm/sec. Prox CCA 84/13 cm/sec. Mid CCA 56/13 cm/sec. Mid CCA 66/13 cm/sec. Dist CCA 67/11 cm/sec. Dist CCA 61/15 cm/sec. Prox ICA 86/23 cm/sec. Prox ICA 91/14 cm/sec. Mid ICA 82/22 cm/sec. Mid ICA 60/15 cm/sec. Dist ICA 78/23 cm/sec. Dist ICA 84/22 cm/sec. Rt. ICA/CCA = 1.5. Lt. ICA/CCA = 1.4. Prox ECA 64/7 cm/sec. Prox ECA 62/3 cm/sec. Rt. Vert. 50/10 cm/sec. Lt. Vert. 50/15 cm/sec. Right Extracranial There is heterogeneous, irregular atherosclerotic plaque noted in the right common carotid artery. There is heterogeneous, irregular atherosclerotic plaque noted in the right internal carotid artery. There is intimal thickening but no significant atherosclerotic plaque noted in the right external carotid artery. Antegrade flow is noted in the right vertebral artery. Left Extracranial There is heterogeneous, irregular atherosclerotic plaque noted in the left common carotid artery. There is heterogeneous, irregular atherosclerotic plaque noted in the left internal carotid artery. There is heterogeneous, irregular atherosclerotic plaque noted in the left external carotid artery. Antegrade flow is noted in the left vertebral artery. Procedure Carotid Duplex [id number]. This is a Carotid Duplex examination using B-mode, color flow and specral Doppler. Exam performed in department. VL/Carotid Duplex Ultrasound Interpretation Summary Mild (<50%) stenosis right extracranial internal carotid. Mild (<50%) stenosis left extracranial internal carotid. Flow within the vertebral arteries is antegrade bilaterally. Ordering Physician: Pierce Boyd Referring Physician: Paulo Murray Chi Performed By: Kiersten Moore RVT, RDCS and Student
== END | disposition home or self-care (01) ==
LOC: CVS 12:30
PROVIDERS: PCP Family Medicine Geriatric Medicine; Referring Provider Psychiatry & Neurology Neurology; Visit Provider Psychiatry & Neurology Neurology
DX: Z86.73 Personal history of transient ischemic attack (TIA), and cerebral infarction without residual deficits (principal)
CPT/HCPCS: 93306; 93880

== ENCOUNTER → 2025-04-21 | Outpatient (CLI) | payer MEDICARE, BC, SELFPAY ==
[2022-01-16 08:42] VITALS: BMI 26.4
[2025-04-21 14:49] LABS: Hematocrit 42.9 % (37-47); Hemoglobin 14.5 g/dL (12.0-15.0); Immature Granulocytes Count 0.020 X10^3/uL (0.0-0.0); Mean Corp Hgb Conc 33.8 g/dL (32-36); Mean Corpuscular Volume 96.8 fL (81-99); Mean Platelet Vol. 9.2 fl (6.2-12.0); NRBC Flagged by Analyzer 0 % (0-5); Platelet Count 253 K/mm3 (150-450); RBC Distribution Width CV 12.6 % (11.6-14.6); RBC Distribution Width SD 45.4 fl (35.1-43.9); Red Blood Count 4.43 M/mm3 (4.2-5.4); White Blood Count 8.1 K/mm3 (4.4-11.0)
[2025-04-21 15:29] LABS: AST(SGOT) 31 U/L (<=31); Alanine Aminotransfer ALT/SGPT 14 U/L (<=34); Albumin, Serum 4.4 g/dL (3.4-4.8); Alkaline Phosphatase 86 U/L (35-104); Anion Gap 13 (5-15); BUN 17 mg/dL (4-19); BUN/Creat Ratio 14.3 RATIO (10-20); Calcium,Total 10.0 mg/dL (7.6-11.0); Carbon Dioxide 22.8 mmol/L (21.0-32.0); Chloride 104 mmol/L (98-108); Globulin 3.2 g/dL (2.2-4.2); Glucose 135 mg/dL (70-99); Potassium 4.3 mmol/L (3.3-5.1); Vitamin D,25 Hydroxy 32.6 ng/mL (30-100)
[2025-04-21 22:28] LABS: Xtra Tube Kwok EXTRA TUBE
== END | disposition home or self-care (01) ==
LOC: POLAB3 14:28
PROVIDERS: PCP Family Medicine Geriatric Medicine; Visit Provider Family Medicine Geriatric Medicine
DX: E11.65 Type 2 diabetes mellitus with hyperglycemia (principal); I10 Essential (primary) hypertension; E55.9 Vitamin D deficiency, unspecified
CPT/HCPCS: 36415; 80053; 82306; 84443; 85025

== ENCOUNTER 2025-05-07 15:55 | Emergency (ER) | payer MEDICARE, BC, SELFPAY ==
[2022-01-16 08:42] VITALS: BMI 26.4
[2025-05-07 15:57] VITALS: BP 164/88; PULSE 74; RESP 18; TEMP 36.2; O2SAT 98; BMI 29.2
--- NOTE | 2025-05-07 16:11 | EX.ED.DYSGE1 ---
HPI History of Present Illness Chief Complaint: Abd Pain Detail of Chief Complaint: Right sided abdominal pain proximal to the umbilicus Informant: patient Onset/Context/Timing Onset: Hours (Started at 10 AM) Context: Sudden Onset Timing: Continuous and Waxes and wanes Quality: Pain Location: Right of the umbilicus Current Severity: Mild Maximum Severity: Moderate Worsened by: Nothing Relieved by: Better if she is supine and stretches out Associated Symptoms Associated Symptoms: None Narrative Narrative: Patient is a 79-year-old woman history of hypertension, PSVT, fatigue, coronary artery disease, hyperlipidemia who is status postcholecystectomy 5 years ago and appendectomy many years ago who presents with pain right of the umbilicus and slightly inferior. She denies fever, chills or night sweats. She denies respiratory symptoms. She denies nausea, vomiting or diarrhea. She denies change in color, consistency or caliber of her stool. She states she had a normal bowel movement this morning. She had cereal for breakfast. She has not had lunch. She denies pain radiating through to her back. She denies history of renal or ureterolithiasis. She denies dysuria, frequency, urgency or hematuria. She has not noted a rash. She has not had pain like this before. There is no history of peptic ulcer disease. Patient does have history of GERD reviewing prior records and is on Protonix. Prior similar symptoms: No Recent Illness/Hospitalization: No PFSH PFSH Medical History Essential hypertension Diarrhea Depression Gastroesophageal reflux disease Debility Atherosclerotic heart disease of [place] coronary artery without angina pectoris HLD (hyperlipidemia) Diabetes mellitus Obesity Osteoarthritis Essential (primary) hypertension Urinary incontinence Seasonal asthma GERD (gastroesophageal reflux disease) Home Medications ?Medication ?Instructions ?Recorded ?Last Taken ?Type aspirin 81 mg tablet,delayed 81 mg PO DAILY heart 11/17/19 11/16/19 History release acetaminophen 500 mg tablet 1,000 mg (2 x 500 mg) PO Q6H PRN 08/14/21 Unknown Rx PRN Pain Score 1-5 #0 tabs duloxetine 60 mg capsule,delayed 60 mg PO DAILY 11/23/21 Unknown History release levothyroxine 50 mcg tablet 50 mcg PO DAILY 09/26/22 Unknown History metoprolol tartrate 25 mg tablet 25 mg PO DAILY #90 tabs 09/26/22 Unknown Rx pantoprazole 40 mg tablet,delayed 40 mg PO DAILY 09/26/22 Unknown History release diltiazem HCl 120 mg capsule,24 See Rx Instructions .Route 11/22/22 Unknown Rx hr,extended release .COMPLEX #30 caps aripiprazole 5 mg tablet 5 mg PO QHS 03/29/25 Unknown History donepezil 10 mg tablet 10 mg PO QDAY 03/29/25 Unknown History rosuvastatin 10 mg tablet 10 mg PO QHS 03/29/25 Unknown History sucralfate 1 gram tablet (Carafate) 1 g PO UD #60 tabs 05/07/25 Unknown Rx Allergy/AdvReac Type Severity Reaction Status Date / Time ceftriaxone sodium (From Allergy Hives Verified 05/07/25 15:57 Rocephin) doxycycline Allergy Hives Verified 05/07/25 15:57 fluoxetine (From Prozac) Allergy PT UNSURE Verified 05/07/25 15:57 OF REACTION lorazepam (From Ativan) AdvReac Other Verified 05/07/25 15:57 trimethoprim AdvReac Nausea Verified 05/07/25 15:57 Family History Sister Heart disease Diabetes Hypertension Father Diabetes Heart disease Mother Hypertension Surgical History History of coronary artery bypass surgery (06/20/21) History of inguinal hernia repair History of knee surgery History of hysterectomy History of bladder suspension procedure History of left heart catheterization (06/14/21) Hx of cholecystectomy History of bladder surgery Social History household members: none housing: assisted living facility Smoking Status: Former smoker how long ago did patient quit smokin years ago alcohol intake: never substance use type: does not use caffeine: No ROS ROS ED Constitutional Constitutional ED: Reports other Details: Patient states she has had recent weight gain. ; Denies chills, fever(s), subjective, sweats or weight loss Cardiovascular Cardiovascular: Denies chest pain, orthopnea, palpitations or paroxysmal nocturnal dyspnea Respiratory/Chest Respiratory/Chest: Denies cough, dyspnea, dyspnea on exertion, orthopnea or paroxysmal nocturnal dyspnea Gastrointestinal Gastrointestinal: Reports abdominal pain; Denies constipation, diarrhea, melena, nausea or vomiting Genitourinary Genitourinary ED: Denies dysuria, hematuria or urinary frequency Musculoskeletal Musculoskeletal: Denies arthralgias, back pain or myalgias Integumentary Denies rash Endocrine Endocrinology: Denies cold intolerance or heat intolerance Hematologic/Lymphatic Hematologic/Lymphatic: Reports systems reviewed and no addt'l complaints, except as documented EXAM Physical Exam Const Vital Signs: 05/07/25 15:57 Temperature 97.2 F L Temperature Source Temporal Pulse Rate 74 Respiratory Rate 18 Blood Pressure 164/88 H Blood Pressure Mean 113 Pulse Ox 98 Oxygen Delivery Method Room Air Positive well nourished and well developed Constitutional Narrative: BMI is 29.3. General Appearance ED: well developed, NAD and pallor HEENT Reports moist mucous membranes HEENT Narrative: Head is atraumatic and normocephalic. Ears are normal. Eyes PERRL and EOMs intact bilaterally General Eye ED: Negative for pale conjunctiva or scleral icterus Neck no JVD Resp normal respiratory effort and clear to auscultation bilaterally Cardio regular rate, regular rhythm, S1 normal heart sound, S2 normal heart sound and no murmurs GI normal to inspection, nondistended, normoactive bowel sounds, non-distended and no masses; Negative for non-tender or hepatosplenomegaly Palpation: soft and tender epigastric Back/Spine no CVA tenderness Extremity normal to inspection General Extremety ED: Negative for edema or tenderness General Extremity: Negative for edema Neuro oriented x3 and CN's II-XII intact bilaterally Sensorium / Orientation: alert Psych mental status grossly normal Skin no rashes or lesions noted, no wounds and skin turgor normal General Skin Exam: pallor; Negative for jaundice MDM MDM MDM Narrative Medical decision making narrative: With patient having history of GERD epigastric pain only will order GI cocktail. In my opinion she does not need any advanced imaging at this time. If anything she has slight temp in which may be due to distention of her bowel however with no nausea vomiting and having normal bowel movement doubt partial obstruction. Furthermore, she has no history. With her not having food intolerance no right upper quadrant pain and cholecystectomy only 5 years ago doubt choledocholithiasis. With history of GERD and epigastric pain in my opinion this is probably GI i.e. peptic ulcer disease or reflux is causing her discomfort. History & Record Review Additional record(s) reviewed:: Prior ED visit, Prior labs and Other ( operative report authored by Dr. Guadarrama for frequency of micturition. Patient reports she had her cholecystectomy performed here however there is no record of her having a cholecystectomy at [facility].) Lab Data Attestation: I reviewed the patient's lab results. Lab results narrative: CBC is unremarkable. Basic metabolic panel is unremarkable her glucose is elevated 149 with a normal CO2 anion gap. BUN and creatinine are slightly elevated 21 and 1.03. Liver enzymes lipase normal. Labs: Laboratory Results - last 24 hr 05/07/25 16:22 WBC 9.9 RBC 3.92 L Hgb 12.6 Hct 37.9 MCV 96.7 MCH 32.1 H MCHC 33.2 RDW Std Deviation 44.4 H RDW Coeff of [place] 12.5 Plt Count 221 MPV 9.7 Immature Gran % (Auto) 0.300 Neut % (Auto) 74.4 H Lymph % (Auto) 14.6 L [place] % (Auto) 7.4 Eos % (Auto) 2.7 Baso % (Auto) 0.6 Absolute Neuts (auto) 7.3 Absolute Lymphs (auto) 1.44 Nucleated RBC % 0 Sodium 138 Potassium 4.2 Chloride 105 Carbon Dioxide 23.3 Anion Gap 10 BUN 21 H Creatinine 1.03 Estim Creat Clear Calc 50.71 Est GFR (MDRD) Non-Af 56 L BUN/Creatinine Ratio 20.1 H Glucose 129 H Calcium 9.6 Total Bilirubin 0.33 Direct Bilirubin 0.11 AST 20 ALT 10 Alkaline Phosphatase 77 Total Protein 6.8 Albumin 3.8 Globulin 3.0 Lipase 52 Treatment and Re-Evaluation :: Patient was reassessed at 1711. Her pain resolved with a GI cocktail. Since this never happened before plan is to give her prescription for Sucre fate. If this reoccurs she is to start the sucralfate. Discharge Plan Triage Chief Complaint: Abd Pain ED Provider: WalterOscar Dx/Rx/DC Orders Clinical Impression: Epigastric abdominal pain, GERD (gastroesophageal reflux disease), Hyperlipidemia, Essential hypertension, Atherosclerotic heart disease of [place] coronary artery without angina pectoris Instructions: ED GERD (Adult) Prescriptions: New sucralfate [Carafate] 1 gram tablet 1 g PO UD Qty: 60 0RF Rx Instructions: 1/2-hour AC and at bedtime No Action duloxetine 60 mg capsule,delayed release(DR/EC) 60 mg PO DAILY levothyroxine 50 mcg tablet 50 mcg PO DAILY Patient Comments: TAKE 1 TABLET BY MOUTH DAILY pantoprazole 40 mg tablet,delayed release (DR/EC) 40 mg PO DAILY Patient Comments: TAKE 1 TABLET BY MOUTH DAILY metoprolol tartrate 25 mg tablet 25 mg PO DAILY Qty: 90 3RF donepezil 10 mg tablet 10 mg PO QDAY aripiprazole 5 mg tablet 5 mg PO QHS rosuvastatin 10 mg tablet 10 mg PO QHS aspirin 81 MG tablet,delayed release (DR/EC) 81 mg PO DAILY acetaminophen 500 mg Tablet 1,000 mg PO Q6H PRN PRN (Reason: Pain Score 1-5) Qty: 0 0RF diltiazem HCl 120 mg capsule,extended release 24 hr See Rx Instructions .ROUTE .COMPLEX Qty: 30 11RF Dose Instruction: TAKE 1 CAPSULE BY MOUTH ONCE DAILY Rx Instructions: TAKE 1 CAPSULE BY MOUTH ONCE DAILY Primary Care Provider: Paulo Murray Chi Referrals: Paulo Murray Chi, MD [Primary Care Provider, Geriatrics] - As Needed Activity Restrictions/Additional Instructions: If pain reoccurs fill prescription for Carafate/sucralfate. Print Language: German Disposition Disposition: Home, Self Care
[2025-05-07] MEDS: Lidocaine 2% Viscous15 ML UDC 15 ML PO (16:29)
[2025-05-07 16:38] LABS: Hematocrit 37.9 % (37-47); Hemoglobin 12.6 g/dL (12.0-15.0); Immature Granulocytes Count 0.030 X10^3/uL (0.0-0.0); Mean Corp Hgb Conc 33.2 g/dL (32-36); Mean Corpuscular Volume 96.7 fL (81-99); Mean Platelet Vol. 9.7 fl (6.2-12.0); NRBC Flagged by Analyzer 0 % (0-5); Platelet Count 221 K/mm3 (150-450); RBC Distribution Width CV 12.5 % (11.6-14.6); RBC Distribution Width SD 44.4 fl (35.1-43.9); Red Blood Count 3.92 M/mm3 (4.2-5.4); White Blood Count 9.9 K/mm3 (4.4-11.0)
[2025-05-07 17:04] LABS: AST(SGOT) 20 U/L (<=31); Alanine Aminotransfer ALT/SGPT 10 U/L (<=34); Albumin, Serum 3.8 g/dL (3.4-4.8); Alkaline Phosphatase 77 U/L (35-104); Anion Gap 10 (5-15); BUN 21 mg/dL (4-19); BUN/Creat Ratio 20.1 RATIO (10-20); Bilirubin, Direct 0.11 mg/dL (0.00-0.30); Calcium,Total 9.6 mg/dL (7.6-11.0); Carbon Dioxide 23.3 mmol/L (21.0-32.0); Chloride 105 mmol/L (98-108); Estimated Creatinine Clearance 50.71 ml/min (50-250); Globulin 3.0 g/dL (2.2-4.2); Glucose 129 mg/dL (70-99); Lipase 52 U/L (13-75); Potassium 4.2 mmol/L (3.3-5.1)
== END 2025-05-07 17:25 | disposition home or self-care (01) ==
PROVIDERS: Emergency Provider Emergency Medicine; PCP Family Medicine Geriatric Medicine; Visit Provider Emergency Medicine
DX: R10.13 Epigastric pain (principal); E11.65 Type 2 diabetes mellitus with hyperglycemia; R35.0 Frequency of micturition; I25.10 Atherosclerotic heart disease of native coronary artery without angina pectoris; I10 Essential (primary) hypertension; E78.5 Hyperlipidemia, unspecified; K21.9 Gastro-esophageal reflux disease without esophagitis; Z79.82 Long term (current) use of aspirin; Z79.890 Hormone replacement therapy; Z79.899 Other long term (current) drug therapy; Z87.891 Personal history of nicotine dependence; Z90.49 Acquired absence of other specified parts of digestive tract
CPT/HCPCS: 80048; 80076; 83690; 85025; 99283

== ENCOUNTER → 2025-05-17 | Outpatient (CLI) | payer MEDICARE, BC, SELFPAY ==
[2022-01-16 08:42] VITALS: BMI 26.4
[2025-05-19 15:08] LABS: H. PYLORI STOOL AG Negative (Negative)
== END | disposition home or self-care (01) ==
PROVIDERS: PCP Family Medicine Geriatric Medicine; Visit Provider Family Medicine Geriatric Medicine
DX: B96.81 Helicobacter pylori [H. pylori] as the cause of diseases classified elsewhere (principal)
CPT/HCPCS: 87338